=== PATIENT | male | born 1955 | race Caucasian/White ===

== ENCOUNTER 2017-12-13 18:20 | Inpatient (IN) | payer BC ==
[2017-12-13] MEDS ORDERED: SODIUM CHLORIDE 0.9% 1,000 ML IV STA (18:30)
[2017-12-13 18:47] LABS: Basophils % (A) 0 %; Eosinophils # (A) 0.3 k/uL (0-0.7); Eosinophils % (A) 4 %; HCT 41.5 % (39.0-53.0); HGB 13.6 gm/dL (13.0-17.5); Lymphocytes # (A) 2.1 k/uL (1.0-4.8); Lymphocytes % (A) 31 %; MCH 30.8 pg (25.0-35.0); MCHC 32.8 g/dL (31.0-37.0); MCV 93.9 fL (80.0-100.0); Mean Platelet Volume 6.9; Monocytes # (A) 0.5 k/uL (0-1.0); Monocytes % (A) 7 %; Neutrophils # (A) 3.7 k/uL (1.3-7.7); Neutrophils % (A) 54 %; Platelet Count 275 k/uL (150-450); RBC 4.42 m/uL (4.30-5.90); RDW 13.2 % (11.5-15.5); WBC 6.8 k/uL (3.8-10.6)
--- NOTE | 2017-12-13 18:48 | ED ---
Neuro HPI - General Chief Complaint: Neuro Symptoms/Deficit Stated Complaint: Left Side Numbness Time Seen by Provider: 12/13/17 18:30 Source: patient Mode of arrival: wheelchair Limitations: no limitations - History of Present Illness Is the patient presenting with stroke symptoms?: No Initial Comments: 62 years old gentleman from some tingling and has left arm and left leg started with an hour he just finished her supper he noticed some tingling now he denies any weakness of the left upper or lower extremity he didn't drop anything is on the left hand and he was able to ambulate without difficulty from his house to his car he denies any headache no blurred vision no slurred speech no chest pain no shortness of breath no abdominal pain no frequency urgency dysuria he has tingling of the left upper and lower extremity. I spoke with his she did noted she did not notice any facial droop she did not notice any slurred speech. - Related Data Home Medications: Home Medications Medication Instructions Recorded Confirmed Atorvastatin Calcium [Lipitor] 20 mg PO DAILY 03/04/14 03/04/14 Fluticasone/Salmeterol [Advair 1 inhalation PO BID 03/04/14 03/04/14 250-50 Diskus] Omeprazole [PriLOSEC] 20 mg PO AC-BRKFST 03/04/14 03/04/14 Previous Rx's Medication Instructions Recorded Hydrocodone/Acetaminophen [[place] 1 - 2 each PO Q6HR PRN #30 tab 03/04/14 5-325] Orphenadrine [Norflex] 100 mg PO Q12H #20 tablet.er 03/04/14 predniSONE 20 mg PO BID #10 tab 03/04/14 Allergies/Adverse Reactions: Allergies Allergy/AdvReac Type Severity Reaction Status Date / Time simvastatin [From Zocor] Allergy Itching Verified 12/13/17 18:23 Review of Systems ROS Statement: Those systems with pertinent positive or pertinent negative responses have been documented in the HPI. ROS Other: All systems not noted in ROS Statement are negative. General Exam - General Exam Comments Initial Comments: General: The patient is awake and alert, in no distress, and does not appear acutely ill. GCS is 15 Skin: Skin is warm and dry and no rashes or lesions are noted. Eye: Pupils are equal, round and reactive to light, extra-ocular movements are intact; there is normal conjunctiva bilaterally. Ears, nose, mouth and throat: There are moist mucous membranes and no oral lesions. Neck: The neck is supple, there is no tenderness, no sign of meningitis Cardiovascular: There is a regular rate and rhythm. No murmur, rub or gallop is appreciated. Respiratory: To auscultation bilateral, no wheezing no rhonchi no distress respiratory arzate noticed Gastrointestinal: Soft, non-distended, non-tender abdomen without masses or organomegaly noted. There is no rebound or guarding present. Bowel sounds are unremarkable. Back: There is no tenderness to palpation in the midline. There is no obvious deformity. Musculoskeletal: Normal ROM, no tenderness, There is no pedal edema. There is no calf tenderness or swelling. No cords were appreciated. Neurological: CN II-XII intact, Cranial nerves III through XII are intact. There are no obvious motor or sensory deficits. Coordination appears grossly intact. Speech is normal. No motor or sensory deficits were appreciated, he was able to appreciate the pinpricks on his left toes as well as left hand fingers as good as on the right side Psychiatric: Cooperative, appropriate mood & affect, normal judgment. Limitations: no limitations Stroke MDM - Lab Data Result diagrams: 12/13/17 18:37 12/13/17 18:37 Lab Results 12/13/17 12/13/17 12/13/17 Range/Units 18:37 18:37 18:37 WBC 6.8 (3.8-10.6) k/uL RBC 4.42 (4.30-5.90) m/uL Hgb 13.6 (13.0-17.5) gm/dL Hct 41.5 (39.0-53.0) % MCV 93.9 (80.0-100.0) fL MCH 30.8 (25.0-35.0) pg MCHC 32.8 (31.0-37.0) g/dL RDW 13.2 (11.5-15.5) % Plt Count 275 (150-450) k/uL Neutrophils % 54 % Lymphocytes % 31 % Monocytes % 7 % Eosinophils % 4 % Basophils % 0 % Neutrophils # 3.7 (1.3-7.7) k/uL Lymphocytes # 2.1 (1.0-4.8) k/uL Monocytes # 0.5 (0-1.0) k/uL Eosinophils # 0.3 (0-0.7) k/uL Basophils # 0.0 (0-0.2) k/uL PT (9.0-12.0) sec INR (<1.2) APTT (22.0-30.0) sec Sodium 141 (137-145) mmol/L Potassium 4.4 (3.5-5.1) mmol/L Chloride 108 H (98-107) mmol/L Carbon Dioxide 26 (22-30) mmol/L Anion Gap 7 mmol/L BUN 28 H (9-20) mg/dL Creatinine 1.10 (0.66-1.25) mg/dL Est GFR (CKD-EPI)AfAm 82 (>60 ml/min/1.73 sqM) Est GFR (CKD-EPI)NonAf 71 (>60 ml/min/1.73 sqM) Glucose 113 H (74-99) mg/dL Calcium 9.3 (8.4-10.2) mg/dL Total Bilirubin 0.5 (0.2-1.3) mg/dL AST 28 (17-59) U/L ALT 31 (21-72) U/L Alkaline Phosphatase 63 (38-126) U/L Total Creatine Kinase 116 (55-170) U/L CK-MB (CK-2) 1.1 (0.0-2.4) ng/mL CK-MB (CK-2) Rel Index 0.9 Troponin I <0.012 (0.000-0.034) ng/mL Total Protein 7.0 (6.3-8.2) g/dL Albumin 4.2 (3.5-5.0) g/dL 12/13/17 Range/Units 18:37 WBC (3.8-10.6) k/uL RBC (4.30-5.90) m/uL Hgb (13.0-17.5) gm/dL Hct (39.0-53.0) % MCV (80.0-100.0) fL MCH (25.0-35.0) pg MCHC (31.0-37.0) g/dL RDW (11.5-15.5) % Plt Count (150-450) k/uL Neutrophils % % Lymphocytes % % Monocytes % % Eosinophils % % Basophils % % Neutrophils # (1.3-7.7) k/uL Lymphocytes # (1.0-4.8) k/uL Monocytes # (0-1.0) k/uL Eosinophils # (0-0.7) k/uL Basophils # (0-0.2) k/uL PT 10.6 (9.0-12.0) sec INR 1.1 (<1.2) APTT 23.2 (22.0-30.0) sec Sodium (137-145) mmol/L Potassium (3.5-5.1) mmol/L Chloride (98-107) mmol/L Carbon Dioxide (22-30) mmol/L Anion Gap mmol/L BUN (9-20) mg/dL Creatinine (0.66-1.25) mg/dL Est GFR (CKD-EPI)AfAm (>60 ml/min/1.73 sqM) Est GFR (CKD-EPI)NonAf (>60 ml/min/1.73 sqM) Glucose (74-99) mg/dL Calcium (8.4-10.2) mg/dL Total Bilirubin (0.2-1.3) mg/dL AST (17-59) U/L ALT (21-72) U/L Alkaline Phosphatase (38-126) U/L Total Creatine Kinase (55-170) U/L CK-MB (CK-2) (0.0-2.4) ng/mL CK-MB (CK-2) Rel Index Troponin I (0.000-0.034) ng/mL Total Protein (6.3-8.2) g/dL Albumin (3.5-5.0) g/dL Past Medical History Past Medical History: Asthma, GERD/Reflux, Hyperlipidemia History of Any Multi-Drug Resistant Organisms: None Reported Past Surgical History: Appendectomy Past Psychological History: No Psychological Hx Reported Smoking Status: Former smoker Past Alcohol Use History: Occasional Past Drug Use History: None Reported Course Vital Signs 12/13/17 12/13/17 18:23 19:20 Temperature 98.2 F 98.2 F Pulse Rate 78 65 Respiratory 18 16 Rate Blood Pressure 146/77 137/82 O2 Sat by Pulse 98 98 Oximetry EKG is normal sinus ventricular rate is 64 NH interval is 156 QRS duration is 70 QT/QTc is 460/429 review of this EKG does not reveal any ST elevation or ST depression Patient is reassessed at term 8 PM, head CT is normal chest x-ray ruled out any pneumothorax or consolidation CBC INR compressive metabolic panel troponin are unremarkable EKG was normal as well. Patient is complaining about some numbness to the face on the left side now and he had admitted numbness, comes and goes and he still has considering the possibility of a brain stem infarct and will admit patient to hospitalist group and Dr. Pettit and will consult Dr. Champion, labs and imaging were discussed with the patient he agrees with the plan Disposition Clinical Impression: Tingling of left upper extremity, Numbness and tingling of left lower extremity , Left-sided face pain Disposition: ADMITTED IP TO THIS HOSP Condition: Good Referrals: Hammad Matos DO [Primary Care Provider] - 1-2 days
[2017-12-13 18:56] LABS: Albumin 4.2 g/dL (3.5-5.0); Calcium 9.3 mg/dL (8.4-10.2); Potassium 4.4 mmol/L (3.5-5.1); Total Bilirubin 0.5 mg/dL (0.2-1.3)
[2017-12-13 18:59] LABS: Creatine Kinase 116 U/L (55-170)
--- NOTE | 2017-12-13 19:08 | XR ---
EXAMINATION TYPE: XR chest 2V DATE OF EXAM: 12/13/2017 COMPARISON: November 2010 HISTORY: Altered mental status TECHNIQUE: Frontal and lateral views of the chest are obtained. FINDINGS: Slight diffuse interstitial prominence is chronic in comparison to exam of 2011 also sligh tly more pronounced in the represent underlying interstitial lung disease. There is no focal air spac e opacity, pleural effusion, or pneumothorax seen. The cardiac silhouette size is upper limits of no rmal. The osseous structures are intact. IMPRESSION: 1. No focal consolidation to suggest pneumonia. No pleural effusion or pneumothorax. 2. Slight interstitial prominence, minimally progressed from the exam of 2010 may represent underlyin g interstitial lung disease.
[2017-12-13 19:12] LABS: Creatine Kinase MB 1.1 ng/mL (0.0-2.4); Troponin I <0.012 ng/mL (0.000-0.034)
--- NOTE | 2017-12-13 19:13 | CT ---
EXAMINATION TYPE: CT brain wo con DATE OF EXAM: 12/13/2017 COMPARISON: None HISTORY: Left side numbness CT DLP: 1003.7 mGycm Automated exposure control for dose reduction was used. TECHNIQUE: CT scan of the head is performed without contrast. FINDINGS: There is no acute intracranial hemorrhage, mass effect, or midline shift identified. Punctate dystrop hic basal ganglia calcifications are noted. There is no suspicious extra-axial fluid collection ident ified. The ventricles and sulci are within normal limits in size. Extensive mucosal thickening with i nspissated secretions is seen within the right maxillary sinus and circumferential mild mucosal thick ening within the visualized portion of the left maxillary sinus. Mild mucosal thickening is also pres ent within the ethmoid sinuses. The frontal and sphenoid sinuses are well aerated although the left s phenoid sinus is hypoplastic. Mastoid air cells are also well aerated. Cerumen impaction is noted wit hin the internal auditory canals. IMPRESSION: 1. No acute intracranial process. 2. Acute on chronic sinusitis within the maxillary and ethmoid sinuses.
[2017-12-13 19:15] LABS: INR 1.1 (<1.2); Partial Thromboplastin Time 23.2 sec (22.0-30.0); Prothrombin Time 10.6 sec (9.0-12.0)
[2017-12-13] MEDS ORDERED: NALOXONE 0.4 MG/ML 1 ML VIAL IV PRN (20:03)
[2017-12-13] MEDS ORDERED: ASPIRIN 81 MG PO STA (20:03)
[2017-12-13] MEDS ORDERED: ONDANSETRON 4 MG/2 ML VIAL IVP PRN (20:11)
[2017-12-13] MEDS ORDERED: ACETAMINOPHEN TAB 325 MG TAB PO PRN (20:11)
[2017-12-13] MEDS ORDERED: HYDROcodone/APAP 5-325MG 1 EACH TAB PO PRN (20:17)
[2017-12-13] MEDS: SODIUM CHLORIDE 0.9% 1,000 ML IV SCH (20:29)
[2017-12-14] MEDS ORDERED: SYMBICORT 80-4.5 MCG INHALER INHALATION SCH
--- NOTE | 2017-12-14 00:08 | CT ---
EXAMINATION TYPE: CT angio head neck DATE OF EXAM: 12/13/2017 HISTORY: Prior brain wo done earlier today, pt presents to ER with left sided facial numbness and lef t sided facial droop COMPARISON: CT DLP: 433.30 mGycm. Automated Exposure Control for Dose Reduction was Utilized. TECHNIQUE: CTA scan of the neck is performed with IV Contrast, patient injected with 65 mL of Isovue 370, axial images are obtained, coronal and sagittal reformatted images are reviewed. Three-D recons tructed images are created on an independent workstation and reviewed. FINDINGS: There is normal branching pattern of the great vessels on the aortic arch. There is wide patency of t he great vessels. There is arterial flow in both vertebral arteries. Vertebral arteries are fairly symmetric. There is arterial flow in the common internal and external carotid arteries bilaterally. The carotid arteries are widely patent. There is no evidence of carotid or vertebral artery aneurysm or dissectio n. There is no evidence of stenosis. There is arterial flow in the anterior middle and posterior cerebral arteries. There is arterial flow in the vertebrobasilar artery system. Right vertebral artery is larger than the left. There is bilat eral patency of the posterior communicating arteries. There is normal contrast opacification of the v enous sinuses. There is no evidence of aneurysm or neovascularity. IMPRESSION: Negative CT angiogram of the neck. Negative CT angiogram of the brain.
[2017-12-14] MEDS: CYCLOBENZAPRINE 10 MG TAB PO SCH ×3 (01:48→23:12)
[2017-12-14] MEDS: predniSONE 20 MG TAB PO SCH ×3 (01:48→20:56)
[2017-12-14] MEDS: HEPARIN SODIUM,PORCINE 5,000 UNIT/ML 1 ML VIAL SQ SCH ×3 (01:49→20:56)
--- NOTE | 2017-12-14 03:23 | HP ---
HISTORY AND PHYSICAL CHIEF COMPLAINTS: Numbness of the left side of the body. HISTORY OF PRESENT ILLNESS: This 62-year-old gentleman with a past medical history of asthma, GERD, hyperlipidemia, being followed by Dr. Hammad Matos in the outpatient setting, was apparently having numbness today which is involving the left arm initially and subsequently spread to the left lower limb and face also and the patient came to [facility] and was admitted for further evaluation and treatment. Patient was able to ambulate and the patient had no blurring of vision. No other symptoms are noted and the initial CAT scan did not show acute abnormality. Patient admitted to the hospital for further evaluation and treatment. There is no history of fever, rigors. No history of headache, loss of consciousness or seizures. PAST MEDICAL HISTORY: Asthma, GERD, hyperlipidemia. MEDICATIONS: Prior to admission include: 1. Prednisone 20 mg b.i.d. 2. Norflex 100 mg b.i.d. 3. Prilosec 20 mg breakfast. 4. [place] 5 mg q.6h p.r.n. 5. Advair 250/50 1 puff b.i.d. 6. Lipitor 20 mg daily. ALLERGIES: noted FAMILY HISTORY: History of stroke in grandfather who had also hemiplegia. SOCIAL HISTORY: Previous history of smoking. No history of current smoking or alcohol intake. REVIEW OF SYSTEMS: ENT: No diminished vision. No diminished hearing. CARDIOVASCULAR: No angina or palpitations. RESPIRATORY: No cough. No hemoptysis. GI: No nausea or vomiting. no dysuria. ALLERGY/IMMUNOLOGY: As mentioned earlier. HEMATOLOGY/ONCOLOGY: No history of anemia. ENDOCRINE: As mentioned earlier. CONSTITUTIONAL: As mentioned earlier. RHEUMATOLOGY: Negative. DERMATOLOGY: Negative. PSYCHIATRIC: As mentioned earlier. NEUROLOGICAL: As mentioned earlier. PHYSICAL EXAM: GENERAL: Patient is alert and oriented x3. VITAL SIGNS: The pulse is 65. Blood pressure 137/82, respirations 16, temperature 98.2, pulse ox 98% on 2 L. HEENT: Conjunctivae normal. Oral mucosa moist. NECK: No jugular venous distention. No carotid bruit. No lymph node enlargement. CARDIOVASCULAR: S1, S2 muffled. No S3, no S4. RESPIRATORY: Breath sounds diminished in the bases. No rhonchi. No crackles. ABDOMEN: Soft, nontender. No mass palpable. LEGS: No edema and no swelling. NERVOUS SYSTEM: Higher functions as mentioned earlier. Cranial nerves 2 thru 12 grossly intact. Moves all 4 limbs. Power is normal. Minimal incoordination noted on the left compared to the right. Very minimal. Otherwise gait normal. No sensory abnormalities. Reflexes are normal. SKIN: No ulcer, rash or bleeding. LYMPHATICS: No lymph nodes palpable in the neck, axillae or groin. JOINTS: No active deforming arthropathy. LABS: CBC, PT, INR normal. BUN is 28, chloride is 108, glucose 113. Otherwise CMP is normal. ASSESSMENT: 1. Numbness of the left arm and leg, possibly acute transient ischemic attack involving the right hemisphere. 2. Asthma. 3. Gastroesophageal reflux disease. 4. Hyperlipidemia. 5. Appendectomy. 6. Remote history of nicotine dependence. RECOMMENDATIONS AND DISCUSSION: In this 62-year-old gentleman who presented with multiple complex medical issues , we will monitor the patient closely. Continue the current management and continue symptomatic treatment. We will initiate antiplatelet agents, Lipitor. DVT prophylaxis. Neuro checks. I would also recommend a neurology evaluation also and as well as a CTA of the neck and the brain as well. A 2D echo also will be ordered. The patient is currently stable but overall prognosis guarded. Discussed with the patient who understands and agrees. Further recommendations to follow. A copy of dictation being forwarded to Dr. Erika Matos who is the primary physician. CHELSY / ANTWON: [id number] / MTDD
[2017-12-14 05:03] VITALS: RESP 16
[2017-12-14 06:45] LABS: Basophils % (A) 0 %; Eosinophils # (A) 0.1 k/uL (0-0.7); Eosinophils % (A) 2 %; HCT 42.3 % (39.0-53.0); HGB 13.8 gm/dL (13.0-17.5); Lymphocytes # (A) 0.9 k/uL (1.0-4.8); Lymphocytes % (A) 14 %; MCH 30.8 pg (25.0-35.0); MCHC 32.7 g/dL (31.0-37.0); MCV 94.1 fL (80.0-100.0); Mean Platelet Volume 6.9; Monocytes # (A) 0.2 k/uL (0-1.0); Monocytes % (A) 3 %; Neutrophils # (A) 4.7 k/uL (1.3-7.7); Neutrophils % (A) 79 %; Platelet Count 259 k/uL (150-450); RBC 4.49 m/uL (4.30-5.90); RDW 13.1 % (11.5-15.5); WBC 5.9 k/uL (3.8-10.6)
[2017-12-14 06:57] LABS: Anion Gap 7 mmol/L; Blood Urea Nitrogen 25 mg/dL (9-20); Calcium 9.1 mg/dL (8.4-10.2); Carbon Dioxide 24 mmol/L (22-30); Chloride 108 mmol/L (98-107); Glucose 124 mg/dL (74-99); HDL Cholesterol 51 mg/dL (40-60); Potassium 5.1 mmol/L (3.5-5.1); Sodium 139 mmol/L (137-145); Triglycerides 105 mg/dL (<150)
[2017-12-14 06:58] LABS: Cholesterol 286 mg/dL (<200); LDL Cholesterol,Calculated 214 mg/dL (0-99)
[2017-12-14 07:06] LABS: Appearance,Urine Clear (Clear); Bilirubin,Urine Negative (Negative); Blood,Urine Negative (Negative); Color,Urine Yellow; Glucose,Urine (UA) Negative (Negative); Ketones,Urine Trace (Negative); Leukocyte Esterase,Urine Negative (Negative); Nitrite,Urine Negative (Negative); Protein,Urine Negative (Negative); Specific Gravity,Urine 1.039 (1.001-1.035); Urobilinogen,Urine <2.0 mg/dL (<2.0)
[2017-12-14] MEDS: SYMBICORT 80-4.5 MCG INHALER INHALATION SCH ×2 (07:44→19:49)
[2017-12-14] MEDS: ATORVASTATIN 20 MG TAB PO SCH (10:05)
[2017-12-14] MEDS: PANTOPRAZOLE 40 MG TABLET PO SCH (10:05)
--- NOTE | 2017-12-14 10:37 | ECHOF ---
Referral Reason:Stroke MEASUREMENTS -------- HEIGHT: 182.9 cm WEIGHT: 97.1 kg BP: 141/182 RVIDd: 2.4 cm (< 3.3) IVSd: 1.3 cm (0.6 - 1.1) LVIDd: 4.8 cm (3.9 - 5.3) LVPWd: 1.1 cm (0.6 - 1.1) IVSs: 1.6 cm LVIDs: 3.8 cm LVPWs: 1.5 cm LA Diam: 3.8 cm (2.7 - 3.8) Ao Diam: 2.7 cm (2.0 - 3.7) AV Cusp: 1.6 cm (1.5 - 2.6) LA Diam: 3.4 cm (2.7 - 3.8) MV EXCURSION: 26.725 mm (> 18.000) MV EF SLOPE: 133 mm/s (70 - 150) EPSS: 1.1 cm MV E Carlitos: 0.68 m/s MV DecT: 209 ms MV A Carlitos: 0.52 m/s MV E/A Ratio: 1.30 AV maxP.79 mmHg AV meanP.16 mmHg RAP: 5.00 mmHg RVSP: 19.52 mmHg FINDINGS -------- Sinus rhythm. This was a technically adequate study. The left ventricular size is normal. There is mild concentric left ventricular hypertrophy. Overa ll left ventricular systolic function is low-normal with, an EF between 50 - 55 %. The right ventricle is normal in size. The left atrial size is normal. The right atrial size is normal. The aortic valve was not well visualized. There is moderate aortic stenosis present. Peak/mean gr adient across the Aortic Valve is 39.79mmHg / 21.16mmHg. Can't exclude possible Bicuspid Aov. Mild mitral annular calcification present. Mild mitral regurgitation is present. Mild tricuspid regurgitation present. There is no evidence of pulmonary hypertension. The right v entricular systolic pressure, as measured by Doppler, is 19.52mmHg. The pulmonic valve was not well visualized. The aortic root size is normal. There is no pericardial effusion. CONCLUSIONS -------- 1. The left ventricular size is normal. 2. There is mild concentric left ventricular hypertrophy. 3. Overall left ventricular systolic function is low-normal with, an EF between 50 - 55 %. 4. The right ventricle is normal in size. 5. The aortic valve was not well visualized. 6. There is moderate aortic stenosis present. 7. Peak/mean gradient across the Aortic Valve is 39.79mmHg / 21.16mmHg. 8. Can't exclude possible Bicuspid Aov. 9. Mild mitral annular calcification present. 10. Mild mitral regurgitation is present. 11. Mild tricuspid regurgitation present. 12. There is no evidence of pulmonary hypertension. 13. The right ventricular systolic pressure, as measured by Doppler, is 19.52mmHg. 14. The pulmonic valve was not well visualized. 15. The aortic root size is normal. 16. There is no pericardial effusion. SOCIAL WORKER ASSISTANT: Marilee Polk RDCS
[2017-12-14] MEDS ORDERED: LORazepam 2 MG/ML INJ IV PRN (12:12)
[2017-12-14] MEDS: ASPIRIN 81 MG PO SCH (13:31)
--- NOTE | 2017-12-14 13:39 | PN ---
PROGRESS NOTE DATE OF SERVICE: 12/14/2017. HISTORY: This 62-year-old gentleman was admitted with numbness of the left side of the body, being evaluated for possible transient ischemic attack. Neurology evaluation is pending. CT angio did not show any acute abnormality. A 2D echo showed ejection fraction 50% to 55%. Cholesterol is elevated. No chest pain or palpitations. PHYSICAL EXAM: Alert and oriented x2. Pulse 77, blood pressure 141/82, respirations 16, temperature 97.4, pulse ox 97% room air. HEENT: Conjunctivae normal. Oral mucosa moist. NECK: Supple. No jugular venous distention. No lymph nodes. CARDIOVASCULAR: Breath sounds diminished at the bases. No rhonchi, no crackles. ABDOMEN: Soft, nontender. EXTREMITIES: Legs no edema. NERVOUS SYSTEM: No focal deficits. LABS: CBC within normal. Sodium 139, potassium 5.1 glucose 124. Cholesterol 286 and 214. ASSESSMENT: 1. Numbness of the left arm and leg, possible acute transient ischemic attack involving the right hemisphere. 2. Hyperlipidemia. 3. History of asthma. 4. History of gastroesophageal reflux disease. 5. Hyperlipidemia. 6. History of appendectomy. 7. Remote history of nicotine dependence. 8. Family history of stroke. DISCUSSION: This 62-year-old gentleman presented with multiple complex medical issues. We will monitor the patient closely. Continue the antiplatelet agents. Otherwise I would recommend to add Lipitor to the current regimen. Otherwise monitor closely with Neurology. Prognosis guarded because of multiple complex medical issues. Further recommendations to follow. MMODL / IJN: [id number] /
[2017-12-14] MEDS ORDERED: LORazepam 2 MG/ML INJ IV STA (17:35)
--- NOTE | 2017-12-14 18:45 | MR ---
EXAMINATION TYPE: MR brain wo/w con DATE OF EXAM: 12/14/2017 COMPARISON: None HISTORY: Left side weakness. Slurred speech TECHNIQUE: Multiplanar, multisequence images of the brain and brainstem is performed without and with IV contras t, utilizing 7.5 mL intravenous . Gadolinium FINDINGS: There is mild cerebral cortical atrophy. On the T2 and FLAIR images there are numerous foci of increa sed signal in the periventricular white matter. Total number is more than 25 and some of these measur e 1 cm. The brain stem appears normal. Sella turcica appears normal. Corpus callosum appears normal. Cerebellum appears normal. The contrast images show no pathologic enhancement. There is normal enhanc ement of the venous sinuses. IMPRESSION: Moderate periventricular white matter signal changes. This is suggestive of demyelinating disease. No cortical infarct seen. Chronic small vessel ischemia is in the differential diagnosis.
--- NOTE | 2017-12-14 19:33 | P.CNNES ---
History of Present Illness Consult date: 12/14/17 Reason for Consult: Patient admiited with left sided numbness and possible TIA. History of Present Illness: This patient is a 62-year-old right-handed white male who was brought into the emergency room yesterday at [facility] for evaluation of left- sided numbness. Patient states that initially he noted numbness involving the left arm and then later the left side of his face. A few hours later the left leg was also feeling numb and tingly. His was very concerned and decided to bring him to the emergency room at [facility] for further evaluation. The patient was seen in the emergency room by Dr. Pickett. He did not present with any acute findings for acute stroke requiring intervention with TPA. He was sent for a computed tomography scan of the brain which revealed no acute intracranial process. There was acute on chronic sinusitis with maxillary and ethmoid sinuses. No evidence of acute stroke. Patient was subtotally admitted to the hospital. He states his overall presentation of left -sided numbness lasted about 1-2 hours and gradually resolved yesterday in the ER. On several occasions he had recurrence of numbness come back that again only lasted 30-40 minutes and resolved. The patient was sent for a CTA angiogram of the head and neck. This study came back negative for any evidence of abnormalities. Patient was subtotally admitted to hospital for further evaluation. He underwent laboratory testing in the ER and his total cholesterol was noted to be very elevated at 286. His LDL was 214. He was started on Lipitor 20 mg daily. Apparently he has not seen his primary care physician Dr. Matos in several years. The patient definitely has high risk for recurrent TIA and stroke. We have recommended he should follow-up with a primary care physician at least 2-3 times a year. Patient was sent for MRI of the brain today. According to the who is at bedside the patient is not been a very good compliant patient in terms of his medical problems in the past. Clearly his hyperlipidemia is quite serious and he will need to follow- up with his primary care physician for close monitoring of his serum cholesterol. We also recommend the patient should be placed on aspirin daily for secondary stroke prevention. Patient was able to complete MRI of the brain today which reveals moderate periventricular white matter changes. There was no evidence of acute stroke on the MRI of the brain. Chronic small vessel ischemic changes were noted. We did review the results of the CTA angiogram with the patient in detail. There does not appear to be any vascular occlusion or aneurysm. We will continue close neurological follow-up for the patient. Currently his neurological examination is nonfocal and he denies any peers seizures or numbness. Neurology is now been consulted for further evaluation and recommendations. Review of Systems Constitutional: Denies chills, Denies fever Eyes: denies blurred vision, denies pain Ears, nose, mouth and throat: Denies headache, Denies sore throat Cardiovascular: Denies chest pain, Denies shortness of breath Respiratory: Denies cough Gastrointestinal: Denies abdominal pain, Denies diarrhea, Denies nausea, Denies vomiting Musculoskeletal: Denies myalgias Integumentary: Denies pruritus, Denies rash Neurological: Reports paresthesias, Reports tingling, Denies numbness, Denies weakness Psychiatric: Denies anxiety, Denies depression Endocrine: Denies fatigue, Denies weight change Past Medical History Past Medical History: Asthma, GERD/Reflux, Hyperlipidemia, Pneumonia Additional Past Medical History / Comment(s): FREQUENT PNEUMONIA, FATTY LIVER, HEART MURMUR, VALVE HAS 2 LEAFLETS INSTEAD OF 3, CHRONIC BACK PAIN/SPONDYLITIS. History of Any Multi-Drug Resistant Organisms: None Reported Past Surgical History: Appendectomy Additional Past Surgical History / Comment(s): COLONOSCOPY, L FOOT FRACTURE WITH PINNING THEN REMOVED. Smoking Status: Former smoker - Past Family History Father Family Medical History: Myocardial Infarction ([place]) Additional Family Medical History / Comment(s): FATHER IN HIS 50S FROM A [place] Mother Family Medical History: COPD Additional Family Medical History / Comment(s): MOTHER HAD HEART DISEASE AND POSSIBLY HAD A [place] Son(s) Family Medical History: Asthma Additional Family Medical History / Comment(s): PT HAS A SON THAT HAD ASTHMA AND FROM "THROAT SWELLING SHUT." Medications and Allergies Home Medications Medication Instructions Recorded Confirmed Type Omeprazole [PriLOSEC] 20 mg PO AC-BRKFST 03/04/14 12/14/17 History Allergies Allergy/AdvReac Type Severity Reaction Status Date / Time simvastatin [From Zocor] Allergy Itching Verified 12/14/17 07:46 Physical Examination - Vital Signs Vital Signs: Vital Signs Temp Pulse Pulse Resp BP BP Pulse Ox 12/14/17 16:00 66 12/14/17 15:54 97.2 F L 66 16 120/77 95 12/14/17 11:25 63 16 106/64 95 12/14/17 08:30 63 16 12/14/17 06:42 97.2 F L 77 16 141/82 97 12/14/17 06:32 75 16 12/14/17 05:01 77 16 12/13/17 21:41 65 18 135/85 98 12/13/17 19:20 98.2 F 65 16 137/82 98 12/13/17 18:23 98.2 F 78 18 146/77 98 Intake and Output 12/14/17 12/14/17 12/14/17 06:59 14:59 22:59 Other: # Voids 1 Weight 95.9 kg - Constitutional General appearance: average body habitus, cooperative - EENT EENT: PERRL, mucous membranes moist - Respiratory Respiratory: lungs clear, normal breath sounds - Cardiovascular Cardiovascular: regular rate, normal S1, normal S2 Extremities: no peripheral edema bilaterally - Gastrointestinal Gastrointestinal: normoactive bowel sounds - Integumentary Integumentary: normal - Neurologic Cranial nerve examination: PERRL, EOMI, VFF, V1/V2/V3 grossly intact, face symmetric, intact gag reflex, intact corneal reflex, normal palatal elevation Speech examination: intact Sensorimotor examination: intact Motor examination - right side: 4/5: biceps, triceps, wrist flexion, wrist extension, criminal records technician, hip flexors, knee extensors, dorsiflexion, toe extension (EHL) , plantarflexion Motor examination - left side: 4/5: biceps, triceps, wrist flexion, wrist extension, criminal records technician, hip flexors, knee extensors, dorsiflexion, toe extension (EHL) , plantarflexion Detailed sensory examination: intact Reflex and gait examination: intact Reflexes: 1+: ankle, bicep, knee, tricep - Musculoskeletal Musculoskeletal: no pain - Psychiatric Psychiatric: mood/affect appropriate, cooperative Results - Laboratory Findings CBC and BMP: 12/14/17 06:08 12/14/17 06:08 Abnormal Lab Findings: Abnormal Labs 12/13/17 12/14/17 12/14/17 18:37 06:08 06:08 Lymphocytes # 0.9 L Chloride 108 H 108 H BUN 28 H 25 H Glucose 113 H 124 H Cholesterol 286 H LDL Cholesterol, Calc 214 H Ur Specific [place] Urine Ketones 12/14/17 06:30 Lymphocytes # Chloride BUN Glucose Cholesterol LDL Cholesterol, Calc Ur Specific [place] 1.039 H Urine Ketones Trace H Assessment and Plan (1) TIA (transient ischemic attack) Current Visit: Yes Status: Acute Code(s): G45.9 - TRANSIENT CEREBRAL ISCHEMIC ATTACK, UNSPECIFIED SNOMED Code(s): 839970764 (2) Paresthesias Current Visit: Yes Status: Acute Code(s): R20.2 - PARESTHESIA OF SKIN SNOMED Code(s): 43819053 (3) Hyperlipidemia Current Visit: Yes Status: Acute Code(s): E78.5 - HYPERLIPIDEMIA, UNSPECIFIED SNOMED Code(s): 53900309 (4) Gastroesophageal reflux disease Current Visit: Yes Status: Acute Code(s): K21.9 - GASTRO-ESOPHAGEAL REFLUX DISEASE WITHOUT ESOPHAGITIS SNOMED Code(s): 789484005 Plan: This patient is a 62-year-old male who is being evaluated for recent episode of left-sided numbness and paresthesia. Symptoms came on suddenly and lasted several hours and quickly resolved. Patient was brought into the emergency room at [facility] for further evaluation yesterday. Patient was seen in the ER by Dr. Pickett. He was sent for a computed tomography scan of the brain and CTA angiogram of the head and neck. CT of the brain revealed no acute intracranial process. CTA angiogram of the head and neck was negative. Patient was admitted to hospital for further evaluation. Today he was sent for MRI of the brain results of which are noted above. We recommend patient to be maintained on 1 aspirin daily for secondary stroke prevention. Clinical history suggests possibility of right hemispheric TIA. He does have very elevated serum cholesterol of 286. We recommend aggressive therapy for this patient with a statin and repeat lipid panel in 3 months. His neurological examination at this time is nonfocal. We will continue close neurological follow-up with the patient during this admission. His overall prognosis at this time remains very guarded. Time with Patient: Greater than 30
[2017-12-14] MEDS: SODIUM CHLORIDE 0.9% 1,000 ML IV SCH (22:38)
[2017-12-15] MEDS: PANTOPRAZOLE 40 MG TABLET PO SCH ×2 (06:14→07:58)
[2017-12-15 06:18] LABS: Basophils % (A) 0 %; Eosinophils % (A) 0 %; HCT 41.3 % (39.0-53.0); HGB 13.5 gm/dL (13.0-17.5); Lymphocytes # (A) 0.8 k/uL (1.0-4.8); Lymphocytes % (A) 14 %; MCH 31.2 pg (25.0-35.0); MCHC 32.7 g/dL (31.0-37.0); MCV 95.6 fL (80.0-100.0); Mean Platelet Volume 6.9; Monocytes # (A) 0.2 k/uL (0-1.0); Monocytes % (A) 3 %; Neutrophils # (A) 4.9 k/uL (1.3-7.7); Neutrophils % (A) 81 %; Platelet Count 259 k/uL (150-450); RBC 4.32 m/uL (4.30-5.90)
[2017-12-15 06:30] LABS: Anion Gap 5 mmol/L; Blood Urea Nitrogen 22 mg/dL (9-20); Carbon Dioxide 25 mmol/L (22-30); Chloride 105 mmol/L (98-107); Glucose 142 mg/dL (74-99); Sodium 135 mmol/L (137-145)
[2017-12-15] MEDS: SYMBICORT 80-4.5 MCG INHALER INHALATION SCH (07:51)
[2017-12-15] MEDS: HEPARIN SODIUM,PORCINE 5,000 UNIT/ML 1 ML VIAL SQ SCH (07:58)
[2017-12-15] MEDS: ATORVASTATIN 20 MG TAB PO SCH (07:58)
[2017-12-15] MEDS: predniSONE 20 MG TAB PO SCH (07:58)
[2017-12-15] MEDS: ASPIRIN 81 MG PO SCH (07:58)
[2017-12-15 11:39] VITALS: BP 144/89; PULSE 68; TEMP 97.6
[2017-12-15] MEDS: CYCLOBENZAPRINE 10 MG TAB PO SCH (11:43)
--- NOTE | 2017-12-15 19:43 | EEG ---
ELECTROENCEPHALOGRAM REPORT DATE OF EE12/15/2017 ELECTROENCEPHALOGRAPHIC EXAMINATION REPORT: INDICATION FOR EXAMINATION: This patient is a 62-year-old male being evaluated for left-sided numbness and possible TIA. AGE: [age]. EEG FINDINGS: A routine 21-channel awake digital EEG recording was accomplished utilizing the 10-20 international system with bipolar and referential montages. The background activity in the most alert resting state consists of a low to medium amplitude, fairly well developed and well sustained 7-8 Hz activity over the posterior head regions. This posterior rhythm attenuates to eye opening. There is a small amount of low amplitude 18-20 Hz beta activity seen maximally over the anterior head regions. Muscle and movement artifact was observed on a few occasions during the tracing. Hyperventilation was not performed. Photic stimulation at flash frequencies of 2-30 Hz produced a good symmetrical occipital driving response. No epileptiform discharges were seen. IMPRESSION: This EEG is within normal limits for the patient's age. The EEG failed to reveal any focal, lateralized, or epileptiform abnormalities. Clinical correlation is recommended. MMLYNN / MICHIN: [id number] /
--- NOTE | 2017-12-15 22:49 | DS ---
DISCHARGE SUMMARY DATE OF SURGERY: 12/15/2017. FINAL DIAGNOSES: 1. Numbness of the left arm and leg, possible acute transient ischemic attack involving the right hemisphere. 2. Hyperlipidemia. 3. History of asthma. 4. History of gastroesophageal reflux disease. 5. History of appendectomy. 6. History of remote history of nicotine dependence. DISCHARGE DISPOSITION: The patient is being discharged in stable condition with guarded prognosis. HISTORY OF PRESENT ILLNESS: This 62-year-old gentleman with past medical history of multiple medical problems was admitted numbness of the left arm and leg suggestive of TIA. Complete neurovascular workup including MRI and CT echocardiogram were negative at this time. The patient being discharged in stable condition with guarded prognosis. Neurology saw the patient, recommended outpatient followup. On exam, vital signs are stable. Cardiovascular: S1, S2. Abdomen soft. Nervous system: No focal deficits. Labs are noted. DISCHARGE ADVICE AND MEDICATIONS: 1. Diet is cardiac low-fat, low-cholesterol. MEDICATIONS: 1. Prilosec 20 mg daily. 2. Aspirin 81 mg daily. 3. Lipitor 20 mg p.o. daily. 4. Follow up labs with Dr. Matos in 2-3 days. 5. Follow up with Dr. Matos and Dr. Vadim Champion as advised. Once again, the patient is being discharged in stable condition with guarded prognosis. MMODL / IJN: [id number] /
== END 2017-12-15 16:02 | disposition home or self-care (01) | DRG 69 ==
LOC: EC 18:20 → 6SEL 20:03
PROVIDERS: ADMIT Internal Medicine; ATTEND Internal Medicine
DX: G45.9 Transient cerebral ischemic attack, unspecified (principal); E78.5 Hyperlipidemia, unspecified; J45.909 Unspecified asthma, uncomplicated; K21.9 Gastro-esophageal reflux disease without esophagitis; K76.0 Fatty (change of) liver, not elsewhere classified; Z87.01 Personal history of pneumonia (recurrent); Z79.899 Other long term (current) drug therapy; Z82.3 Family history of stroke; Z82.49 Family history of ischemic heart disease and other diseases of the circulatory system; Z82.5 Family history of asthma and other chronic lower respiratory diseases; Z87.891 Personal history of nicotine dependence; M46.90 Unspecified inflammatory spondylopathy, site unspecified; G89.29 Other chronic pain; J01.20 Acute ethmoidal sinusitis, unspecified; J32.2 Chronic ethmoidal sinusitis; J01.00 Acute maxillary sinusitis, unspecified; J32.0 Chronic maxillary sinusitis; Z91.19 Patient's noncompliance with other medical treatment and regimen
CPT/HCPCS: 36415; 70450; 70496; 70498; 70553; 71046; 80048; 80053; 80061; 81003; 82550; 82553; 84484; 85025; 85610; 85730; 93005; 93306; 94640; 95819; 96360; 96372; 99285

== ENCOUNTER → 2017-12-25 | Outpatient (CLI) | payer BC ==
[2017-12-25 16:09] LABS: Hemoglobin A1C 6.1 % (4.0-6.0)
== END | disposition home or self-care (01) ==
LOC: LABWHC1 10:49
PROVIDERS: ATTEND Psychiatry & Neurology Neurology
DX: Z09 Encounter for follow-up examination after completed treatment for conditions other than malignant neoplasm (principal); Z86.73 Personal history of transient ischemic attack (TIA), and cerebral infarction without residual deficits
CPT/HCPCS: 36415; 82607; 83036

== ENCOUNTER 2018-01-19 07:48 | Day surgery (SDC) | payer BC ==
[2018-01-14 11:07] VITALS: BMI 32.3
[~2018-01-19 07:48] MED LIST: LACTATED RINGERS 1,000 ML IV SCH
[2018-01-19] MEDS ORDERED: LIDOCAINE 1% 20 ML VIAL (10MG/ML) FOR IV START INTRADERMA ONE (10:00)
[2018-01-19 10:19] LABS: Glucose,Whole Blood 92 mg/dL (75-99)
[2018-01-19] MEDS ORDERED: LACTATED RINGERS 1,000 ML IV ONE (11:01)
[2018-01-19 11:04] VITALS: RESP 18
--- NOTE | 2018-01-19 11:04 | P.PCN ---
Date of Procedure: 01/19/18 Procedure(s) Performed: Preoperative diagnosis: Demyelinating disease Post operative diagnoses: Demyelinating disease. Procedure= attempts diagnostic lumbar puncture under fluoroscopy guidance, I was not able to get any cerebrospinal fluid Anesthesia local infiltration with ropivacaine 0.5% Ropivacaine 8 mL. sedation with Versed 2 mg and fentanyl 100 g . Condition: stable Complication: none. Description of the procedure procedure risk and benefits discussed with the patient , consent signed. Patient in the procedure area, placed in sitting position back prepped with ,chlorhexidine 3, times , local infiltration of the skin, and subcutaneous tissue with ropivacaine 0.5 % , for skin and subQ infiltration, then multiple attempts done to get the cerebrospinal fluid at L3- 4 /L4 5/L5-S1 , I was not able to get any cerebrospinal fluid, then patient positioned in prone position, and fluoroscopy was used , again multiple atteemptes at L3 4, L4 5 and L5-S1 leveles , I was not able to get any cerebrospinal fluid, then procedure was aborted , total of total of 8 ml of ropivacaine 0.5 % used , 22-gauge Quincke-type needle spinal used for the procedure .
[2018-01-19 11:19] VITALS: BP 111/72; PULSE 61
--- NOTE | 2018-01-19 11:41 | FL ---
Fluoroscopy HISTORY: Lumbar puncture attempt 18 seconds fluoroscopy time supplied to the referring clinician. 1 intraoperative C-arm images docum ent the procedure. See dictated report from anesthesia.
[2018-01-19 14:20] LABS: T4, Free (Free Thyroxine) 1.05 ng/dL (0.78-2.19)
[2018-01-19 19:08] LABS: Rheumatoid Factor 6 IU/mL (0-15)
[2018-01-19 20:54] LABS: DNA Double-Stranded NEGATIVE (NEGATIVE); RNP <0.2 AI
[2018-01-20 14:02] LABS: APTT 37 Sec(s) (<43); Dilute Russell Viper Venom 38 Sec(s) (<44)
[2018-01-22 12:11] LABS: Lyme IgG/IgM 0.5 Index
== END 2018-01-19 11:44 | disposition home or self-care (01) ==
LOC: ORPAIN 07:48
PROVIDERS: ATTEND Specialist
DX: G37.9 Demyelinating disease of central nervous system, unspecified (principal); R20.2 Paresthesia of skin
CPT/HCPCS: 86235 ×3; 84439; 84443; 84450; 84460; 85730; 86431; 85613; 86618; 86780; 86038; 86225; 62270; J2250; J3010; 99152; 99153

== ENCOUNTER → 2018-09-24 | Outpatient (CLI) | payer MEDICARE ==
--- NOTE | 2018-09-24 11:07 | US ---
EXAMINATION TYPE: US duplex aorta DATE OF EXAM: 09/24/2018 COMPARISON: NONE CLINICAL HISTORY: Z13.6 Screening for AAA. EXAM MEASUREMENTS: Abdominal Aorta: Proximal: 1.9cm Mid: 1.7cm Distal: 1.8cm Bifurcation: Rt: 1.0 Lt: 1.0cm Patient of large body habitus of large body habitus. IMPRESSION: 1. No abdominal aortic aneurysm present.
== END | disposition home or self-care (01) ==
LOC: RADUSWWP 08:44
PROVIDERS: ATTEND Family Medicine
DX: Z13.6 Encounter for screening for cardiovascular disorders (principal)
CPT/HCPCS: 93979

== ENCOUNTER → 2018-12-13 | Outpatient (CLI) | payer MEDICARE ==
[2018-12-13 16:11] LABS: Chol/HDL Ratio 3.44; LDL Cholesterol,Calculated 117.4 mg/dL (0.0-131.0); VLDL Calculation 21.6 mg/dL (5.00-40.00)
== END | disposition home or self-care (01) ==
LOC: LABWHC1 08:10
PROVIDERS: ATTEND Psychiatry & Neurology Neurology
DX: E78.5 Hyperlipidemia, unspecified (principal); Z86.73 Personal history of transient ischemic attack (TIA), and cerebral infarction without residual deficits
CPT/HCPCS: 36415; 80061

== ENCOUNTER → 2019-07-06 | Outpatient (CLI) | payer MEDICARE ==
--- NOTE | 2019-07-06 14:54 | XR ---
EXAMINATION TYPE: XR shoulder complete LT DATE OF EXAM: 07/06/2019 CLINICAL HISTORY: Left shoulder pain with limited range of motion. No known injury. TECHNIQUE: Three views of the left shoulder are obtained. COMPARISON: None. FINDINGS: There is no acute fracture/dislocation evident in the left shoulder. The acromioclavicula r and glenohumeral joint spaces appear aligned. Mild acromio clavicular arthropathy with small margin al osteophytes. The visualized ribs are intact and unremarkable. IMPRESSION: There is no acute fracture or dislocation in the left shoulder. Mild acromioclavicular a rthropathy.
== END | disposition home or self-care (01) ==
LOC: RADXRMAIN 14:24
PROVIDERS: ATTEND Family Medicine
DX: M19.012 Primary osteoarthritis, left shoulder (principal)

== ENCOUNTER → 2021-02-11 | Outpatient (CLI) | payer MEDICARE ==
--- NOTE | 2021-02-11 15:25 | US ---
EXAMINATION TYPE: US kidneys/renal and bladder DATE OF EXAM: 02/11/2021 COMPARISON: CT 09/10/2011 CLINICAL HISTORY: N13.30 Unspecified hydronephrosis. EXAM MEASUREMENTS: Right Kidney: 9.8 x 4.6 x 5.0 cm Left Kidney: 11.3 x 4.7 x 4.9 cm Right Kidney: mild hydro Left Kidney: mild hydro Bladder: wnl No nephrolithiasis is seen. No masses are identified. Cortical medullary differentiation is maintain ed bilaterally. The urinary bladder is anechoic. Bilateral ureteral jets are seen. IMPRESSION: Mild bilateral hydronephrosis may be chronic
== END | disposition home or self-care (01) ==
LOC: RADUSWWP 13:30
PROVIDERS: ATTEND Family Medicine
DX: N13.30 Unspecified hydronephrosis (principal)
CPT/HCPCS: 76770

== ENCOUNTER 2021-11-18 13:41 | Observation (INO) | payer MEDICARE ==
[2021-11-18] MEDS ORDERED: SODIUM CHLORIDE 0.9% 1,000 ML IV STA (13:51)
[2021-11-18 13:53] LABS: Glucose,Whole Blood 107 mg/dL (70-110)
[2021-11-18 14:07] LABS: Basophils % (A) 0 %; Eosinophils # (A) 0.3 k/uL (0-0.7); Eosinophils % (A) 4 %; HCT 42.9 % (39.0-53.0); HGB 13.9 gm/dL (13.0-17.5); Lymphocytes # (A) 1.4 k/uL (1.0-4.8); Lymphocytes % (A) 22 %; MCH 32.5 pg (25.0-35.0); MCHC 32.4 g/dL (31.0-37.0); MCV 100.4 fL (80.0-100.0); Mean Platelet Volume 7.5; Monocytes # (A) 0.5 k/uL (0-1.0); Monocytes % (A) 8 %; Neutrophils % (A) 63 %; Platelet Count 247 k/uL (150-450); RBC 4.28 m/uL (4.30-5.90); RDW 12.8 % (11.5-15.5); WBC 6.4 k/uL (3.8-10.6)
--- NOTE | 2021-11-18 14:14 | CT ---
EXAMINATION TYPE: CT brain wo con for TPA DATE OF EXAM: 11/18/2021 COMPARISON: 12/13/2017 HISTORY: Left sided numbness. CT DLP: 1080.[address] of the brain was performed. The ventricles, basal cisterns and sulci overlying the cerebral convexities demonstrate mild enlargem ent. There is no evidence for intracranial hemorrhage or sulcal effacement. There is decreased attenuation about the periventricular white matter and deep white matter of both c erebral hemispheres, compatible with chronic small vessel ischemia. Differential diagnosis does inclu de demyelination. No mass effects are seen.No midline shift. Osseous calvarium is intact. If symptoms persist consider MRI. IMPRESSION: 1. Age related atrophic and chronic small vessel ischemic change without acute intracranial process s een at this time.
[2021-11-18 14:20] LABS: ALT 22 U/L (4-49); AST 29 U/L (17-59); African American GFR (CKD) >90 (>60 ml/min/1.73 sqM); Albumin 4.3 g/dL (3.5-5.0); Alkaline Phosphatase 81 U/L (38-126); Anion Gap 7 mmol/L; Blood Urea Nitrogen 25 mg/dL (9-20); Calcium 9.2 mg/dL (8.4-10.2); Carbon Dioxide 22 mmol/L (22-30); Chloride 109 mmol/L (98-107); Glucose 101 mg/dL (74-99); Non-African American GFR(CKD) 80 (>60 ml/min/1.73 sqM); Potassium 4.6 mmol/L (3.5-5.1); Sodium 138 mmol/L (137-145); Total Bilirubin 0.6 mg/dL (0.2-1.3); Total Protein 7.1 g/dL (6.3-8.2)
[2021-11-18 14:38] LABS: Partial Thromboplastin Time 23.5 sec (22.0-30.0); Prothrombin Time 11.2 sec (9.0-12.0)
--- NOTE | 2021-11-18 14:42 | ED ---
General Adult HPI - General Chief complaint: Neuro Symptoms/Deficit Stated complaint: numbness, chest pain Time Seen by Provider: 11/18/21 13:47 Source: patient, RN notes reviewed, old records reviewed Mode of arrival: ambulatory Limitations: no limitations - History of Present Illness Initial comments: 66-year-old male presenting with sudden onset left sided numbness. No associated weakness. Mild headache. Patient's symptoms began at 1300. He's h ad similar symptoms several years ago. He has history of hypertension. No associated chest pain. No fever. No focal weakness. No speech abnormalities. - Related Data Home Medications Medication Instructions Recorded Confirmed Omeprazole [PriLOSEC] 20 mg PO AC-BRKFST 03/04/14 01/19/18 Previous Rx's Medication Instructions Recorded Aspirin 81 mg PO DAILY #30 chew 12/15/17 Atorvastatin [Lipitor] 20 mg PO HS #30 tablet 12/15/17 Allergies Allergy/AdvReac Type Severity Reaction Status Date / Time simvastatin [From Zocor] Allergy Itching Verified 11/18/21 13:46 Review of Systems ROS Statement: Those systems with pertinent positive or pertinent negative responses have been documented in the HPI. ROS Other: All systems not noted in ROS Statement are negative. Past Medical History Past Medical History: Asthma, GERD/Reflux, Hyperlipidemia, Musculoskeletal Disorder Additional Past Medical History / Comment(s): FATTY LIVER, HEART MURMUR,CHRONIC BACK PAIN/SPONDYLITIS. Hx Pneumonia History of Any Multi-Drug Resistant Organisms: None Reported Past Surgical History: Appendectomy, Orthopedic Surgery Additional Past Surgical History / Comment(s): COLONOSCOPY, L FOOT FRACTURE WITH PINNING THEN REMOVED. Additional Past Anesthesia/Blood Transfusion Reaction / Comment(s): Clausterphobic Past Psychological History: No Psychological Hx Reported Smoking Status: Never smoker Past Alcohol Use History: Occasional Past Drug Use History: None Reported - Past Family History Father Family Medical History: Myocardial Infarction ([place]) Additional Family Medical History / Comment(s): FATHER IN HIS 50S FROM A [place] Mother Family Medical History: COPD Additional Family Medical History / Comment(s): MOTHER HAD HEART DISEASE AND POSSIBLY HAD A [place] Son(s) Family Medical History: Asthma Additional Family Medical History / Comment(s): PT HAS A SON THAT HAD ASTHMA AND FROM "THROAT SWELLING SHUT." General Exam Limitations: no limitations General appearance: alert, in no apparent distress Head exam: Present: atraumatic, normocephalic Eye exam: Present: normal appearance, PERRL ENT exam: Present: normal exam Neck exam: Present: normal inspection. Absent: tenderness, meningismus Respiratory exam: Present: normal lung sounds bilaterally. Absent: respiratory distress, wheezes GI/Abdominal exam: Present: soft. Absent: distended, tenderness Extremities exam: Present: normal inspection, normal capillary refill. Absent: calf tenderness Neurological exam: Present: alert, oriented X3, CN II-XII intact, motor sensory deficit (NIH of 2, facial numbness, left arm numbness, no weakness.) Psychiatric exam: Present: normal affect, normal mood Skin exam: Present: warm, dry, intact. Absent: cyanosis, diaphoretic Course Vital Signs 11/18/21 13:43 Temperature 97.8 F Pulse Rate 68 Respiratory 20 Rate Blood Pressure 140/76 O2 Sat by Pulse 99 Oximetry - Reevaluation(s) Reevaluation #1: 11/18/21 14:41 Symptoms improved, NIH of 1 EKG Findings - EKG Comments: EKG Findings:: EKG: Sinus bradycardia, rate 55, ID interval 162, QRS duration 73 QTC 384, no ST segment elevation. Medical Decision Making - Medical Decision Making 58-year-old male with sudden onset left-sided numbness face, arm, leg. Case discussed with the stroke neurologist at the onset Dr. Deras, patient not a TPA or thrombectomy candidate due to low NIH and patient's symptoms do improve all the emergency department. Head CT without contrast and CT angiography are negative. Laboratory testing unremarkable. Patient given aspirin and IV fluid. He will be admitted for further evaluation of stroke. Case discussed with Dr. Wolf. - Lab Data Result diagrams: 11/18/21 13:56 11/18/21 13:56 Lab Results 11/18/21 11/18/21 11/18/21 Range/Units 13:51 13:56 13:56 WBC 6.4 (3.8-10.6) k/uL RBC 4.28 L (4.30-5.90) m/uL Hgb 13.9 (13.0-17.5) gm/dL Hct 42.9 (39.0-53.0) % MCV 100.4 H (80.0-100.0) fL MCH 32.5 (25.0-35.0) pg MCHC 32.4 (31.0-37.0) g/dL RDW 12.8 (11.5-15.5) % Plt Count 247 (150-450) k/uL MPV 7.5 Neutrophils % 63 % Lymphocytes % 22 % Monocytes % 8 % Eosinophils % 4 % Basophils % 0 % Neutrophils # 4.0 (1.3-7.7) k/uL Lymphocytes # 1.4 (1.0-4.8) k/uL Monocytes # 0.5 (0-1.0) k/uL Eosinophils # 0.3 (0-0.7) k/uL Basophils # 0.0 (0-0.2) k/uL PT 11.2 (9.0-12.0) sec INR 1.0 (<1.2) APTT 23.5 (22.0-30.0) sec Sodium (137-145) mmol/L Potassium (3.5-5.1) mmol/L Chloride (98-107) mmol/L Carbon Dioxide (22-30) mmol/L Anion Gap mmol/L BUN (9-20) mg/dL Creatinine (0.66-1.25) mg/dL Est GFR (CKD-EPI)AfAm (>60 ml/min/1.73 sqM) Est GFR (CKD-EPI)NonAf (>60 ml/min/1.73 sqM) Glucose (74-99) mg/dL POC Glucose (mg/dL) 107 (70-110) mg/dL POC Glu Professional Skateboarder ID Marilyn, Felipe Calcium (8.4-10.2) mg/dL Total Bilirubin (0.2-1.3) mg/dL AST (17-59) U/L ALT (4-49) U/L Alkaline Phosphatase (38-126) U/L Troponin I (0.000-0.034) ng/mL Total Protein (6.3-8.2) g/dL Albumin (3.5-5.0) g/dL 11/18/21 11/18/21 Range/Units 13:56 13:56 WBC (3.8-10.6) k/uL RBC (4.30-5.90) m/uL Hgb (13.0-17.5) gm/dL Hct (39.0-53.0) % MCV (80.0-100.0) fL MCH (25.0-35.0) pg MCHC (31.0-37.0) g/dL RDW (11.5-15.5) % Plt Count (150-450) k/uL MPV Neutrophils % % Lymphocytes % % Monocytes % % Eosinophils % % Basophils % % Neutrophils # (1.3-7.7) k/uL Lymphocytes # (1.0-4.8) k/uL Monocytes # (0-1.0) k/uL Eosinophils # (0-0.7) k/uL Basophils # (0-0.2) k/uL PT (9.0-12.0) sec INR (<1.2) APTT (22.0-30.0) sec Sodium 138 (137-145) mmol/L Potassium 4.6 (3.5-5.1) mmol/L Chloride 109 H (98-107) mmol/L Carbon Dioxide 22 (22-30) mmol/L Anion Gap 7 mmol/L BUN 25 H (9-20) mg/dL Creatinine 0.98 (0.66-1.25) mg/dL Est GFR (CKD-EPI)AfAm >90 (>60 ml/min/1.73 sqM) Est GFR (CKD-EPI)NonAf 80 (>60 ml/min/1.73 sqM) Glucose 101 H (74-99) mg/dL POC Glucose (mg/dL) (70-110) mg/dL POC Glu Professional Skateboarder ID Calcium 9.2 (8.4-10.2) mg/dL Total Bilirubin 0.6 (0.2-1.3) mg/dL AST 29 (17-59) U/L ALT 22 (4-49) U/L Alkaline Phosphatase 81 (38-126) U/L Troponin I <0.012 (0.000-0.034) ng/mL Total Protein 7.1 (6.3-8.2) g/dL Albumin 4.3 (3.5-5.0) g/dL Critical Care Time Critical Care Time: Yes Total Critical Care Time: 35 Disposition Clinical Impression: Transient cerebral ischemia Disposition: ADMITTED IP TO THIS HOSP Condition: Stable Is patient prescribed a controlled substance at d/c from ED?: No Referrals: Hammad Matos DO [Primary Care Provider] - 1-2 days Time of Disposition: 15:17
--- NOTE | 2021-11-18 14:42 | CT ---
EXAMINATION TYPE: CT angio head neck CT DLP: 809.4 mGycm, Automated exposure control for dose reduction was used. DATE OF EXAM: 11/18/2021 2:31 PM COMPARISON: CT brain same day. MRI brain 12/14/2017. CLINICAL INDICATION:Male, 66 years old with history of Neuro deficit, acute, stroke suspected;, Left sided numbness. TECHNIQUE: Axially acquired helical CT angiogram of the head and neck was obtained with contrast. Axi al images are supplemented with 3D reconstructions which [facility] NASCET criteria used. Contrast used:65ml mL of Isovue 370 with IV Contrast, Oral contrast used: None. FINDINGS: CTA HEAD: No evidence of acute intracranial hemorrhage, mass effect, or midline shift. The ventricles, sulci, a nd cisterns are unremarkable. The visualized portions of the internal carotid arteries, middle cerebral arteries, anterior cerebral arteries, and posterior cerebral arteries are patent. The basilar and vertebral arteries are patent. CTA NECK: Right Carotid System: The common carotid artery and external carotid artery are patent. The carotid bifurcation demonstrate s no evidence of hemodynamically significant stenosis. The remaining portions of the internal carotid artery demonstrate normal size without significant narrowing. Left Carotid System: The common carotid artery and external carotid artery are patent. The carotid bifurcation demonstrate s no evidence of hemodynamically significant stenosis. The remaining portions of the internal carotid artery demonstrate normal size without significant narrowing. Vertebral arteries are patent without evidence hemodynamically significant stenosis. There is a three-vessel aortic arch. The origins of the great vessels are patent. No evidence of hemo dynamically significant stenosis. IMPRESSION: 1. No evidence of dissection of the cervical internal carotid arteries or vertebral arteries or any e vidence of significant stenosis at the carotid bifurcations. 2. No evidence of high-grade stenosis or intracranial aneurysm.
[2021-11-18] MEDS ORDERED: ASPIRIN 325 MG TAB PO STA (14:55)
--- NOTE | 2021-11-18 15:08 | XR ---
EXAMINATION TYPE: XR chest 2V DATE OF EXAM: 11/18/2021 COMPARISON: 12/13/2017 HISTORY: Shortness of breath TECHNIQUE: Frontal and lateral views of the chest are obtained. FINDINGS: Scattered senescent parenchymal changes noted. No evidence for infiltrate. No evidence for atelectasis. Heart size is stable. Mediastinal structures are stable and grossly unremarkable. No evidence for hilar prominence. Degenerative changes dorsal spine. IMPRESSION: 1. No evidence for acute pulmonary disease.
[2021-11-18] MEDS ORDERED: SODIUM CHLORIDE 0.9% 1,000 ML IV SCH (15:15)
[2021-11-18 18:40] LABS: Glucose,Whole Blood 89 mg/dL (70-110)
[2021-11-18] MEDS ORDERED: TICAGRELOR 90 MG TAB PO STA (18:48)
[2021-11-18] MEDS ORDERED: SODIUM CHLORIDE 0.9% 500 ML 500 ML IV ONE (18:49)
[2021-11-18] MEDS ORDERED: ATORVASTATIN 80 MG TAB PO STA (18:49)
--- NOTE | 2021-11-18 19:27 | P.HPIM ---
History of Present Illness H&P Date: 11/18/21 This is a pleasant 66 year old male with medical history of TIA, asthma, GERD, bicuspid aortic valve, aortic stenosis, remote former smoker, ankylosing spondylitis . Patient presents with one day history of numbness left side of body that started 1 pm this afternoon. He denies focal weakness. He also reports issues with gait, feeling off balance and dizziness lightheadedness when standing. He denies chest pain, shortness of breath, no fever, no recent illness. He denies dysphagia, no dysarthria. No headache, vision changes. Patient has been referred to neurology by his PCP, however is waiting for an appointment with Dr. aRvi due to office scheduling. Patient has history of similar symptoms in the past which he states was ruled a TIA. Patient Follows with Dr Erika Matos in the primary care setting and also sees Dr [facility]. Brain CT completed in the shows age related atrophic and chronic small vessel ischemic change without acute intracranial process. CTA angiography shows no dissection bilateral cervical ICA or stenosis at carotid bifurcations. There is also no evidence of high grade stenosis or intracranial aneurysm. Chest xray negative for acute findings. EKG on admission showing sinus bradycardia heart rate 57. He has been admitted to the hospital with concern for TIA vs. Acute stroke and consult has been placed to neurology. Patient will unde rgo MRI as symptoms of left sided facial numbness are returning and 2 D echocardiogram has been ordered. Additional diagnostics Troponin negative, TSH 1.480 RBC 4.28, hgb 13.9, MCV 100.4, chloride 109, BUN 25, creatinine 0.98, glucose 101. Patient is afebrile, heart rate 58, blood pressure 125/69, 96% room air REVIEW OF SYSTEMS: CONSTITUTIONAL: No fever, no malaise, no fatigue. HEENT: No recent visual problems or hearing problems. Denied any sore throat. CARDIOVASCULAR: No chest pain, orthopnea, PND, no palpitations. PULMONARY: No shortness of breath, no cough, no hemoptysis. GASTROINTESTINAL: No diarrhea, no nausea, no vomiting, no abdominal pain. Reports constipation NEUROLOGICAL: No headaches, no weakness, Reports left sided numbness. HEMATOLOGICAL: Denies any bleeding or petechiae. GENITOURINARY: Denies any burning micturition. Reports urinary frequency. MUSCULOSKELETAL/RHEUMATOLOGICAL: Denies any joint pain, swelling. Reports chronic back pain, bilateral hip pain. ENDOCRINE: Denies any polyuria or polydipsia. The rest of the 14-point review of systems is negative. PHYSICAL EXAMINATION: GENERAL: The patient is alert and oriented x3, not in any acute distress. Well developed, well nourished. HEENT: Pupils are round and equally reacting to light. EOMI. No scleral icterus. No conjunctival pallor. Normocephalic, atraumatic. No pharyngeal erythema. No thyromegaly. CARDIOVASCULAR: S1 and S2 present. Patient has murmur, bradycardic. PULMONARY: Chest is clear to auscultation, no wheezing or crackles. ABDOMEN: Soft, nontender, nondistended, normoactive bowel sounds. No palpable organomegaly. No Flank pain. MUSCULOSKELETAL: No joint swelling or deformity. EXTREMITIES: No cyanosis, clubbing, or pedal edema. NEUROLOGICAL: Gross neurological examination did not reveal any focal deficits. SKIN: No rashes. Assessment and Plan Assessment Left sided numbness, weakness Rule out transient ischemic episode vs. acute stroke, neurology has been consulted History hyperlipidemia Bicuspid aortic valve with history aortic stenosis Sinus bradycardia History of prediabetes with A1C 6.1 in 2018 Gastroesophageal reflux disease Chronic back pain History ankylosing spondylitis History of mild hydronephrosis Former smoker quit in 1986 GI Prophylaxis DVT Prophylaxis Plan This is a 66 year old male who presents with left sided numbness, weakness with concern for acute stroke. Neurology has been consulted. Patient will undergo MRI and 2D Echocardiogram has been ordered. Patient will be monitored on telemetry Continue neuro checks Resume appropriate home medications Patient is on high dose statin, plavix, aspirin Orthostatics Qshift Add bowel regimine for constipation The impression and plan of care has been dictated by Kia Perez Nurse Practitioner as directed. Dr. Maryann MD I have performed a history and physical examination and medical decision making of this patient, discussed the same with the dictator, and agree with the dictators assessment and plan as written, documented as a scribe. Based on total visit time, I have performed more than 50% of this visit. Past Medical History Past Medical History: Asthma, GERD/Reflux, Hyperlipidemia, Musculoskeletal Dis order Additional Past Medical History / Comment(s): FATTY LIVER, HEART MURMUR,CHRONIC BACK PAIN/SPONDYLITIS. Hx Pneumonia History of Any Multi-Drug Resistant Organisms: None Reported Past Surgical History: Appendectomy, Orthopedic Surgery Additional Past Surgical History / Comment(s): COLONOSCOPY, L FOOT FRACTURE WITH PINNING THEN REMOVED. Additional Past Anesthesia/Blood Transfusion Reaction / Comment(s): Clausterphobic Past Psychological History: No Psychological Hx Reported Smoking Status: Never smoker Past Alcohol Use History: Occasional Past Drug Use History: None Reported - Past Family History Father Family Medical History: Myocardial Infarction ([place]) Additional Family Medical History / Comment(s): FATHER IN HIS 50S FROM A [place] Mother Family Medical History: COPD Additional Family Medical History / Comment(s): MOTHER HAD HEART DISEASE AND POSSIBLY HAD A [place] Son(s) Family Medical History: Asthma Additional Family Medical History / Comment(s): PT HAS A SON THAT HAD ASTHMA AND FROM "THROAT SWELLING SHUT." Medications and Allergies Home Medications Medication Instructions Recorded Confirmed Type Omeprazole [PriLOSEC] 20 mg PO DAILY 03/04/14 11/18/21 History Aspirin 81 mg PO DAILY #30 chew 12/15/17 11/18/21 Rx Atorvastatin [Lipitor] 80 mg PO DAILY 11/18/21 11/18/21 History Cholecalciferol [Vitamin D3 (25 25 mcg PO DAILY 11/18/21 11/18/21 History Mcg = 1000 Iu)] Clopidogrel [Plavix] 75 mg PO HS 11/18/21 11/18/21 History Cyanocobalamin (Vitamin B-12) 1,000 mcg PO DAILY 11/18/21 11/18/21 History [Vitamin B-12] HYDROcodone/APAP 5-325MG [[place] 1 tab PO TID 11/18/21 11/18/21 History 5-325] Naproxen Sodium [Aleve] 440 mg PO Q6H 11/18/21 11/18/21 History Allergies Allergy/AdvReac Type Severity Reaction Status Date / Time simvastatin [From Zocor] Allergy Itching Verified 11/18/21 15:56 Physical Exam Vitals: Vital Signs Temp Pulse Resp BP BP Pulse Ox 11/18/21 18:19 150/89 11/18/21 16:15 98.0 F 58 L 18 125/69 98 11/18/21 13:43 97.8 F 68 20 140/76 99 Intake and Output 11/18/21 11/18/21 11/18/21 06:59 14:59 22:59 Intake Total 100 Output Total 200 Balance -100 Intake: Intake, IV Titration 100 Amount Sodium Chloride 0.9% 1, 100 000 ml @ 100 mls/hr IV . Q10H ELIOT Rx#:[id number] Output: Urine 200 Other: Weight 88.904 kg Results CBC & Chem 7: 11/18/21 13:56 11/18/21 13:56 Labs: Abnormal Lab Results - Last 24 Hours (Table) 11/18/21 11/18/21 Range/Units 13:56 13:56 RBC 4.28 L (4.30-5.90) m/uL MCV 100.4 H (80.0-100.0) fL Chloride 109 H (98-107) mmol/L BUN 25 H (9-20) mg/dL Glucose 101 H (74-99) mg/dL Assessment and Plan Time with Patient: Less than 30
[2021-11-18] MEDS ORDERED: CLOPIDOGREL 75 MG TAB PO SCH (21:00)
[2021-11-18] MEDS: HYDROcodone/APAP 5-325MG 1 EACH TAB PO SCH (21:39)
[2021-11-19] MEDS: HEPARIN SODIUM,PORCINE/PF 5,000 UNIT/0.5 ML SYRINGE SQ SCH ×2 (00:29→09:13)
[2021-11-19] MEDS ORDERED: PANTOPRAZOLE 40 MG TABLET PO SCH (07:30)
[2021-11-19 08:46] VITALS: TEMP 98.2
[2021-11-19] MEDS ORDERED: ATORVASTATIN 80 MG TAB PO SCH (09:00)
[2021-11-19] MEDS ORDERED: CHOLECALCIFEROL 25 MCG (1000 IU) TABLET PO SCH (09:00)
[2021-11-19] MEDS ORDERED: CYANOCOBALAMIN 500 MCG TAB PO SCH (09:00)
[2021-11-19] MEDS ORDERED: ASPIRIN 325 MG TAB PO SCH (09:00)
[2021-11-19] MEDS: HYDROcodone/APAP 5-325MG 1 EACH TAB PO SCH (09:12)
[2021-11-19] MEDS ORDERED: ALPRAZolam 0.5 MG TAB PO ONE (10:15)
--- NOTE | 2021-11-19 10:35 | P.CNNES ---
History of Present Illness Consult date: 11/19/21 Requesting physician: Tacos Jorge Reason for Consult: stroke/tia History of Present Illness: This is a 66 y/o gentleman with medical history of hypertension, hyperlipidemia, fatty liver, chronic low back pain who presented to the emergency department for sudden onset left-sided numbness. Patient onset of symptoms is at 1300 yesterday. He stated that he noticed that he had the left sided numbness then that progressed to the entire left arm and in the left leg and the face afterwards. He did feel like his speech was off. His symptoms lasted about 1 hour. He denied any focal weakness that is able to appreciate. Denies any visual disturbance. Denied any headache. He feels he is back to baseline. He had a similar episode in 2018 and he was evaluated by Dr. Champion in the past. He is on aspirin and Plavix 75 mg. He stated that he is on Lipitor but not sure of the dose. He has been trying to continue to follow up with Dr. Champion but since COVID has been having difficulty seeing Dr. Hodges. Patient does have chronic neck and lower back pain. Some other workup during this hospital visit consisted of of: CT of the head is reported as age-related atrophy and chronic small vessel ischemic change without acute intracranial process seen at this time. CT angiography of the head and neck was reported as no evidence of dissection of the cervical internal carotid arteries or the vertebral arteries or any evidence of significant stenosis at the carotid bifurcation. No evidence of high-grade s tenosis or intracranial aneurysm. Review of Systems Review of system: The 12 point system was reviewed and apparent positive and negative per HPI. Past Medical History Past Medical History: Asthma, GERD/Reflux, Hyperlipidemia, Musculoskeletal Disorder Additional Past Medical History / Comment(s): FATTY LIVER, HEART MURMUR,CHRONIC BACK PAIN/SPONDYLITIS. Hx Pneumonia History of Any Multi-Drug Resistant Organisms: None Reported Past Surgical History: Appendectomy, Orthopedic Surgery Additional Past Surgical History / Comment(s): COLONOSCOPY, L FOOT FRACTURE WITH PINNING THEN REMOVED. Additional Past Anesthesia/Blood Transfusion Reaction / Comment(s): Clausterphobic Past Psychological History: No Psychological Hx Reported Smoking Status: Never smoker Past Alcohol Use History: Occasional Past Drug Use History: None Reported - Past Family History Father Family Medical History: Myocardial Infarction ([place]) Additional Family Medical History / Comment(s): FATHER IN HIS 50S FROM A [place] Mother Family Medical History: COPD Additional Family Medical History / Comment(s): MOTHER HAD HEART DISEASE AND POSSIBLY HAD A [place] Son(s) Family Medical History: Asthma Additional Family Medical History / Comment(s): PT HAS A SON THAT HAD ASTHMA AND FROM "THROAT SWELLING SHUT." Medications and Allergies Home Medications Medication Instructions Recorded Confirmed Type Omeprazole [PriLOSEC] 20 mg PO DAILY 03/04/14 11/18/21 History Aspirin 81 mg PO DAILY #30 chew 12/15/17 11/18/21 Rx Atorvastatin [Lipitor] 80 mg PO DAILY 11/18/21 11/18/21 History Cholecalciferol [Vitamin D3 (25 25 mcg PO DAILY 11/18/21 11/18/21 History Mcg = 1000 Iu)] Clopidogrel [Plavix] 75 mg PO HS 11/18/21 11/18/21 History Cyanocobalamin (Vitamin B-12) 1,000 mcg PO DAILY 11/18/21 11/18/21 History [Vitamin B-12] HYDROcodone/APAP 5-325MG [[place] 1 tab PO TID 11/18/21 11/18/21 History 5-325] Naproxen Sodium [Aleve] 440 mg PO Q6H 11/18/21 11/18/21 History Allergies Allergy/AdvReac Type Severity Reaction Status Date / Time simvastatin [From Zocor] Allergy Itching Verified 11/18/21 15:56 Physical Examination - Vital Signs Vital Signs: Vital Signs Temp Pulse Resp BP Pulse Ox 11/18/21 13:43 97.8 F 68 20 140/76 99 Intake and Output 11/18/21 11/18/21 11/18/21 06:59 14:59 22:59 Other: Weight 88.904 kg GENERAL: The patient is lying in bed and is not in acute distress. CHEST: The heart rate is regular rate rhythm. No murmurs to auscultation. LUNG: Clear to auscultation bilaterally no wheezing noted throughout. Not labored breathing. ABDOMEN/GI: Bowel sounds present in all 4 quadrants. No tenderness to palpation throughout. NEUROLOGICAL: Higher mental function: The patient is awake, alert, oriented to self, place and time. Patient is following commands. No aphasia and no neglect. Cranial nerves: The pupils are round, equal and reactive to light and accommodation. Visual escalante are full to confrontation throughout. Extraocular movement is intact no nystagmus is noted. Facial sensation is normal to touch throughout. The facial strength is normal throughout. Hearing is normal bilaterally to hand rub. Tongue is midline and moved [id number] without any difficulty. No dysarthria is noted. Shoulder shrug is normal bilaterally. Motor: Gait is normal. The strength is 5 over 5 throughout. Normal tone and bulk. Cerebellum: Normal finger to nose heel to sanchez bilaterally. Sensation: Sensation is normal to touch throughout. Reflexes (right/left): 2+ throughout except ankles are 1+ bilaterally.. Plantars are mute bilaterally. Results - Laboratory Findings CBC and BMP: 11/18/21 13:56 11/18/21 13:56 Abnormal Lab Findings: Abnormal Labs 11/18/21 11/18/21 13:56 13:56 RBC 4.28 L MCV 100.4 H Chloride 109 H BUN 25 H Glucose 101 H Assessment and Plan Assessment: Transient ischemic attack: acute left sided numbness, including face and feel speech was off. Lasted 1 hour. Had similar presented in 2018. Hypertension Hyperlipidemia Chronic neck pain Fatty liver Chronic low back pain Plan: In the ED the patient was given aspirin 325mg once. Because of his symptoms notified yesterday by nurse of his complaint of numness, gave him Brilinta 180mg once yesterday, lipitor 80mg once and bolus of 500cc once. Currently he is on his home medication of aspirin 325 daily Plavix 75 mg daily. I stopped Plavix since failed and started on Brilinta 90mg 1 tab bid. He started on Lipitor 80 mg daily by the primary team. MRI Brain is ordered. Ordered 2-D echo, lipid panel. Hemoglobin A1c: 6.0, TSH: 1.480, Vitamin B12: 679, Folate >20 Continue neuro checks Placed on cardiac monitoring PT OT and MANAGER COPY are consulted Recommend MRI C-spine and Lumbar as outpatient since this is chronic issues. We'll defer the rest of the medical management to primary team For DVT prophylaxis I started the patient on subcu heparin 5000 units every 8 hours Notified the patient if he is unable to be seen by Dr. Hodges within 1 month then recommend he attempts to seek a different neurologist (since was not seen since COV). The plan is discussed with patient. Thank you for the consultation. Nestor Abraham M.D. Neuro-hospitalist Time with Patient: Greater than 30
[2021-11-19 10:48] LABS: Chol/HDL Ratio 3.47 Ratio; LDL Cholesterol,Calculated 85.5 mg/dL (0.0-131.0)
--- NOTE | 2021-11-19 11:02 | MR ---
MR brain without contrast HISTORY: Cerebrovascular accident Multiplanar multisequence imaging obtained through the brain. Correlation CT brain 11/18/2021 There is no restricted diffusion to suggest subacute ischemia. Cortical atrophy is again noted. There is no hemorrhage or hydrocephalus. Scattered and confluent hyperintensities present in the periventr icular, pericallosal, subcortical white matter on inversion recovery T2-weighted sequences. Greater t harman 50 lesions present. The corpus callosum, pituitary, cervical medullary junction, cerebellopontine angles are within normal limits. There are expected vascular flow voids. Orbits show symmetric appea prema. Mucosal disease present within the maxillary sinuses, ethmoid air cells, sphenoid. Mastoid air cells are well aerated. Foci of encephalomalacia present in the pericallosal white matter bilaterall y measure only 2 to 3 mm in size. IMPRESSION: Age-related changes of atrophy and chronic small vessel ischemia. Sinus disease.
--- NOTE | 2021-11-19 13:34 | CA ---
Transthoracic Echo Report Name: Joe Justin Age: 66 Gender: M : 1955 Exam Date: 11/19/2021 08:13 Exam Location: [facility] Ht (in): 68 Wt (lb): 196 Ordering Physician: Nestor Abraham MD Attending/Referring Phys: Clinical Specialist Medical Device Eulalia Malone RDCS Procedure CPT: Indications: stroke Cardiac Hx: Hx of murmur Technical Quality: Good Contrast 1: Total Dose (mL): Contrast 2: Total Dose (mL): MEASUREMENTS (Male / Female) Normal Values 2D ECHO LV Diastolic Diameter PLAX 4.9 cm 4.2 - 5.9 / 3.9 - 5.3 cm LV Systolic Diameter PLAX 2.9 cm IVS Diastolic Thickness 1.2 cm 0.6 - 1.0 / 0.6 - 0.9 cm LVPW Diastolic Thickness 1.3 cm 0.6 - 1.0 / 0.6 - 0.9 cm LV Relative Wall Thickness 0.5 RV Internal Dim ED PLAX 2.9 cm LVOT Diameter 1.5 cm LA Volume 44.5 cm??? 18 - 58 / 22 - 52 cm??? M-MODE Aortic Root Diameter MM 3.4 cm LA Systolic Diameter MM 2.9 cm LA Ao Ratio MM 0.9 MV E Point Septal Separation 1.0 cm AV Cusp Separation MM 1.2 cm DOPPLER AV Peak Velocity 407.2 cm/s AV Peak Gradient 66.3 mmHg AV Mean Velocity 314.2 cm/s AV Mean Gradient 44.2 mmHg AV Velocity Time Integral 99.4 cm LVOT Peak Velocity 65.1 cm/s LVOT Peak Gradient 1.7 mmHg AV Area Cont Eq pk 0.3 cm??? MV Area PHT 3.6 cm??? MR Peak Velocity 141.6 cm/s MR Peak Gradient 8.0 mmHg Mitral E Point Velocity 74.5 cm/s Mitral A Point Velocity 80.8 cm/s Mitral E to A Ratio 0.9 MV Deceleration Time 212.0 ms MV E' Velocity 7.8 cm/s Mitral E to MV E' Ratio 9.6 TR Peak Velocity 213.2 cm/s TR Peak Gradient 18.2 mmHg Right Ventricular Systolic Press 21.5 mmHg FINDINGS Left Ventricle Mildly increased septal wall thickness. Left ventricular ejection fraction is estimated at 55-60 %. Left ventricular cavity size normal. Right Ventricle Normal right ventricular size and function. Right Atrium Normal right atrial size. Left Atrium Normal left atrial size. Mitral Valve Structurally normal mitral valve. Mild mitral regurgitation. Aortic Valve Severe aortic stenosis with a peak velocity of 66 mmHg, mean gradient 44 mmHg, and estimated aortic valve area of 0.3 cm???. Possible bicuspid aortic valve Tricuspid Valve Structurally normal tricuspid valve. Mild tricuspid regurgitation. Normal right sided pressures. Pulmonic Valve Structurally normal pulmonic valve without significant stenosis. There is no pulmonic regurgitation. Pericardium Normal pericardium without effusion. Aorta Normal aortic root dimension. CONCLUSIONS Normal left ventricular ejection fraction 55-60% Mild increased left ventricular wall thickness Mild mitral regurgitation Severe aortic stenosis with mean gradient 44 mmHg, Vmax 4.1 m/s. Mild tricuspid regurgitation Previewed by: Dr. Bharat Mcfadden DO (Electronically Signed) Final Date: 19 November 2021 13:33
[2021-11-19 13:46] VITALS: BP 125/72; PULSE 83; RESP 16
[2021-11-19] MEDS ORDERED: TICAGRELOR 90 MG TAB PO SCH (21:00)
--- NOTE | 2021-11-19 23:02 | P.DS ---
Providers Date of admission: 11/18/21 15:14 Attending physician: Kiesha Wolf Consults: 11/18/21 15:15 Consult Physician Routine Consulting Provider: Nestor Abraham Consult Reason/Comments: TIa Do you want consulting provider notified?: Yes Primary care physician: Hammad Matos [facility] Course: Diagnosis Left sided numbness, weakness Rule out TIA Lumbar radiculopathy History hyperlipidemia Bicuspid aortic valve with history aortic stenosis Sinus bradycardia History of prediabetes with A1C 6.1 in 2018 Gastroesophageal reflux disease Chronic back pain History ankylosing spondylitis History of mild hydronephrosis follow up with urology outpatient Discharge disposition Patient is stable for discharge. He has been cleared by neurology and recommend to follow up with neurology outpatient. Patient is also referred to orthopedics for further work up regarding lower extremity numbness, intermittent - He has an appointment with Dr Vargas next week. Recommend to see primary care in 2 to 3 day s as well. Patient will also need to follow up with cardiology. Recommend dual antiplatelet therapy for 21 days with Brilenta and Aspirin, after 21 days neurology is recommending single antiplatelet therapy with either aspirin or Brilenta which this can be modified outpatient for recommendations. Hospital course This is a pleasant 66 year old male with medical history of TIA, asthma, GERD, bicuspid aortic valve, aortic stenosis, remote former smoker, ankylosing spondylitis . Patient presents with one day history of numbness left side of body that started 1 pm this afternoon. He denies focal weakness. He also reports issues with gait, feeling off balance and dizziness lightheadedness when standing. He denies chest pain, shortness of breath, no fever, no recent illness. He denies dysphagia, no dysarthria. No headache, vision changes. Patient has been referred to neurology by his PCP, however is waiting for an appointment with Dr. Ravi due to office scheduling. Patient has history of similar symptoms in the past which he states was ruled a TIA. Patient Follows with Dr Erika Matos in the primary care setting and also sees Dr [facility]. He has been admitted to the hospital with concern for TIA vs. Acute stroke and consult has been placed to neurology, patient will undergo full stroke work up. Brain CT completed in the shows age related atrophic and chronic small vessel ischemic change without acute intracranial process. CTA angiography shows no dissection bilateral cervical ICA or stenosis at carotid bifurcations. There is also no evidence of high grade stenosis or intracranial aneurysm. Chest xray negative for acute findings. EKG on admission showing sinus bradycardia heart rate 57. Left sided numbness resolved, then came back. Patient also experience right lower extremity numbness as well. He does have history of multilevel disc degenerative changes noted in previous lumbar CT in 2013. Patient is recommended to see Dr Vargas outpatient for further work up. He is given script for outpatient lumbar MRI with contrast. As symptoms came back patient had brain MRI which shows age related changes of atrophy and chronic small vessel ischemia. Echocardiogram was also completed showing an EF of 55 to 60% with mild mitral regurgitation, mild tricuspid regurgitation, severe aortic stenosis. Recommended to see cardiology outpatient for follow up. Currently no chest pain, no shortness of breath. Cholesterol panel completed showing triglyceride level of 142.00, cholesterol 160.0, LDL 85.5, HDL 46.10 Vitamin B12 679, folate >20, TSH 1.480. Troponin negative A1C 6.0, hgb 13.9, no white count. 11/19/2021 Patient evaluated today sitting up in bed with at the bedside. Discussed abdominal ultrasound from 2019 showing mild hydronephrosis and bladder scan shows 100 to 150 mLs left in urinary bladder. He will see urology outpatient. He will be referred to orthopedics. He was able to get an appointment with Dr Ravi on December 20. As above he will continue dual antiplatelet therapy for 21 days than either discontinue aspirin or brilenta, he will continue on lipitor as well. Patient educated on lifestyle modifications. All questions were answered. Patient is agreeable to plan of care and understanding of all discharge recommendations. Return to ER if symptoms worsen. Patient was also evaluted by PT and are recommending discharge home. Review of Systems Constitutional: Denied any fatigue denied any fever. Cardio vascular: denied any chest pain, palpitations Gastrointestinal: denied any nausea, vomiting, diarrhea Pulmonary: Denied any shortness of breath cough Neurologic: Intermittent right and left lower extremity numbness All inpatient medications were reviewed and appropriate changes in these medi cations as dictated in the interval history and assessment and plan. PHYSICAL EXAMINATION: GENERAL: The patient is alert and oriented x3, not in any acute distress. Well developed, well nourished. HEENT: Pupils are round and equally reacting to light. EOMI. No scleral icterus. No conjunctival pallor. Normocephalic, atraumatic. No pharyngeal erythema. No thyromegaly. CARDIOVASCULAR: S1 and S2 present. No murmurs, rubs, or gallops. PULMONARY: Chest is clear to auscultation, no wheezing or crackles. ABDOMEN: Soft, nontender, nondistended, normoactive bowel sounds. No palpable organomegaly. MUSCULOSKELETAL: No joint swelling or deformity. EXTREMITIES: No cyanosis, clubbing, or pedal edema. NEUROLOGICAL: Gross neurological examination did not reveal any focal deficits. Equal strength bilateral 5/5, no pronator drift, no ataxia. Pupils equal reactive. Alert oriented. No dysarthria, no dysphagia. SKIN: No rashes. Please see medication reconciliation for list of current medications. Thank you for allowing us participate in the care of this patient. Total time taken in discharge planning greater than 35 minutes The impression and plan of care has been dictated by Kia Perez Nurse Practitioner as directed. Dr. Maryann MD I have performed a history and physical examination and medical decision making of this patient, discussed the same with the dictator, and agree with the dictators assessment and plan as written, documented as a scribe. Based on total visit time, I have performed more than 50% of this visit. Patient Condition at Discharge: Stable Plan - Discharge Summary Discharge Rx Participant: Yes New Discharge Prescriptions: New Ticagrelor [Brilinta] 90 mg PO BID #60 tab predniSONE 0 mg PO DIRECTED 8 Days #18 tab Continue Omeprazole [PriLOSEC] 20 mg PO DAILY Aspirin 81 mg PO DAILY #30 chew Atorvastatin [Lipitor] 80 mg PO DAILY HYDROcodone/APAP 5-325MG [[place] 5-325] 1 tab PO TID Cyanocobalamin (Vitamin B-12) [Vitamin B-12] 1,000 mcg PO DAILY Cholecalciferol [Vitamin D3 (25 Mcg = 1000 Iu)] 25 mcg PO DAILY Discontinued Naproxen Sodium [Aleve] 440 mg PO Q6H Clopidogrel [Plavix] 75 mg PO HS Discharge Medication List Omeprazole [PriLOSEC] 20 mg PO DAILY 03/04/14 [History] Aspirin 81 mg PO DAILY #30 chew 12/15/17 [Rx] Atorvastatin [Lipitor] 80 mg PO DAILY 11/18/21 [History] Cholecalciferol [Vitamin D3 (25 Mcg = 1000 Iu)] 25 mcg PO DAILY 11/18/21 [History] Cyanocobalamin (Vitamin B-12) [Vitamin B-12] 1,000 mcg PO DAILY 11/18/21 [History] HYDROcodone/APAP 5-325MG [[place] 5-325] 1 tab PO TID 11/18/21 [History] Ticagrelor [Brilinta] 90 mg PO BID #60 tab 11/19/21 [Rx] predniSONE 0 mg PO DIRECTED 8 Days #18 tab 11/19/21 [Rx] Follow up Appointment(s)/Referral(s): Mavis Champion MD [REFERRING] - 12/20/21 1:00 pm Cullen Vargas DO [Doctor of Osteopathic Medicine] - 11/26/21 11:00 am (Follow up for chronic lower back pain ) Deion Vieira MD [STAFF PHYSICIAN] - 1 Week (for hydronephrosis outpatient work up Office will call with an appt,. ) Hammad Matos DO [Primary Care Provider] - 1-2 days Patient Instructions/Handouts: Transient Ischemic Attack (DC) Activity/Diet/Wound Care/Special Instructions: Recommend to see neurology outpatient. Recommend dual antiplatelet therapy for 21 days with Brilenta and Aspirin, after 21 days neurology is recommending single antiplatelet therapy with either aspirin or Brilenta which this can be modified outpatient for recommendations. If insurance does not cover Brilenta patient can continue plavix with aspirin for 21 days and will either continue aspirin 81 mg po daily or plavix 75 mg po daily after 21 days, not both. Recommend follow up with PCP in 2 to 3 days. Follow up with orthopedics regarding chronic back pain for further imaging and work up. Patient has been referred to Dr Vargas. Script is given for MRI with contrast lumbar spine outpatient. Number provided for outpatient scheduling. Complete oral steroid taper for lower back pain. Follow up with urology as previously recommended by primary care regarding hydronephrosis found on abdominal ultrasound in Jan. Bladder scan completed this hospital stay has revealed volume of between 100 to 150 mLs in urinary bladder. Discharge Disposition: HOME SELF-CARE
[2021-11-20] MEDS ORDERED: ASPIRIN 81 MG PO SCH (09:00)
[2021-11-20] MEDS ORDERED: DOCUSATE 100 MG CAP PO SCH (09:00)
== END 2021-11-19 16:09 | disposition home or self-care (01) ==
LOC: EC 13:41 → INTOOBSV 15:14 → 3SCARD 15:14 → UNDODISIN 11-19 16:09
PROVIDERS: ADMIT Internal Medicine; ATTEND Internal Medicine
DX: R20.0 Anesthesia of skin (principal); R53.1 Weakness; M54.16 Radiculopathy, lumbar region; E78.5 Hyperlipidemia, unspecified; Q23.1 Congenital insufficiency of aortic valve; R00.1 Bradycardia, unspecified; R73.03 Prediabetes; K21.9 Gastro-esophageal reflux disease without esophagitis; M45.9 Ankylosing spondylitis of unspecified sites in spine; N13.30 Unspecified hydronephrosis; J45.909 Unspecified asthma, uncomplicated; I10 Essential (primary) hypertension; K76.0 Fatty (change of) liver, not elsewhere classified; G89.29 Other chronic pain; Z86.73 Personal history of transient ischemic attack (TIA), and cerebral infarction without residual deficits; Z87.891 Personal history of nicotine dependence; Z79.82 Long term (current) use of aspirin; Z79.02 Long term (current) use of antithrombotics/antiplatelets; Z79.899 Other long term (current) drug therapy
CPT/HCPCS: 96361 ×2; 96366; 96372; 96360; 99285; 36415; 93005; 93306; 97162; 97165; 92610; 80061; 80053; 84443; 82607; 82746; 84484; 85025; 85610; 85730; 83036; 71046; 70496; 70450; 70498; 70551; G0378 ×2; Q9967; J1644; 99291

== ENCOUNTER 2021-12-03 06:12 | Day surgery (SDC) | payer MEDICARE ==
[2021-12-03] MEDS ORDERED: SODIUM CHLORIDE 0.9% 500 ML 500 ML IV ONE (06:41)
[2021-12-03 06:46] VITALS: RESP 16; TEMP 97
[2021-12-03] MEDS ORDERED: fentaNYL (PF) 50 MCG/ML 2 ML AMP ONE ×2 (07:11→07:12)
[2021-12-03] MEDS: BENZOCAINE SPRAY 1 CAN MUCOUS MEM ONE ×2 (07:25→07:30)
[2021-12-03] MEDS ORDERED: MIDAZOLAM 2 MG/2 ML VIAL IV ONE (07:31)
[2021-12-03] MEDS ORDERED: fentaNYL (PF) 50 MCG/ML 2 ML AMP IV ONE (07:31)
[2021-12-03 08:55] VITALS: BP 112/66; PULSE 66
--- NOTE | 2021-12-04 02:43 | ECHOT ---
TRANSESOPHAGEAL ECHOCARDIOGRAM INDICATION: TIA. PROCEDURE NOTE: After obtaining informed consent, transesophageal echocardiogram was performed in left lateral position using an Omniplane probe. Local and IV sedation were obtained with 2 mg of Versed and 25 mcg of fentanyl. The patient tolerated the procedure well without any obvious immediate complications. Total sedation time was 10 minutes. 2D, color Doppler, and spectral analysis has been performed. FINDINGS: 1. There is no intracardiac thrombus within the left atrial appendage, left atrium, right atrium, right ventricle, or left ventricle. 2. There is no evidence of [id number] shunt by color-flow Doppler or [id number] shunt by agitated saline contrast study. 3. Mitral valve is anatomically normal. There is mild central mitral regurgitation noted. 4. Tricuspid valve appears normal. 5. Left ventricle has normal size and systolic function. 6. Ascending aorta measures within normal limits. 7. Aortic valve is heavily calcified with severe restriction in leaflet mobility. It seems to be a quadricuspid valve. Planimetry was not very optimal and we measured it at 0.7 cm2 consistent with severe aortic stenosis. CONCLUSION: 1. No cardiac evidence of thromboembolic CVA. 2. Severe aortic stenosis involving a possible quadricuspid aortic valve. MMODL / IJN: [id number] /
== END 2021-12-03 09:09 | disposition home or self-care (01) ==
LOC: CATHCVL 06:12
PROVIDERS: ATTEND Internal Medicine Cardiovascular Disease
DX: I35.0 Nonrheumatic aortic (valve) stenosis (principal); I10 Essential (primary) hypertension; Z86.73 Personal history of transient ischemic attack (TIA), and cerebral infarction without residual deficits; E78.2 Mixed hyperlipidemia; F32.A Depression, unspecified; Z79.82 Long term (current) use of aspirin; Z79.01 Long term (current) use of anticoagulants; Z79.899 Other long term (current) drug therapy; Z88.8 Allergy status to other drugs, medicaments and biological substances; Z90.49 Acquired absence of other specified parts of digestive tract; Z87.891 Personal history of nicotine dependence; Z82.49 Family history of ischemic heart disease and other diseases of the circulatory system; Z83.6 Family history of other diseases of the respiratory system; Z82.5 Family history of asthma and other chronic lower respiratory diseases
CPT/HCPCS: 93312; 93320; 93325; J2250; J3010

== ENCOUNTER → 2021-12-04 | Outpatient (CLI) | payer MEDICARE ==
--- NOTE | 2021-12-04 18:43 | US ---
EXAMINATION TYPE: US kidneys/renal and bladder DATE OF EXAM: 12/04/2021 COMPARISON: 02/11/2021 CLINICAL HISTORY: 66-year-old male N13.30 Hydronephrosis. TECHNIQUE: Multiple sonographic images of the kidneys and bladder are obtained. FINDINGS: EXAM MEASUREMENTS: Right Kidney: 9.7 x 5.4 x 4.5 cm Left Kidney: 11.1 x 4.4 x 5.9 cm Right Kidney: No hydronephrosis or masses seen Left Kidney: Mild pelvicaliectasis, unchanged from prior exam Bladder: wnl Bilateral Jets seen: yes IMPRESSION: Mild left-sided pelvicaliectasis is unchanged from prior exam. Consider further contrast-enhanced CT evaluation to exclude parapelvic cysts versus mild hydronephrosis.
== END | disposition home or self-care (01) ==
LOC: RADUSWWP 12:05
PROVIDERS: ATTEND Family Medicine
DX: N13.30 Unspecified hydronephrosis (principal)
CPT/HCPCS: 76770

== ENCOUNTER → 2022-03-12 | Outpatient (CLI) | payer MEDICARE ==
[2022-03-12 14:34] LABS: African American GFR (CKD) >90 (>60 ml/min/1.73 sqM); Blood Urea Nitrogen 21 mg/dL (9-20); Non-African American GFR(CKD) 85 (>60 ml/min/1.73 sqM)
--- NOTE | 2022-03-14 08:59 | CT ---
EXAMINATION TYPE: CT urogram wo/w con DATE OF EXAM: 03/12/2022 COMPARISON: Ultrasound dated 322 HISTORY: Kidney swelling CT DLP: 2352 mGycm CONTRAST: Performed and with IV Contrast, patient injected with 100 mL of Isovue 300. CT Urography was performed with unenhanced followed by enhanced images of the kidneys, ureters and ur inary bladder. Delayed images were obtained. 3d reconstruction was performed at a separate work sta tion. FINDINGS: KIDNEYS/BLADDER: No hydronephrosis. No nephrolithiasis. At the lower pole of the left kidney there is a 1.3 x 1.1 cm enhancing lesion. Small solid neoplasm is not excluded. Further evaluation with MRI is advised. No additional renal masses are seen. Parapelvic cyst left kidney measures approximately 1.8 x 2.5 cm. Urinary bladder grossly unremarkable. LUNG BASES-: No visible nodule. No infiltrate. LIVER/GB: No calcified gallstones. Mild hepatic steatosis noted. No space occupying hepatic lesion. Biliary tree is of normal caliber. PANCREAS: No inflammation. No distinct mass. SPLEEN: No splenic enlargement. No lesion seen. ADRENALS: No nodule. No thickening. BOWEL: Normal appendix. Normal bowel caliber. No inflammation. GENITAL ORGANS: No gross abnormality. LYMPH NODES: No greater than 1cm abdominal or pelvic lymph nodes are appreciated. AORTA: No significant abnormality. OSSEOUS STRUCTURES: No significant abnormality is seen. OTHER: No significant additional abnormality is seen. IMPRESSION: 1. At the lower pole of the left kidney there is a 1.3 x 1.1 cm enhancing lesion. Small solid neoplas m is not excluded. Further evaluation with MRI is advised.
== END | disposition home or self-care (01) ==
LOC: RADCTMAIN 13:36
PROVIDERS: ATTEND Urology
DX: N13.30 Unspecified hydronephrosis (principal); N28.9 Disorder of kidney and ureter, unspecified
CPT/HCPCS: 82565; 84520; 74178; 36415; 74400; Q9967

== ENCOUNTER → 2022-04-18 | Outpatient (CLI) | payer MEDICARE ==
--- NOTE | 2022-04-18 14:00 | MR ---
EXAMINATION: MRI KIDNEYS WITH AND WITHOUT CONTRAST. DATE OF EXAMINATION: 04/18/2022. COMPARISON: CT urogram on 03/12/2022. INDICATION: Evaluate for renal mass on the left side. PROCEDURE: The planar, multisequence images of the abdomen and kidneys were obtained without and with contrast. 9 mL of Gadavist was given intravenously. FINDINGS: LOWER CHEST : The visualized lung bases are clear. There are no pleural or pericardial effusions. ABDOMEN: Liver and Biliary system: Loss of signal attenuation on the T1 out of phase images when compared to the in phase imaging is compatible with hepatic steatosis.. Adrenal glands: Normal. Kidneys and ureters: A clear enhancing renal mass is not identified on this examination.. Spleen: Normal. Pancreas: Normal. Gallbladder: Normal. Lymph nodes, Peritoneum and mesentery: There is no mesenteric or retroperitoneal lymphadenopathy. Gastrointestinal tract: No gross bowel abnormalities are seen. Aorta/IVC: Aorta normal. No aortic aneurysm or dissection. IVC normal. Abdominal wall: Normal. BONES: Scattered degenerative disc changes are seen throughout the spine with no aggressive osseous lesions. ADDITIONAL SIGNIFICANT FINDINGS: None. IMPRESSION: 1. A definitive enhancing renal mass is not clearly identified based on the scope of this examination . 2. No additional acute findings identified. 3. Diffuse hepatic steatosis.
== END | disposition home or self-care (01) ==
LOC: RADMRIMAIN 07:36
PROVIDERS: ATTEND Urology
DX: D41.02 Neoplasm of uncertain behavior of left kidney (principal); N28.89 Other specified disorders of kidney and ureter; K76.0 Fatty (change of) liver, not elsewhere classified
CPT/HCPCS: 74183; A9585

== ENCOUNTER 2022-08-03 04:13 | Emergency (ER) | payer MEDICARE ==
[2022-08-03 04:20] VITALS: RESP 18
[2022-08-03] MEDS ORDERED: MORPHINE SULFATE 4 MG/ML SYRINGE IVP STA (05:22)
[2022-08-03 06:03] LABS: Basophils % (A) 0 %; Eosinophils # (A) 0.2 k/uL (0-0.7); Eosinophils % (A) 3 %; HCT 37.5 % (39.0-53.0); HGB 12.8 gm/dL (13.0-17.5); Lymphocytes # (A) 1.1 k/uL (1.0-4.8); Lymphocytes % (A) 14 %; MCH 32.4 pg (25.0-35.0); MCHC 34.2 g/dL (31.0-37.0); MCV 94.8 fL (80.0-100.0); Mean Platelet Volume 7.5; Monocytes # (A) 0.5 k/uL (0-1.0); Monocytes % (A) 6 %; Neutrophils % (A) 76 %; Platelet Count 272 k/uL (150-450); RBC 3.96 m/uL (4.30-5.90); RDW 12.6 % (11.5-15.5)
[2022-08-03 06:13] LABS: ALT 22 U/L (4-49); AST 26 U/L (17-59); African American GFR (CKD) >90 (>60 ml/min/1.73 sqM); Albumin 3.5 g/dL (3.5-5.0); Alkaline Phosphatase 82 U/L (38-126); Anion Gap 9 mmol/L; Blood Urea Nitrogen 21 mg/dL (9-20); Calcium 8.6 mg/dL (8.4-10.2); Carbon Dioxide 25 mmol/L (22-30); Chloride 103 mmol/L (98-107); Creatine Kinase 59 U/L (55-170); Glucose 125 mg/dL (74-99); Magnesium 1.7 mg/dL (1.6-2.3); Non-African American GFR(CKD) >90 (>60 ml/min/1.73 sqM); Potassium 4.7 mmol/L (3.5-5.1); Sodium 137 mmol/L (137-145); Total Bilirubin 0.6 mg/dL (0.2-1.3); Total Protein 6.3 g/dL (6.3-8.2); Uric Acid 4.4 mg/dL (3.5-8.5)
--- NOTE | 2022-08-03 06:24 | XR ---
EXAMINATION TYPE: XR knee complete LT DATE OF EXAM: 08/03/2022 CLINICAL HISTORY: Pain TECHNIQUE: Three views of the left knee are obtained. COMPARISON: None. FINDINGS: Meniscal calcification is seen There is no acute fracture/dislocation evident in left knee. Mild tricompartment joint space loss. No significant spurring. The overlying soft tissue appears unr emarkable. IMPRESSION: As above.
[2022-08-03] MEDS ORDERED: HYDROmorphone 1 MG/ML 1 ML SYRINGE IVP STA (07:45)
[2022-08-03 07:47] LABS: C Reactive Protein 7.4 mg/dL (<1.0)
--- NOTE | 2022-08-03 07:47 | ED ---
General Adult HPI - General Chief complaint: Recheck/Abnormal Lab/Rx Stated complaint: stroke symp Time Seen by Provider: 08/03/22 04:35 Source: patient Mode of arrival: ambulatory - History of Present Illness Initial comments: 67 year old male who presents to ED with left knee pain and bilateral hand tingling. States bilateral hand tingling has been going on for the past few m onth but became worse today. Involves hands only. 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 Also admits to left knee pain. He has seen his PCP in regards to both of these. He has already had an MRI of his neck. His PCP has yet to work up the knee pain. He has been taking Aleve without improvement. The pain was so bad tonight that the patient couldnt sleep. He denies inability to ambulate. No fevers. No redness or warmth. No history of gout or CVA. Denies headaches or visual changes. No speech deficit. - Related Data Home Medications Medication Instructions Recorded Confirmed Omeprazole [PriLOSEC] 20 mg PO DAILY 03/04/14 06/30/22 Atorvastatin [Lipitor] 80 mg PO HS 11/18/21 06/30/22 Multivit-Min/FA/Lycopen/Lutein 1 tab PO DAILY 12/02/21 06/30/22 [Centrum Silver Men Tablet] Previous Rx's Medication Instructions Recorded Aspirin 81 mg PO DAILY #30 chew 12/15/17 Ticagrelor [Brilinta] 90 mg PO BID #60 tab 11/19/21 HYDROcodone/APAP 7.5-325MG [[place] 1 tab PO Q6HR PRN 3 Days #12 tab 08/03/22 7.5-325] Allergies Allergy/AdvReac Type Severity Reaction Status Date / Time simvastatin [From Zocor] Allergy Itching Verified 08/03/22 04:20 Review of Systems ROS Statement: Those systems with pertinent positive or pertinent negative responses have been documented in the HPI. ROS Other: All systems not noted in ROS Statement are negative. Past Medical History Past Medical History: Asthma, CVA/TIA, GERD/Reflux, Hyperlipidemia, Musculoskeletal Disorder Additional Past Medical History / Comment(s): FATTY LIVER, HEART MURMUR,CHRONIC BACK PAIN/SPONDYLITIS. Hx Pneumonia, recent adm. for TIA-no residual effects, possible valve problem per pt. History of Any Multi-Drug Resistant Organisms: None Reported Past Surgical History: Appendectomy, Orthopedic Surgery Additional Past Surgical History / Comment(s): COLONOSCOPY, L FOOT FRACTURE WITH PINNING THEN REMOVED. Past Anesthesia/Blood Transfusion Reactions: No Reported Reaction Additional Past Anesthesia/Blood Transfusion Reaction / Comment(s): Claustrophobic Past Psychological History: No Psychological Hx Reported Smoking Status: Former smoker Past Alcohol Use History: Occasional Past Drug Use History: None Reported - Past Family History Father Family Medical History: Myocardial Infarction (ID) Additional Family Medical History / Comment(s): FATHER IN HIS 50S FROM A ID Mother Family Medical History: COPD Additional Family Medical History / Comment(s): MOTHER HAD HEART DISEASE AND POSSIBLY HAD A ID Son(s) Family Medical History: Asthma Additional Family Medical History / Comment(s): PT HAS A SON THAT HAD ASTHMA AND FROM "THROAT SWELLING SHUT." General Exam General appearance: alert, in no apparent distress Head exam: Present: atraumatic, normocephalic, normal inspection Eye exam: Present: normal appearance, PERRL, EOMI. Absent: scleral icterus, conjunctival injection, periorbital swelling ENT exam: Present: normal exam, mucous membranes moist Neck exam: Present: normal inspection. Absent: tenderness, meningismus, lym phadenopathy Respiratory exam: Present: normal lung sounds bilaterally. Absent: respiratory distress, wheezes, rales, rhonchi, stridor Cardiovascular Exam: Present: regular rate, normal rhythm, normal heart sounds. Absent: systolic murmur, diastolic murmur, rubs, gallop, clicks GI/Abdominal exam: Present: soft, normal bowel sounds. Absent: distended, tenderness, guarding, rebound, rigid Extremities exam: Present: normal inspection, full ROM, tenderness (to palpation of the left knee. No swelling. No effusion. No redness), normal capillary refill. Absent: pedal edema, joint swelling, calf tenderness Back exam: Present: normal inspection Neurological exam: Present: alert, oriented X3, CN II-XII intact Psychiatric exam: Present: normal affect, normal mood Skin exam: Present: warm, dry, intact, normal color. Absent: rash Course Vital Signs 08/03/22 08/03/22 08/03/22 04:14 07:25 08:21 Temperature 98.4 F 98.9 F 98.2 F Pulse Rate 77 77 73 Respiratory 18 Rate Blood Pressure 126/78 116/74 126/77 O2 Sat by Pulse 96 100 96 Oximetry Medical Decision Making - Medical Decision Making Was pt. sent in by a medical professional or institution ([facility], PET GROOMER, urgent care, hospital, or shelter...) When possible be specific @ -No Did you speak to anyone other than the patient for history (EMS, parent, family, police, friend...)? What history was obtained from this source @ - Did you review nursing and triage notes (agree or disagree)? Why? @ -I reviewed and agree with nursing and triage notes Were old charts reviewed (outside hosp., previous admission, EMS record, old EKG, old radiological studies, urgent care reports/EKG's, shelter records)? Report findings @ -No old charts were reviewed Differential Diagnosis (chest pain, altered mental status, abdominal pain women, abdominal pain men, vaginal bleeding, weakness, fever, dyspnea, syncope, headache, dizziness, GI bleed, back pain, seizure, CVA, palpatations, mental health, musculoskeletal)? @ -arthritis, gout, cervical radiculopathy, cva EKG interpreted by me (3pts min.). @ -yes X-rays interpreted by me (1pt min.). @ -yes CT interpreted by me (1pt min.). @ -no U/S interpreted by me (1pt. min.). @ -None done What testing was considered but not performed or refused? (CT, X-rays, U/S, labs)? Why? @ -None What meds were considered but not given or refused? Why? @ -None Did you discuss the management of the patient with other professionals (professionals i.e. , AL, PET GROOMER, lab, RT, psych nurse, psychosocial rehabilitation counselor, linux network administrator, teacher, public health service officer, telephonic case manager)? Give summary @ -dr judd Was smoking cessation discussed for >3mins.? @ -No Was critical care preformed (if so, how long)? @ -No Were there social determinants of health that impacted care today? How? (Homelessness, low income, unemployed, alcoholism, drug addiction, transportation, low edu. Level, literacy, decrease access to med. care, [facility], rehab)? @ -No Was there de-escalation of care discussed even if they declined (Discuss DNR or withdrawal of care, Hospice)? DNR status @ -No What co-morbidities impacted this encounter? (DM, HTN, Smoking, COPD, CAD, Cancer, CVA, ARF, Chemo, Hep., AIDS, mental health diagnosis, sleep apnea, morbid obesity)? @ -None Was patient admitted / discharged? Hospital course, mention meds given and route, prescriptions, significant lab abnormalities, going to OR and other pertinent info. @ -Discharged - spoke with Dr. Judd who is already aware of the patients issues and has seen the patient in office for the complaints. Patient has already had an MRI performed for the hand numbness Undiagnosed new problem with uncertain prognosis? @ -yes Drug Therapy requiring intensive monitoring for toxicity (Heparin, Nitro, Insulin, Cardizem)? @ -No Were any procedures done? @ -no Diagnosis/symptom? @ -bilateral hand paresthesias, left knee pain Acute, or Chronic, or Acute on Chronic? @ -acute Uncomplicated (without systemic symptoms) or Complicated (systemic symptoms)? @ -complicated Side effects of treatment? @ -No Exacerbation, Progression, or Severe Exacerbation? @ -No Poses a threat to life or bodily function? How? (Chest pain, USA, ID, pneumonia, PE, COPD, DKA, ARF, appy, cholecystitis, CVA, Diverticulitis, Homicidal, Suicidal, threat to staff... and all critical care pts) @ -no - Lab Data Result diagrams: 08/03/22 05:51 08/03/22 05:51 Lab Results 08/03/22 08/03/22 08/03/22 Range/Units 05:51 05:51 05:51 WBC 8.0 (3.8-10.6) k/uL RBC 3.96 L (4.30-5.90) m/uL Hgb 12.8 L (13.0-17.5) gm/dL Hct 37.5 L (39.0-53.0) % MCV 94.8 (80.0-100.0) fL MCH 32.4 (25.0-35.0) pg MCHC 34.2 (31.0-37.0) g/dL RDW 12.6 (11.5-15.5) % Plt Count 272 (150-450) k/uL MPV 7.5 Neutrophils % 76 % Lymphocytes % 14 % Monocytes % 6 % Eosinophils % 3 % Basophils % 0 % Neutrophils # 6.0 (1.3-7.7) k/uL Lymphocytes # 1.1 (1.0-4.8) k/uL Monocytes # 0.5 (0-1.0) k/uL Eosinophils # 0.2 (0-0.7) k/uL Basophils # 0.0 (0-0.2) k/uL Sodium 137 (137-145) mmol/L Potassium 4.7 (3.5-5.1) mmol/L Chloride 103 (98-107) mmol/L Carbon Dioxide 25 (22-30) mmol/L Anion Gap 9 mmol/L BUN 21 H (9-20) mg/dL Creatinine 0.79 (0.66-1.25) mg/dL Est GFR (CKD-EPI)AfAm >90 (>60 ml/min/1.73 sqM) Est GFR (CKD-EPI)NonAf >90 (>60 ml/min/1.73 sqM) Glucose 125 H (74-99) mg/dL Plasma Lactic Acid Wally 0.8 (0.7-2.0) mmol/L Uric Acid 4.4 (3.5-8.5) mg/dL Calcium 8.6 (8.4-10.2) mg/dL Magnesium 1.7 (1.6-2.3) mg/dL Total Bilirubin 0.6 (0.2-1.3) mg/dL AST 26 (17-59) U/L ALT 22 (4-49) U/L Alkaline Phosphatase 82 (38-126) U/L Creatine Kinase 59 (55-170) U/L C-Reactive Protein 7.4 H (<1.0) mg/dL Total Protein 6.3 (6.3-8.2) g/dL Albumin 3.5 (3.5-5.0) g/dL Disposition Clinical Impression: Paresthesia and pain of both upper extremities, Left knee pain Disposition: HOME SELF-CARE Condition: Stable Instructions (If sedation given, give patient instructions): Knee Pain (ED) Additional Instructions: Please follow up with Dr. Judd next week for further management of your symptoms. Return for any new or worsening symptoms. Prescriptions: HYDROcodone/APAP 7.5-325MG [[place] 7.5-325] 1 tab PO Q6HR PRN 3 Days #12 tab PRN Reason: Pain Is patient prescribed a controlled substance at d/c from ED?: Yes When asked, does pt state using other controlled substances?: No If prescribed controlled substance>3 days was MAPS reviewed?: Prescribed <3 Days Referrals: Kristen Judd MD [Primary Care Provider] - 1-2 days Time of Disposition: 08:00
[2022-08-03 08:23] VITALS: BP 126/77; PULSE 73; TEMP 98.2
== END 2022-08-03 08:24 | disposition home or self-care (01) ==
LOC: EC 04:13
DX: M25.562 Pain in left knee (principal); R20.2 Paresthesia of skin; J45.909 Unspecified asthma, uncomplicated; E78.5 Hyperlipidemia, unspecified; K21.9 Gastro-esophageal reflux disease without esophagitis; Z87.891 Personal history of nicotine dependence; Z79.899 Other long term (current) drug therapy; Z88.8 Allergy status to other drugs, medicaments and biological substances; Z90.49 Acquired absence of other specified parts of digestive tract
CPT/HCPCS: 36415; 80053; 82550; 83605; 83735; 84550; 85025; 86140; 73562; 99284; 96374; 96375; J2270; J1170

== ENCOUNTER → 2023-03-13 | Outpatient (CLI) | payer MEDICARE ==
--- NOTE | 2023-03-14 11:33 | MR ---
EXAMINATION TYPE: MR kidney wo/w con DATE OF EXAM: 03/13/2023 6:01 PM CLINICAL INDICATION:Male, 68 years old with history of D41.02 NEOPLASM OF UNCERTAIN BEHAVIOR OF LEFT KIDNEY, Recheck of left kidney COMPARISON: 04/28/2022 MRI, 03/12/2022 CT. TECHNIQUE: Multiplanar multi-sequence imaging was performed without contrast. Post contrast imaging was performed. Post IV contrast subtraction images were also submitted for review. IV Contrast: 8.5 cc Gadavist FINDINGS: LOWER CHEST: No gross irregularity. ABDOMEN Liver: No evidence for hepatic steatosis or cirrhosis. There is signal dropout on chemical shift in p hase imaging. Gallbladder and Bile ducts: No evidence for ductal dilation, or biliary stricture or evidence of chol edocholithiasis. The gallbladder is within normal limits. Pancreas: No ductal dilation. No evidence for solid mass. Spleen: There is signal dropout on chemical shift in phase imaging. Adrenal glands: Unremarkable. Kidneys: Right: No evidence for obstructive uropathy or renal renal mass. No abnormal postcontrast enhancement . Left: Parapelvic renal cysts. No hydronephrosis no definitive calculus on MRI visualized. There is a heterogenous enhancing left lower pole medial kidney lesion measuring 15 x 13 mm. This is mildly incr eased from 03/12/2022 where measured 14 x [address] Stomach and Bowel: No evidence for bowel wall thickening or evidence for obstruction.. Peritoneum: No evidence of pneumoperitoneum or free fluid. Vasculature: No aortic aneurysm. Musculoskeletal: The osseous structures appear intact. Multilevel degeneration changes throughout the spine with scoliosis changes apex L2 on the left. Lymph Nodes: No gross evidence for lymphadenopathy. Abdominal wall: Unremarkable. IMPRESSION: 1. Fractionally increase size of the left lower pole 15 x 13 mm renal neoplasm suspicious for renal cell carcinoma. 2. Iron deposition within the liver and spleen suggested.
== END | disposition home or self-care (01) ==
LOC: RADMRIMAIN 16:55
PROVIDERS: ATTEND Urology
DX: D41.02 Neoplasm of uncertain behavior of left kidney (principal)
CPT/HCPCS: 74183; A9585

== ENCOUNTER → 2023-06-04 | Outpatient (CLI) | payer MEDICARE ==
--- NOTE | 2023-06-04 10:05 | MR ---
EXAMINATION TYPE: MR sacroiliac joints wo con DATE OF EXAM: 06/04/2023 COMPARISON: None HISTORY: Bilateral hip pain x 2 mos, sacroiliitis. CONTRAST: Performed utilizing 0 mL intravenous Gadavist gadolinium contrast. TECHNIQUE: Multiplanar, multiecho imaging on a 3.0 Radhika magnet is performed through the the sacrum a nd sacroiliac joints. FINDINGS: L5-S1: Degenerative disc changes are present L5-S1. Modic type I degenerative changes are at the endp lates. Some disc bulging is present greater to the left paracentral region. Severe right and left fo raminal stenosis present. Exiting nerve root contact may be present. Correlate with S1 radicular symp toms. There appears to be a grade 1 retrolisthesis of L5 posterior on S1. L4-5: Broad-based disc bulge is present. Facet hypertrophy and ligamentum flavum laxity is posterior lateral thecal sac compression. In conjunction with the bulging disc this is creating severe spinal c anal stenosis. Sacroiliac joints are patent. Signal within the sacrum appears normal. Iliac wings within the field-o f-view abnormal signal. IMPRESSION: 1. Normal sacroiliac joints without significant degenerative changes. 2. Severe spinal canal stenosis at L4-5 secondary to facet hypertrophy with ligamentum flavum laxity and disc bulging. 3. Left paracentral disc bulge at L5-S1 has contact and displacement of the left S1 nerve root. Bilat eral foraminal stenosis is present. Correlate with S1 radicular symptoms.
== END | disposition home or self-care (01) ==
LOC: RADMRIMAIN 04-25 12:04
PROVIDERS: ATTEND Internal Medicine Rheumatology
DX: Z53.9 Procedure and treatment not carried out, unspecified reason (principal); M46.1 Sacroiliitis, not elsewhere classified; M47.819 Spondylosis without myelopathy or radiculopathy, site unspecified; M48.061 Spinal stenosis, lumbar region without neurogenic claudication; M51.36 Other intervertebral disc degeneration, lumbar region; M51.37 Other intervertebral disc degeneration, lumbosacral region
CPT/HCPCS: 72195

== ENCOUNTER 2023-06-29 12:35 | Emergency (ER) | payer MEDICARE ==
[2023-06-29 12:39] VITALS: RESP 18
--- NOTE | 2023-06-29 13:02 | ED ---
General Adult HPI - General Chief complaint: Neuro Symptoms/Deficit Stated complaint: Face/arm numbness Time Seen by Provider: 06/29/23 12:46 Source: patient, family, RN notes reviewed Mode of arrival: ambulatory Limitations: no limitations - History of Present Illness Initial comments: Patient is a pleasant 68-year-old male present to the emergency department with concerns for numbness. Onset of symptoms was around half hour ago. Numbness started left arm. Patient states numbness then went to his back and right arm as well as his face. Patient states numbness now is only in his face and improved. Patient denies any confusion or speech problems. No visual changes. No weakness. No loss of sensation. Patient does have surgery coming up later in the week for his kidney that he is worried about. - Related Data Home Medications Medication Instructions Recorded Confirmed Atorvastatin [Lipitor] 80 mg PO HS 11/18/21 06/29/23 Mv-Min/Folic/K1/Lycopen/Lutein 1 tab PO DAILY 12/02/21 06/29/23 [Centrum Silver Men Tablet] Cholecalciferol (Vitamin D3) 50 mcg PO DAILY 06/29/23 06/29/23 [Vitamin D3 (50 Mcg = 2000 Iu)] Cyanocobalamin (Vitamin B-12) 1,000 mcg PO DAILY 06/29/23 06/29/23 [Vitamin B-12] Ezetimibe [Zetia] 10 mg PO DAILY 06/29/23 06/29/23 Previous Rx's Medication Instructions Recorded Aspirin 81 mg PO DAILY #30 chew 12/15/17 Ticagrelor [Brilinta] 90 mg PO BID #60 tab 11/19/21 Allergies Allergy/AdvReac Type Severity Reaction Status Date / Time simvastatin [From Zocor] Allergy Itching Verified 06/29/23 13:40 Review of Systems ROS Statement: Those systems with pertinent positive or pertinent negative responses have been documented in the HPI. ROS Other: All systems not noted in ROS Statement are negative. Constitutional: Denies: fever Eyes: Denies: eye pain ENT: Denies: ear pain Respiratory: Denies: cough Cardiovascular: Denies: chest pain Gastrointestinal: Denies: abdominal pain Genitourinary: Denies: dysuria Neurological: Reports: as per HPI, paresthesias. Denies: headache, weakness, confusion Past Medical History Past Medical History: Asthma, CVA/TIA, GERD/Reflux, Hyperlipidemia, Musculoskeletal Disorder Additional Past Medical History / Comment(s): FATTY LIVER, HEART MURMUR,CHRONIC BACK PAIN/SPONDYLITIS. Hx Pneumonia, recent adm. for TIA-no residual effects, possible valve problem per pt. History of Any Multi-Drug Resistant Organisms: None Reported Past Surgical History: Appendectomy, Orthopedic Surgery Additional Past Surgical History / Comment(s): COLONOSCOPY, L FOOT FRACTURE WITH PINNING THEN REMOVED. Past Anesthesia/Blood Transfusion Reactions: No Reported Reaction Additional Past Anesthesia/Blood Transfusion Reaction / Comment(s): Claustrophobic Past Psychological History: No Psychological Hx Reported Smoking Status: Former smoker Past Alcohol Use History: Occasional Past Drug Use History: None Reported - Past Family History Father Family Medical History: Myocardial Infarction (CO) Additional Family Medical History / Comment(s): FATHER IN HIS 50S FROM A CO Mother Family Medical History: COPD Additional Family Medical History / Comment(s): MOTHER HAD HEART DISEASE AND POSSIBLY HAD A CO Son(s) Family Medical History: Asthma Additional Family Medical History / Comment(s): PT HAS A SON THAT HAD ASTHMA AND FROM "THROAT SWELLING SHUT." General Exam Limitations: no limitations General appearance: alert, in no apparent distress Head exam: Present: normocephalic Eye exam: Present: normal appearance, PERRL, EOMI ENT exam: Present: normal oropharynx Neck exam: Present: normal inspection Respiratory exam: Present: normal lung sounds bilaterally Cardiovascular Exam: Present: regular rate, normal rhythm GI/Abdominal exam: Present: soft. Absent: tenderness Extremities exam: Present: normal inspection, full ROM. Absent: tenderness Neurological exam: Present: alert, oriented X3, CN II-XII intact. Absent: motor sensory deficit Expanded Neurological exam: Present: protecting the airway Speech: Present: fluid speech Cranial nerves: EOM's Intact: Normal, Facial Sensation: Normal Sensory exam: Upper Extremity Light Touch: Normal, Lower Extremity Light Touch: Normal Motor strength exam: RUE: 5, LUE: 5, RLE: 5, LLE: 5 Eye Response: (4) open spontaneously Motor Response: (6) obeys commands Verbal Response: (5) oriented Psychiatric exam: Present: normal affect, normal mood Skin exam: Present: normal color Course Vital Signs 06/29/23 06/29/23 06/29/23 12:36 12:52 12:58 Temperature 97.8 F 98.4 F Pulse Rate 75 64 65 Respiratory 18 18 18 Rate Blood Pressure 139/82 144/83 138/87 O2 Sat by Pulse 99 99 96 Oximetry 06/29/23 06/29/23 06/29/23 13:43 13:58 14:00 Temperature Pulse Rate 63 67 65 Respiratory 16 16 16 Rate Blood Pressure 125/81 138/88 144/91 O2 Sat by Pulse 98 98 95 Oximetry 06/29/23 14:13 Temperature Pulse Rate 63 Respiratory 16 Rate Blood Pressure 134/86 O2 Sat by Pulse 97 Oximetry EKG Findings - EKG Results: EKG: interpreted by ERMD, sinus rhythm, normal axis, normal QRS, normal ST/T Medical Decision Making - Medical Decision Making Was pt. sent in by a medical professional or institution (, PA, FUNERAL HOME ASSISTANT, urgent care, hospital, or halfway...) When possible be specific @ -No Did you speak to anyone other than the patient for history (EMS, parent, family, police, friend...)? What history was obtained from this source @ - is present and helps provide history including onset and symptoms as well as recent planned procedure Did you review nursing and triage notes (agree or disagree)? Why? @ -I reviewed and agree with nursing and triage notes Were old charts reviewed (outside hosp., previous admission, EMS record, old EKG, old radiological studies, urgent care reports/EKG's, halfway records)? Report findings @ -No old charts were reviewed Differential Diagnosis (chest pain, altered mental status, abdominal pain women, abdominal pain men, vaginal bleeding, weakness, fever, dyspnea, syncope, headache, dizziness, GI bleed, back pain, seizure, CVA, palpatations, mental health, musculoskeletal)? @ -Differential Weakness: Hypoglycemia, shock, sepsis, hyponatremia, anemia, infection, CO, ETOH, adverse medicine reaction, overdose, stroke, this is not meant to be an all-inclusive list. EKG interpreted by me (3pts min.). @ -As above X-rays interpreted by me (1pt min.). @ -Chest x-ray shows no acute process CT interpreted by me (1pt min.). @ -Brain CT does not reveal acute process U/S interpreted by me (1pt. min.). @ -None done What testing was considered but not performed or refused? (CT, X-rays, U/S, labs)? Why? @ -None What meds were considered but not given or refused? Why? @ -None Did you discuss the management of the patient with other professionals (professionals i.e. , PA, FUNERAL HOME ASSISTANT, lab, RT, psych nurse, social science professor, county assessor, teacher, biosecurity officer, caseworker intake)? Give summary @ -No Was smoking cessation discussed for >3mins.? @ -No Was critical care preformed (if so, how long)? @ -No Were there social determinants of health that impacted care today? How? (Homelessness, low income, unemployed, alcoholism, drug addiction, transpo rtation, low edu. Level, literacy, decrease access to med. care, care home, rehab)? @ -No Was there de-escalation of care discussed even if they declined (Discuss DNR or withdrawal of care, Hospice)? DNR status @ -No What co-morbidities impacted this encounter? (DM, HTN, Smoking, COPD, CAD, Cancer, CVA, ARF, Chemo, Hep., AIDS, mental health diagnosis, sleep apnea, morbid obesity)? @ -None Was patient admitted / discharged? Hospital course, mention meds given and route, prescriptions, significant lab abnormalities, going to OR and other pertinent info. @ -Patient reevaluated and symptom-free. Patient and family are updated on results and plan. Patient will be discharged to follow-up with his primary care physician Undiagnosed new problem with uncertain prognosis? @ -No Drug Therapy requiring intensive monitoring for toxicity (Heparin, Nitro, Insulin, Cardizem)? @ -No Were any procedures done? @ -No Diagnosis/symptom? @ -Paresthesia Acute, or Chronic, or Acute on Chronic? @ -Acute Uncomplicated (without systemic symptoms) or Complicated (systemic symptoms)? @ -Default Side effects of treatment? @ -No Exacerbation, Progression, or Severe Exacerbation? @ -No Poses a threat to life or bodily function? How? (Chest pain, USA, CO, pneumonia, PE, COPD, DKA, ARF, appy, cholecystitis, CVA, Diverticulitis, Homicidal, Suicidal, threat to staff... and all critical care pts) @ -No - Lab Data Result diagrams: 06/29/23 13:01 06/29/23 13:01 Lab Results 06/29/23 06/29/23 06/29/23 Range/Units 13:01 13:01 13:01 WBC 7.9 (3.8-10.6) k/uL RBC 4.32 (4.30-5.90) m/uL Hgb 14.1 (13.0-17.5) gm/dL Hct 42.1 (39.0-53.0) % MCV 97.5 (80.0-100.0) fL MCH 32.6 (25.0-35.0) pg MCHC 33.5 (31.0-37.0) g/dL RDW 13.0 (11.5-15.5) % Plt Count 245 (150-450) k/uL MPV 7.7 Neutrophils % 65 % Lymphocytes % 21 % Monocytes % 7 % Eosinophils % 4 % Basophils % 0 % Neutrophils # 5.1 (1.3-7.7) k/uL Lymphocytes # 1.7 (1.0-4.8) k/uL Monocytes # 0.6 (0-1.0) k/uL Eosinophils # 0.3 (0-0.7) k/uL Basophils # 0.0 (0-0.2) k/uL PT 11.1 (10.0-12.5) sec INR 1.0 (<1.2) APTT 23.1 (22.0-30.0) sec Sodium 139 (137-145) mmol/L Potassium 4.4 (3.5-5.1) mmol/L Chloride 109 H (98-107) mmol/L Carbon Dioxide 22 (22-30) mmol/L Anion Gap 8 mmol/L BUN 22 H (9-20) mg/dL Creatinine 0.84 (0.66-1.25) mg/dL Est GFR (CKD-EPI)AfAm >90 (>60 ml/min/1.73 sqM) Est GFR (CKD-EPI)NonAf 89 (>60 ml/min/1.73 sqM) Glucose 103 H (74-99) mg/dL Calcium 9.5 (8.4-10.2) mg/dL Total Bilirubin 1.1 (0.2-1.3) mg/dL AST 27 (17-59) U/L ALT 23 (4-49) U/L Alkaline Phosphatase 89 (38-126) U/L Creatine Kinase 90 (55-170) U/L Total Protein 6.8 (6.3-8.2) g/dL Albumin 4.3 (3.5-5.0) g/dL Disposition Clinical Impression: Paresthesia Disposition: HOME SELF-CARE Condition: Stable Instructions (If sedation given, give patient instructions): Paresthesia (ED) Additional Instructions: Please do follow-up with your primary care physician in the next 1 or 2 days for recheck. Return for weakness, confusion, visual problems, speech problems, loss of sensation, worsening or changing symptoms or any other concerns. Is patient prescribed a controlled substance at d/c from ED?: No Referrals: Kristen Judd MD [Primary Care Provider] - 1-2 days Time of Disposition: 14:30
[2023-06-29 13:09] VITALS: TEMP 98.4
[2023-06-29 13:14] LABS: Basophils % (A) 0 %; Eosinophils # (A) 0.3 k/uL (0-0.7); Eosinophils % (A) 4 %; HCT 42.1 % (39.0-53.0); HGB 14.1 gm/dL (13.0-17.5); Lymphocytes # (A) 1.7 k/uL (1.0-4.8); Lymphocytes % (A) 21 %; MCH 32.6 pg (25.0-35.0); MCHC 33.5 g/dL (31.0-37.0); MCV 97.5 fL (80.0-100.0); Mean Platelet Volume 7.7; Monocytes # (A) 0.6 k/uL (0-1.0); Monocytes % (A) 7 %; Neutrophils # (A) 5.1 k/uL (1.3-7.7); Neutrophils % (A) 65 %; Platelet Count 245 k/uL (150-450); RBC 4.32 m/uL (4.30-5.90); WBC 7.9 k/uL (3.8-10.6)
[2023-06-29] MEDS: LORazepam 2 MG/ML INJ IV STA (13:16)
[2023-06-29 13:27] LABS: ALT 23 U/L (4-49); AST 27 U/L (17-59); African American GFR (CKD) >90 (>60 ml/min/1.73 sqM); Albumin 4.3 g/dL (3.5-5.0); Alkaline Phosphatase 89 U/L (38-126); Anion Gap 8 mmol/L; Blood Urea Nitrogen 22 mg/dL (9-20); Calcium 9.5 mg/dL (8.4-10.2); Carbon Dioxide 22 mmol/L (22-30); Chloride 109 mmol/L (98-107); Creatine Kinase 90 U/L (55-170); Glucose 103 mg/dL (74-99); Non-African American GFR(CKD) 89 (>60 ml/min/1.73 sqM); Potassium 4.4 mmol/L (3.5-5.1); Sodium 139 mmol/L (137-145); Total Bilirubin 1.1 mg/dL (0.2-1.3); Total Protein 6.8 g/dL (6.3-8.2)
[2023-06-29 13:30] LABS: Partial Thromboplastin Time 23.1 sec (22.0-30.0); Prothrombin Time 11.1 sec (10.0-12.5)
--- NOTE | 2023-06-29 14:08 | XR ---
EXAMINATION TYPE: XR chest 2V DATE OF EXAM: 06/29/2023 COMPARISON: 06/30/2022 INDICATION: Face and arm numbness TECHNIQUE: Frontal and lateral views of the chest are obtained. FINDINGS: The heart size is normal. The pulmonary vasculature is normal. The lungs are clear. Gliosis to the thoracic spine. Some spondylosis in the upper thoracic spine. IMPRESSION: 1. No acute pulmonary process.
--- NOTE | 2023-06-29 14:13 | CT ---
EXAMINATION TYPE: CT brain wo con DATE OF EXAM: 06/29/2023 COMPARISON: 11/18/2021 HISTORY: 68-year-old male left side face and arm numbness TECHNIQUE: Examination was done in axial plane without intravenous contrast. Coronal and sagittal r econstructions performed. CT DLP: 1105.4 mGycm Automated exposure control for dose reduction was used. FINDINGS: There is no evidence of acute intracranial hemorrhage, acute ischemic changes, mass, mass-effect, or extra-axial fluid collection. There is no effacement of cerebral sulci or basal subarachnoid cister ns. There is no hydrocephalus. There is no midline shift. Hilton-white matter distinction is preserv ed. Benign bilateral basal ganglionic calcifications. Moderate patchy white matter hypodensities in both cerebral hemispheres, unchanged. Scattered mild mucosal thickening ethmoid air cells. Some frothy partial opacification dependently in the left maxillary sinus partially visualized. Cerumen left greater than right external auditory can als. Mastoid air cells well pneumatized. Orbits and globes are intact. IMPRESSION: 1. Moderate patchy burden of chronic small vessel ischemic disease. No acute intracranial abnormalit y seen. 2. Possible acute on chronic left maxillary sinusitis. Correlate with symptoms.
[2023-06-29 14:39] VITALS: BP 133/89; PULSE 66
== END 2023-06-29 14:45 | disposition home or self-care (01) ==
LOC: EC 12:35
DX: R20.2 Paresthesia of skin (principal); J45.909 Unspecified asthma, uncomplicated; E78.5 Hyperlipidemia, unspecified; Z79.899 Other long term (current) drug therapy; Z87.891 Personal history of nicotine dependence; Z88.8 Allergy status to other drugs, medicaments and biological substances; Z86.73 Personal history of transient ischemic attack (TIA), and cerebral infarction without residual deficits
CPT/HCPCS: 36415; 93005; 80053; 82550; 85025; 85610; 85730; 71046; 70450; 99284; 96374; J2060

== ENCOUNTER → 2023-08-06 | Outpatient (CLI) | payer MEDICARE ==
--- NOTE | 2023-08-06 07:59 | US ---
EXAMINATION TYPE: US carotid duplex BILAT DATE OF EXAM: 08/06/2023 COMPARISON: NONE CLINICAL INDICATION: Male, 68 years old with history of I65.23 OCCLUSION AND STENOSIS OF BILATERAL CA ROTID; h/o TIA, assess any stenosis TECHNIQUE: Carotid duplex ultrasound examination. Indirect Doppler criteria was utilized. 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 Criteria for Assigning % of Stenosis / Diameter reduction (Estimation based on the indirect measurements of the internal carotid artery velocities (ICA PSV). 1. Normal (no stenosis)=ICA PSV < 125 cm/s: ratio < 2.0: ICA EDV<40 cm/s. 2. Less than 50% stenosis=ICA PSV < 125 cm/s: ratio < 2.0: ICA EDV<40 cm/s. 3. 50 to 69% stenosis=ICA PSV of 125 to 230 cm/s: ration 2.0 ? 4.0: ICA EDV 40-100 cm/s. 4. Greater than 70% stenosis to near occlusion= ICA PSV > 230 cm/s: ratio > 4.0: ICA EDV > 100 cm/s. 5. Near occlusion= ICA PSV velocities may be low or undetectable: variable ratio and ICA EDV. 6. Total occlusion=unable to detect flow.
== END | disposition home or self-care (01) ==
LOC: RADUSWWP 07:20
PROVIDERS: ATTEND Internal Medicine
DX: I65.23 Occlusion and stenosis of bilateral carotid arteries (principal)
CPT/HCPCS: 93880

== ENCOUNTER → 2023-08-07 | Outpatient (CLI) | payer MEDICARE ==
--- NOTE | 2023-08-07 14:11 | MR ---
EXAMINATION TYPE: MR MRA/MRV head wo con DATE OF EXAM: 08/07/2023 COMPARISON: None HISTORY: Numbness in face and hands, evaluate for TIA. CONTRAST: None TECHNIQUE: Multiplanar multiecho imaging on a 3.0 Radhika magnet is performed through the [place] of [place]. 3-D [id number] imaging is performed. Source images are reviewed on the computer in the axi al plane. Reconstructed images rotating on the computer are reviewed. FINDINGS: The internal carotid arteries bifurcate normally into A1 and M1 segments. The A2 segments are normal. Middle cerebral artery branches are normal. Anterior communicating artery is patent. Posterior communicating arteries appear to deviate to feed the A2 segments. A1 segments are also pat ent. MRV: Multiplanar imaging through the venous structures is performed. Sagittal sinus is patent. Straig ht sinus is evident. Sigmoid sinuses are unremarkable. IMPRESSION: 1. NORMAL MRA and MRV of the brain
== END | disposition home or self-care (01) ==
LOC: RADMRIMAIN 06:38
PROVIDERS: ATTEND Internal Medicine
DX: G45.9 Transient cerebral ischemic attack, unspecified (principal); I65.23 Occlusion and stenosis of bilateral carotid arteries
CPT/HCPCS: 70544

== ENCOUNTER → 2023-08-21 | Outpatient (CLI) | payer MEDICARE ==
[2023-08-21 16:23] LABS: Appearance,Urine Cloudy (Clear); Bilirubin,Urine Negative (Negative); Blood,Urine Negative (Negative); Color,Urine Yellow (Yellow); Ketones,Urine 15 (Negative); Nitrite,Urine Negative (Negative); PH, Urine 5.5; Specific Gravity,Urine 1.022 (1.001-1.030); Urobilinogen,Urine 0.2 E.U./DL
[2023-08-21 16:25] LABS: Basophils # (A) 0.03 X 10*3/uL (0.00-0.10); Basophils % (A) 0.6 %; Eosinophils # (A) 0.22 X 10*3/uL (0.04-0.35); Eosinophils % (A) 4.2 %; HCT 40.2 % (39.6-50.0); HGB 13.2 g/dL (13.0-17.0); Lymphocytes # (A) 1.29 X 10*3/uL (0.90-5.00); Lymphocytes % (A) 24.8 %; MCH 31.4 pg (27.0-32.0); MCHC 32.8 g/dL (32.0-37.0); MCV 95.7 FL (80.0-97.0); Mean Platelet Volume 10.4 FL (9.5-12.2); Monocytes # (A) 0.63 X 10*3/uL (0.20-1.00); Monocytes % (A) 12.1 %; NRBC Per 100 WBC 0 X 10*3/uL (0.00-0.01); Neutrophils # (A) 3.02 X 10*3/uL (1.80-7.70); Neutrophils % (A) 58.1 %; Platelet Count 243 X 10*3/uL (140-440); RDW 13.4 % (11.5-14.5)
[2023-08-21 16:28] LABS: Bacteria,Urine None Seen (None Seen)
[2023-08-21 16:38] LABS: BUN/Creat Ratio 18.64 Ratio (12.00-20.00); Blood Urea Nitrogen 20.5 mg/dL (9.0-27.0); Calcium 9.6 mg/dL (8.7-10.3); Carbon Dioxide 26.6 mmol/L (21.6-31.8); Chloride 105 mmol/L (96-109); Glucose 104 mg/dL (70-110); Sodium 142 mmol/L (135-145)
== END | disposition home or self-care (01) ==
LOC: LABWHC1 08:18
PROVIDERS: ATTEND Internal Medicine
DX: Z01.812 Encounter for preprocedural laboratory examination (principal); D41.02 Neoplasm of uncertain behavior of left kidney
CPT/HCPCS: 36415; 80048; 81001; 85025; 86850; 86900; 86901; 87086

== ENCOUNTER 2023-08-28 05:50 | Day surgery (SDC) | payer MEDICARE ==
[2023-08-26 11:44] VITALS: BMI 29.7
--- NOTE | 2023-08-27 20:25 | P.HPIHPCON ---
History of Present Illness H&P Date: 08/27/23 Chief Complaint: Left renal mass This is a 68-year-old male with history of a 1.5 cm left-sided lower pole mass that was found incidentally. Initially patient was made attained on active surveillance, but indicated he would like to proceed with definitive therapy. Option of a robotic partial nephrectomy versus cryoablation was discussed with him in detail. Risk and benefit of each approach were discussed. He agreed to proceed with a robotic left-sided partial nephrectomy, aware the risk which includes but not limited to bleeding, infection, injury to nearby organs which includes but not limited to bowel, spleen, pancreas. Discussed also potential of converting into a radical nephrectomy and if a radical nephrectomy is performed he is at a higher risk of needing hemodialysis in the short and long- term. Discussed potential this could be a benign lesion and potential if this is cancerous there is risk of recurrence. He understood all the risk and agreed to proceed Consent for Procedure: I have explained the operation/procedure to the patient, including the risks, benefits, side effects, alternative therapies (including not receiving the proposed treatment or service), the likelihood of the patient achieving his/her goals, and potential recuperation problems for the procedure/sedation/analgesia, as well as any blood products, if indicated. I also explained to the patient the risks, benefits and side effects of the alternatives, as well as the risks related to not receiving the proposed procedure, care, treatment, or services. Past Medical History Past Medical History: Asthma, CVA/TIA, GERD/Reflux, Hyperlipidemia, Musculoskeletal Disorder Additional Past Medical History / Comment(s): FATTY LIVER, HEART MURMUR,CHRONIC BACK PAIN/SPONDYLITIS, QUESTIONABLE TIA-POSSIBLE VALVE ISSUE? History of Any Multi-Drug Resistant Organisms: None Reported Past Surgical History: Appendectomy, Orthopedic Surgery Additional Past Surgical History / Comment(s): COLONOSCOPY, L FOOT FRACTURE WITH PINNING THEN REMOVED. Past Anesthesia/Blood Transfusion Reactions: No Reported Reaction Additional Past Anesthesia/Blood Transfusion Reaction / Comment(s): Claustrophobic Past Psychological History: No Psychological Hx Reported Additional Psychological History / Comment(s): CLAUSTROPHOBIC-NEEDS VALIUM FOR MRI'S Smoking Status: Former smoker Past Alcohol Use History: Occasional Additional Past Alcohol Use History / Comment(s): PT STARTED SMOKING IN 1971 AND QUIT IN 1986 Past Drug Use History: None Reported - Past Family History Father Family Medical History: Myocardial Infarction (NV) Additional Family Medical History / Comment(s): FATHER IN HIS 50S FROM A NV Mother Family Medical History: COPD Additional Family Medical History / Comment(s): MOTHER HAD HEART DISEASE AND POSSIBLY HAD A NV Son(s) Family Medical History: Asthma Additional Family Medical History / Comment(s): PT HAS A SON THAT HAD ASTHMA AND FROM "THROAT SWELLING SHUT." Medications and Allergies Home Medications Medication Instructions Recorded Confirmed Type Aspirin 81 mg PO DAILY #30 chew 12/15/17 08/26/23 Rx Ticagrelor [Brilinta] 90 mg PO BID #60 tab 11/19/21 08/26/23 Rx Mv-Min/Folic/K1/Lycopen/Lutein 1 tab PO DAILY 12/02/21 08/26/23 History [Centrum Silver Men Tablet] Cyanocobalamin (Vitamin B-12) 2,500 mcg PO DAILY 06/29/23 08/26/23 History [Vitamin B-12] Ezetimibe [Zetia] 10 mg PO DAILY 06/29/23 08/26/23 History Acetaminophen/Diphenhydramine 1 tab PO HS 08/26/23 08/26/23 History [Tylenol PM 500-25mg] Atorvastatin [Lipitor] 80 mg PO HS 08/26/23 08/26/23 History Cholecalciferol [Vitamin D3 (25 25 mcg PO DAILY 08/26/23 08/26/23 History Mcg = 1000 Iu)] Omeprazole 20 mg PO DAILY 08/26/23 08/26/23 History Allergies Allergy/AdvReac Type Severity Reaction Status Date / Time simvastatin [From Zocor] Allergy Itching Verified 08/26/23 11:18 Surgical - Exam - General no distress, no pain - ENT normal nares, normal mucosa - Respiratory normal expansion, normal respiratory effort - Abdomen Abdomen: soft, non tender - Psychiatric oriented to time, oriented to person, oriented to place Assessment and Plan Assessment: OR for Left Robotic partial nephrectomy
[2023-08-28] MEDS ORDERED: LIDOCAINE 1% (10MG/ML) FOR IV START INTRADERMA PRN (06:13)
[2023-08-28] MEDS ORDERED: MIDAZOLAM 2 MG/2 ML VIAL IV PRN (07:00)
[2023-08-28] MEDS ORDERED: HYDROmorphone 0.5 MG/0.5 ML SYRINGE IVP PRN (07:00)
[2023-08-28 07:10] LABS: Glucose,Whole Blood 107 mg/dL (70-110)
[2023-08-28] MEDS: DEXAMETHASONE SOD PHOSPHATE 4 MG/ML 1 ML VIAL IV ONE (07:15)
[2023-08-28] MEDS: ONDANSETRON 4 MG/2 ML VIAL IVP ONE (07:15)
[2023-08-28] MEDS: MIDAZOLAM 2 MG/2 ML VIAL IVP ONE (07:18)
[2023-08-28] MEDS ORDERED: ONDANSETRON 4 MG/2 ML VIAL IVP PRN (07:58)
[2023-08-28] MEDS ORDERED: NEOSTIGMINE 1 MG/ML 10 ML VIAL ONE (08:04)
[2023-08-28] MEDS ORDERED: GLYCOPYRROLATE 0.2 MG/ML 2 ML VIAL ONE (08:04)
[2023-08-28] MEDS ORDERED: LIDOCAINE 1% INJ 10MG/ML (20 ML MDV) ONE (08:04)
[2023-08-28] MEDS ORDERED: ROCURONIUM 10 MG/ML (5 ML VIAL) IV ONE (08:04)
[2023-08-28] MEDS ORDERED: fentaNYL (PF) 50 MCG/ML 2 ML AMP ONE (08:04)
[2023-08-28] MEDS ORDERED: HYDROmorphone (PF) 1 MG/ML ONE (08:04)
[2023-08-28] MEDS ORDERED: DEXAMETHASONE SOD PHOSPHATE 4 MG/ML 1 ML VIAL ONE (08:04)
[2023-08-28] MEDS ORDERED: PROPOFOL 10 MG/ML 20 ML VIAL IV ONE (08:04)
[2023-08-28] MEDS ORDERED: MANNITOL 25% 12.5 GM/50 ML VIAL ONE (08:04)
[2023-08-28] MEDS ORDERED: diphenhydrAMINE 50 MG/ML 1 ML VIAL ONE (08:04)
[2023-08-28] MEDS ORDERED: PHENYLEPHRINE 10 MG/ML VIAL ONE (08:04)
[2023-08-28] MEDS ORDERED: MIDAZOLAM 2 MG/2 ML VIAL ONE (08:04)
[2023-08-28] MEDS ORDERED: ROPIVACAINE 5 MG/ML 30 ML VIAL ONE (08:04)
[2023-08-28] MEDS ORDERED: SODIUM CHLORIDE 0.9% (PF) 10 ML VIAL ONE (08:04)
[2023-08-28] MEDS ORDERED: SUCCINYLCHOLINE CHLORIDE 200 MG/10 ML VIAL IV ONE (08:04)
[2023-08-28] MEDS: BUPIVACAINE (PF) 0.25% 30 ML VIAL SQ ONE (08:09)
[2023-08-28] MEDS: LACTATED RINGERS 1,000 ML IV SCH (08:13)
[2023-08-28] MEDS ORDERED: CHOLECALCIFEROL 25 MCG (1000 IU) TABLET PO SCH (09:00)
--- NOTE | 2023-08-28 09:26 | P.ANPRN ---
Procedure Note - Anesthesia - Invasive Line Right Arterial Line Time Out Performed: Yes Date of Procedure: 08/28/23 Time of Procedure: 07:17 Location of Patient: PreOp Preparation: Sterile Prep Arterial Line Location: Radial Ultrasound Used: Yes Purpose - Visualization and Identification of Vasculature: Yes Needle Guage: 20 Image Stored and Saved: Yes Narrative: Invasive line placement per sterile protocol utilized.
--- NOTE | 2023-08-28 09:28 | P.ANPRN ---
Procedure Note - Anesthesia - Nerve Block Performed Bilateral Erector Spinae Single Time Out Performed: Yes Date of Procedure: 08/28/23 Procedure Start Time: 07:46 Procedure Stop Time: 07:56 Location of Patient: PreOp Indication: Acute Post-Operative Pain, Requested by Surgeon Sedation Type: Sedate with meaningful contact maintained Preparation: Sterile Prep Position: Sitting Catheter: None Needle Types: Facet Needle Gauge: 20 Ultrasound used to visualize needle placement: Yes Ultrasound used to observe medication spread: Yes Injectate: Other (see comment) (Ropivacaine 0.25% + decadron 2 mg 30 ml per side) Blood Aspirated: No Pain Paresthesia on Injection Noted: No Resistance on Injection: Normal Image Stored and Saved: Yes Events: Uneventful and Well Tolerated
[2023-08-28] MEDS: LACTATED RINGERS 1,000 ML IV ONE (09:39)
[2023-08-28] MEDS: haloperidoL 5 MG TAB PO STA (12:10)
--- NOTE | 2023-08-28 12:17 | P.OP ---
Date of Procedure: 08/28/23 Preoperative Diagnosis: left renal mass Postoperative Diagnosis: same Procedure(s) Performed: Left robotic partial nephrectomy, and intraoperative ultrasound Implants: none Anesthesia: MARCIOA Surgeon: Loy Ingram Estimated Blood Loss (ml): 75 Pathology: other (left renal mass) Condition: stable Disposition: PACU Indications for Procedure: This is a 68-year-old male with history of a 1.5 cm left-sided lower pole mass that was found incidentally. Initially patient was made attained on active surveillance, but indicated he would like to proceed with definitive therapy. Option of a robotic partial nephrectomy versus cryoablation was discussed with him in detail. Risk and benefit of each approach were discussed. He agreed to proceed with a robotic left-sided partial nephrectomy, aware the risk which includes but not limited to bleeding, infection, injury to nearby organs which includes but not limited to bowel, spleen, pancreas. Discussed also potential of converting into a radical nephrectomy and if a radical nephrectomy is performed he is at a higher risk of needing hemodialysis in the short and long- term. Discussed potential this could be a benign lesion and potential if this is cancerous there is risk of recurrence. He understood all the risk and agreed to proceed Operative Findings: Left lower pole endophytic mass Description of Procedure: he patient was taken to the operating room . General anesthesia was induced. He was prepped and draped in sterile fashion, she was placed in modified flank position . All pressure points were padded. The abdominal insufflation was achieved with the Veress needle. A 8 mm camera port was placed. Robotic trocars and assistant media buyer ports were placed under direct vision. The robot was docked into place. The colon was mobilized medially by incising along the white line of Toldt. Next the spleen and the pancreas were mobilized. Once the bowel, spleen and pancreas were mobilized. At this time the gonadal vessel was visualized. Once the gonadal vessel and ureter was visualized , next after the psoas plane was developed the ureter and gonadal vessel was retracted anteriorly off the psoas muscle. Dissection proceeded cranially towards the renal hilum. The upper pole attachments were dissected. Care was taken to safely mobilize the kidney free of all visceral structures.The renal vessels were dissected. The renal artery and the vein was dissected in preparation for clamping. Next attention was carried to the tumor, the area around the tumor was defatted, insuring adequate defatting to identify a normal parenchyma. The tumor was completely endophytic, using the robotic ultrasound I identified the tumor and this was marked in order to adequately obtain adequate margins. Manitol was administered. The renal artery was clamped using 2 bulldogs. After clamping the renal artery the tumor was excised sharply with adequate margin, and cautery was used in areas of bleeding. Next the defect was closed in 2 layers using 30V lock for the inner layer, 20V lock in interrupted fashion for the outer layer. Sliding clip technique was used. Next the clamps were removed, total clamp time was 23 minutes. There was no evidence of bleeding from the defect. Hemostatic agents were applied The kidney tumor was placed in an Endo Catch bag. General fat was closed over the defect A CHUCKY drain was placed through the lower robotic trocor incision. The robot was then de-docked and the specimen was then removed through the assistant media buyer port.. Fascia was closed with one layer using 2-0 vicryl. Skin was closed with subcuticular sutures and dermabond. The patient was awoken from general anesthesia in stable condition. all counts were correct Please refer to the final pathology report for final diagnosis, all sponge and needle count were correct x 2
[2023-08-28] MEDS: EZETIMIBE 10 MG TAB PO SCH (15:17)
[2023-08-28] MEDS: HYDROmorphone 1 MG/ML 1 ML SYRINGE IVP PRN (17:04)
[2023-08-28] MEDS: KETOROLAC 15 MG/ML 1 ML VIAL IVP SCH (19:01)
[2023-08-28] MEDS: PANTOPRAZOLE 40 MG TABLET PO SCH (19:01)
[2023-08-28] MEDS: D5-0.45% NACL WITH KCL 20MEQ/L 1,000 ML IV SCH (19:02)
[2023-08-28] MEDS: ATORVASTATIN 80 MG TAB PO SCH (21:17)
[2023-08-28] MEDS: ACETAMINOPHEN TAB 500 MG TAB PO SCH (21:17)
[2023-08-29 09:21] LABS: Basophils # (A) 0.02 X 10*3/uL (0.00-0.10); Basophils % (A) 0.2 %; Eosinophils # (A) 0.02 X 10*3/uL (0.04-0.35); Eosinophils % (A) 0.2 %; HCT 36.5 % (39.6-50.0); HGB 12.2 g/dL (13.0-17.0); Lymphocytes # (A) 1.33 X 10*3/uL (0.90-5.00); Lymphocytes % (A) 11.2 %; MCH 32.2 pg (27.0-32.0); MCHC 33.4 g/dL (32.0-37.0); MCV 96.3 FL (80.0-97.0); Mean Platelet Volume 10.3 FL (9.5-12.2); Monocytes # (A) 1.28 X 10*3/uL (0.20-1.00); Monocytes % (A) 10.8 %; NRBC Per 100 WBC 0 X 10*3/uL (0.00-0.01); Neutrophils # (A) 9.13 X 10*3/uL (1.80-7.70); Neutrophils % (A) 76.8 %; Platelet Count 239 X 10*3/uL (140-440); RBC 3.79 X 10*6/uL (4.40-5.60); RDW 13.6 % (11.5-14.5); WBC 11.88 X 10*3/uL (4.50-10.00)
[2023-08-29] MEDS: CHOLECALCIFEROL 25 MCG (1000 IU) TABLET PO SCH (10:11)
--- NOTE | 2023-08-29 10:50 | P.PN ---
Subjective Progress Note Date: 08/29/23 The patient underwent a partial nephrectomy robotically assisted by yesterday. He is doing well. He has minimal pain. Objective - Vital Signs Vital signs: Vital Signs Temp 98.3 F 08/29/23 07:01 Pulse 65 08/29/23 09:31 Resp 16 08/29/23 09:31 BP 126/74 08/29/23 07:01 Pulse Ox 96 08/29/23 07:01 FiO2 Intake & Output 08/28/23 08/29/23 08/29/23 18:59 06:59 18:59 Intake Total 2450 Output Total 675 540 Balance 1775 -540 Weight 86 kg Intake: IV 2450 Output: Drainage 40 Left Lower Abdomen 40 Urine 600 500 Estimated Blood Loss 75 Other: Voiding Method Indwelling Catheter Indwelling Catheter Indwelling Catheter # Voids 0 - Labs CBC & Chem 7: 08/29/23 04:30 Labs: Abnormal Lab Results - Last 24 Hours (Table) 08/29/23 Range/Units 04:30 WBC 11.88 H (4.50-10.00) X 10*3/uL RBC 3.79 L (4.40-5.60) X 10*6/uL Hgb 12.2 L (13.0-17.0) g/dL Hct 36.5 L (39.6-50.0) % MCH 32.2 H (27.0-32.0) pg Immature Gran # 0.10 H (0.00-0.04) X 10*3/uL Neutrophils # 9.13 H (1.80-7.70) X 10*3/uL Monocytes # 1.28 H (0.20-1.00) X 10*3/uL Eosinophils # 0.02 L (0.04-0.35) X 10*3/uL Assessment and Plan Assessment: Impression: Impression: Status post left partial nephrectomy, stable Recommendations: The patient is status post left partial nephrectomy. His vital signs are stable. The drainage is acceptable. His abdomen is soft. He will be discharged home tomorrow if the drainage and vital signs remained stable.
[2023-08-29 15:14] LABS: BUN/Creat Ratio 17.58 Ratio (12.00-20.00); Blood Urea Nitrogen 21.1 mg/dL (9.0-27.0); Calcium 9.3 mg/dL (8.7-10.3); Chloride 102 mmol/L (96-109); Glucose 108 mg/dL (70-110); Potassium 4.5 mmol/L (3.5-5.5); Sodium 140 mmol/L (135-145)
[2023-08-29] MEDS: ZOLPIDEM 5 MG TAB PO PRN (23:50)
[2023-08-30 05:35] VITALS: TEMP 98.4
[2023-08-30 08:34] VITALS: BP 157/70; PULSE 73; RESP 17
--- NOTE | 2023-08-30 09:42 | P.DS ---
Providers Attending physician: Loy Ingram MD [facility] Course: The patient underwent a robotic assisted left partialnephrectomy by Dr Ingram 08/27. He has had an uneventful post operative course. He is tolerating a regular diet... His urine is clear His pain is controlled. he will be discharged home. He will be given an rx of norco Vj Ingram in 1 week. His drain will be removed prior to d/c Patient Condition at Discharge: Good Plan - Discharge Summary Discharge Rx Participant: No New Discharge Prescriptions: New HYDROcodone/APAP 5-325MG [[place] 5-325] 1 tab PO Q4HR PRN #14 tab PRN Reason: Pain No Action Aspirin 81 mg PO DAILY #30 chew Ticagrelor [Brilinta] 90 mg PO BID #60 tab Mv-Min/Folic/K1/Lycopen/Lutein [Centrum Silver Men Tablet] 1 tab PO DAILY Ezetimibe [Zetia] 10 mg PO DAILY Cyanocobalamin (Vitamin B-12) [Vitamin B-12] 2,500 mcg PO DAILY Cholecalciferol [Vitamin D3 (25 Mcg = 1000 Iu)] 25 mcg PO DAILY Acetaminophen/Diphenhydramine [Tylenol PM 500-25mg] 1 tab PO HS Omeprazole 20 mg PO DAILY Atorvastatin [Lipitor] 80 mg PO HS Discharge Medication List Aspirin 81 mg PO DAILY #30 chew 12/15/17 [Rx] Ticagrelor [Brilinta] 90 mg PO BID #60 tab 11/19/21 [Rx] Mv-Min/Folic/K1/Lycopen/Lutein [Centrum Silver Men Tablet] 1 tab PO DAILY 12/02/21 [History] Cyanocobalamin (Vitamin B-12) [Vitamin B-12] 2,500 mcg PO DAILY 06/29/23 [History] Ezetimibe [Zetia] 10 mg PO DAILY 06/29/23 [History] Acetaminophen/Diphenhydramine [Tylenol PM 500-25mg] 1 tab PO HS 08/26/23 [History] Atorvastatin [Lipitor] 80 mg PO HS 08/26/23 [History] Cholecalciferol [Vitamin D3 (25 Mcg = 1000 Iu)] 25 mcg PO DAILY 08/26/23 [History] Omeprazole 20 mg PO DAILY 08/26/23 [History] HYDROcodone/APAP 5-325MG [[place] 5-325] 1 tab PO Q4HR PRN #14 tab 08/30/23 [Rx] Follow up Appointment(s)/Referral(s): Loy Ingram MD [STAFF PHYSICIAN] - 09/04/23 Discharge Disposition: HOME SELF-CARE
== END 2023-08-30 10:24 | disposition home or self-care (01) ==
LOC: OR 05:50 → 4SSUR 12:34 → OR 08-30 10:24
PROVIDERS: ATTEND Urology
DX: C64.2 Malignant neoplasm of left kidney, except renal pelvis (principal); G89.18 Other acute postprocedural pain; J45.909 Unspecified asthma, uncomplicated; K21.9 Gastro-esophageal reflux disease without esophagitis; E78.5 Hyperlipidemia, unspecified; F10.90 Alcohol use, unspecified, uncomplicated; Z90.49 Acquired absence of other specified parts of digestive tract; Z86.73 Personal history of transient ischemic attack (TIA), and cerebral infarction without residual deficits; Z87.891 Personal history of nicotine dependence
CPT/HCPCS: 50543; S2900; 64999; 80048; 85025; 88307

== ENCOUNTER → 2024-01-07 | Outpatient (CLI) | payer MEDICARE ==
--- NOTE | 2024-01-07 08:25 | CT ---
EXAMINATION TYPE: CT lumbar spine wo con DATE OF EXAM: 01/07/2024 8:18 AM COMPARISON: None HISTORY: Low back pain, denies injury CT DLP: 663 mGycm Automated exposure control for dose reduction was used. Unenhanced CT of the lumbar spine was performed. Bone and soft tissue window settings are submitted as well as coronal and sagittal reconstructions. There is a levoscoliosis of the spine with severe degenerative disc disease at all levels. Multilevel vacuum disc. At T11-T12 there is posterior disc osteophyte complex, facet arthropathy with bilateral foraminal enc roachment and moderate canal stenosis. At T12-L1 there is posterior disc osteophyte complex, facet arthropathy with bilateral foraminal encr oachment and mild central stenosis. L1-L2: Facet arthropathy. Hypertrophic spurring posterior disc osteophyte complex. Mild canal stenosi s and bilateral foraminal encroachment. L2-L3: Posterior disc osteophyte complex with facet arthropathy. Moderate canal stenosis and bilatera l foraminal encroachment. L3-L4: Posterior disc osteophyte complex with facet arthropathy. Severe canal stenosis and bilateral foraminal encroachment. L4-L5: Normal anterolisthesis with advanced facet arthropathy, ligamentum flavum hypertrophy and post erior disc osteophyte complex. Severe canal stenosis and bilateral foraminal encroachment greater on the left with prominent spur. L5-S1: Advanced facet arthropathy with posterior spondylosis. Moderate bilateral foraminal encroachme nt and borderline to mild central stenosis. Hypertrophic SI joint arthropathy. Aorta of normal caliber. Parapelvic left renal cysts. Thickening o f the left adrenal gland too small to characterize likely benign adenoma or hyperplasia. IMPRESSION: 1. Severe degenerative disc disease at all levels with multilevel significant canal stenosis and fora reymundo encroachment as discussed above. Findings most marked at L4-L5. Recommend follow-up MRI.
== END | disposition home or self-care (01) ==
LOC: RADCTMAIN 07:39
PROVIDERS: ATTEND Internal Medicine
DX: M54.50 Low back pain, unspecified
CPT/HCPCS: 72131

== ENCOUNTER → 2024-02-12 | Outpatient (CLI) | payer MEDICARE ==
[2024-02-12 12:58] LABS: African American GFR (CKD) >90 (>60 ml/min/1.73 sqM); Blood Urea Nitrogen 29 mg/dL (9-20); Non-African American GFR(CKD) 82 (>60 ml/min/1.73 sqM)
--- NOTE | 2024-02-12 13:34 | CT ---
EXAMINATION TYPE: CT abdomen wo/w con CT DLP: 1037.8 mGycm, Automated exposure control for dose reduction was used. DATE OF EXAM: 02/12/2024 1:23 PM COMPARISON: MR kidney 03/13/2023, 04/18/2022, CT urogram 03/12/2022 CLINICAL INDICATION:Male, 68 years old with history of C64.2 RENAL CANCER; renal cancer TECHNIQUE: Standard CT of the abdomen before and after the uneventful menstruation of 100 cc of Iso duong-370 intravenously. Oral contrast was administered. Coronal and sagittal reformats were performed. FINDINGS: LOWER CHEST: Cardiomegaly and aortic valvular calcifications. Bibasilar subsegmental linear atelectas is versus scarring. Few punctate calcified granulomas. ABDOMEN LIVER: Unremarkable GALLBLADDER AND BILE DUCTS: Unremarkable. PANCREAS: Unremarkable. SPLEEN: Unremarkable. ADRENAL GLANDS: Unremarkable. KIDNEYS AND URETERS: No evidence of hydronephrosis or renal calculus. Postsurgical changes involving the inferior pole of the left kidney with suture material and residual stranding. No suspicious enhan cing soft tissue identified. No new suspicious renal lesion identified. Left renal sinus cysts redemo nstrated. Retroaortic left renal vein. Contrast is demonstrated within both collecting systems on the delayed phase. STOMACH AND BOWEL: Stomach and duodenum are unremarkable. Moderate amount of stool is present within the visualized colon. Enteric contrast is reaches the mid small bowel. No focal wall thickening or uriarte rrounding inflammatory changes. No evidence of bowel obstruction. PERITONEUM: No evidence of pneumoperitoneum or free fluid. VASCULATURE: No evidence of aortic aneurysm. MUSCULOSKELETAL: No acute osseous abnormalities. No aggressive osseous lesion. Degenerative changes o f both SI joints with anterior bridging. Mild levocurvature of the visualized spine. Moderate multile kristen degenerative disc disease. LYMPH NODES: No evidence for lymphadenopathy. SOFT TISSUE/ABDOMINAL WALL: Unremarkable IMPRESSION: Postsurgical changes from partial left nephrectomy without definitive suspicious enhancement in the s urgical bed to suggest local recurrence. No evidence for metastatic disease within the abdomen. [facility], , 02/12/2024 1:32 PM
--- NOTE | 2024-02-12 13:59 | XR ---
EXAMINATION TYPE: XR chest 2V DATE OF EXAM: 02/12/2024 COMPARISON: 06/29/2023 HISTORY: Chest pain TECHNIQUE: Frontal and lateral views of the chest are obtained. FINDINGS: There is no focal air space opacity. No evidence for pneumothorax. No pleural effusion. The cardiac silhouette size is within normal limits. The osseous structures are grossly intact. IMPRESSION: 1. No acute cardiopulmonary process. [facility], , 02/12/2024 1:57 PM
== END | disposition home or self-care (01) ==
LOC: RADCTMAIN 11:49
PROVIDERS: ATTEND Urology
DX: C64.2 Malignant neoplasm of left kidney, except renal pelvis
CPT/HCPCS: 36415; 71046; 74170; 82565; 84520

== ENCOUNTER → 2024-03-22 | Outpatient (CLI) | payer MEDICARE ==
[2024-03-22 15:15] LABS: Homocysteine 7.95 UMOL/L (4.00-14.00)
[2024-03-22 15:34] LABS: ALT 18 U/L (10-49); AST 19 U/L (14-35); Albumin 4.2 g/dL (3.8-4.9); Albumin/Globulin Ratio 1.83 Ratio (1.60-3.17); Alkaline Phosphatase 82 U/L (41-126); Blood Urea Nitrogen 24.5 mg/dL (9.0-27.0); Calcium 9.4 mg/dL (8.7-10.3); Carbon Dioxide 25.6 mmol/L (21.6-31.8); Chloride 105 mmol/L (96-109); Globulin 2.3 g/dL (1.6-3.3); Glucose 95 mg/dL (70-110); Potassium 4.3 mmol/L (3.5-5.5); Sodium 141 mmol/L (135-145); Total Bilirubin 0.7 mg/dL (0.3-1.2); Total Protein 6.5 g/dL (6.2-8.2)
[2024-03-22 19:36] LABS: Cardiolipin Ab IgG Interp Negative (Negative); Cardiolipin Ab IgM Interp Negative (Negative); Cardiolipin IgA Antibody <2.0 U/mL; Cardiolipin IgM Antibody <1.5 U/mL
[2024-03-23 10:34] LABS: APTT 39 Sec(s) (<43); Dilute Russell Viper Venom 34 Sec(s) (<44)
[2024-03-23 14:39] LABS: Prothrombin 20210A Mutation Negative
== END | disposition home or self-care (01) ==
LOC: LABWHC1 12:04
PROVIDERS: ATTEND Internal Medicine
DX: G45.9 Transient cerebral ischemic attack, unspecified (principal); R20.8 Other disturbances of skin sensation; R41.3 Other amnesia; R25.1 Tremor, unspecified
CPT/HCPCS: 36415; 80053; 81240; 81241; 82306; 82607; 83090; 84207; 85302; 85303; 85306; 85613; 85652; 85730; 86038; 86141; 86147

== ENCOUNTER → 2024-05-20 | Outpatient (CLI) | payer MEDICARE | END | disposition home or self-care (01) | LOC: RADNMMAIN 10:02 | PROVIDERS: ATTEND Psychiatry & Neurology Neurology | DX: Z53.9 Procedure and treatment not carried out, unspecified reason (principal) ==

== ENCOUNTER → 2024-08-03 | Outpatient (CLI) | payer MEDICARE ==
[2024-08-03 10:41] LABS: HCT 42.4 % (39.6-50.0); HGB 13.9 g/dL (13.0-17.0); MCHC 32.8 g/dL (32.0-37.0); MCV 97.7 FL (80.0-97.0); Mean Platelet Volume 10.1 FL (9.5-12.2); NRBC Per 100 WBC 0 X 10*3/uL (0.00-0.01); Platelet Count 259 X 10*3/uL (140-440); RBC 4.34 X 10*6/uL (4.40-5.60); RDW 13.8 % (11.5-14.5); WBC 5.24 X 10*3/uL (4.50-10.00)
[2024-08-03 10:56] LABS: Blood Urea Nitrogen 23.6 mg/dL (9.0-27.0); Carbon Dioxide 26.7 mmol/L (21.6-31.8); Chloride 107 mmol/L (96-109); Potassium 4.8 mmol/L (3.5-5.5); Sodium 144 mmol/L (135-145)
== END | disposition home or self-care (01) ==
LOC: LABPAT 07:34
PROVIDERS: ATTEND Internal Medicine Cardiovascular Disease
DX: Z01.812 Encounter for preprocedural laboratory examination (principal); I35.0 Nonrheumatic aortic (valve) stenosis
CPT/HCPCS: 80051; 82565; 84520; 85027

== ENCOUNTER 2024-08-05 07:02 | Day surgery (SDC) | payer MEDICARE ==
[2024-08-02 15:44] VITALS: BMI 29.7
[~2024-08-05 07:02] MED LIST changes: +ALPRAZolam 0.25 MG TAB PO PRN; +ALPRAZolam 0.5 MG TAB PO PRN; +ASPIRIN 325 MG TAB PO STA; +ATORVASTATIN 80 MG TAB PO STA; -LACTATED RINGERS 1,000 ML IV SCH; +MIDAZOLAM 2 MG/2 ML VIAL IV PRN; +NITROGLYCERIN SL TABS 0.4 MG TAB SUBLINGUAL PRN; +fentaNYL (PF) 50 MCG/ML 5 ML AMP IVP PRN
[2024-08-05 07:54] VITALS: RESP 16; TEMP 98.1
[2024-08-05] MEDS: IV FLUID CONTINUATION 1,000 ML IV ONE ×2 (07:55→08:36)
[2024-08-05] MEDS: EMPTY BAG 1 BAG with SODIUM CHLORIDE 0.9% 1,000 ML IV ONE (07:56)
[2024-08-05] MEDS: BENZOCAINE SPRAY 1 EACH MM ONE ×2 (08:57)
[2024-08-05] MEDS ORDERED: BENZOCAINE SPRAY 1 EACH MM SCH (09:00)
[2024-08-05] MEDS: MIDAZOLAM 2 MG/2 ML VIAL IVP ONE (09:03)
[2024-08-05] MEDS: fentaNYL (PF) 50 MCG/ML 2 ML AMP IVP ONE (09:03)
[2024-08-05] MEDS: LIDOCAINE 1% INJ 10MG/ML (20 ML MDV) SQ ONE (09:19)
[2024-08-05] MEDS: VERAPAMIL SYRINGE (5 MG/10 ML) INTRAARTER ONE (09:22)
[2024-08-05] MEDS: HEPARIN SODIUM 1,000 UN/ML (10ML VL) IV ONE (09:23)
[2024-08-05] MEDS: HEPARIN SODIUM,PORCINE 10,000 UNIT in SODIUM CHLORIDE 0.9% 1,000 ML IRRIGATION PRN (09:25)
[2024-08-05] MEDS: HEPARIN SODIUM,PORCINE (1 ML) 2,500 UNIT in SODIUM CHLORIDE 0.9% 250 ML IRRIGATION PRN (09:25)
[2024-08-05] MEDS: IOPAMIDOL-370 100ML BTL INJ ONE (09:33)
[2024-08-05] MEDS: SODIUM CHLORIDE 0.9% 1,000 ML IV SCH (09:45)
[2024-08-05] MEDS ORDERED: RX INFO: IV CONTRAST WAS GIVEN 1 EACH MISC MISCELLANE PRN (10:06)
--- NOTE | 2024-08-05 10:13 | CC ---
CARDIAC CATHETERIZATION REPORT INDICATIONS: Aortic stenosis. PROCEDURE NOTE: After obtaining informed consent, left heart catheterization and coronary angiogram were performed via the right radial artery using standard Danilo catheters. The patient tolerated the procedure well without any obvious immediate complications. Right radial artery access was obtained using Seldinger technique. A 6-Malay sheath was placed. Catheters and wires were floated into the ascending aorta under fluoroscopic guidance. Size 4 Danilo catheters were used. We could not cross the valve. The patient received verapamil and heparin per protocol. FINDINGS: 1. Hemodynamics: a. Central aortic pressure is 110/70 mm. b.Left ventriculogram: Left ventriculogram was not performed. 2. Angiographic data: a.Right coronary artery: Right coronary artery is a large dominant vessel and is free of stenosis. b.Left main coronary artery appears calcified, but it is free of disease. It divides into left anterior descending coronary artery and circumflex coronary artery. LAD and its branches and circumflex coronary artery and its branches are free of significant stenosis. CONCLUSIONS: 1. Normal coronary arteries. 2. Severe aortic stenosis based on noninvasive studies. PLAN: The patient will be referred to surgery for aortic valve replacement. MMODL / IJN: [id number] /
[2024-08-05 14:45] VITALS: BP 120/70; PULSE 64
--- NOTE | 2024-08-06 16:07 | ECHOT ---
TRANSESOPHAGEAL ECHOCARDIOGRAM INDICATION: Severe aortic stenosis. PROCEDURE NOTE: After obtaining informed consent, transesophageal echocardiogram has been performed in the left lateral position using an Omniplane probe. Local and IV sedation were obtained using 2 mg of Versed, and 50 mcg of fentanyl. The patient tolerated the procedure well without any obvious immediate complications. FINDINGS: 1. Aortic valve: Aortic valve appears to be a quadricuspid valve that is heavily calcified with severe restriction in leaflet mobility with a calculated valve area around 0.5 sq cm consistent with severe aortic stenosis. Mitral valve is anatomically normal. There is mild mitral regurgitation noted. There is mild tricuspid regurgitation noted. There is mild biatrial enlargement. 2. Left ventricle has normal size and systolic function. 3. Interatrial septum, there is no evidence of [id number] shunt by color-flow Doppler or [id number] shunt by agitated saline contrast study. Ascending aorta appears mildly dilated. CONCLUSIONS: Severe aortic stenosis involving a quadricuspid aortic valve with a valve area of 0.5 sq cm. PLAN: The patient will undergo cardiac catheterization and will be referred to CT Surgery for valve replacement. MMODL / IJN: [id number] /
== END 2024-08-05 13:54 | disposition home or self-care (01) ==
LOC: CATHCVL 07:02
PROVIDERS: ATTEND Internal Medicine Cardiovascular Disease
DX: I35.0 Nonrheumatic aortic (valve) stenosis (principal); G45.9 Transient cerebral ischemic attack, unspecified; E78.2 Mixed hyperlipidemia; Z95.2 Presence of prosthetic heart valve; Z88.8 Allergy status to other drugs, medicaments and biological substances; Z79.02 Long term (current) use of antithrombotics/antiplatelets; Z79.82 Long term (current) use of aspirin; Z79.899 Other long term (current) drug therapy
CPT/HCPCS: 93312; 93320; 93325; 93454; C1894; J2250; J1644 ×3; J2003; J3010; Q9967

== ENCOUNTER 2024-09-16 08:00 | Inpatient (IN) | payer MEDICARE ==
[2024-09-23] MEDS: IV FLUID CONTINUATION 1,000 ML IV ONE (06:10)
[2024-09-23] MEDS: LIDOCAINE 1% (10MG/ML) FOR IV START INTRADERMA STA (06:10)
[2024-09-23] MEDS: LACTATED RINGERS 1,000 ML IV ONE (06:10)
[2024-09-23] MEDS: METOPROLOL TARTRATE 12.5 MG TAB PO ONE (06:26)
[2024-09-23] MEDS: ATORVASTATIN 10 MG TAB PO ONE (06:26)
[2024-09-23 06:29] LABS: Glucose,Whole Blood 95 mg/dL (70-110)
--- NOTE | 2024-09-23 06:49 | P.PN ---
Progress Note - Text Progress Note Date: 09/23/24 A 5 m walk test was completed with the patient, he tolerated well without complaint. Time 1: 2.78 seconds, time 2: 3.03 seconds, time 3: 3.05 seconds. The STS risk score was calculated and discussed with the patient.
[2024-09-23] MEDS ORDERED: ROCURONIUM 10 MG/ML (5 ML VIAL) IV ONE (07:30)
[2024-09-23] MEDS ORDERED: INSULIN REGULAR 100 UNIT/ML VIAL (IV) ONE (07:30)
[2024-09-23] MEDS ORDERED: ePHEDrine 50 MG/ML 1 ML VIAL ONE (07:30)
[2024-09-23] MEDS ORDERED: VECURONIUM 10 MG VIAL IV ONE (07:30)
[2024-09-23] MEDS ORDERED: LIDOCAINE 2% SYG (PF) 100 MG/5 ML ONE (07:30)
[2024-09-23] MEDS ORDERED: fentaNYL (PF) 50 MCG/ML 50 ML VIAL ONE (07:30)
[2024-09-23] MEDS ORDERED: CALCIUM CHLORIDE 100 MG/ML 10 ML SYRINGE ONE (07:30)
[2024-09-23] MEDS ORDERED: PHENYLEPHRINE 10 MG/ML VIAL ONE (07:30)
[2024-09-23] MEDS ORDERED: PROTAMINE SULFATE 10 MG/ML 25 ML VIAL IV ONE (07:30)
[2024-09-23] MEDS ORDERED: PROPOFOL 10 MG/ML 20 ML VIAL IV ONE (07:30)
[2024-09-23] MEDS ORDERED: MIDAZOLAM HCL 10 MG/10 ML VIAL ONE (07:30)
[2024-09-23] MEDS ORDERED: TRANEXAMIC 1,000 MG/100ML-NACL PREMIX BAG ONE (07:30)
[2024-09-23] MEDS: SODIUM CHLORIDE 0.9% 100 ML with ceFAZolin 2,000 MG IV ONE (08:11)
[2024-09-23 08:38] LABS: ABG Base Excess 0.6 mmol/L; ABG Glucose Whole Blood 113 mg/dL (75-99); ABG HCO3 25 mmol/L (21-25); ABG Hematocrit 33 % (34.0-46.0); ABG Ionized Calcium 4.7 mg/dL (4.5-5.3); ABG Lactic Acid Whole Blood 0.7 mmol/L (0.5-1.6); ABG Oxygen Saturation >99.4 % (94-97); ABG PCO2 40 mmHg (35-45); ABG PH 7.41 (7.35-7.45); ABG PO2 315 mmHg (83-108); ABG Potassium Whole Blood 4.2 mmol/L (3.4-4.5); ABG Sodium Whole Blood 140 mmol/L (135-146); Allen Test Performed? Yes
[2024-09-23] MEDS: ceFAZolin 1,000 MG in SODIUM CHLORIDE 0.9% 1,000 ML IRRIGATION ONE (08:54)
[2024-09-23] MEDS: SODIUM CHLORIDE 0.9% 500 ML 500 ML with HEPARIN SODIUM,PORCINE (1 ML) 5,000 UNIT IV ONE (08:54)
[2024-09-23 09:13] LABS: ABG Base Excess 1.2 mmol/L; ABG Glucose Whole Blood 111 mg/dL (75-99); ABG HCO3 26 mmol/L (21-25); ABG Hematocrit 33 % (34.0-46.0); ABG Ionized Calcium 4.7 mg/dL (4.5-5.3); ABG Lactic Acid Whole Blood 0.8 mmol/L (0.5-1.6); ABG Oxygen Saturation >99.4 % (94-97); ABG PCO2 39 mmHg (35-45); ABG PH 7.42 (7.35-7.45); ABG PO2 283 mmHg (83-108); ABG Potassium Whole Blood 4.2 mmol/L (3.4-4.5); ABG Sodium Whole Blood 140 mmol/L (135-146); Allen Test Performed? Yes
[2024-09-23 09:44] LABS: ABG Glucose Whole Blood 108 mg/dL (75-99); ABG HCO3 25 mmol/L (21-25); ABG Hematocrit 27 % (34.0-46.0); ABG Ionized Calcium 4.1 mg/dL (4.5-5.3); ABG Lactic Acid Whole Blood 0.6 mmol/L (0.5-1.6); ABG Oxygen Saturation >99.4 % (94-97); ABG PCO2 40 mmHg (35-45); ABG PO2 407 mmHg (83-108); ABG Potassium Whole Blood 4.8 mmol/L (3.4-4.5); ABG Sodium Whole Blood 137 mmol/L (135-146); Allen Test Performed? Yes
[2024-09-23 10:16] LABS: ABG Base Excess 0.5 mmol/L; ABG Glucose Whole Blood 127 mg/dL (75-99); ABG HCO3 26 mmol/L (21-25); ABG Hematocrit 27 % (34.0-46.0); ABG Ionized Calcium 4.3 mg/dL (4.5-5.3); ABG Lactic Acid Whole Blood 0.6 mmol/L (0.5-1.6); ABG Oxygen Saturation >99.4 % (94-97); ABG PCO2 43 mmHg (35-45); ABG PH 7.38 (7.35-7.45); ABG PO2 344 mmHg (83-108); ABG Potassium Whole Blood 4.8 mmol/L (3.4-4.5); ABG Sodium Whole Blood 138 mmol/L (135-146); Allen Test Performed? Yes
[2024-09-23 10:44] LABS: ABG Base Excess -0.5 mmol/L; ABG Glucose Whole Blood 141 mg/dL (75-99); ABG HCO3 26 mmol/L (21-25); ABG Hematocrit 28 % (34.0-46.0); ABG Ionized Calcium 4.3 mg/dL (4.5-5.3); ABG Lactic Acid Whole Blood 0.7 mmol/L (0.5-1.6); ABG Oxygen Saturation 99.3 % (94-97); ABG PCO2 50 mmHg (35-45); ABG PH 7.32 (7.35-7.45); ABG PO2 332 mmHg (83-108); ABG Potassium Whole Blood 4.9 mmol/L (3.4-4.5); ABG Sodium Whole Blood 138 mmol/L (135-146); ABG TCO2 25 mmol/L (19-24); Allen Test Performed? Yes
[2024-09-23 11:54] LABS: ABG Base Excess -0.3 mmol/L; ABG Glucose Whole Blood 120 mg/dL (75-99); ABG HCO3 24 mmol/L (21-25); ABG Hematocrit 30 % (34.0-46.0); ABG Ionized Calcium 4.7 mg/dL (4.5-5.3); ABG Lactic Acid Whole Blood 1.2 mmol/L (0.5-1.6); ABG Oxygen Saturation 99.3 % (94-97); ABG PCO2 39 mmHg (35-45); ABG PO2 260 mmHg (83-108); ABG Potassium Whole Blood 4.3 mmol/L (3.4-4.5); ABG Sodium Whole Blood 140 mmol/L (135-146); ABG TCO2 23 mmol/L (19-24); Allen Test Performed? Yes
[2024-09-23] MEDS ORDERED: BENZOCAINE/MENTHOL LOZENG 1 EACH LOZENGE MUCOUS MEM PRN (12:02)
[2024-09-23] MEDS ORDERED: IPRATROPIUM-ALBUTEROL 3 ML NEB INHALATION PRN (12:02)
[2024-09-23] MEDS ORDERED: DEXTROSE 5% IN WATER 100 ML with AMIODARONE 150 MG IV PRN (12:02)
[2024-09-23] MEDS ORDERED: ONDANSETRON 4 MG/2 ML VIAL IVP PRN (12:02)
[2024-09-23] MEDS ORDERED: Magnesium Replacement Protocol 1 EACH MISC MISCELLANE PRN (12:02)
[2024-09-23] MEDS ORDERED: CALCIUM GLUCONATE IN NACL 2 GM in SALINE 1 100ML.BAG IVPB PRN (12:02)
[2024-09-23] MEDS ORDERED: Potassium Replacement Protocol 1 EACH MISC MISCELLANE PRN (12:02)
[2024-09-23] MEDS ORDERED: hydrALAZINE HCL 20 MG/ML 1 ML VIAL IVP PRN (12:02)
[2024-09-23] MEDS ORDERED: DEXTROSE 50% SYRINGE 50 ML IVP PRN ×2 (12:02)
[2024-09-23] MEDS ORDERED: Phosphorus Replacement Protoco 1 EACH MISC MISCELLANE PRN (12:02)
[2024-09-23 12:41] LABS: Basophils # (A) 0.02 10*3/uL (0.00-0.10); Basophils % (A) 0.2 %; HCT 32.2 % (39.6-50.0); HGB 10.8 g/dL (13.0-17.0); Lymphocytes # (A) 1.11 10*3/uL (0.90-5.00); MCH 32.7 pg (27.0-32.0); MCHC 33.5 g/dL (32.0-37.0); MCV 97.6 fL (80.0-97.0); Mean Platelet Volume 10.3 fL (9.5-12.2); Monocytes # (A) 0.56 10*3/uL (0.20-1.00); Monocytes % (A) 5.5 %; Neutrophils # (A) 8.29 10*3/uL (1.80-7.70); Neutrophils % (A) 81.9 %; Platelet Count 132 10*3/uL (140-440); WBC 10.12 10*3/uL (4.50-10.00)
[2024-09-23] MEDS: IPRATROPIUM-ALBUTEROL 3 ML NEB INHALATION SCH ×2 (12:42→20:13)
[2024-09-23 12:47] LABS: Ionized Calcium 4.8 mg/dL (4.5-5.3)
[2024-09-23] MEDS: SODIUM CHLORIDE 0.9% 1,000 ML IV SCH (12:51)
[2024-09-23] MEDS: AMIODARONE 360 MG in DEXTROSE 5% IN WATER 200 ML IV ONE (12:53)
[2024-09-23] MEDS: CLEVIDIPINE BUTYRATE 25 MG in EMPTY BAG 1 BAG IV SCH (12:53)
[2024-09-23] MEDS: NITROGLYCERIN-D5W PMX 50 MG in DEXTROSE/WATER 1 250ML.BAG IV SCH (12:54)
[2024-09-23] MEDS: INSULIN REGULAR 100 UNIT in SODIUM CHLORIDE 0.9% 100 ML IV SCH (12:54)
[2024-09-23] MEDS: ACETAMINOPHEN IV (For NPO) 1,000 MG in EMPTY BAG 1 BAG IVPB SCH (12:58)
[2024-09-23 13:00] LABS: INR 1.1 (<1.2); Partial Thromboplastin Time 25.5 sec (22.0-30.0); Prothrombin Time 12.4 sec (10.0-12.5)
[2024-09-23 13:06] LABS: ALT 14 U/L (4-49); AST 32 U/L (17-59); African American GFR (CKD) >90 (>60 ml/min/1.73 sqM); Albumin 2.6 g/dL (3.5-5.0); Alkaline Phosphatase 59 U/L (38-126); Anion Gap 7 mmol/L; Blood Urea Nitrogen 20 mg/dL (9-20); Calcium 8.8 mg/dL (8.4-10.2); Carbon Dioxide 25 mmol/L (22-30); Chloride 105 mmol/L (98-107); Glucose 129 mg/dL (74-99); Magnesium 2.5 mg/dL (1.6-2.3); Non-African American GFR(CKD) 89 (>60 ml/min/1.73 sqM); Potassium 4.2 mmol/L (3.5-5.1); Sodium 137 mmol/L (137-145); Total Bilirubin 0.8 mg/dL (0.2-1.3); Total Protein 4.6 g/dL (6.3-8.2)
--- NOTE | 2024-09-23 13:16 | XR ---
EXAMINATION TYPE: XR chest 1V portable DATE OF EXAM: 09/23/2024 CLINICAL INDICATION: Male, 69 years old with history of Post Operative Cardiac Surgery, progress stud y. TECHNIQUE: Single AP portable supine view of the chest is obtained. COMPARISON: Chest CT from September 08, 2024 FINDINGS: There is new endotracheal tube terminating at superior aortic knob level approximately 4 t o 5 cm above the richard. There is new orogastric tube coiled in the gastric fundus. There is new righ t internal jugular Rosebud-Hailey catheter terminating at level of pulmonary outflow tract. There is new m ediastinal drainage catheter and left-sided chest tube. There is new overlying sternal wires along wi th metallic aortic valve and left atrial appendage clip. No pneumothorax is evident. There is mild central vascular congestion and small left pleural effusion . There is cardiomegaly. Osseous structures are intact. IMPRESSION: 1. The tubes and lines are satisfactory in position. 2. Mild central vascular congestion and small left pleural effusion noted. No pneumothorax identified . [facility], , 09/23/2024 1:14 PM
[2024-09-23 13:25] LABS: Glucose,Whole Blood 136 mg/dL (70-110)
[2024-09-23 13:36] LABS: ABG Base Excess 0.5 mmol/L; ABG HCO3 26 mmol/L (21-25); ABG Oxygen Saturation 96.4 % (94-97); ABG PCO2 46 mmHg (35-45); ABG PH 7.37 (7.35-7.45); ABG PO2 84 mmHg (83-108); ABG TCO2 28 mmol/L (19-24); Allen Test Performed? Yes
[2024-09-23 14:04] LABS: Glucose,Whole Blood 128 mg/dL (70-110)
--- NOTE | 2024-09-23 14:30 | P.ANPRN ---
Procedure Note - Anesthesia - Invasive Line Right Arterial Line Time Out Performed: Yes Date of Procedure: 09/23/24 Time of Procedure: 07:15 Location of Patient: PreOp Preparation: Sterile Prep, Sterile Dressing Arterial Line Location: Radial Needle Guage: 20 Image Stored and Saved: No Narrative: Invasive line placement per sterile protocol utilized. Placed by LETTERER Right Central Line Time Out Performed: Yes Date of Procedure: 09/23/24 Time of Procedure: 07:20 Location of Patient: PreOp Preparation: Sterile Prep, Sterile Dressing Central Line Location: Internal Jugular Ultrasound Used: Yes Purpose - Visualization and Identification of Vasculature: Yes Needle Guage: 18 Image Stored and Saved: Yes Narrative: Invasive line placement per sterile protocol utilized. Right [place] Hailey Time Out Performed: Yes Date of Procedure: 09/23/24 Time of Procedure: 07:30 Location of Patient: PreOp Preparation: Sterile Prep, Sterile Dressing [place] Hailey Line Location: Internal Jugular Ultrasound Used: No Image Stored and Saved: No Narrative: Ports flushed and balloon tested. Catheter advanced until RV and then PA waveforms obtained. Balloon deflated and line secured at 46 cm. Position in distal main PA confirmed on BRITTNEY in the OR.
--- NOTE | 2024-09-23 14:33 | P.ANPRN ---
Procedure Note - Anesthesia - BRITTNEY Intraop Pre Bypass BRITTNEY Intraop - Anesthesia Indication: Aortic stenosis Date of Procedure: 09/23/24 Pre-operative Diagnosis: Post-operative Diagnosis: Same Surgeon: Nestor Presley Left Ventricle: EF 50% Ejection Fraction: Normal Regional Wall Motion Abnormalities: None Left Ventricle Hypertrophy: No R. Ventricle Function: Normal Aortic Valve: Severe w/ Mean 53 mmHg Anatomy: Other (Bicuspid) Aortic Stenosis: Severe Aortic Regurgitation: None Mitral Stenosis: None Mitral Regurgitation: None Tricuspid Stenosis: None Tricuspid Regurgitation: None Pulmonic Stenosis: None Pulmonic Regurgitation: None R. Atrial Dilation: No R. Atrial PFO: No L. Atrial Dilation: No Aortic Dissection: No Aortic Calcification: Mild Plural Effusion: None - BRITTNEY Intraop Post Bypass BRITTNEY Intraop Post Bypass Procedure Performed: AVR w/ 23 mm bioprosthetic Ejection Fraction: Normal Regional Wall Motion Abnormalities: None R. Ventricle Function: Normal Aortic Valve: Peak 15 mmHg, Mean 7 mmHg. No perivalvular leak Mitral Valve: Unchanged Tricuspid: Unchanged Pulmonic: Unchanged Aortic Dissection: No
[2024-09-23] MEDS: HEPARIN SODIUM,PORCINE 5,000 UNIT/ML 1 ML VIAL SQ SCH (14:55)
[2024-09-23] MEDS: ceFAZolin 2 GM in DEXTROSE 5% IN WATER 50 ML IVPB SCH (14:56)
[2024-09-23 15:07] LABS: Glucose,Whole Blood 140 mg/dL (70-110)
[2024-09-23 15:12] LABS: Basophils # (A) 0.02 10*3/uL (0.00-0.10); Basophils % (A) 0.2 %; Eosinophils # (A) 0.05 10*3/uL (0.04-0.35); Eosinophils % (A) 0.4 %; HCT 36.7 % (39.6-50.0); HGB 12.2 g/dL (13.0-17.0); Lymphocytes # (A) 0.93 10*3/uL (0.90-5.00); Lymphocytes % (A) 7.7 %; MCH 32.4 pg (27.0-32.0); MCHC 33.2 g/dL (32.0-37.0); MCV 97.3 fL (80.0-97.0); Monocytes # (A) 0.92 10*3/uL (0.20-1.00); Monocytes % (A) 7.6 %; Neutrophils # (A) 10.14 10*3/uL (1.80-7.70); Neutrophils % (A) 83.9 %; Platelet Count 163 10*3/uL (140-440); RBC 3.77 10*6/uL (4.40-5.60); WBC 12.09 10*3/uL (4.50-10.00)
[2024-09-23 15:13] LABS: Glucose,Whole Blood 119 mg/dL (70-110)
--- NOTE | 2024-09-23 15:15 | P.CONS ---
History of Present Illness - Reason for Consult Consult date: 09/23/24 Medical management Requesting physician: Nestor Presley - Chief Complaint Status post aortic valve replacement - History of Present Illness HISTORY OF PRESENT ILLNESS: This is a 69-year-old male with a previous medical history significant for hyperlipidemia, GERD with esophagitis, vitamin D deficiency, recurrent TIA on dual antiplatelet therapy, who recently underwent left heart catheterization that showed normal coronary arteries with severe aortic valve stenosis followed by transesophageal echocardiogram which confirmed severe aortic valve stenosis with a valve surface area of 0.5, patient underwent aortic valve replacement that was done by Dr. Presley and we were asked to see the patient for postoperative medical management. On the ventilator, currently in degree Van drip at 30 micg, he has been on albumin as well as IV fluid resuscitation, he has very good urine output at least 100 cc an hour, we will is currently on the ventilator with a tidal volume of 450 respiratory rate of 18 FiO2 50%, his oxygenation is 98%, they will continue with the weaning parameter, chest x-ray appears to be good, blood gases appears to be good, we will try to wean the patient off the ventilator later on this afternoon. REVIEW OF SYSTEMS: Patient is sedated on the ventilator PAST MEDICAL HISTORY: Hypertension and hypertensive cardiovascular disease Mixed hyperlipidemia TIAs GERD. Vitamin D deficiency. Severe aortic valve stenosis. PAST SURGICAL HISTORY: Appendectomy 1958 Right second toe in 1974 Colonoscopy 2018 Left heart catheterization September 2024 with normal coronary arteries but severe aortic valve stenosis Transesophageal echocardiogram that showed severe aortic valve stenosis. SOCIAL HISTORY: Patient used to smoke about pack every day since 1974 and he quit in 1985, he drinks occasionally, he denies any drug use or abuse. FAMILY HISTORY: Father at age of 39 from lesion near disease mother at age of 82 from CAD patient has 2 brothers alive and okay patient patient had one sister who at age of 49 from COPD and also she was heavy smoker, patient had 2 sons one at the age of 41 from asthma and the other one is okay patient has one daughter no major medical problems. PHYSICAL EXAMINATION: General: 69-year-old male laying down in bed currently on the ventilator. HEENT: Head is atraumatic, normocephalic, pupils were equal round, there is an orogastric tube in place as well as ET tube in place. Neck: Supple, no JVP, normal carotid upstroke bilaterally, no lymphadenopathy there is right IJ catheter in place Chest: Decreased breath sounds at the bases, few rhonchi, no expiratory wheezes, there is to chest tube, there is also pacemaker in place. Heart: First heart sound is normal, second heart sounds normal there is no murmur positive for S3. Abdomen: Soft, nontender, nondistended, depressed bowel sounds Extremities: There is no edema no calf tenderness DP +2 bilaterally, bilateral knee-high CHARI hose. Transfer SCDs. Neurologic examination: Patient is sedated on the ventilator. ASSESSMENT AND PLAN: 1. Acute vent dependent respiratory failure status post aortic valve replacement. Continue current management as outlined by cardiothoracic surgery as well as by char house supervisor, continue with aggressive pulmonary toileting, continue with weaning trial, follow-up with the patient very closely in the ICU, we will continue with nebulized treatment every 6 hours, continue patient on antiplatelet therapy in the form of Plavix 75 mg once every day, aspirin 325 mg once every day, follow-up with the patient very closely, monitor the patient CBC and CMP over the next 24 hours. Continue metoprolol 25 mg per orogastric tube twice every day. 2. Hypertension and hypertensive cardiovascular disease. Continue patient on Cleviprex, continue metoprolol 25 mg for orogastric tube twice every day. 3. Mixed hyperlipidemia. Continue patient on atorvastatin 80 mg o per orogastric tube nce every day, continue Zetia 10 mg once every day monitor lipid panel, keep LDL 55-70. 4. GERD with esophagitis. Continue pantoprazole 40 mg IV push every 24 hours. 5. Vitamin D deficiency continue vitamin D3 1000 units once every day. 6. Spondylosis of the cervical spine. Continue current pain management. 7. History of recurrent TIAs in the past, continue aspirin 325 mg once every day, Plavix 75 mg once every day, continue atorvastatin 80 mg once every day along with Zetia 10 mg once every day. 8. Acute blood loss anemia monitor the patient CBC very closely keep hemoglobin greater than 8 at all of the time. 9. DVT prophylaxis. Continue patient on bilateral knee-high CHARI hose as well as bilateral SCDs. 10. GI prophylaxis. Continue Protonix 40 mg IV push over 24 hours. 11. Thank you for the consult we will follow the patient with you. Past Medical History Past Medical History: Asthma, CVA/TIA, GERD/Reflux, Hyperlipidemia, Musculo skeletal Disorder Additional Past Medical History / Comment(s): FATTY LIVER, HEART MURMUR,CHRONIC BACK PAIN/SPONDYLITIS. Hx Pneumonia, recent adm. for TIA-no residual effects, possible valve problem per pt. History of Any Multi-Drug Resistant Organisms: None Reported Past Surgical History: Appendectomy, Orthopedic Surgery Additional Past Surgical History / Comment(s): COLONOSCOPY, L FOOT FRACTURE WITH PINNING THEN REMOVED. Past Anesthesia/Blood Transfusion Reactions: No Reported Reaction Additional Past Anesthesia/Blood Transfusion Reaction / Comm: Claustrophobic Additional Psychological History / Comment(s): PT RESIDES WITH HIS SPOUSE. HE IS INDEPENDENT. HE IS RETIRED FROM [employer]. PT HAS CLAUSTROPHOBIA AND NEEDS SEDATION/XANAX WITH MRI Additional Past Alcohol Use History / Comment(s): PT STARTED SMOKING IN 1971 AND QUIT IN 1986 - Past Family History Father Family Medical History: Myocardial Infarction (CA) Additional Family Medical History / Comment(s): IN HIS 50'S FROM AN CA. Mother Family Medical History: COPD Additional Family Medical History / Comment(s): HEART DISEASE AND POSSIBLY HAD AN CA. Son(s) Family Medical History: Asthma Additional Family Medical History / Comment(s): FROM "THROAT SWELLING SHUT." Medications and Allergies Home Medications Medication Instructions Recorded Confirmed Type Aspirin 81 mg PO DAILY #30 chew 12/15/17 09/08/24 Rx Ticagrelor [Brilinta] 90 mg PO BID #60 tab 11/19/21 09/08/24 Rx Mv-Min/Folic/K1/Lycopen/Lutein 1 tab PO DAILY 12/02/21 09/08/24 History [Centrum Silver Men Tablet] Cyanocobalamin (Vitamin B-12) 2,500 mcg PO DAILY 06/29/23 09/08/24 History [Vitamin B-12] Ezetimibe [Zetia] 10 mg PO DAILY 06/29/23 09/08/24 History Acetaminophen/Diphenhydramine 1 tab PO HS 08/26/23 09/08/24 History [Tylenol PM 500-25mg] Atorvastatin [Lipitor] 80 mg PO HS 08/26/23 09/08/24 History Cholecalciferol [Vitamin D3 (25 25 mcg PO DAILY 08/26/23 09/08/24 History Mcg = 1000 Iu)] Omeprazole 20 mg PO DAILY 08/26/23 09/08/24 History Montelukast [Singulair] 10 mg PO DAILY 09/23/24 09/23/24 History Allergies Allergy/AdvReac Type Severity Reaction Status Date / Time simvastatin [From Zocor] Allergy Itching Verified 09/23/24 05:55 Physical Exam Vitals: Vital Signs Temp Pulse Pulse Resp BP BP Pulse Ox 09/23/24 12:43 71 09/23/24 12:28 09/23/24 12:07 09/23/24 06:00 98.1 F 63 16 132/76 119/77 97 FiO2 09/23/24 12:43 09/23/24 12:28 60 09/23/24 12:07 100 09/23/24 06:00 Intake and Output 09/22/24 09/23/24 09/23/24 22:59 06:59 14:59 Intake Total 100 102 Output Total 1350 Balance 100 -1248 Intake: IV 100 102 Output: Urine 450 Estimated Blood Loss 900 Other: Weight 85.2 kg Results CBC & Chem 7: 09/23/24 15:05 09/23/24 12:35 Labs: Abnormal Lab Results - Last 24 Hours (Table) 09/21/24 09/23/24 09/23/24 Range/Units 09:01 08:35 09:30 WBC (4.50-10.00) 10*3/uL RBC (4.40-5.60) 10*6/uL Hgb (13.0-17.0) g/dL Hct (39.6-50.0) % MCV (80.0-97.0) fL MCH (27.0-32.0) pg Plt Count (140-440) 10*3/uL Neutrophils # (1.80-7.70) 10*3/uL ABG pH (7.35-7.45) ABG pCO2 (35-45) mmHg ABG pO2 315 H 283 H (83-108) mmHg ABG HCO3 26 H (21-25) mmol/L ABG Total CO2 (19-24) mmol/L ABG O2 Saturation >99.4 H >99.4 H (94-97) % ABG Hematocrit 33 L 33 L (34.0-46.0) % ABG Potassium (3.4-4.5) mmol/L ABG Ionized Calcium (4.5-5.3) mg/dL ABG Glucose 113 H 111 H (75-99) mg/dL Hemoglobin 10.7 L 10.6 L (13.0-17.5) gm/dL Glucose (74-99) mg/dL POC Glucose (mg/dL) (70-110) mg/dL Magnesium (1.6-2.3) mg/dL Total Protein (6.3-8.2) g/dL Albumin (3.5-5.0) g/dL Arterial Blood Potassium (3.4-4.5) mmol/L Arterial Blood Glucose 113 H 111 H (75-99) mg/dL Crossmatch See Detail 09/23/24 09/23/24 09/23/24 Range/Units 09:57 10:25 10:45 WBC (4.50-10.00) 10*3/uL RBC (4.40-5.60) 10*6/uL Hgb (13.0-17.0) g/dL Hct (39.6-50.0) % MCV (80.0-97.0) fL MCH (27.0-32.0) pg Plt Count (140-440) 10*3/uL Neutrophils # (1.80-7.70) 10*3/uL ABG pH 7.32 L (7.35-7.45) ABG pCO2 50 H (35-45) mmHg ABG pO2 407 H 344 H 332 H (83-108) mmHg ABG HCO3 26 H 26 H (21-25) mmol/L ABG Total CO2 25 H (19-24) mmol/L ABG O2 Saturation >99.4 H >99.4 H 99.3 H (94-97) % ABG Hematocrit 27 L 27 L 28 L (34.0-46.0) % ABG Potassium 4.8 H 4.8 H 4.9 H (3.4-4.5) mmol/L ABG Ionized Calcium 4.1 L 4.3 L 4.3 L (4.5-5.3) mg/dL ABG Glucose 108 H 127 H 141 H (75-99) mg/dL Hemoglobin 8.9 L 8.9 L 9.0 L (13.0-17.5) gm/dL Glucose (74-99) mg/dL POC Glucose (mg/dL) (70-110) mg/dL Magnesium (1.6-2.3) mg/dL Total Protein (6.3-8.2) g/dL Albumin (3.5-5.0) g/dL Arterial Blood Potassium 4.8 H 4.8 H 4.9 H (3.4-4.5) mmol/L Arterial Blood Glucose 108 H 127 H 141 H (75-99) mg/dL Crossmatch 09/23/24 09/23/24 09/23/24 Range/Units 11:55 12:35 12:35 WBC 10.12 H (4.50-10.00) 10*3/uL RBC 3.30 L (4.40-5.60) 10*6/uL Hgb 10.8 L (13.0-17.0) g/dL Hct 32.2 L (39.6-50.0) % MCV 97.6 H (80.0-97.0) fL MCH 32.7 H (27.0-32.0) pg Plt Count 132 L (140-440) 10*3/uL Neutrophils # 8.29 H (1.80-7.70) 10*3/uL ABG pH (7.35-7.45) ABG pCO2 (35-45) mmHg ABG pO2 260 H (83-108) mmHg ABG HCO3 (21-25) mmol/L ABG Total CO2 (19-24) mmol/L ABG O2 Saturation 99.3 H (94-97) % ABG Hematocrit 30 L (34.0-46.0) % ABG Potassium (3.4-4.5) mmol/L ABG Ionized Calcium (4.5-5.3) mg/dL ABG Glucose 120 H (75-99) mg/dL Hemoglobin 9.7 L (13.0-17.5) gm/dL Glucose 129 H (74-99) mg/dL POC Glucose (mg/dL) (70-110) mg/dL Magnesium 2.5 H (1.6-2.3) mg/dL Total Protein 4.6 L (6.3-8.2) g/dL Albumin 2.6 L (3.5-5.0) g/dL Arterial Blood Potassium (3.4-4.5) mmol/L Arterial Blood Glucose 120 H (75-99) mg/dL Crossmatch 09/23/24 Range/Units 13:24 WBC (4.50-10.00) 10*3/uL RBC (4.40-5.60) 10*6/uL Hgb (13.0-17.0) g/dL Hct (39.6-50.0) % MCV (80.0-97.0) fL MCH (27.0-32.0) pg Plt Count (140-440) 10*3/uL Neutrophils # (1.80-7.70) 10*3/uL ABG pH (7.35-7.45) ABG pCO2 (35-45) mmHg ABG pO2 (83-108) mmHg ABG HCO3 (21-25) mmol/L ABG Total CO2 (19-24) mmol/L ABG O2 Saturation (94-97) % ABG Hematocrit (34.0-46.0) % ABG Potassium (3.4-4.5) mmol/L ABG Ionized Calcium (4.5-5.3) mg/dL ABG Glucose (75-99) mg/dL Hemoglobin (13.0-17.5) gm/dL Glucose (74-99) mg/dL POC Glucose (mg/dL) 136 H (70-110) mg/dL Magnesium (1.6-2.3) mg/dL Total Protein (6.3-8.2) g/dL Albumin (3.5-5.0) g/dL Arterial Blood Potassium (3.4-4.5) mmol/L Arterial Blood Glucose (75-99) mg/dL Crossmatch
--- NOTE | 2024-09-23 15:21 | P.CNPUL ---
History of Present Illness Consult date: 09/23/24 Requesting physician: Nestor Presley Reason for consult: other (Status post aortic valve replacement) Chief complaint: Severe aortic stenosis History of present illness: This is a 69-year-old white male with history of severe aortic stenosis with bicuspid aortic valve, has been following up with Dr. Cristina for quite some time. Patient had recent echocardiogram that showed worsening severe aortic valve stenosis. Patient had no shortness of breath, no chest pain, no lightheadedness or dizziness, no syncopal episodes. Recent transesophageal echo was done and confirmed severe aortic stenosis hence the patient underwent aortic valve replacement today. Postoperatively patient was in the ICU on mechanical ventilation, he is on assist-control rate of 14 tidal volume 450 FiO2 60% and I cut down to 50% and his PEEP was 5. Chest x-ray showed mostly postoperative changes, no acute process was noted. Cardiac output was 4.0, cardiac index 2.0. Patient is hemodynamically stable, not requiring any pressors and not requiring any inotropes. Plan to proceed with weaning in the next 2 hours. Review of Systems ROS unobtainable: due to endotracheal tube Past Medical History Past Medical History: Asthma, CVA/TIA, GERD/Reflux, Hyperlipidemia, Musculoskeletal Disorder Additional Past Medical History / Comment(s): FATTY LIVER, HEART MURMUR,CHRONIC BACK PAIN/SPONDYLITIS. Hx Pneumonia, recent adm. for TIA-no residual effects, possible valve problem per pt. History of Any Multi-Drug Resistant Organisms: None Reported Past Surgical History: Appendectomy, Orthopedic Surgery Additional Past Surgical History / Comment(s): COLONOSCOPY, L FOOT FRACTURE WITH PINNING THEN REMOVED. Past Anesthesia/Blood Transfusion Reactions: No Reported Reaction Additional Past Anesthesia/Blood Transfusion Reaction / Comment(s): Claustrophobic Additional Psychological History / Comment(s): PT RESIDES WITH HIS SPOUSE. HE IS INDEPENDENT. HE IS RETIRED FROM [employer]. PT HAS CLAUSTROPHOBIA AND NEEDS SEDATION/XANAX WITH MRI Additional Past Alcohol Use History / Comment(s): PT STARTED SMOKING IN 1971 AND QUIT IN 1986 - Past Family History Father Family Medical History: Myocardial Infarction ([place]) Additional Family Medical History / Comment(s): IN HIS 50'S FROM AN [place]. Mother Family Medical History: COPD Additional Family Medical History / Comment(s): HEART DISEASE AND POSSIBLY HAD AN [place]. Son(s) Family Medical History: Asthma Additional Family Medical History / Comment(s): FROM "THROAT SWELLING SHUT." Medications and Allergies Home Medications Medication Instructions Recorded Confirmed Type Aspirin 81 mg PO DAILY #30 chew 12/15/17 09/08/24 Rx Ticagrelor [Brilinta] 90 mg PO BID #60 tab 11/19/21 09/08/24 Rx Mv-Min/Folic/K1/Lycopen/Lutein 1 tab PO DAILY 12/02/21 09/08/24 History [Centrum Silver Men Tablet] Cyanocobalamin (Vitamin B-12) 2,500 mcg PO DAILY 06/29/23 09/08/24 History [Vitamin B-12] Ezetimibe [Zetia] 10 mg PO DAILY 06/29/23 09/08/24 History Acetaminophen/Diphenhydramine 1 tab PO HS 08/26/23 09/08/24 History [Tylenol PM 500-25mg] Atorvastatin [Lipitor] 80 mg PO HS 08/26/23 09/08/24 History Cholecalciferol [Vitamin D3 (25 25 mcg PO DAILY 08/26/23 09/08/24 History Mcg = 1000 Iu)] Omeprazole 20 mg PO DAILY 08/26/23 09/08/24 History Montelukast [Singulair] 10 mg PO DAILY 09/23/24 09/23/24 History Allergies Allergy/AdvReac Type Severity Reaction Status Date / Time simvastatin [From Zocor] Allergy Itching Verified 09/23/24 05:55 Physical Exam Vitals: Vital Signs Temp Pulse Pulse Resp BP BP BP 09/23/24 14:15 70 14 09/23/24 14:00 70 14 102/67 09/23/24 13:45 96.8 F L 70 14 09/23/24 13:30 70 15 103/64 09/23/24 13:15 96.6 F L 70 14 09/23/24 13:00 70 14 130/83 09/23/24 12:45 14 09/23/24 12:43 71 09/23/24 12:30 97.0 F L 87 14 09/23/24 12:28 09/23/24 12:07 09/23/24 06:00 98.1 F 63 16 132/76 119/77 Pulse Ox FiO2 09/23/24 14:15 98 05/23/25 14:00 100 09/23/24 13:45 100 09/23/24 13:30 100 09/23/24 13:15 100 09/23/24 13:00 99 09/23/24 12:45 98 09/23/24 12:43 09/23/24 12:30 97 60 09/23/24 12:28 60 09/23/24 12:07 100 09/23/24 06:00 97 Intake and Output 09/23/24 09/23/24 09/23/24 06:59 14:59 22:59 Intake Total 100 432.802 3.067 Output Total 2115 Balance 100 -1682.198 3.067 Intake: IV 100 400 ACETAMINOPHEN IV (For NPO 100 ) 1,000 mg In Empty Bag 1 bag @ 400 mls/hr IVPB Q6HR [facility] Rx#:[id number] CO/CI 80 Pressure Bags 18 Sodium Chloride 0.9% 1, 100 000 ml @ 50 mls/hr IV . Q20H [facility]IOT Rx#:[id number] Intake, IV Titration 32.802 3.067 Amount propofoL 1,000 mg In 32.802 3.067 Empty Bag 1 bag @ Titrate IV .Q0M [facility]IOT Rx#: [id number] Output: Chest Tube Drainage 235 Left Pleural 104 Mediastinal 131 Urine 980 Estimated Blood Loss 900 Other: Weight 85.2 kg ABP, PAP, CO, CI - Last 8 Hours Arterial Blood Pressure 128/66 Arterial Blood Pressure 115/57 Arterial Blood Pressure 120/59 Arterial Blood Pressure 118/59 Arterial Blood Pressure 122/59 Arterial Blood Pressure 147/81 Arterial Blood Pressure 131/75 Arterial Blood Pressure 123/61 Arterial Blood Pressure 128/28 Pulmonary Artery Pressure 36/21 Pulmonary Artery Pressure 35/18 Pulmonary Artery Pressure 35/19 Pulmonary Artery Pressure 36/20 Pulmonary Artery Pressure 37/21 Pulmonary Artery Pressure 35/20 Pulmonary Artery Pressure 36/6 Pulmonary Artery Pressure 37/11 Cardiac Output 4.4 Cardiac Output 4.7 Cardiac Output 4.3 Cardiac Output 4.6 Cardiac Index 2.2 Cardiac Index 2.4 Cardiac Index 2.2 Cardiac Index 2.3 General: Revealed a 69-year-old white male in no distress Head: Atraumatic, normocephalic HEENT: PERRLA EOMI, nonicteric no neck masses no JVD endotracheal tube and orogastric tube are intact Pulmonary: Good breath sound bilaterally left-sided pleural chest tube noted, mediastinal chest tube noted connected to Pleur-evac. No airleak. Cardiac: Distant S1-S2, no S3 gallop, 2/6 systolic murmur throughout the precor dium, positive pericardial rub Abdomen obese soft nontender no MAG no rebound no guarding Extremities: Trace of edema no clubbing no cyanosis. Neurologic: Could not be assessed., Patient is sedated. Psychiatric: Could not be assessed. Patient is on propofol, sedated. Results - Laboratory Findings CBC and BMP: 09/23/24 15:05 09/23/24 12:35 ABG ABG pH 7.37 (7.35-7.45) 09/23/24 13:30 ABG pCO2 46 mmHg (35-45) H 09/23/24 13:30 ABG pO2 84 mmHg (83-108) 09/23/24 13:30 ABG O2 Saturation 96.4 % (94-97) 09/23/24 13:30 PT/INR, D-dimer PT 12.4 sec (10.0-12.5) 09/23/24 12:35 INR 1.1 (<1.2) 09/23/24 12:35 Abnormal lab findings: Abnormal Labs 09/21/24 09/23/24 09/23/24 09:01 08:35 09:30 WBC RBC Hgb Hct MCV MCH Plt Count Neutrophils # ABG pH ABG pCO2 ABG pO2 315 H 283 H ABG HCO3 26 H ABG Total CO2 ABG O2 Saturation >99.4 H >99.4 H ABG Hematocrit 33 L 33 L ABG Potassium ABG Ionized Calcium ABG Glucose 113 H 111 H Hemoglobin 10.7 L 10.6 L Glucose POC Glucose (mg/dL) Magnesium Total Protein Albumin Arterial Blood Potassium Arterial Blood Glucose 113 H 111 H Crossmatch See Detail 09/23/24 09/23/24 09/23/24 09:57 10:25 10:45 WBC RBC Hgb Hct MCV MCH Plt Count Neutrophils # ABG pH 7.32 L ABG pCO2 50 H ABG pO2 407 H 344 H 332 H ABG HCO3 26 H 26 H ABG Total CO2 25 H ABG O2 Saturation >99.4 H >99.4 H 99.3 H ABG Hematocrit 27 L 27 L 28 L ABG Potassium 4.8 H 4.8 H 4.9 H ABG Ionized Calcium 4.1 L 4.3 L 4.3 L ABG Glucose 108 H 127 H 141 H Hemoglobin 8.9 L 8.9 L 9.0 L Glucose POC Glucose (mg/dL) Magnesium Total Protein Albumin Arterial Blood Potassium 4.8 H 4.8 H 4.9 H Arterial Blood Glucose 108 H 127 H 141 H Crossmatch 09/23/24 09/23/24 09/23/24 11:55 12:35 12:35 WBC 10.12 H RBC 3.30 L Hgb 10.8 L Hct 32.2 L MCV 97.6 H MCH 32.7 H Plt Count 132 L Neutrophils # 8.29 H ABG pH ABG pCO2 ABG pO2 260 H ABG HCO3 ABG Total CO2 ABG O2 Saturation 99.3 H ABG Hematocrit 30 L ABG Potassium ABG Ionized Calcium ABG Glucose 120 H Hemoglobin 9.7 L Glucose 129 H POC Glucose (mg/dL) Magnesium 2.5 H Total Protein 4.6 L Albumin 2.6 L Arterial Blood Potassium Arterial Blood Glucose 120 H Crossmatch 09/23/24 09/23/24 09/23/24 13:24 13:30 14:03 WBC RBC Hgb Hct MCV MCH Plt Count Neutrophils # ABG pH ABG pCO2 46 H ABG pO2 ABG HCO3 26 H ABG Total CO2 28 H ABG O2 Saturation ABG Hematocrit ABG Potassium ABG Ionized Calcium ABG Glucose Hemoglobin 12.5 L Glucose POC Glucose (mg/dL) 136 H 128 H Magnesium Total Protein Albumin Arterial Blood Potassium Arterial Blood Glucose Crossmatch 09/23/24 09/23/24 09/23/24 15:05 15:05 15:12 WBC 12.09 H RBC 3.77 L Hgb 12.2 L Hct 36.7 L MCV 97.3 H MCH 32.4 H Plt Count Neutrophils # 10.14 H ABG pH ABG pCO2 ABG pO2 ABG HCO3 ABG Total CO2 ABG O2 Saturation ABG Hematocrit ABG Potassium ABG Ionized Calcium ABG Glucose Hemoglobin Glucose POC Glucose (mg/dL) 140 H 119 H Magnesium Total Protein Albumin Arterial Blood Potassium Arterial Blood Glucose Crossmatch - Diagnostic Findings Chest x-ray: image reviewed (As noted in HPI) Assessment and Plan Assessment: Impression: Status post AVR for bicuspid aortic valve and severe aortic stenosis Benign essential hypertension Dyslipidemia History of renal cell tumor Ex-smoker quit in 1984 Recommendation: Continue ventilatory support Continue treatment as per protocol post AVR Ventilator settings were addressed and adjusted accordingly Will address weaning and possibly extubation in the next few hours. Chest x-ray was reviewed, ABG reviewed hemodynamic status reviewed medications and infusions were all reviewed Will continue to follow Time with Patient: Greater than 30
[2024-09-23] MEDS: DEXMEDETOMIDINE/0.9% NACL(PMX) 400 MCG in EMPTY BAG 1 BAG IV SCH (15:51)
[2024-09-23 16:01] LABS: Glucose,Whole Blood 159 mg/dL (70-110)
[2024-09-23] MEDS: ALBUMIN HUMAN 25% 50 ML IV ONE (16:28)
[2024-09-23] MEDS: AMIODARONE 450 MG in DEXTROSE 5% IN WATER 250 ML IV SCH (16:30)
[2024-09-23 17:09] LABS: Glucose,Whole Blood 161 mg/dL (70-110)
[2024-09-23 17:39] LABS: ABG Base Excess -0.5 mmol/L; ABG HCO3 24 mmol/L (21-25); ABG Oxygen Saturation 99.6 % (94-97); ABG PCO2 38 mmHg (35-45); ABG PH 7.41 (7.35-7.45); ABG PO2 151 mmHg (83-108); ABG TCO2 25 mmol/L (19-24); Allen Test Performed? Yes
[2024-09-23 17:51] LABS: Basophils # (A) 0.03 10*3/uL (0.00-0.10); Basophils % (A) 0.2 %; Eosinophils # (A) 0.01 10*3/uL (0.04-0.35); Eosinophils % (A) 0.1 %; HGB 11.2 g/dL (13.0-17.0); Lymphocytes # (A) 0.58 10*3/uL (0.90-5.00); Lymphocytes % (A) 4.7 %; MCH 32.9 pg (27.0-32.0); MCHC 33.9 g/dL (32.0-37.0); MCV 97.1 fL (80.0-97.0); Monocytes # (A) 0.78 10*3/uL (0.20-1.00); Monocytes % (A) 6.3 %; Neutrophils # (A) 10.91 10*3/uL (1.80-7.70); Neutrophils % (A) 88.3 %; Platelet Count 157 10*3/uL (140-440); RDW 13.1 % (11.5-14.5); WBC 12.36 10*3/uL (4.50-10.00)
[2024-09-23 18:12] LABS: Glucose,Whole Blood 147 mg/dL (70-110)
[2024-09-23 19:10] LABS: Glucose,Whole Blood 135 mg/dL (70-110)
[2024-09-23 20:16] LABS: Glucose,Whole Blood 130 mg/dL (70-110)
--- NOTE | 2024-09-23 20:48 | OP ---
OPERATIVE REPORT DATE OF SERVICE : 09/23/2024 PREOPERATIVE DIAGNOSIS: Critical aortic stenosis. POSTOPERATIVE DIAGNOSIS: Critical aortic stenosis. PROCEDURES: 1. Aortic valve replacement using 23 mm Rosa Inspiris bioprosthetic valve. 2. Ligation of left atrial appendage using 35 mm AtriaClip. 3. Epiaortic ultrasound. 4. Transesophageal echocardiogram. ASSISTANTS: 1. Darian Dunham PA-C. 2. Jadiel Hunter NP. ANESTHESIA: General (Dr. Chris Toth) SPECIMEN: Aortic valve leaflets. COMPLICATIONS: None. INDICATION: The patient is a 69-year-old male with a past medical history significant for multiple TIAs, hypertension, hypercholesterolemia, renal cell tumor and a known history of bicuspid aortic valve, who was found to have critical aortic valve stenosis on a recent transesophageal echocardiogram. Aortic valve replacement was recommended. The risks, benefits, and alternatives of the procedure discussed with the patient. All of his questions were answered. Consent was obtained. FINDINGS: The aortic valve was bicuspid in nature and heavily calcified. PROCEDURE IN DETAIL: The patient was taken to the operating room and placed supine on the operating table. After the induction of general anesthesia, he was prepped and draped in the usual sterile fashion. Preoperative transesophageal echocardiogram revealed a bicuspid aortic valve with a mean gradient of 54 mmHg, confirming severe . The ejection fraction was preserved. The RV appeared to be normal. There was no additional valvular pathology. There was no clot noted within the left atrial appendage. A median sternotomy was performed. Intravenous heparin was administered. A pericardial cradle was created. The ascending aorta was palpated. There was no significant calcific plaque noted. Epiaortic ultrasound was then performed on the ascending aorta. Again, no calcific plaque or atheromatous disease was identified. An arterial cannula was placed in the distal ascending aorta. A venous cannula was placed through the right atrial appendage and directed into the IVC. Both antegrade and retrograde catheters were placed as well. The patient was then placed on cardiopulmonary bypass with good decompression of the heart. The aortic cross- clamp was applied. Cold blood potassium cardioplegia was delivered in both antegrade and retrograde fashion to achieve arrest of the heart. Of note, cardioplegia was delivered every 15 to 20 minutes with the patient remained under cross-clamp. In addition, an LV vent was placed via the right superior pulmonary vein. CO2 was administered across the operative field. The left atrial appendage was identified. A 35 mm AtriaClip was placed across its base to ensure ligation. Next, a standard hockey-stick incision was created over the proximal ascending aorta. Upon initial inspection, the aortic valve was bicuspid in nature and heavily calcified. Calcium was noted on the valve leaflets as well as along the anulus. Both coronary ostia were identified and appeared to be well away from the anulus. Using scissors, the valve leaflets were excised and sent to pathology. Residual calcium was removed using rongeurs. The aortic root was then copiously irrigated with cold saline solution. Using a sizing device, a 23 mm Rosa Inspiris bioprosthetic valve was chosen. Pledgeted interrupted sutures were placed circumferentially around the anulus. The sutures were passed through the sewing ring of the bioprosthetic valve and the valve was lowered into position. The sutures were tied using Cor knots. The valve appeared to seat nicely. Care was taken to ensure that both coronary ostia were unobstructed. The aortotomy was then closed in 2 layers using running a 4-0 Prolene suture. This closure was reinforced using felt strips. Standard de-airing maneuvers were performed. The aortic cross-clamp was removed. Temporary atrial and ventricular pacing wires were placed and brought through the skin. The patient was then weaned off cardiopulmonary bypass. He without difficulty. Followup transesophageal echocardiogram confirmed a well- seated bioprosthetic aortic valve. There was no evidence of perivalvular leak. The leaflets opened and closed without difficulty. Protamine was administered. There were no adverse reactions. The remaining cannulas were then removed. The mediastinum was copiously irrigated with warm saline solution. Again, all surgical sites were inspected and appeared to be hemostatic. Soft tissue was reapproximated over the ascending aorta as well as over the majority of the heart. Chest tubes were placed in both the left pleural space and the mediastinum. These were both secured to the skin using sutures. The sternum was then reapproximated using the [place] cables. The cables were placed in a [id number] fashion. At the completion of the closure, the sternum was well aligned. The remainder of the wound was closed in layers. A sterile dressing was applied. The patient appeared to tolerate the procedure well. There were no immediate complications. He returned to the ICU in critical, but stable condition. He did not receive any blood products. MMODL / IJN: [id number] / DEBBIE
[2024-09-23 21:17] LABS: Glucose,Whole Blood 129 mg/dL (70-110)
[2024-09-23 22:05] LABS: Glucose,Whole Blood 129 mg/dL (70-110)
[2024-09-23 23:05] LABS: Glucose,Whole Blood 125 mg/dL (70-110)
[2024-09-23] MEDS: KETOROLAC 15 MG/ML 1 ML VIAL IVP SCH (23:12)
[2024-09-24 00:10] LABS: Glucose,Whole Blood 133 mg/dL (70-110)
[2024-09-24] MEDS: ALBUMIN HUMAN 5% 250 ML in EMPTY BAG 1 BAG IVPB PRN (01:01)
[2024-09-24 01:07] LABS: Glucose,Whole Blood 127 mg/dL (70-110)
[2024-09-24 02:17] LABS: Glucose,Whole Blood 121 mg/dL (70-110)
[2024-09-24 02:58] LABS: Glucose,Whole Blood 121 mg/dL (70-110)
[2024-09-24 03:39] LABS: Basophils # (A) 0.01 10*3/uL (0.00-0.10); Basophils % (A) 0.1 %; HCT 31.4 % (39.6-50.0); HGB 10.3 g/dL (13.0-17.0); Lymphocytes # (A) 0.77 10*3/uL (0.90-5.00); Lymphocytes % (A) 7.1 %; MCH 31.7 pg (27.0-32.0); MCHC 32.8 g/dL (32.0-37.0); MCV 96.6 fL (80.0-97.0); Mean Platelet Volume 10.9 fL (9.5-12.2); Monocytes # (A) 1.08 10*3/uL (0.20-1.00); Monocytes % (A) 9.9 %; Neutrophils # (A) 9.01 10*3/uL (1.80-7.70); Neutrophils % (A) 82.6 %; Platelet Count 165 10*3/uL (140-440); RBC 3.25 10*6/uL (4.40-5.60); RDW 13.1 % (11.5-14.5)
[2024-09-24 03:41] LABS: Ionized Calcium 4.7 mg/dL (4.5-5.3)
[2024-09-24 03:52] LABS: ALT 14 U/L (4-49); AST 45 U/L (17-59); African American GFR (CKD) >90 (>60 ml/min/1.73 sqM); Albumin 3.1 g/dL (3.5-5.0); Alkaline Phosphatase 49 U/L (38-126); Anion Gap 3 mmol/L; Blood Urea Nitrogen 21 mg/dL (9-20); Calcium 8.5 mg/dL (8.4-10.2); Carbon Dioxide 27 mmol/L (22-30); Chloride 103 mmol/L (98-107); Glucose 112 mg/dL (74-99); Non-African American GFR(CKD) >90 (>60 ml/min/1.73 sqM); Potassium 4.5 mmol/L (3.5-5.1); Sodium 133 mmol/L (137-145); Total Bilirubin 0.7 mg/dL (0.2-1.3); Total Protein 5.1 g/dL (6.3-8.2)
[2024-09-24 04:14] LABS: Glucose,Whole Blood 115 mg/dL (70-110)
[2024-09-24 05:05] LABS: Glucose,Whole Blood 114 mg/dL (70-110)
[2024-09-24 06:09] LABS: Glucose,Whole Blood 122 mg/dL (70-110)
--- NOTE | 2024-09-24 06:29 | XR ---
EXAMINATION TYPE: XR chest 1V portable DATE OF EXAM: 09/24/2024 CLINICAL INDICATION: Male, 69 years old with history of Post Operative Cardiac Surgery, progress stud y. TECHNIQUE: Single AP portable upright view of the chest is obtained. COMPARISON: Chest x-ray from one day earlier FINDINGS: Interval extubation with removal of endotracheal and orogastric tubes. Stable right international logistics coordinator al jugular [place]-Hailey catheter. Stable mediastinal drainage catheter and left-sided chest tube. Persis tent overlying sternal wires along with metallic aortic valve and left atrial appendage clip. No pneumothorax is evident. There is mild central vascular congestion and small bilateral pleural eff usions. There is cardiomegaly. Osseous structures are intact. IMPRESSION: Interval extubation. Mild central vascular congestion and small bilateral pleural effusions noted. No pneumothorax identified. [facility], , 09/24/2024 6:27 AM
[2024-09-24 07:07] LABS: Glucose,Whole Blood 122 mg/dL (70-110)
--- NOTE | 2024-09-24 07:34 | P.PN ---
Subjective Progress Note Date: 09/24/24 Principal diagnosis: Critical aortic stenosis. Medical history significant for hypertension, hyperlipidemia, renal cell tumor, asthma, CVA/TIA, chronic back pain/spondylitis and remote history of nicotine dependence quit smoking in 1986. POD #1 aortic valve replacement using a 23 mm Rosa Inspiris bioprosthetic valve, ligation of left atrial appendage using a 35mm Atriclip, epiaortic ultrasound, intraoperative transesophageal echocardiogram. Postoperative acute blood loss anemia, expected given hemodilution and cardiopulmonary bypass. The patient was seen and examined in follow-up today September 24, 2024 at his bedside in the intensive care unit. He was successfully extubated at 5:38 PM last evening, is currently sitting up to the bedside chair, is awake, alert, oriented x 3 and is in no acute apparent distress. Denies any complaints of shortness of breath at this time, although is complaining of some surgical type pain to his chest tube insertion sites, currently rating his pain 7 out of 10 on the pain scale. Oxygen saturations are 97% on 3 L nasal cannula, he is achieving 1250 mL on his incentive spirometry with encouragement. Bedside telemetry is showing DDD paced rhythm heart rate 70 bpm, underlying rhythm is complete heart block heart rate in the 50s. Right IJ cordis and Caspar-Hailey catheter remain in place with current hemodynamic showing a cardiac output of 4.9, cardiac index 2.5, SVR 1141, PA pressures 30/11 and CVP 7 mmHg. He is on no inotropic or pressor support at this time. Mediastinal and left pleural chest tubes remain in place to low continuous wall suction -20 cm H2O. No airleak is present. Draining thin serosanguineous drainage. Mediastinal chest tube drained 70 mL output in the last 8 hours and 450 mL output since surgery. Left pleural chest tube drained 120 mL output in the last 8 hours and 210 mL output since surgery. Laboratory and chest x-ray results were reviewed. Objective - Vital Signs Vital signs: Vital Signs Temp 100.4 F H 09/24/24 06:00 Pulse 70 09/24/24 06:00 Resp 0 L 09/24/24 06:00 BP 114/66 09/24/24 06:00 Pulse Ox 97 09/24/24 06:00 FiO2 50 09/23/24 16:50 Intake & Output 09/23/24 09/23/2409/24/25 06:59 18:59 06:59 Intake Total 100 9843.331 8717.622 Output Total 3076 693 Balance 100 -1987.868 426.622 Weight 85.2 kg 87.7 kg Intake: IV 350 443 7486 ACETAMINOPHEN IV (For NPO 200 ) 1,000 mg In Empty Bag 1 bag @ 400 mls/hr IVPB Q6HR [facility] Rx#:[id number] Albumin Human 5% 250 ml 250 In Empty Bag 1 bag @ 250 mls/hr IVPB Q1HR PRN Rx#: [id number] CO/CI 240 90 Pressure Bags 54 108 Sodium Chloride 0.9% 1, 300 600 000 ml @ 50 mls/hr IV . Q20H [facility] Rx#:[id number] ceFAZolin 2 gm In 100 50 Dextrose 5% in Water 50 ml @ 100 mls/hr IVPB Q8HR [facility] Rx#:[id number] Intake, IV Titration 92.132 21.622 Amount Clevidipine Butyrate 25 20.200 mg In Empty Bag 1 bag @ 1 MG/HR 2 mls/hr IV .Q24H [facility] Rx#:[id number] Dexmedetomidine/0.9% NaCl 10.864 (Pmx) 400 mcg In Empty Bag 1 bag @ Titrate IV . Q0M [facility] Rx#:[id number] Insulin Regular 100 unit 9.182 21.622 In Sodium Chloride 0.9% 100 ml @ Per Protocol IV .Q0M [facility] Rx#:[id number] propofoL 1,000 mg In 51.886 Empty Bag 1 bag @ Titrate IV .Q0M [facility] Rx#: [id number] Output: Chest Tube Drainage 471 278 Left Pleural 132 148 Mediastinal 339 130 Urine 1705 415 Estimated Blood Loss 900 Other: Voiding Method Indwelling Catheter Indwelling Catheter ABP, PAP, CO, CI - Last Documented Arterial Blood Pressure 113/53 Pulmonary Artery Pressure 23/6 Cardiac Output 4.9 Cardiac Index 2.5 - Exam CONSTITUTIONAL: Sitting up to the bedside chair in the intensive care unit, appears comfortable, cooperative, no apparent acute distress. HEENT: Neck is supple, no JVD, no lymphadenopathy. Right IJ Cordis and Caspar- Hailey catheter in place and functioning. RESPIRATORY: Lungs sounds essentially clear throughout, diminished to his bilateral bases. Respirations are symmetrical and nonlabored. Currently on 3 L nasal cannula with oxygen saturations 97%. Able to achieve 1250 mL on his incentive spirometry. Strong cough. CARDIOVASCULAR: Regular rhythm and rate. S1 and S2 present, negative for S3, ga llop or murmur. Sternum is stable. Palpable peripheral pulses bilaterally. No calf pain or tenderness noted. Heart hugger in place with patient demonstrating appropriate use. Knee-high CHARI hose and sequential compression devices in place to his bilateral lower extremities. GASTROINTESTINAL: Abdomen soft, nontender, nondistended. Hypoactive bowel sounds present 4 quadrants. Tolerating diet. Denies passing flatus. No guarding or rigidity. GENITOURINARY: Pickard present draining clear, yellow urine. Urine output 255 mL in the last 8 hours. INTEGUMENTARY: Skin is warm and dry with no evidence of clubbing or cyanosis. Midline sternal incision clean dry and well approximated, covered with dry intact dressing. NEUROLOGIC: Cranial nerves II through XII intact. No focal deficits. MUSKULOSKELETAL: Able to move all extremities, strength equal bilaterally, generalized weakness. PSYCHIATRIC: Alert and oriented to person place and time, appropriate affect, intact judgment and insight. INVASIVE LINES AND TUBES: Mediastinal and left pleural chest tubes remain in place to low continuous wall suction -20 cm H2O. No airleak is present. Draining thin serosanguineous drainage. Mediastinal chest tube drained 70 mL output in the last 8 hours and 450 mL output since surgery. Left pleural chest tube drained 120 mL output in the last 8 hours and 210 mL output since surgery. Atrial and ventricular epicardial pacemaker wires present, connected to generator, DDD mode heart rate 70 bpm. Right internal jugular Caspar/Cordis, right radial arterial line present. Last CO 4.9, CI 2.5, SVR 1141, PA 30/11 and CVP 7 mmHg. - Allied health notes Allied health notes reviewed: nursing - Labs CBC & Chem 7: 09/24/24 03:00 09/24/24 03:00 Labs: Abnormal Lab Results - Last 24 Hours (Table) 09/21/24 09/23/24 09/23/24 Range/Units 09:01 08:35 09:30 WBC (4.50-10.00) 10*3/uL RBC (4.40-5.60) 10*6/uL Hgb (13.0-17.0) g/dL Hct (39.6-50.0) % MCV (80.0-97.0) fL MCH (27.0-32.0) pg Plt Count (140-440) 10*3/uL Immature Gran # (0.00-0.04) 10*3/uL Neutrophils # (1.80-7.70) 10*3/uL Lymphocytes # (0.90-5.00) 10*3/uL Monocytes # (0.20-1.00) 10*3/uL Eosinophils # (0.04-0.35) 10*3/uL ABG pH (7.35-7.45) ABG pCO2 (35-45) mmHg ABG pO2 315 H 283 H (83-108) mmHg ABG HCO3 26 H (21-25) mmol/L ABG Total CO2 (19-24) mmol/L ABG O2 Saturation >99.4 H >99.4 H (94-97) % ABG Hematocrit 33 L 33 L (34.0-46.0) % ABG Potassium (3.4-4.5) mmol/L ABG Ionized Calcium (4.5-5.3) mg/dL ABG Glucose 113 H 111 H (75-99) mg/dL Hemoglobin 10.7 L 10.6 L (13.0-17.5) gm/dL Sodium (137-145) mmol/L BUN (9-20) mg/dL Glucose (74-99) mg/dL POC Glucose (mg/dL) (70-110) mg/dL Magnesium (1.6-2.3) mg/dL Total Protein (6.3-8.2) g/dL Albumin (3.5-5.0) g/dL Arterial Blood Potassium (3.4-4.5) mmol/L Arterial Blood Glucose 113 H 111 H (75-99) mg/dL Crossmatch See Detail 09/23/24 09/23/24 09/23/24 Range/Units 09:57 10:25 10:45 WBC (4.50-10.00) 10*3/uL RBC (4.40-5.60) 10*6/uL Hgb (13.0-17.0) g/dL Hct (39.6-50.0) % MCV (80.0-97.0) fL MCH (27.0-32.0) pg Plt Count (140-440) 10*3/uL Immature Gran # (0.00-0.04) 10*3/uL Neutrophils # (1.80-7.70) 10*3/uL Lymphocytes # (0.90-5.00) 10*3/uL Monocytes # (0.20-1.00) 10*3/uL Eosinophils # (0.04-0.35) 10*3/uL ABG pH 7.32 L (7.35-7.45) ABG pCO2 50 H (35-45) mmHg ABG pO2 407 H 344 H 332 H (83-108) mmHg ABG HCO3 26 H 26 H (21-25) mmol/L ABG Total CO2 25 H (19-24) mmol/L ABG O2 Saturation >99.4 H >99.4 H 99.3 H (94-97) % ABG Hematocrit 27 L 27 L 28 L (34.0-46.0) % ABG Potassium 4.8 H 4.8 H 4.9 H (3.4-4.5) mmol/L ABG Ionized Calcium 4.1 L 4.3 L 4.3 L (4.5-5.3) mg/dL ABG Glucose 108 H 127 H 141 H (75-99) mg/dL Hemoglobin 8.9 L 8.9 L 9.0 L (13.0-17.5) gm/dL Sodium (137-145) mmol/L BUN (9-20) mg/dL Glucose (74-99) mg/dL POC Glucose (mg/dL) (70-110) mg/dL Magnesium (1.6-2.3) mg/dL Total Protein (6.3-8.2) g/dL Albumin (3.5-5.0) g/dL Arterial Blood Potassium 4.8 H 4.8 H 4.9 H (3.4-4.5) mmol/L Arterial Blood Glucose 108 H 127 H 141 H (75-99) mg/dL Crossmatch 09/23/24 09/23/24 09/23/24 Range/Units 11:55 12:35 12:35 WBC 10.12 H (4.50-10.00) 10*3/uL RBC 3.30 L (4.40-5.60) 10*6/uL Hgb 10.8 L (13.0-17.0) g/dL Hct 32.2 L (39.6-50.0) % MCV 97.6 H (80.0-97.0) fL MCH 32.7 H (27.0-32.0) pg Plt Count 132 L (140-440) 10*3/uL Immature Gran # (0.00-0.04) 10*3/uL Neutrophils # 8.29 H (1.80-7.70) 10*3/uL Lymphocytes # (0.90-5.00) 10*3/uL Monocytes # (0.20-1.00) 10*3/uL Eosinophils # (0.04-0.35) 10*3/uL ABG pH (7.35-7.45) ABG pCO2 (35-45) mmHg ABG pO2 260 H (83-108) mmHg ABG HCO3 (21-25) mmol/L ABG Total CO2 (19-24) mmol/L ABG O2 Saturation 99.3 H (94-97) % ABG Hematocrit 30 L (34.0-46.0) % ABG Potassium (3.4-4.5) mmol/L ABG Ionized Calcium (4.5-5.3) mg/dL ABG Glucose 120 H (75-99) mg/dL Hemoglobin 9.7 L (13.0-17.5) gm/dL Sodium (137-145) mmol/L BUN (9-20) mg/dL Glucose 129 H (74-99) mg/dL POC Glucose (mg/dL) (70-110) mg/dL Magnesium 2.5 H (1.6-2.3) mg/dL Total Protein 4.6 L (6.3-8.2) g/dL Albumin 2.6 L (3.5-5.0) g/dL Arterial Blood Potassium (3.4-4.5) mmol/L Arterial Blood Glucose 120 H (75-99) mg/dL Crossmatch 09/23/24 09/23/24 09/23/24 Range/Units 13:24 13:30 14:03 WBC (4.50-10.00) 10*3/uL RBC (4.40-5.60) 10*6/uL Hgb (13.0-17.0) g/dL Hct (39.6-50.0) % MCV (80.0-97.0) fL MCH (27.0-32.0) pg Plt Count (140-440) 10*3/uL Immature Gran # (0.00-0.04) 10*3/uL Neutrophils # (1.80-7.70) 10*3/uL Lymphocytes # (0.90-5.00) 10*3/uL Monocytes # (0.20-1.00) 10*3/uL Eosinophils # (0.04-0.35) 10*3/uL ABG pH (7.35-7.45) ABG pCO2 46 H (35-45) mmHg ABG pO2 (83-108) mmHg ABG HCO3 26 H (21-25) mmol/L ABG Total CO2 28 H (19-24) mmol/L ABG O2 Saturation (94-97) % ABG Hematocrit (34.0-46.0) % ABG Potassium (3.4-4.5) mmol/L ABG Ionized Calcium (4.5-5.3) mg/dL ABG Glucose (75-99) mg/dL Hemoglobin 12.5 L (13.0-17.5) gm/dL Sodium (137-145) mmol/L BUN (9-20) mg/dL Glucose (74-99) mg/dL POC Glucose (mg/dL) 136 H 128 H (70-110) mg/dL Magnesium (1.6-2.3) mg/dL Total Protein (6.3-8.2) g/dL Albumin (3.5-5.0) g/dL Arterial Blood Potassium (3.4-4.5) mmol/L Arterial Blood Glucose (75-99) mg/dL Crossmatch 09/23/24 09/23/24 09/23/24 Range/Units 15:05 15:05 15:12 WBC 12.09 H (4.50-10.00) 10*3/uL RBC 3.77 L (4.40-5.60) 10*6/uL Hgb 12.2 L (13.0-17.0) g/dL Hct 36.7 L (39.6-50.0) % MCV 97.3 H (80.0-97.0) fL MCH 32.4 H (27.0-32.0) pg Plt Count (140-440) 10*3/uL Immature Gran # (0.00-0.04) 10*3/uL Neutrophils # 10.14 H (1.80-7.70) 10*3/uL Lymphocytes # (0.90-5.00) 10*3/uL Monocytes # (0.20-1.00) 10*3/uL Eosinophils # (0.04-0.35) 10*3/uL ABG pH (7.35-7.45) ABG pCO2 (35-45) mmHg ABG pO2 (83-108) mmHg ABG HCO3 (21-25) mmol/L ABG Total CO2 (19-24) mmol/L ABG O2 Saturation (94-97) % ABG Hematocrit (34.0-46.0) % ABG Potassium (3.4-4.5) mmol/L ABG Ionized Calcium (4.5-5.3) mg/dL ABG Glucose (75-99) mg/dL Hemoglobin (13.0-17.5) gm/dL Sodium (137-145) mmol/L BUN (9-20) mg/dL Glucose (74-99) mg/dL POC Glucose (mg/dL) 140 H 119 H (70-110) mg/dL Magnesium (1.6-2.3) mg/dL Total Protein (6.3-8.2) g/dL Albumin (3.5-5.0) g/dL Arterial Blood Potassium (3.4-4.5) mmol/L Arterial Blood Glucose (75-99) mg/dL Crossmatch 09/23/24 09/23/24 09/23/24 Range/Units 15:59 17:08 17:34 WBC (4.50-10.00) 10*3/uL RBC (4.40-5.60) 10*6/uL Hgb (13.0-17.0) g/dL Hct (39.6-50.0) % MCV (80.0-97.0) fL MCH (27.0-32.0) pg Plt Count (140-440) 10*3/uL Immature Gran # (0.00-0.04) 10*3/uL Neutrophils # (1.80-7.70) 10*3/uL Lymphocytes # (0.90-5.00) 10*3/uL Monocytes # (0.20-1.00) 10*3/uL Eosinophils # (0.04-0.35) 10*3/uL ABG pH (7.35-7.45) ABG pCO2 (35-45) mmHg ABG pO2 151 H (83-108) mmHg ABG HCO3 (21-25) mmol/L ABG Total CO2 25 H (19-24) mmol/L ABG O2 Saturation 99.6 H (94-97) % ABG Hematocrit (34.0-46.0) % ABG Potassium (3.4-4.5) mmol/L ABG Ionized Calcium (4.5-5.3) mg/dL ABG Glucose (75-99) mg/dL Hemoglobin 11.7 L (13.0-17.5) gm/dL Sodium (137-145) mmol/L BUN (9-20) mg/dL Glucose (74-99) mg/dL POC Glucose (mg/dL) 159 H 161 H (70-110) mg/dL Magnesium (1.6-2.3) mg/dL Total Protein (6.3-8.2) g/dL Albumin (3.5-5.0) g/dL Arterial Blood Potassium (3.4-4.5) mmol/L Arterial Blood Glucose (75-99) mg/dL Crossmatch 09/23/24 09/23/24 09/23/24 Range/Units 17:40 18:10 19:09 WBC 12.36 H (4.50-10.00) 10*3/uL RBC 3.40 L (4.40-5.60) 10*6/uL Hgb 11.2 L (13.0-17.0) g/dL Hct 33.0 L (39.6-50.0) % MCV 97.1 H (80.0-97.0) fL MCH 32.9 H (27.0-32.0) pg Plt Count (140-440) 10*3/uL Immature Gran # 0.05 H (0.00-0.04) 10*3/uL Neutrophils # 10.91 H (1.80-7.70) 10*3/uL Lymphocytes # 0.58 L (0.90-5.00) 10*3/uL Monocytes # (0.20-1.00) 10*3/uL Eosinophils # 0.01 L (0.04-0.35) 10*3/uL ABG pH (7.35-7.45) ABG pCO2 (35-45) mmHg ABG pO2 (83-108) mmHg ABG HCO3 (21-25) mmol/L ABG Total CO2 (19-24) mmol/L ABG O2 Saturation (94-97) % ABG Hematocrit (34.0-46.0) % ABG Potassium (3.4-4.5) mmol/L ABG Ionized Calcium (4.5-5.3) mg/dL ABG Glucose (75-99) mg/dL Hemoglobin (13.0-17.5) gm/dL Sodium (137-145) mmol/L BUN (9-20) mg/dL Glucose (74-99) mg/dL POC Glucose (mg/dL) 147 H 135 H (70-110) mg/dL Magnesium (1.6-2.3) mg/dL Total Protein (6.3-8.2) g/dL Albumin (3.5-5.0) g/dL Arterial Blood Potassium (3.4-4.5) mmol/L Arterial Blood Glucose (75-99) mg/dL Crossmatch 09/23/24 09/23/24 09/23/24 Range/Units 20:15 21:16 22:04 WBC (4.50-10.00) 10*3/uL RBC (4.40-5.60) 10*6/uL Hgb (13.0-17.0) g/dL Hct (39.6-50.0) % MCV (80.0-97.0) fL MCH (27.0-32.0) pg Plt Count (140-440) 10*3/uL Immature Gran # (0.00-0.04) 10*3/uL Neutrophils # (1.80-7.70) 10*3/uL Lymphocytes # (0.90-5.00) 10*3/uL Monocytes # (0.20-1.00) 10*3/uL Eosinophils # (0.04-0.35) 10*3/uL ABG pH (7.35-7.45) ABG pCO2 (35-45) mmHg ABG pO2 (83-108) mmHg ABG HCO3 (21-25) mmol/L ABG Total CO2 (19-24) mmol/L ABG O2 Saturation (94-97) % ABG Hematocrit (34.0-46.0) % ABG Potassium (3.4-4.5) mmol/L ABG Ionized Calcium (4.5-5.3) mg/dL ABG Glucose (75-99) mg/dL Hemoglobin (13.0-17.5) gm/dL Sodium (137-145) mmol/L BUN (9-20) mg/dL Glucose (74-99) mg/dL POC Glucose (mg/dL) 130 H 129 H 129 H (70-110) mg/dL Magnesium (1.6-2.3) mg/dL Total Protein (6.3-8.2) g/dL Albumin (3.5-5.0) g/dL Arterial Blood Potassium (3.4-4.5) mmol/L Arterial Blood Glucose (75-99) mg/dL Crossmatch 09/23/24 09/24/24 09/24/24 Range/Units 23:03 00:09 01:06 WBC (4.50-10.00) 10*3/uL RBC (4.40-5.60) 10*6/uL Hgb (13.0-17.0) g/dL Hct (39.6-50.0) % MCV (80.0-97.0) fL MCH (27.0-32.0) pg Plt Count (140-440) 10*3/uL Immature Gran # (0.00-0.04) 10*3/uL Neutrophils # (1.80-7.70) 10*3/uL Lymphocytes # (0.90-5.00) 10*3/uL Monocytes # (0.20-1.00) 10*3/uL Eosinophils # (0.04-0.35) 10*3/uL ABG pH (7.35-7.45) ABG pCO2 (35-45) mmHg ABG pO2 (83-108) mmHg ABG HCO3 (21-25) mmol/L ABG Total CO2 (19-24) mmol/L ABG O2 Saturation (94-97) % ABG Hematocrit (34.0-46.0) % ABG Potassium (3.4-4.5) mmol/L ABG Ionized Calcium (4.5-5.3) mg/dL ABG Glucose (75-99) mg/dL Hemoglobin (13.0-17.5) gm/dL Sodium (137-145) mmol/L BUN (9-20) mg/dL Glucose (74-99) mg/dL POC Glucose (mg/dL) 125 H 133 H 127 H (70-110) mg/dL Magnesium (1.6-2.3) mg/dL Total Protein (6.3-8.2) g/dL Albumin (3.5-5.0) g/dL Arterial Blood Potassium (3.4-4.5) mmol/L Arterial Blood Glucose (75-99) mg/dL Crossmatch 09/24/24 09/24/24 09/24/24 Range/Units 02:16 02:56 03:00 WBC 10.90 H (4.50-10.00) 10*3/uL RBC 3.25 L (4.40-5.60) 10*6/uL Hgb 10.3 L (13.0-17.0) g/dL Hct 31.4 L (39.6-50.0) % MCV (80.0-97.0) fL MCH (27.0-32.0) pg Plt Count (140-440) 10*3/uL Immature Gran # (0.00-0.04) 10*3/uL Neutrophils # 9.01 H (1.80-7.70) 10*3/uL Lymphocytes # 0.77 L (0.90-5.00) 10*3/uL Monocytes # 1.08 H (0.20-1.00) 10*3/uL Eosinophils # 0.00 L (0.04-0.35) 10*3/uL ABG pH (7.35-7.45) ABG pCO2 (35-45) mmHg ABG pO2 (83-108) mmHg ABG HCO3 (21-25) mmol/L ABG Total CO2 (19-24) mmol/L ABG O2 Saturation (94-97) % ABG Hematocrit (34.0-46.0) % ABG Potassium (3.4-4.5) mmol/L ABG Ionized Calcium (4.5-5.3) mg/dL ABG Glucose (75-99) mg/dL Hemoglobin (13.0-17.5) gm/dL Sodium (137-145) mmol/L BUN (9-20) mg/dL Glucose (74-99) mg/dL POC Glucose (mg/dL) 121 H 121 H (70-110) mg/dL Magnesium (1.6-2.3) mg/dL Total Protein (6.3-8.2) g/dL Albumin (3.5-5.0) g/dL Arterial Blood Potassium (3.4-4.5) mmol/L Arterial Blood Glucose (75-99) mg/dL Crossmatch 09/24/24 09/24/24 09/24/24 Range/Units 03:00 04:12 05:03 WBC (4.50-10.00) 10*3/uL RBC (4.40-5.60) 10*6/uL Hgb (13.0-17.0) g/dL Hct (39.6-50.0) % MCV (80.0-97.0) fL MCH (27.0-32.0) pg Plt Count (140-440) 10*3/uL Immature Gran # (0.00-0.04) 10*3/uL Neutrophils # (1.80-7.70) 10*3/uL Lymphocytes # (0.90-5.00) 10*3/uL Monocytes # (0.20-1.00) 10*3/uL Eosinophils # (0.04-0.35) 10*3/uL ABG pH (7.35-7.45) ABG pCO2 (35-45) mmHg ABG pO2 (83-108) mmHg ABG HCO3 (21-25) mmol/L ABG Total CO2 (19-24) mmol/L ABG O2 Saturation (94-97) % ABG Hematocrit (34.0-46.0) % ABG Potassium (3.4-4.5) mmol/L ABG Ionized Calcium (4.5-5.3) mg/dL ABG Glucose (75-99) mg/dL Hemoglobin (13.0-17.5) gm/dL Sodium 133 L (137-145) mmol/L BUN 21 H (9-20) mg/dL Glucose 112 H (74-99) mg/dL POC Glucose (mg/dL) 115 H 114 H (70-110) mg/dL Magnesium (1.6-2.3) mg/dL Total Protein 5.1 L (6.3-8.2) g/dL Albumin 3.1 L (3.5-5.0) g/dL Arterial Blood Potassium (3.4-4.5) mmol/L Arterial Blood Glucose (75-99) mg/dL Crossmatch 09/24/24 Range/Units 06:08 WBC (4.50-10.00) 10*3/uL RBC (4.40-5.60) 10*6/uL Hgb (13.0-17.0) g/dL Hct (39.6-50.0) % MCV (80.0-97.0) fL MCH (27.0-32.0) pg Plt Count (140-440) 10*3/uL Immature Gran # (0.00-0.04) 10*3/uL Neutrophils # (1.80-7.70) 10*3/uL Lymphocytes # (0.90-5.00) 10*3/uL Monocytes # (0.20-1.00) 10*3/uL Eosinophils # (0.04-0.35) 10*3/uL ABG pH (7.35-7.45) ABG pCO2 (35-45) mmHg ABG pO2 (83-108) mmHg ABG HCO3 (21-25) mmol/L ABG Total CO2 (19-24) mmol/L ABG O2 Saturation (94-97) % ABG Hematocrit (34.0-46.0) % ABG Potassium (3.4-4.5) mmol/L ABG Ionized Calcium (4.5-5.3) mg/dL ABG Glucose (75-99) mg/dL Hemoglobin (13.0-17.5) gm/dL Sodium (137-145) mmol/L BUN (9-20) mg/dL Glucose (74-99) mg/dL POC Glucose (mg/dL) 122 H (70-110) mg/dL Magnesium (1.6-2.3) mg/dL Total Protein (6.3-8.2) g/dL Albumin (3.5-5.0) g/dL Arterial Blood Potassium (3.4-4.5) mmol/L Arterial Blood Glucose (75-99) mg/dL Crossmatch - Imaging and Cardiology Chest x-ray: report reviewed, image reviewed Assessment and Plan Assessment: Critical aortic stenosis, status post aortic valve replacement with a 23 mm Inspiris bioprosthetic valve Hypertension Hyperlipidemia, treated Asthma History of TIA with no residual deficits, on Brilinta as an outpatient GERD History of renal cell tumor Chronic back pain/spondylitis Remote history of nicotine dependence quit smoking in 1986 Plan: Continue to maximize medical therapy with aspirin, statin, and Plavix. Will hold his beta-sabas and amiodarone at this time, as he is pacer dependent with an underlying rhythm of complete heart block heart rate in the 50s. Wean oxygen as tolerated. Encourage use of incentive spirometry 10 times every hour while awake. Home dose of Singulair has been restarted. Bronchodilator management per pulmonary/critical care medicine. Once extubated increase activity as tolerated, PT/OT/cardiac rehab consulted. Will monitor daily labs and chest x-rays. Electrolyte replacement per protocol. GI/DVT prophylaxis Insulin management per internal medicine, patient should remain on continuous IV insulin for 48 hours, then may transition to subcutaneous per protocol. Preoperative hemoglobin A1c 6.0%. Pain control per current medication regimen. Toradol has been added for additional pain control. Discontinue Caspar, keep right IJ Cordis for now with continuous CVP monitoring. Continue chest tubes for another 24 hours, monitor and record output. Continue Pickard catheter for another 24 hours, continue to monitor record strict accurate intake and output. More recommendations to follow as patient progresse Time with Patient: Greater than 30
[2024-09-24 08:30] LABS: Glucose,Whole Blood 174 mg/dL (70-110)
[2024-09-24] MEDS: MONTELUKAST 10 MG TAB PO SCH (08:39)
[2024-09-24] MEDS: EZETIMIBE 10 MG TAB PO SCH (08:39)
[2024-09-24] MEDS: PANTOPRAZOLE 40 MG/10 ML VIAL IVP SCH (08:39)
[2024-09-24] MEDS: CHOLECALCIFEROL 25 MCG (1000 IU) TABLET PO SCH (08:40)
[2024-09-24] MEDS: CLOPIDOGREL 75 MG TAB PO SCH (08:40)
[2024-09-24] MEDS: ASPIRIN 325 MG TAB PO SCH (08:40)
[2024-09-24] MEDS ORDERED: METOPROLOL TARTRATE 12.5 MG TAB PO SCH (09:00)
[2024-09-24] MEDS ORDERED: MAGNESIUM HYDROXIDE 2,400 MG/30 ML CUP PO PRN (09:00)
[2024-09-24] MEDS ORDERED: bisacodyL 10 MG SUPP RECTAL PRN (09:00)
--- NOTE | 2024-09-24 09:43 | P.PN ---
Subjective Progress Note Date: 09/24/24 HISTORY OF PRESENT ILLNESS: This is a 69-year-old male with a previous medical history significant for hyperlipidemia, GERD with esophagitis, vitamin D deficiency, recurrent TIA on dual antiplatelet therapy, who recently underwent left heart catheterization that showed normal coronary arteries with severe aortic valve stenosis followed by transesophageal echocardiogram which confirmed severe aortic valve stenosis with a valve surface area of 0.5, patient underwent aortic valve replacement t hat was done by Dr. Presley and we were asked to see the patient for postoperative medical management. On the ventilator, currently in degree Van drip at 30 micg, he has been on albumin as well as IV fluid resuscitation, he has very good urine output at least 100 cc an hour, we will is currently on the ventilator with a tidal volume of 450 respiratory rate of 18 FiO2 50%, his oxygenation is 98%, they will continue with the weaning parameter, chest x-ray appears to be good, blood gases appears to be good, we will try to wean the patient off the ventilator later on this afternoon. 09/24: Patient sitting up in the chair, he was extubated successfully yesterday, he denies any significant pain, he does complain of some soreness in the chest where the incision is, he continues to have a chest tube in place, he continues to have a Cordis catheter in the right internal jugular vein, this was probably coming out today, continue this at his primary, continue current pain management, continue to follow-up with the patient very closely, REVIEW OF SYSTEMS: Constitutional: No documented fever, no chills, no night sweats. No weight change. No weakness, fatigue or lethargy. No daytime sleepiness. HEENT: No headache. No blurred vision or double vision, no loss of vision. No loss of Hearing, no ringing in the ears, no dizziness. No nasal drainage or congestion. No epistaxis. No sore throat. Lungs: No shortness of breath, no cough, no sputum production. No wheezing. Reports dry nose not able to breathe through the nose Cardiovascular: Positive for chest pain, minimal lower extremity edema. No palpitations. No paroxysmal nocturnal dyspnea. No orthopnea. No lightheadedness or dizziness. No syncopal episodes. Abdominal: Reports no abdominal pain. No nausea, vomiting. No diarrhea. No constipation. No bloody or tarry stools reports loss of appetite. Genitourinary: No dysuria, increased frequency, urgency, Pickard catheter is in place Musculoskeletal: No myalgias. No muscle weakness, no gait dysfunction, no frequent falls. No back pain. positive for neck pain, Integumentary: No wounds, no lesions. No rash or pruritus. No unusual bruising. No change in hair or nails. Neurologic: No aphasia. No facial droop. No change in mentation. No head injury. No headache. No paralysis. No paresthesia. Psychiatric: No depression. No anxiety. No mood swings. Endocrine: No abnormal blood sugars. No weight change. PHYSICAL EXAMINATION: General: 69-year-old male sitting up in a chair in no apparent distress HEENT: Head is atraumatic, normocephalic, pupils were equal round, there is an orogastric tube in place as well as ET tube in place. Neck: Supple, no JVP, normal carotid upstroke bilaterally, no lymphadenopathy there is right IJ cordis catheter in place Chest: Decreased breath sounds at the bases, few rhonchi, no expiratory wheezes, there is to chest tube, there is also pacemaker in place. Heart: First heart sound is normal, second heart sounds normal there is no murmur positive for S3. Abdomen: Soft, nontender, nondistended, depressed bowel sounds Extremities: There is no edema no calf tenderness DP +2 bilaterally, bilateral knee-high CHARI hose/SCDs Neurologic examination: Patient is awake alert and oriented x 3, cranial nerves III to XII appear gross intact, muscle power 4 out of 5 in upper lower extremities bilaterally ASSESSMENT AND PLAN: 1. Acute vent dependent respiratory failure status post aortic valve replacement status post extubation continue aggressive pulmonary toileting, continue DuoNeb 3 manipulation 4 times every day, continue oxygen support, he is currently on 2 L nasal cannula, continue current pain management, incentive spirometer to be utilized, increase activity, start the patient on clear liquid diet, follow-up with the patient very closely, continue metoprolol 25 mg orally twice every day, continue aspirin 81 mg once every day, Plavix 75 mg once every day, monitor the patient blood pressure very closely 2. Hypertension and hypertensive cardiovascular disease. Continue patient on metoprolol 25 mg orally twice every day monitor the patient blood pressure very closely 3. Mixed hyperlipidemia. Continue patient on atorvastatin 80 mg orally once every day, continue Zetia 10 mg once every day monitor lipid panel, keep LDL 55- 70. 4. GERD with esophagitis. Continue pantoprazole 40 mg IV push every 24 hours. 5. Vitamin D deficiency continue vitamin D3 1000 units once every day. 6. Spondylosis of the cervical spine. Continue current pain management. 7. History of recurrent TIAs in the past, continue aspirin 325 mg once every day, Plavix 75 mg once every day, continue atorvastatin 80 mg once every day along with Zetia 10 mg once every day. 8. Acute blood loss anemia monitor the patient CBC very closely keep hemoglobin greater than 8 at all of the time. 9. DVT prophylaxis. Continue patient on bilateral knee-high CHARI hose as well as bilateral SCDs. Continue heparin 5000 units subcutaneously every 8 hours 10. GI prophylaxis. Continue Protonix 40 mg IV push over 24 hours. 11. Allergic rhinitis. Start the patient on montelukast 10 mg at bedtime, continue with humidified oxygen, follow-up with the patient very closely Objective - Vital Signs Vital signs: Vital Signs Temp 100.4 F H 09/24/24 06:00 Pulse 73 09/24/24 08:21 Resp 10 L 09/24/24 07:00 BP 124/66 09/24/24 07:00 Pulse Ox 95 09/24/24 07:00 FiO2 50 09/23/24 16:50 Intake & Output 09/23/24 09/24/24 09/24/24 18:59 06:59 18:59 Intake Total 4523.364 2743.622 60.195 Output Total 3076 693 60 Balance -1987.868 426.622 0.195 Weight 87.7 kg Intake: IV 996 1098 59 ACETAMINOPHEN IV (For NPO 200 ) 1,000 mg In Empty Bag 1 bag @ 400 mls/hr IVPB Q6HR [facility] Rx#:[id number] Albumin Human 5% 250 ml 250 In Empty Bag 1 bag @ 250 mls/hr IVPB Q1HR PRN Rx#: [id number] CO/CI 240 90 Pressure Bags 54 108 9 Sodium Chloride 0.9% 1, 300 600 50 000 ml @ 50 mls/hr IV . Q20H [facility] Rx#:[id number] ceFAZolin 2 gm In 100 50 Dextrose 5% in Water 50 ml @ 100 mls/hr IVPB Q8HR [facility] Rx#:[id number] Intake, IV Titration 92.132 21.622 1.195 Amount Clevidipine Butyrate 25 20.200 mg In Empty Bag 1 bag @ 1 MG/HR 2 mls/hr IV .Q24H [facility] Rx#:[id number] Dexmedetomidine/0.9% NaCl 10.864 (Pmx) 400 mcg In Empty Bag 1 bag @ Titrate IV . Q0M [facility] Rx#:[id number] Insulin Regular 100 unit 9.182 21.622 1.195 In Sodium Chloride 0.9% 100 ml @ Per Protocol IV .Q0M [facility] Rx#:[id number] propofoL 1,000 mg In 51.886 Empty Bag 1 bag @ Titrate IV .Q0M [facility] Rx#: [id number] Output: Chest Tube Drainage 471 278 20 Left Pleural 132 148 10 Mediastinal 339 130 10 Urine 1705 415 40 Estimated Blood Loss 900 Other: Voiding Method Indwelling Catheter Indwelling Catheter ABP, PAP, CO, CI - Last Documented Arterial Blood Pressure 123/55 Pulmonary Artery Pressure 25/9 Cardiac Output 4.9 Cardiac Index 2.5 - Labs CBC & Chem 7: 09/24/24 03:00 09/24/24 03:00 Labs: Abnormal Lab Results - Last 24 Hours (Table) 09/21/24 09/23/24 09/23/24 Range/Units 09:01 08:35 09:30 WBC (4.50-10.00) 10*3/uL RBC (4.40-5.60) 10*6/uL Hgb (13.0-17.0) g/dL Hct (39.6-50.0) % MCV (80.0-97.0) fL MCH (27.0-32.0) pg Plt Count (140-440) 10*3/uL Immature Gran # (0.00-0.04) 10*3/uL Neutrophils # (1.80-7.70) 10*3/uL Lymphocytes # (0.90-5.00) 10*3/uL Monocytes # (0.20-1.00) 10*3/uL Eosinophils # (0.04-0.35) 10*3/uL ABG pH (7.35-7.45) ABG pCO2 (35-45) mmHg ABG pO2 315 H 283 H (83-108) mmHg ABG HCO3 26 H (21-25) mmol/L ABG Total CO2 (19-24) mmol/L ABG O2 Saturation >99.4 H >99.4 H (94-97) % ABG Hematocrit 33 L 33 L (34.0-46.0) % ABG Potassium (3.4-4.5) mmol/L ABG Ionized Calcium (4.5-5.3) mg/dL ABG Glucose 113 H 111 H (75-99) mg/dL Hemoglobin 10.7 L 10.6 L (13.0-17.5) gm/dL Sodium (137-145) mmol/L BUN (9-20) mg/dL Glucose (74-99) mg/dL POC Glucose (mg/dL) (70-110) mg/dL Magnesium (1.6-2.3) mg/dL Total Protein (6.3-8.2) g/dL Albumin (3.5-5.0) g/dL Arterial Blood Potassium (3.4-4.5) mmol/L Arterial Blood Glucose 113 H 111 H (75-99) mg/dL Crossmatch See Detail 09/23/24 09/23/24 09/23/24 Range/Units 09:57 10:25 10:45 WBC (4.50-10.00) 10*3/uL RBC (4.40-5.60) 10*6/uL Hgb (13.0-17.0) g/dL Hct (39.6-50.0) % MCV (80.0-97.0) fL MCH (27.0-32.0) pg Plt Count (140-440) 10*3/uL Immature Gran # (0.00-0.04) 10*3/uL Neutrophils # (1.80-7.70) 10*3/uL Lymphocytes # (0.90-5.00) 10*3/uL Monocytes # (0.20-1.00) 10*3/uL Eosinophils # (0.04-0.35) 10*3/uL ABG pH 7.32 L (7.35-7.45) ABG pCO2 50 H (35-45) mmHg ABG pO2 407 H 344 H 332 H (83-108) mmHg ABG HCO3 26 H 26 H (21-25) mmol/L ABG Total CO2 25 H (19-24) mmol/L ABG O2 Saturation >99.4 H >99.4 H 99.3 H (94-97) % ABG Hematocrit 27 L 27 L 28 L (34.0-46.0) % ABG Potassium 4.8 H 4.8 H 4.9 H (3.4-4.5) mmol/L ABG Ionized Calcium 4.1 L 4.3 L 4.3 L (4.5-5.3) mg/dL ABG Glucose 108 H 127 H 141 H (75-99) mg/dL Hemoglobin 8.9 L 8.9 L 9.0 L (13.0-17.5) gm/dL Sodium (137-145) mmol/L BUN (9-20) mg/dL Glucose (74-99) mg/dL POC Glucose (mg/dL) (70-110) mg/dL Magnesium (1.6-2.3) mg/dL Total Protein (6.3-8.2) g/dL Albumin (3.5-5.0) g/dL Arterial Blood Potassium 4.8 H 4.8 H 4.9 H (3.4-4.5) mmol/L Arterial Blood Glucose 108 H 127 H 141 H (75-99) mg/dL Crossmatch 09/23/24 09/23/24 09/23/24 Range/Units 11:55 12:35 12:35 WBC 10.12 H (4.50-10.00) 10*3/uL RBC 3.30 L (4.40-5.60) 10*6/uL Hgb 10.8 L (13.0-17.0) g/dL Hct 32.2 L (39.6-50.0) % MCV 97.6 H (80.0-97.0) fL MCH 32.7 H (27.0-32.0) pg Plt Count 132 L (140-440) 10*3/uL Immature Gran # (0.00-0.04) 10*3/uL Neutrophils # 8.29 H (1.80-7.70) 10*3/uL Lymphocytes # (0.90-5.00) 10*3/uL Monocytes # (0.20-1.00) 10*3/uL Eosinophils # (0.04-0.35) 10*3/uL ABG pH (7.35-7.45) ABG pCO2 (35-45) mmHg ABG pO2 260 H (83-108) mmHg ABG HCO3 (21-25) mmol/L ABG Total CO2 (19-24) mmol/L ABG O2 Saturation 99.3 H (94-97) % ABG Hematocrit 30 L (34.0-46.0) % ABG Potassium (3.4-4.5) mmol/L ABG Ionized Calcium (4.5-5.3) mg/dL ABG Glucose 120 H (75-99) mg/dL Hemoglobin 9.7 L (13.0-17.5) gm/dL Sodium (137-145) mmol/L BUN (9-20) mg/dL Glucose 129 H (74-99) mg/dL POC Glucose (mg/dL) (70-110) mg/dL Magnesium 2.5 H (1.6-2.3) mg/dL Total Protein 4.6 L (6.3-8.2) g/dL Albumin 2.6 L (3.5-5.0) g/dL Arterial Blood Potassium (3.4-4.5) mmol/L Arterial Blood Glucose 120 H (75-99) mg/dL Crossmatch 09/23/24 09/23/24 09/23/24 Range/Units 13:24 13:30 14:03 WBC (4.50-10.00) 10*3/uL RBC (4.40-5.60) 10*6/uL Hgb (13.0-17.0) g/dL Hct (39.6-50.0) % MCV (80.0-97.0) fL MCH (27.0-32.0) pg Plt Count (140-440) 10*3/uL Immature Gran # (0.00-0.04) 10*3/uL Neutrophils # (1.80-7.70) 10*3/uL Lymphocytes # (0.90-5.00) 10*3/uL Monocytes # (0.20-1.00) 10*3/uL Eosinophils # (0.04-0.35) 10*3/uL ABG pH (7.35-7.45) ABG pCO2 46 H (35-45) mmHg ABG pO2 (83-108) mmHg ABG HCO3 26 H (21-25) mmol/L ABG Total CO2 28 H (19-24) mmol/L ABG O2 Saturation (94-97) % ABG Hematocrit (34.0-46.0) % ABG Potassium (3.4-4.5) mmol/L ABG Ionized Calcium (4.5-5.3) mg/dL ABG Glucose (75-99) mg/dL Hemoglobin 12.5 L (13.0-17.5) gm/dL Sodium (137-145) mmol/L BUN (9-20) mg/dL Glucose (74-99) mg/dL POC Glucose (mg/dL) 136 H 128 H (70-110) mg/dL Magnesium (1.6-2.3) mg/dL Total Protein (6.3-8.2) g/dL Albumin (3.5-5.0) g/dL Arterial Blood Potassium (3.4-4.5) mmol/L Arterial Blood Glucose (75-99) mg/dL Crossmatch 09/23/24 09/23/24 09/23/24 Range/Units 15:05 15:05 15:12 WBC 12.09 H (4.50-10.00) 10*3/uL RBC 3.77 L (4.40-5.60) 10*6/uL Hgb 12.2 L (13.0-17.0) g/dL Hct 36.7 L (39.6-50.0) % MCV 97.3 H (80.0-97.0) fL MCH 32.4 H (27.0-32.0) pg Plt Count (140-440) 10*3/uL Immature Gran # (0.00-0.04) 10*3/uL Neutrophils # 10.14 H (1.80-7.70) 10*3/uL Lymphocytes # (0.90-5.00) 10*3/uL Monocytes # (0.20-1.00) 10*3/uL Eosinophils # (0.04-0.35) 10*3/uL ABG pH (7.35-7.45) ABG pCO2 (35-45) mmHg ABG pO2 (83-108) mmHg ABG HCO3 (21-25) mmol/L ABG Total CO2 (19-24) mmol/L ABG O2 Saturation (94-97) % ABG Hematocrit (34.0-46.0) % ABG Potassium (3.4-4.5) mmol/L ABG Ionized Calcium (4.5-5.3) mg/dL ABG Glucose (75-99) mg/dL Hemoglobin (13.0-17.5) gm/dL Sodium (137-145) mmol/L BUN (9-20) mg/dL Glucose (74-99) mg/dL POC Glucose (mg/dL) 140 H 119 H (70-110) mg/dL Magnesium (1.6-2.3) mg/dL Total Protein (6.3-8.2) g/dL Albumin (3.5-5.0) g/dL Arterial Blood Potassium (3.4-4.5) mmol/L Arterial Blood Glucose (75-99) mg/dL Crossmatch 09/23/24 09/23/24 09/23/24 Range/Units 15:59 17:08 17:34 WBC (4.50-10.00) 10*3/uL RBC (4.40-5.60) 10*6/uL Hgb (13.0-17.0) g/dL Hct (39.6-50.0) % MCV (80.0-97.0) fL MCH (27.0-32.0) pg Plt Count (140-440) 10*3/uL Immature Gran # (0.00-0.04) 10*3/uL Neutrophils # (1.80-7.70) 10*3/uL Lymphocytes # (0.90-5.00) 10*3/uL Monocytes # (0.20-1.00) 10*3/uL Eosinophils # (0.04-0.35) 10*3/uL ABG pH (7.35-7.45) ABG pCO2 (35-45) mmHg ABG pO2 151 H (83-108) mmHg ABG HCO3 (21-25) mmol/L ABG Total CO2 25 H (19-24) mmol/L ABG O2 Saturation 99.6 H (94-97) % ABG Hematocrit (34.0-46.0) % ABG Potassium (3.4-4.5) mmol/L ABG Ionized Calcium (4.5-5.3) mg/dL ABG Glucose (75-99) mg/dL Hemoglobin 11.7 L (13.0-17.5) gm/dL Sodium (137-145) mmol/L BUN (9-20) mg/dL Glucose (74-99) mg/dL POC Glucose (mg/dL) 159 H 161 H (70-110) mg/dL Magnesium (1.6-2.3) mg/dL Total Protein (6.3-8.2) g/dL Albumin (3.5-5.0) g/dL Arterial Blood Potassium (3.4-4.5) mmol/L Arterial Blood Glucose (75-99) mg/dL Crossmatch 09/23/24 09/23/24 09/23/24 Range/Units 17:40 18:10 19:09 WBC 12.36 H (4.50-10.00) 10*3/uL RBC 3.40 L (4.40-5.60) 10*6/uL Hgb 11.2 L (13.0-17.0) g/dL Hct 33.0 L (39.6-50.0) % MCV 97.1 H (80.0-97.0) fL MCH 32.9 H (27.0-32.0) pg Plt Count (140-440) 10*3/uL Immature Gran # 0.05 H (0.00-0.04) 10*3/uL Neutrophils # 10.91 H (1.80-7.70) 10*3/uL Lymphocytes # 0.58 L (0.90-5.00) 10*3/uL Monocytes # (0.20-1.00) 10*3/uL Eosinophils # 0.01 L (0.04-0.35) 10*3/uL ABG pH (7.35-7.45) ABG pCO2 (35-45) mmHg ABG pO2 (83-108) mmHg ABG HCO3 (21-25) mmol/L ABG Total CO2 (19-24) mmol/L ABG O2 Saturation (94-97) % ABG Hematocrit (34.0-46.0) % ABG Potassium (3.4-4.5) mmol/L ABG Ionized Calcium (4.5-5.3) mg/dL ABG Glucose (75-99) mg/dL Hemoglobin (13.0-17.5) gm/dL Sodium (137-145) mmol/L BUN (9-20) mg/dL Glucose (74-99) mg/dL POC Glucose (mg/dL) 147 H 135 H (70-110) mg/dL Magnesium (1.6-2.3) mg/dL Total Protein (6.3-8.2) g/dL Albumin (3.5-5.0) g/dL Arterial Blood Potassium (3.4-4.5) mmol/L Arterial Blood Glucose (75-99) mg/dL Crossmatch 09/23/24 09/23/24 09/23/24 Range/Units 20:15 21:16 22:04 WBC (4.50-10.00) 10*3/uL RBC (4.40-5.60) 10*6/uL Hgb (13.0-17.0) g/dL Hct (39.6-50.0) % MCV (80.0-97.0) fL MCH (27.0-32.0) pg Plt Count (140-440) 10*3/uL Immature Gran # (0.00-0.04) 10*3/uL Neutrophils # (1.80-7.70) 10*3/uL Lymphocytes # (0.90-5.00) 10*3/uL Monocytes # (0.20-1.00) 10*3/uL Eosinophils # (0.04-0.35) 10*3/uL ABG pH (7.35-7.45) ABG pCO2 (35-45) mmHg ABG pO2 (83-108) mmHg ABG HCO3 (21-25) mmol/L ABG Total CO2 (19-24) mmol/L ABG O2 Saturation (94-97) % ABG Hematocrit (34.0-46.0) % ABG Potassium (3.4-4.5) mmol/L ABG Ionized Calcium (4.5-5.3) mg/dL ABG Glucose (75-99) mg/dL Hemoglobin (13.0-17.5) gm/dL Sodium (137-145) mmol/L BUN (9-20) mg/dL Glucose (74-99) mg/dL POC Glucose (mg/dL) 130 H 129 H 129 H (70-110) mg/dL Magnesium (1.6-2.3) mg/dL Total Protein (6.3-8.2) g/dL Albumin (3.5-5.0) g/dL Arterial Blood Potassium (3.4-4.5) mmol/L Arterial Blood Glucose (75-99) mg/dL Crossmatch 09/23/24 09/24/24 09/24/24 Range/Units 23:03 00:09 01:06 WBC (4.50-10.00) 10*3/uL RBC (4.40-5.60) 10*6/uL Hgb (13.0-17.0) g/dL Hct (39.6-50.0) % MCV (80.0-97.0) fL MCH (27.0-32.0) pg Plt Count (140-440) 10*3/uL Immature Gran # (0.00-0.04) 10*3/uL Neutrophils # (1.80-7.70) 10*3/uL Lymphocytes # (0.90-5.00) 10*3/uL Monocytes # (0.20-1.00) 10*3/uL Eosinophils # (0.04-0.35) 10*3/uL ABG pH (7.35-7.45) ABG pCO2 (35-45) mmHg ABG pO2 (83-108) mmHg ABG HCO3 (21-25) mmol/L ABG Total CO2 (19-24) mmol/L ABG O2 Saturation (94-97) % ABG Hematocrit (34.0-46.0) % ABG Potassium (3.4-4.5) mmol/L ABG Ionized Calcium (4.5-5.3) mg/dL ABG Glucose (75-99) mg/dL Hemoglobin (13.0-17.5) gm/dL Sodium (137-145) mmol/L BUN (9-20) mg/dL Glucose (74-99) mg/dL POC Glucose (mg/dL) 125 H 133 H 127 H (70-110) mg/dL Magnesium (1.6-2.3) mg/dL Total Protein (6.3-8.2) g/dL Albumin (3.5-5.0) g/dL Arterial Blood Potassium (3.4-4.5) mmol/L Arterial Blood Glucose (75-99) mg/dL Crossmatch 09/24/24 09/24/24 09/24/24 Range/Units 02:16 02:56 03:00 WBC 10.90 H (4.50-10.00) 10*3/uL RBC 3.25 L (4.40-5.60) 10*6/uL Hgb 10.3 L (13.0-17.0) g/dL Hct 31.4 L (39.6-50.0) % MCV (80.0-97.0) fL MCH (27.0-32.0) pg Plt Count (140-440) 10*3/uL Immature Gran # (0.00-0.04) 10*3/uL Neutrophils # 9.01 H (1.80-7.70) 10*3/uL Lymphocytes # 0.77 L (0.90-5.00) 10*3/uL Monocytes # 1.08 H (0.20-1.00) 10*3/uL Eosinophils # 0.00 L (0.04-0.35) 10*3/uL ABG pH (7.35-7.45) ABG pCO2 (35-45) mmHg ABG pO2 (83-108) mmHg ABG HCO3 (21-25) mmol/L ABG Total CO2 (19-24) mmol/L ABG O2 Saturation (94-97) % ABG Hematocrit (34.0-46.0) % ABG Potassium (3.4-4.5) mmol/L ABG Ionized Calcium (4.5-5.3) mg/dL ABG Glucose (75-99) mg/dL Hemoglobin (13.0-17.5) gm/dL Sodium (137-145) mmol/L BUN (9-20) mg/dL Glucose (74-99) mg/dL POC Glucose (mg/dL) 121 H 121 H (70-110) mg/dL Magnesium (1.6-2.3) mg/dL Total Protein (6.3-8.2) g/dL Albumin (3.5-5.0) g/dL Arterial Blood Potassium (3.4-4.5) mmol/L Arterial Blood Glucose (75-99) mg/dL Crossmatch 09/24/24 09/24/24 09/24/24 Range/Units 03:00 04:12 05:03 WBC (4.50-10.00) 10*3/uL RBC (4.40-5.60) 10*6/uL Hgb (13.0-17.0) g/dL Hct (39.6-50.0) % MCV (80.0-97.0) fL MCH (27.0-32.0) pg Plt Count (140-440) 10*3/uL Immature Gran # (0.00-0.04) 10*3/uL Neutrophils # (1.80-7.70) 10*3/uL Lymphocytes # (0.90-5.00) 10*3/uL Monocytes # (0.20-1.00) 10*3/uL Eosinophils # (0.04-0.35) 10*3/uL ABG pH (7.35-7.45) ABG pCO2 (35-45) mmHg ABG pO2 (83-108) mmHg ABG HCO3 (21-25) mmol/L ABG Total CO2 (19-24) mmol/L ABG O2 Saturation (94-97) % ABG Hematocrit (34.0-46.0) % ABG Potassium (3.4-4.5) mmol/L ABG Ionized Calcium (4.5-5.3) mg/dL ABG Glucose (75-99) mg/dL Hemoglobin (13.0-17.5) gm/dL Sodium 133 L (137-145) mmol/L BUN 21 H (9-20) mg/dL Glucose 112 H (74-99) mg/dL POC Glucose (mg/dL) 115 H 114 H (70-110) mg/dL Magnesium (1.6-2.3) mg/dL Total Protein 5.1 L (6.3-8.2) g/dL Albumin 3.1 L (3.5-5.0) g/dL Arterial Blood Potassium (3.4-4.5) mmol/L Arterial Blood Glucose (75-99) mg/dL Crossmatch 09/24/24 09/24/24 09/24/24 Range/Units 06:08 07:05 08:29 WBC (4.50-10.00) 10*3/uL RBC (4.40-5.60) 10*6/uL Hgb (13.0-17.0) g/dL Hct (39.6-50.0) % MCV (80.0-97.0) fL MCH (27.0-32.0) pg Plt Count (140-440) 10*3/uL Immature Gran # (0.00-0.04) 10*3/uL Neutrophils # (1.80-7.70) 10*3/uL Lymphocytes # (0.90-5.00) 10*3/uL Monocytes # (0.20-1.00) 10*3/uL Eosinophils # (0.04-0.35) 10*3/uL ABG pH (7.35-7.45) ABG pCO2 (35-45) mmHg ABG pO2 (83-108) mmHg ABG HCO3 (21-25) mmol/L ABG Total CO2 (19-24) mmol/L ABG O2 Saturation (94-97) % ABG Hematocrit (34.0-46.0) % ABG Potassium (3.4-4.5) mmol/L ABG Ionized Calcium (4.5-5.3) mg/dL ABG Glucose (75-99) mg/dL Hemoglobin (13.0-17.5) gm/dL Sodium (137-145) mmol/L BUN (9-20) mg/dL Glucose (74-99) mg/dL POC Glucose (mg/dL) 122 H 122 H 174 H (70-110) mg/dL Magnesium (1.6-2.3) mg/dL Total Protein (6.3-8.2) g/dL Albumin (3.5-5.0) g/dL Arterial Blood Potassium (3.4-4.5) mmol/L Arterial Blood Glucose (75-99) mg/dL Crossmatch
[2024-09-24 10:04] LABS: Glucose,Whole Blood 157 mg/dL (70-110)
--- NOTE | 2024-09-24 10:51 | P.CRDCN ---
History of Present Illness History of present illness: HISTORY OF PRESENT ILLNESS: This is a 69-year-old male with a past medical history significant for hypertension, hyperlipidemia, TIA, renal cell tumor, and GERD. Patient follows in the office with Dr. Allen. We have been asked to see the patient in consultation for postcardiac surgery. Patient examined at the bedside in the intensive care unit. Patient is status post bioprosthetic aortic valve replacement. Postop day #1. Patient is sitting up in the chair. Patient currently denies chest pain or pressure. He denies shortness of breath. Patient remains on IV fluids and insulin drip. Patient is currently pacemaker dependent. REVIEW OF SYSTEMS: At the time of my exam: CONSTITUTIONAL: Denies fever or chills. HEENT: Denies blurred vision, vision changes, or eye pain. Denies hemoptysis CARDIOVASCULAR: Denies chest pain. Denies orthopnea. Denies PND. Denies palpitations RESPIRATORY: Denies shortness of breath. GASTROINTESTINAL: Denies abdominal pain. Denies nausea or vomiting. HEMATOLOGIC: Denies bleeding disorders. GENITOURINARY: Denies any blood in urine. SKIN: Denies pruitis. Denies rash. PHYSICAL EXAM: VITAL SIGNS: Reviewed. GENERAL: Well-developed in no acute distress. HEENT: Head is normocephalic. Pupils are equal, round. Sclerae anicteric. Mucous membranes of the mouth are moist. Neck supple. No JVD or thyromegaly LUNGS: Respirations even and unlabored. Lungs essentially clear to auscultation bilaterally. HEART: Regular rate and rhythm. S1 and S2 heard. Chest tubes noted. Patient with epicardial pacemaker wires connected to pacer. ABDOMEN: Soft. Nondistended. Nontender. EXTREMITIES: Normal range of motion. No clubbing or cyanosis. Peripheral pulses intact. No lower extremity edema NEUROLOGIC: Awake and alert. Oriented x 3. ASSESSMENT: Quadricuspid severe aortic stenosis, status post bioprosthetic aortic valve replacement Normal coronary arteries, per cardiac catheterization 08/05/2024 History of hypertension History of hyperlipidemia History of TIA, Brilinta outpatient History of renal cell tumor History of GERD PLAN: Continue postoperative management per CT surgery Continue to hold beta-sabas and amiodarone at this time as patient is pacer dependent Continue to monitor telemetry Encourage use of incentive spirometer Further recommendations pending patient course Nurse practitioner note has been reviewed by physician. Signing provider agrees with the documented findings, assessment, and plan of care documented by SENIOR FRONT END ENGINEER as a scribe. Past Medical History Past Medical History: Asthma, CVA/TIA, GERD/Reflux, Hyperlipidemia, Musculoskeletal Disorder Additional Past Medical History / Comment(s): FATTY LIVER, HEART MURMUR,CHRONIC BACK PAIN/SPONDYLITIS. Hx Pneumonia, recent adm. for TIA-no residual effects, possible valve problem per pt. History of Any Multi-Drug Resistant Organisms: None Reported Past Surgical History: Appendectomy, Orthopedic Surgery Additional Past Surgical History / Comment(s): COLONOSCOPY, L FOOT FRACTURE WITH PINNING THEN REMOVED. Past Anesthesia/Blood Transfusion Reactions: No Reported Reaction Additional Past Anesthesia/Blood Transfusion Reaction / Comment(s): Claustrophobic Additional Psychological History / Comment(s): PT RESIDES WITH HIS SPOUSE. HE IS INDEPENDENT. HE IS RETIRED FROM [employer]. PT HAS CLAUSTROPHOBIA AND NEEDS SEDATION/XANAX WITH MRI Additional Past Alcohol Use History / Comment(s): PT STARTED SMOKING IN 1971 AND QUIT IN 1986 - Past Family History Father Family Medical History: Myocardial Infarction (IL) Additional Family Medical History / Comment(s): IN HIS 50'S FROM AN IL. Mother Family Medical History: COPD Additional Family Medical History / Comment(s): HEART DISEASE AND POSSIBLY HAD AN IL. Son(s) Family Medical History: Asthma Additional Family Medical History / Comment(s): FROM "THROAT SWELLING SHUT." Medications and Allergies Home Medications Medication Instructions Recorded Confirmed Type Aspirin 81 mg PO DAILY #30 chew 12/15/17 09/08/24 Rx Ticagrelor [Brilinta] 90 mg PO BID #60 tab 11/19/21 09/08/24 Rx Mv-Min/Folic/K1/Lycopen/Lutein 1 tab PO DAILY 12/02/21 09/08/24 History [Centrum Silver Men Tablet] Cyanocobalamin (Vitamin B-12) 2,500 mcg PO DAILY 06/29/23 09/08/24 History [Vitamin B-12] Ezetimibe [Zetia] 10 mg PO DAILY 06/29/23 09/08/24 History Acetaminophen/Diphenhydramine 1 tab PO HS 08/26/23 09/08/24 History [Tylenol PM 500-25mg] Atorvastatin [Lipitor] 80 mg PO HS 08/26/23 09/08/24 History Cholecalciferol [Vitamin D3 (25 25 mcg PO DAILY 08/26/23 09/08/24 History Mcg = 1000 Iu)] Omeprazole 20 mg PO DAILY 08/26/23 09/08/24 History Montelukast [Singulair] 10 mg PO DAILY 09/23/24 09/23/24 History Allergies Allergy/AdvReac Type Severity Reaction Status Date / Time simvastatin [From Zocor] Allergy Itching Verified 09/23/24 05:55 Physical Exam Vitals: Vital Signs Temp Pulse Resp BP Pulse Ox FiO2 09/24/24 08:21 73 09/24/24 08:10 72 09/24/24 07:00 79 10 L 124/66 95 09/24/24 06:30 70 10 L 124/66 98 09/24/24 06:00 100.4 F H 70 0 L 114/66 97 09/24/24 05:30 70 8 L 114/66 97 09/24/24 05:00 70 15 111/63 97 09/24/24 04:30 70 13 112/68 96 09/24/24 04:00 99.5 F 70 17 112/64 97 09/24/24 03:30 70 7 L 111/65 97 09/24/24 03:00 70 18 101/64 97 09/24/24 02:30 70 18 114/66 97 09/24/24 02:00 98.6 F 70 18 122/69 97 09/24/24 01:30 70 18 118/65 97 09/24/24 01:00 70 18 109/68 97 09/24/24 00:30 70 26 H 117/72 97 09/24/24 00:13 70 16 117/72 96 09/24/24 00:00 98.6 F 70 19 111/72 97 09/23/24 23:30 70 22 113/67 97 09/23/24 23:00 70 19 113/79 97 09/23/24 22:30 70 16 114/74 96 09/23/24 22:00 98.2 F 70 18 117/69 97 09/23/24 21:30 70 14 116/69 97 09/23/24 21:00 98.2 F 70 17 117/71 97 09/23/24 20:30 70 16 114/67 97 25 20:25 70 05 20:15 70 05 20:00 98.2 F 70 17 104/74 97 09/23/24 19:45 70 16 104/74 97 09/23/24 19:30 70 16 111/70 97 09/23/24 19:15 70 16 111/70 97 09/23/24 19:00 70 12 102/67 97 09/23/24 18:45 70 14 102/67 98 09/23/24 18:30 70 17 107/66 98 09/23/24 18:15 70 15 107/66 98 09/23/24 18:00 98.1 F 70 13 98/63 98 09/23/24 17:45 70 13 98/63 99 09/23/24 17:30 70 15 92/61 99 09/23/24 17:15 70 12 92/61 98 09/23/24 17:00 98.1 F 70 14 99/68 98 09/23/24 16:50 50 09/23/24 16:45 70 11 L 98 09/23/24 16:30 98.1 F 70 14 102/68 99 09/23/24 16:22 70 09/23/24 16:15 70 12 100 09/23/24 16:00 97.9 F 70 14 101/64 99 50 09/23/24 15:50 50 09/23/24 15:45 70 25 H 101/64 92 L 09/23/24 15:30 70 14 107/68 99 09/23/24 15:15 97.3 F L 70 14 107/68 97 09/23/24 15:00 70 14 107/67 98 09/23/24 14:45 97.2 F L 70 14 107/67 99 09/23/24 14:30 70 14 106/67 99 09/23/24 14:15 70 14 98 09/23/24 14:00 70 14 102/67 100 09/23/24 13:45 96.8 F L 70 14 100 09/23/24 13:30 70 15 103/64 100 09/23/24 13:15 96.6 F L 70 14 100 09/23/24 13:00 70 14 130/83 99 09/23/24 12:53 70 09/23/24 12:45 14 98 09/23/24 12:43 71 09/23/24 12:30 97.0 F L 87 14 97 60 09/23/24 12:28 60 09/23/24 12:07 100 Intake and Output 09/23/24 09/24/24 09/24/24 22:59 06:59 14:59 Intake Total 929.059 831.560 64.445 Output Total 1209 445 60 Balance -279.941 386.560 4.445 Intake: IV 882 812 59 ACETAMINOPHEN IV (For NPO 100 ) 1,000 mg In Empty Bag 1 bag @ 400 mls/hr IVPB Q6HR [facility] Rx#:[id number] Albumin Human 5% 250 ml 250 In Empty Bag 1 bag @ 250 mls/hr IVPB Q1HR PRN Rx#: [id number] CO/CI 210 40 Pressure Bags 72 72 9 Sodium Chloride 0.9% 1, 400 400 50 000 ml @ 50 mls/hr IV . Q20H [facility] Rx#:[id number] ceFAZolin 2 gm In 100 50 Dextrose 5% in Water 50 ml @ 100 mls/hr IVPB Q8HR [facility] Rx#:[id number] Intake, IV Titration 47.059 19.560 5.445 Amount Clevidipine Butyrate 25 5.867 mg In Empty Bag 1 bag @ 1 MG/HR 2 mls/hr IV .Q24H [facility] Rx#:[id number] Dexmedetomidine/0.9% NaCl 10.864 (Pmx) 400 mcg In Empty Bag 1 bag @ Titrate IV . Q0M [facility] Rx#:[id number] Insulin Regular 100 unit 11.244 19.560 5.445 In Sodium Chloride 0.9% 100 ml @ Per Protocol IV .Q0M [facility] Rx#:[id number] propofoL 1,000 mg In 19.084 Empty Bag 1 bag @ Titrate IV .Q0M [facility] Rx#: [id number] Output: Chest Tube Drainage 324 190 20 Left Pleural 56 120 10 Mediastinal 268 70 10 Urine 885 255 40 Other: Voiding Method Indwelling Catheter Indwelling Catheter Weight 87.7 kg ABP, PAP, CO, CI - Last 8 Hours Arterial Blood Pressure 123/55 Arterial Blood Pressure 131/66 Arterial Blood Pressure 113/53 Arterial Blood Pressure 150/86 Arterial Blood Pressure 127/69 Arterial Blood Pressure 116/66 Arterial Blood Pressure 125/67 Arterial Blood Pressure 128/70 Arterial Blood Pressure 129/70 Pulmonary Artery Pressure 25/9 Pulmonary Artery Pressure 25/9 Pulmonary Artery Pressure 23/6 Pulmonary Artery Pressure 49/30 Pulmonary Artery Pressure 36/19 Pulmonary Artery Pressure 35/18 Pulmonary Artery Pressure 36/18 Pulmonary Artery Pressure 35/17 Pulmonary Artery Pressure 36/18 Cardiac Output 4.9 Cardiac Output 4.9 Cardiac Output 4.9 Cardiac Index 2.5 Cardiac Index 2.5 Cardiac Index 2.5 Results 09/24/24 03:00 09/24/24 03:00 Cardiac Enzymes 09/23/24 09/24/24 Range/Units 12:35 03:00 AST 32 45 (17-59) U/L Coagulation 09/23/24 Range/Units 12:35 PT 12.4 (10.0-12.5) sec APTT 25.5 (22.0-30.0) sec CBC 09/23/24 09/23/24 09/23/24 Range/Units 12:35 15:05 17:40 WBC 10.12 H 12.09 H 12.36 H (4.50-10.00) 10*3/uL RBC 3.30 L 3.77 L 3.40 L (4.40-5.60) 10*6/uL Hgb 10.8 L 12.2 L 11.2 L (13.0-17.0) g/dL Hct 32.2 L 36.7 L 33.0 L (39.6-50.0) % Plt Count 132 L 163 157 (140-440) 10*3/uL 09/24/24 Range/Units 03:00 WBC 10.90 H (4.50-10.00) 10*3/uL RBC 3.25 L (4.40-5.60) 10*6/uL Hgb 10.3 L (13.0-17.0) g/dL Hct 31.4 L (39.6-50.0) % Plt Count 165 (140-440) 10*3/uL Comprehensive Metabolic Panel 09/23/24 09/24/24 Range/Units 12:35 03:00 Sodium 137 133 L (137-145) mmol/L Potassium 4.2 4.5 (3.5-5.1) mmol/L Chloride 105 103 (98-107) mmol/L Carbon Dioxide 25 27 (22-30) mmol/L BUN 20 21 H (9-20) mg/dL Creatinine 0.83 0.80 (0.66-1.25) mg/dL Glucose 129 H 112 H (74-99) mg/dL Calcium 8.8 8.5 (8.4-10.2) mg/dL AST 32 45 (17-59) U/L ALT 14 14 (4-49) U/L Alkaline Phosphatase 59 49 (38-126) U/L Total Protein 4.6 L 5.1 L (6.3-8.2) g/dL Albumin 2.6 L 3.1 L (3.5-5.0) g/dL Current Medications Generic Name Dose Route Start Last Admin Trade Name Freq PRN Reason Stop Dose Admin Acetaminophen 650 mg 09/23/24 23:09 Acetaminophen Tab 325 Mg Tab PO Q4HR PRN Fever And/ Or Mild Pain (1-3) Albuterol/Ipratropium 3 ml 09/23/24 12:02 Ipratropium-Albuterol 3 Ml Neb INHALATION RT-Q2H PRN Shortness Of Breath Or Wheezing Albuterol/Ipratropium 3 ml 09/23/24 20:00 09/24/24 08:08 Ipratropium-Albuterol 3 Ml Neb INHALATION 3 ml RT-QID [facility] Administration Aspirin 325 mg 09/24/24 09:00 09/24/24 08:40 Aspirin 325 Mg Tab PO 325 mg DAILY [facility] Administration Atorvastatin Calcium 80 mg 09/24/24 21:00 Atorvastatin 80 Mg Tab PO HS [facility] Benzocaine/Menthol 1 each 09/23/24 12:02 Benzocaine/Menthol Lozeng 1 Each Lozenge MUCOUS MEM Q2H PRN Sore Throat Bisacodyl 10 mg 09/24/24 09:00 Bisacodyl 10 Mg Supp RECTAL DAILY PRN Constipation Cholecalciferol 25 mcg 09/24/24 09:00 09/24/24 08:40 Cholecalciferol 25 Mcg (1000 Iu) Tablet PO 25 mcg DAILY [facility] Administration Clopidogrel Bisulfate 75 mg 09/24/24 09:00 09/24/24 08:40 Clopidogrel 75 Mg Tab PO 75 mg DAILY [facility] Administration Dextrose/Water 25 ml 09/23/24 12:02 Dextrose 50% Syringe 50 Ml IVP PER PROTOCOL PRN Hypoglycemia Protocol Dextrose/Water 50 ml 09/23/24 12:02 Dextrose 50% Syringe 50 Ml IVP PER PROTOCOL PRN Hypoglycemia Protocol Ezetimibe 10 mg 09/24/24 09:00 09/24/24 08:39 Ezetimibe 10 Mg Tab PO 10 mg DAILY [facility] Administration Heparin Sodium (Porcine) 5,000 unit 09/23/24 16:00 09/24/24 08:39 Heparin Sodium,Porcine 5,000 Unit/Ml 1 Ml Vial SQ 5,000 unit Q8HR [facility] Administration Hydralazine HCl 10 mg 09/23/24 12:02 Hydralazine Hcl 20 Mg/Ml 1 Ml Vial IVP Q1H PRN Blood Pressure - High Albumin Human 250 ml/ IV 250 mls @ 250 mls/hr 09/23/24 12:02 09/24/24 06:20 Solution IVPB 09/25/24 12:01 250 mls/hr Q1HR PRN Administration For Volume Protocol Calcium Gluconate/Sodium 100 mls @ 100 mls/hr 09/23/24 12:02 Chloride 2 gm/ IV Solution IVPB 09/26/24 23:00 ONCE PRN Ionized Calcium less than 4.4 Insulin Human Regular 100 unit 101 mls @ 0 mls/hr 09/23/24 12:02 09/24/24 10:11 / Sodium Chloride IV 1.5 units/hr .Q0M [facility] 1.515 mls/hr Titration Protocol Per Protocol Sodium Chloride 1,000 mls @ 20 mls/hr 09/23/24 12:02 09/23/24 12:51 Saline 0.9% IV 50 mls/hr .Q24H [facility] Administration Ketorolac Tromethamine 15 mg 09/24/24 00:00 09/24/24 05:57 Ketorolac 15 Mg/Ml 1 Ml Vial IVP 09/28/24 21:12 15 mg Q6HR [facility] Administration Magnesium Hydroxide 2,400 mg 09/24/24 09:00 Magnesium Hydroxide 2,400 Mg/30 Ml Cup PO BID PRN Constipation Metoclopramide HCl 10 mg 09/23/24 12:02 Metoclopramide 5 Mg/Ml 2 Ml Vial IVP Q4H PRN Nausea And Vomiting Miscellaneous Information 1 each 09/23/24 12:02 Potassium Replacement Protocol 1 Each Misc MISCELLANE DAILY PRN Per Protocol Protocol Miscellaneous Information 1 each 09/23/24 12:02 Magnesium Replacement Protocol 1 Each Mis MISCELLANE DAILY PRN Per Protocol Protocol Miscellaneous Information 1 each 09/23/24 12:02 Phosphorus Replacement Protoco 1 Each Mis MISCELLANE DAILY PRN Per Protocol Protocol Montelukast Sodium 10 mg 09/24/24 09:00 09/24/24 08:39 Montelukast 10 Mg Tab PO 10 mg DAILY [facility] Administration Ondansetron HCl 4 mg 09/23/24 12:02 Ondansetron 4 Mg/2 Ml Vial IVP Q6HR PRN Nausea And Vomiting Oxycodone HCl 5 mg 09/23/24 23:09 Oxycodone Hcl 5 Mg Tab PO Q6HR PRN Moderate Pain (Scale 4 to 6) Oxycodone HCl 10 mg 09/23/24 12:02 09/24/24 02:33 Oxycodone Hcl 5 Mg Tab PO 10 mg Q4HR PRN Administration Severe Pain (Scale 7 to 10) Pantoprazole Sodium 40 mg 09/25/24 07:30 Pantoprazole 40 Mg Tablet PO [id number] [facility] Senna/Docusate Sodium 2 each 09/24/24 21:00 Sennosides-Docusate Sodium 1 Each Tab PO HS [facility] Sodium Chloride 10 ml 09/23/24 21:00 09/24/24 08:40 Sodium Chloride 0.9% Flush 10 Ml Syringe IV 10 ml BID [facility] Administration Intake and Output 09/23/24 09/24/24 09/24/24 22:59 06:59 14:59 Intake Total 929.059 831.560 64.445 Output Total 1209 445 60 Balance -279.941 386.560 4.445 Intake: IV 882 812 59 ACETAMINOPHEN IV (For NPO 100 ) 1,000 mg In Empty Bag 1 bag @ 400 mls/hr IVPB Q6HR [facility] Rx#:[id number] Albumin Human 5% 250 ml 250 In Empty Bag 1 bag @ 250 mls/hr IVPB Q1HR PRN Rx#: [id number] CO/CI 210 40 Pressure Bags 72 72 9 Sodium Chloride 0.9% 1, 400 400 50 000 ml @ 50 mls/hr IV . Q20H [facility] Rx#:[id number] ceFAZolin 2 gm In 100 50 Dextrose 5% in Water 50 ml @ 100 mls/hr IVPB Q8HR [facility] Rx#:[id number] Intake, IV Titration 47.059 19.560 5.445 Amount Clevidipine Butyrate 25 5.867 mg In Empty Bag 1 bag @ 1 MG/HR 2 mls/hr IV .Q24H [facility] Rx#:[id number] Dexmedetomidine/0.9% NaCl 10.864 (Pmx) 400 mcg In Empty Bag 1 bag @ Titrate IV . Q0M [facility] Rx#:[id number] Insulin Regular 100 unit 11.244 19.560 5.445 In Sodium Chloride 0.9% 100 ml @ Per Protocol IV .Q0M [facility] Rx#:[id number] propofoL 1,000 mg In 19.084 Empty Bag 1 bag @ Titrate IV .Q0M [facility] Rx#: [id number] Output: Chest Tube Drainage 324 190 20 Left Pleural 56 120 10 Mediastinal 268 70 10 Urine 885 255 40 Other: Voiding Method Indwelling Catheter Indwelling Catheter Weight 87.7 kg 09/24/24 03:00 09/24/24 03:00
[2024-09-24 11:19] LABS: Glucose,Whole Blood 160 mg/dL (70-110)
[2024-09-24 12:22] LABS: Glucose,Whole Blood 168 mg/dL (70-110)
[2024-09-24 13:32] LABS: Glucose,Whole Blood 168 mg/dL (70-110)
--- NOTE | 2024-09-24 13:45 | P.PN ---
Subjective Progress Note Date: 09/24/24 Principal diagnosis: (Status post aortic valve replacement) This is a 69-year-old white male with history of severe aortic stenosis with bicuspid aortic valve, has been following up with Dr. Cristina for quite some time. Patient had recent echocardiogram that showed worsening severe aortic valve stenosis. Patient had no shortness of breath, no chest pain, no lightheadedness or dizziness, no syncopal episodes. Recent transesophageal echo was done and confirmed severe aortic stenosis hence the patient underwent aortic valve replacement today. Postoperatively patient was in the ICU on mechanical ventilation, he is on assist-control rate of 14 tidal volume 450 FiO2 60% and I cut down to 50% and his PEEP was 5. Chest x-ray showed mostly postoperative changes, no acute process was noted. Cardiac output was 4.0, cardiac index 2.0. Patient is hemodynamically stable, not requiring any pressors and not requiring any inotropes. Plan to proceed with weaning in the next 2 hours. Patient was seen today on 09/24/2024,POD #1 aortic valve replacement using a 23 mm Rosa Inspiris bioprosthetic valve, ligation of left atrial appendage using a 35mm Atriclip, epiaortic ultrasound, intraoperative transesophageal echocardiogram. Patient was successfully extubated last night shortly after he arrived to the ICU, today the patient is doing well, achieving 1250 mL on his intensive spirometry. He was extubated at 5:38 PM yesterday. Today he is sitting at the bedside chair, not in distress, cardiac output is 4.9 cardiac index 2.5, PA pressure 30/11, CVP is 7 patient is not requiring any pressors or any inotropes. Chest x-ray showed that he continues to have left chest sided tubes and mediastinal tube, both on suction, no airleak, chest x-ray showed minimal atelectasis and postoperative changes, no acute processes noted. WBC count is 10.9 hemoglobin 10.3, basic metabolic profile is normal renal profile is normal Objective - Vital Signs Vital signs: Vital Signs Temp 99.7 F H 09/24/24 08:00 Pulse 72 09/24/24 11:46 Resp 21 09/24/24 11:00 BP 111/77 09/24/24 11:00 Pulse Ox 97 09/24/24 11:00 FiO2 50 09/23/24 16:50 Intake & Output 09/23/24 09/24/24 09/24/24 18:59 06:59 18:59 Intake Total 3100.873 8593.622 626.064 Output Total 3076 693 205 Balance -1987868 426.622 421.064 Weight 87.7 kg Intake: IV 996 1098 372 ACETAMINOPHEN IV (For NPO 200 ) 1,000 mg In Empty Bag 1 bag @ 400 mls/hr IVPB Q6HR [facility] Rx#:[id number] Albumin Human 5% 250 ml 250 In Empty Bag 1 bag @ 250 mls/hr IVPB Q1HR PRN Rx#: [id number] CO/CI 240 90 20 Pressure Bags 54 108 42 Sodium Chloride 0.9% 1, 300 600 210 000 ml @ 20 mls/hr IV . Q24H [facility] Rx#:[id number] ceFAZolin 2 gm In 100 50 100 Dextrose 5% in Water 50 ml @ 100 mls/hr IVPB Q8HR [facility] Rx#:[id number] Intake, IV Titration 92.132 21.622 14.064 Amount Clevidipine Butyrate 25 20.200 mg In Empty Bag 1 bag @ 1 MG/HR 2 mls/hr IV .Q24H [facility] Rx#:[id number] Dexmedetomidine/0.9% NaCl 10.864 (Pmx) 400 mcg In Empty Bag 1 bag @ Titrate IV . Q0M [facility] Rx#:[id number] Insulin Regular 100 unit 9.182 21.622 14.064 In Sodium Chloride 0.9% 100 ml @ Per Protocol IV .Q0M [facility] Rx#:[id number] propofoL 1,000 mg In 51.886 Empty Bag 1 bag @ Titrate IV .Q0M [facility] Rx#: [id number] Oral 240 Output: Chest Tube Drainage 471 278 50 Left Pleural 132 148 20 Mediastinal 339 130 30 Urine 1705 415 155 Estimated Blood Loss 900 Other: Voiding Method Indwelling Catheter Indwelling Catheter ABP, PAP, CO, CI - Last Documented Arterial Blood Pressure 120/61 Pulmonary Artery Pressure 27/12 Cardiac Output 6.3 Cardiac Index 3.2 - Exam General: Revealed a 69-year-old white male in no distress sitting at the bedside chair, on 2 L nasal cannula not in any distress Head: Atraumatic, normocephalic HEENT: PERRLA EOMI, nonicteric no neck masses no JVD Pulmonary: Good breath sound bilaterally left-sided pleural chest tube noted, mediastinal chest tube noted connected to Pleur-evac. No airleak. Cardiac: Distant S1-S2, no S3 gallop, 2/6 systolic murmur throughout the precordium, positive pericardial rub Abdomen obese soft nontender no MAG no rebound no guarding Extremities: Trace of edema no clubbing no cyanosis. Neurologic: Alert and oriented x 3 no gross focal neurologic deficits Psychiatric: Normal mood, affect and no mental status examination Skin: No rashes - Labs CBC & Chem 7: 09/24/24 03:00 09/24/24 03:00 Labs: Abnormal Lab Results - Last 24 Hours (Table) 09/21/24 09/23/24 09/23/24 Range/Units 09:01 13:30 14:03 WBC (4.50-10.00) 10*3/uL RBC (4.40-5.60) 10*6/uL Hgb (13.0-17.0) g/dL Hct (39.6-50.0) % MCV (80.0-97.0) fL MCH (27.0-32.0) pg Immature Gran # (0.00-0.04) 10*3/uL Neutrophils # (1.80-7.70) 10*3/uL Lymphocytes # (0.90-5.00) 10*3/uL Monocytes # (0.20-1.00) 10*3/uL Eosinophils # (0.04-0.35) 10*3/uL ABG pCO2 46 H (35-45) mmHg ABG pO2 (83-108) mmHg ABG HCO3 26 H (21-25) mmol/L ABG Total CO2 28 H (19-24) mmol/L ABG O2 Saturation (94-97) % Hemoglobin 12.5 L (13.0-17.5) gm/dL Sodium (137-145) mmol/L BUN (9-20) mg/dL Glucose (74-99) mg/dL POC Glucose (mg/dL) 128 H (70-110) mg/dL Total Protein (6.3-8.2) g/dL Albumin (3.5-5.0) g/dL Crossmatch See Detail 05/09/23/24 09/23/24 Range/Units 15:05 15:05 15:12 WBC 12.09 H (4.50-10.00) 10*3/uL RBC 3.77 L (4.40-5.60) 10*6/uL Hgb 12.2 L (13.0-17.0) g/dL Hct 36.7 L (39.6-50.0) % MCV 97.3 H (80.0-97.0) fL MCH 32.4 H (27.0-32.0) pg Immature Gran # (0.00-0.04) 10*3/uL Neutrophils # 10.14 H (1.80-7.70) 10*3/uL Lymphocytes # (0.90-5.00) 10*3/uL Monocytes # (0.20-1.00) 10*3/uL Eosinophils # (0.04-0.35) 10*3/uL ABG pCO2 (35-45) mmHg ABG pO2 (83-108) mmHg ABG HCO3 (21-25) mmol/L ABG Total CO2 (19-24) mmol/L ABG O2 Saturation (94-97) % Hemoglobin (13.0-17.5) gm/dL Sodium (137-145) mmol/L BUN (9-20) mg/dL Glucose (74-99) mg/dL POC Glucose (mg/dL) 140 H 119 H (70-110) mg/dL Total Protein (6.3-8.2) g/dL Albumin (3.5-5.0) g/dL Crossmatch 09/23/24 09/23/24 09/23/24 Range/Units 15:59 17:08 17:34 WBC (4.50-10.00) 10*3/uL RBC (4.40-5.60) 10*6/uL Hgb (13.0-17.0) g/dL Hct (39.6-50.0) % MCV (80.0-97.0) fL MCH (27.0-32.0) pg Immature Gran # (0.00-0.04) 10*3/uL Neutrophils # (1.80-7.70) 10*3/uL Lymphocytes # (0.90-5.00) 10*3/uL Monocytes # (0.20-1.00) 10*3/uL Eosinophils # (0.04-0.35) 10*3/uL ABG pCO2 (35-45) mmHg ABG pO2 151 H (83-108) mmHg ABG HCO3 (21-25) mmol/L ABG Total CO2 25 H (19-24) mmol/L ABG O2 Saturation 99.6 H (94-97) % Hemoglobin 11.7 L (13.0-17.5) gm/dL Sodium (137-145) mmol/L BUN (9-20) mg/dL Glucose (74-99) mg/dL POC Glucose (mg/dL) 159 H 161 H (70-110) mg/dL Total Protein (6.3-8.2) g/dL Albumin (3.5-5.0) g/dL Crossmatch 09/23/24 09/23/24 09/23/24 Range/Units 17:40 18:10 19:09 WBC 12.36 H (4.50-10.00) 10*3/uL RBC 3.40 L (4.40-5.60) 10*6/uL Hgb 11.2 L (13.0-17.0) g/dL Hct 33.0 L (39.6-50.0) % MCV 97.1 H (80.0-97.0) fL MCH 32.9 H (27.0-32.0) pg Immature Gran # 0.05 H (0.00-0.04) 10*3/uL Neutrophils # 10.91 H (1.80-7.70) 10*3/uL Lymphocytes # 0.58 L (0.90-5.00) 10*3/uL Monocytes # (0.20-1.00) 10*3/uL Eosinophils # 0.01 L (0.04-0.35) 10*3/uL ABG pCO2 (35-45) mmHg ABG pO2 (83-108) mmHg ABG HCO3 (21-25) mmol/L ABG Total CO2 (19-24) mmol/L ABG O2 Saturation (94-97) % Hemoglobin (13.0-17.5) gm/dL Sodium (137-145) mmol/L BUN (9-20) mg/dL Glucose (74-99) mg/dL POC Glucose (mg/dL) 147 H 135 H (70-110) mg/dL Total Protein (6.3-8.2) g/dL Albumin (3.5-5.0) g/dL Crossmatch 09/23/24 09/23/24 09/23/24 Range/Units 20:15 21:16 22:04 WBC (4.50-10.00) 10*3/uL RBC (4.40-5.60) 10*6/uL Hgb (13.0-17.0) g/dL Hct (39.6-50.0) % MCV (80.0-97.0) fL MCH (27.0-32.0) pg Immature Gran # (0.00-0.04) 10*3/uL Neutrophils # (1.80-7.70) 10*3/uL Lymphocytes # (0.90-5.00) 10*3/uL Monocytes # (0.20-1.00) 10*3/uL Eosinophils # (0.04-0.35) 10*3/uL ABG pCO2 (35-45) mmHg ABG pO2 (83-108) mmHg ABG HCO3 (21-25) mmol/L ABG Total CO2 (19-24) mmol/L ABG O2 Saturation (94-97) % Hemoglobin (13.0-17.5) gm/dL Sodium (137-145) mmol/L BUN (9-20) mg/dL Glucose (74-99) mg/dL POC Glucose (mg/dL) 130 H 129 H 129 H (70-110) mg/dL Total Protein (6.3-8.2) g/dL Albumin (3.5-5.0) g/dL Crossmatch 09/23/24 09/24/24 09/24/24 Range/Units 23:03 00:09 01:06 WBC (4.50-10.00) 10*3/uL RBC (4.40-5.60) 10*6/uL Hgb (13.0-17.0) g/dL Hct (39.6-50.0) % MCV (80.0-97.0) fL MCH (27.0-32.0) pg Immature Gran # (0.00-0.04) 10*3/uL Neutrophils # (1.80-7.70) 10*3/uL Lymphocytes # (0.90-5.00) 10*3/uL Monocytes # (0.20-1.00) 10*3/uL Eosinophils # (0.04-0.35) 10*3/uL ABG pCO2 (35-45) mmHg ABG pO2 (83-108) mmHg ABG HCO3 (21-25) mmol/L ABG Total CO2 (19-24) mmol/L ABG O2 Saturation (94-97) % Hemoglobin (13.0-17.5) gm/dL Sodium (137-145) mmol/L BUN (9-20) mg/dL Glucose (74-99) mg/dL POC Glucose (mg/dL) 125 H 133 H 127 H (70-110) mg/dL Total Protein (6.3-8.2) g/dL Albumin (3.5-5.0) g/dL Crossmatch 09/24/24 09/24/24 09/24/24 Range/Units 02:16 02:56 03:00 WBC 10.90 H (4.50-10.00) 10*3/uL RBC 3.25 L (4.40-5.60) 10*6/uL Hgb 10.3 L (13.0-17.0) g/dL Hct 31.4 L (39.6-50.0) % MCV (80.0-97.0) fL MCH (27.0-32.0) pg Immature Gran # (0.00-0.04) 10*3/uL Neutrophils # 9.01 H (1.80-7.70) 10*3/uL Lymphocytes # 0.77 L (0.90-5.00) 10*3/uL Monocytes # 1.08 H (0.20-1.00) 10*3/uL Eosinophils # 0.00 L (0.04-0.35) 10*3/uL ABG pCO2 (35-45) mmHg ABG pO2 (83-108) mmHg ABG HCO3 (21-25) mmol/L ABG Total CO2 (19-24) mmol/L ABG O2 Saturation (94-97) % Hemoglobin (13.0-17.5) gm/dL Sodium (137-145) mmol/L BUN (9-20) mg/dL Glucose (74-99) mg/dL POC Glucose (mg/dL) 121 H 121 H (70-110) mg/dL Total Protein (6.3-8.2) g/dL Albumin (3.5-5.0) g/dL Crossmatch 09/24/24 09/24/24 09/24/24 Range/Units 03:00 04:12 05:03 WBC (4.50-10.00) 10*3/uL RBC (4.40-5.60) 10*6/uL Hgb (13.0-17.0) g/dL Hct (39.6-50.0) % MCV (80.0-97.0) fL MCH (27.0-32.0) pg Immature Gran # (0.00-0.04) 10*3/uL Neutrophils # (1.80-7.70) 10*3/uL Lymphocytes # (0.90-5.00) 10*3/uL Monocytes # (0.20-1.00) 10*3/uL Eosinophils # (0.04-0.35) 10*3/uL ABG pCO2 (35-45) mmHg ABG pO2 (83-108) mmHg ABG HCO3 (21-25) mmol/L ABG Total CO2 (19-24) mmol/L ABG O2 Saturation (94-97) % Hemoglobin (13.0-17.5) gm/dL Sodium 133 L (137-145) mmol/L BUN 21 H (9-20) mg/dL Glucose 112 H (74-99) mg/dL POC Glucose (mg/dL) 115 H 114 H (70-110) mg/dL Total Protein 5.1 L (6.3-8.2) g/dL Albumin 3.1 L (3.5-5.0) g/dL Crossmatch 09/24/24 09/24/24 09/24/24 Range/Units 06:08 07:05 08:29 WBC (4.50-10.00) 10*3/uL RBC (4.40-5.60) 10*6/uL Hgb (13.0-17.0) g/dL Hct (39.6-50.0) % MCV (80.0-97.0) fL MCH (27.0-32.0) pg Immature Gran # (0.00-0.04) 10*3/uL Neutrophils # (1.80-7.70) 10*3/uL Lymphocytes # (0.90-5.00) 10*3/uL Monocytes # (0.20-1.00) 10*3/uL Eosinophils # (0.04-0.35) 10*3/uL ABG pCO2 (35-45) mmHg ABG pO2 (83-108) mmHg ABG HCO3 (21-25) mmol/L ABG Total CO2 (19-24) mmol/L ABG O2 Saturation (94-97) % Hemoglobin (13.0-17.5) gm/dL Sodium (137-145) mmol/L BUN (9-20) mg/dL Glucose (74-99) mg/dL POC Glucose (mg/dL) 122 H 122 H 174 H (70-110) mg/dL Total Protein (6.3-8.2) g/dL Albumin (3.5-5.0) g/dL Crossmatch 09/24/24 09/24/24 09/24/24 Range/Units 10:02 11:18 12:21 WBC (4.50-10.00) 10*3/uL RBC (4.40-5.60) 10*6/uL Hgb (13.0-17.0) g/dL Hct (39.6-50.0) % MCV (80.0-97.0) fL MCH (27.0-32.0) pg Immature Gran # (0.00-0.04) 10*3/uL Neutrophils # (1.80-7.70) 10*3/uL Lymphocytes # (0.90-5.00) 10*3/uL Monocytes # (0.20-1.00) 10*3/uL Eosinophils # (0.04-0.35) 10*3/uL ABG pCO2 (35-45) mmHg ABG pO2 (83-108) mmHg ABG HCO3 (21-25) mmol/L ABG Total CO2 (19-24) mmol/L ABG O2 Saturation (94-97) % Hemoglobin (13.0-17.5) gm/dL Sodium (137-145) mmol/L BUN (9-20) mg/dL Glucose (74-99) mg/dL POC Glucose (mg/dL) 157 H 160 H 168 H (70-110) mg/dL Total Protein (6.3-8.2) g/dL Albumin (3.5-5.0) g/dL Crossmatch 09/24/24 Range/Units 13:31 WBC (4.50-10.00) 10*3/uL RBC (4.40-5.60) 10*6/uL Hgb (13.0-17.0) g/dL Hct (39.6-50.0) % MCV (80.0-97.0) fL MCH (27.0-32.0) pg Immature Gran # (0.00-0.04) 10*3/uL Neutrophils # (1.80-7.70) 10*3/uL Lymphocytes # (0.90-5.00) 10*3/uL Monocytes # (0.20-1.00) 10*3/uL Eosinophils # (0.04-0.35) 10*3/uL ABG pCO2 (35-45) mmHg ABG pO2 (83-108) mmHg ABG HCO3 (21-25) mmol/L ABG Total CO2 (19-24) mmol/L ABG O2 Saturation (94-97) % Hemoglobin (13.0-17.5) gm/dL Sodium (137-145) mmol/L BUN (9-20) mg/dL Glucose (74-99) mg/dL POC Glucose (mg/dL) 168 H (70-110) mg/dL Total Protein (6.3-8.2) g/dL Albumin (3.5-5.0) g/dL Crossmatch Assessment and Plan Assessment: Impression:POD #1 aortic valve replacement using a 23 mm Rosa Inspiris bioprosthetic valve, ligation of left atrial appendage using a 35mm Atriclip, epiaortic ultrasound, intraoperative transesophageal echocardiogram. Bicuspid aortic valve/severe aortic stenosis Benign essential hypertension Dyslipidemia History of renal cell tumor Ex-smoker quit in 1984 Recommendation: Continue present supportive care measures Continue maximal medical therapy continue aspirin and statin as well as Plavix Continue incentive spirometry Ambulate as tolerated. Discontinue unnecessary lines and catheters Continue bronchodilators Chest x-ray was reviewed Hemodynamics were reviewed again, as noted earlier Will continue to follow Time with Patient: Less than 30
[2024-09-24 15:19] LABS: Glucose,Whole Blood 104 mg/dL (70-110)
[2024-09-24] MEDS: ACETAMINOPHEN TAB 325 MG TAB PO PRN (16:36)
[2024-09-24 16:45] LABS: Glucose,Whole Blood 134 mg/dL (70-110)
[2024-09-24 17:35] LABS: ALT 14 U/L (4-49); AST 46 U/L (17-59); African American GFR (CKD) 88 (>60 ml/min/1.73 sqM); Albumin 3.3 g/dL (3.5-5.0); Alkaline Phosphatase 53 U/L (38-126); Anion Gap 9 mmol/L; Blood Urea Nitrogen 25 mg/dL (9-20); Calcium 8.8 mg/dL (8.4-10.2); Carbon Dioxide 22 mmol/L (22-30); Chloride 100 mmol/L (98-107); Glucose 161 mg/dL (74-99); Non-African American GFR(CKD) 76 (>60 ml/min/1.73 sqM); Potassium 4.1 mmol/L (3.5-5.1); Sodium 131 mmol/L (137-145); Total Protein 5.4 g/dL (6.3-8.2)
[2024-09-24 18:29] LABS: Glucose,Whole Blood 191 mg/dL (70-110)
[2024-09-24] MEDS: ATORVASTATIN 80 MG TAB PO SCH (19:46)
[2024-09-24] MEDS: SENNOSIDES-DOCUSATE SODIUM 1 EACH TAB PO SCH (19:46)
[2024-09-24 19:55] LABS: Glucose,Whole Blood 135 mg/dL (70-110)
[2024-09-24 21:13] LABS: Glucose,Whole Blood 114 mg/dL (70-110)
[2024-09-24 22:06] LABS: Glucose,Whole Blood 118 mg/dL (70-110)
[2024-09-24 23:01] LABS: Glucose,Whole Blood 126 mg/dL (70-110)
[2024-09-24 23:58] LABS: Glucose,Whole Blood 134 mg/dL (70-110)
[2024-09-25] MEDS: ALBUMIN HUMAN 5% 500 ML IVPB ONE (01:00)
[2024-09-25] MEDS: ceFAZolin 2 GM in DEXTROSE 5% IN WATER 50 ML IVPB ONE ×2 (01:00→01:01)
[2024-09-25] MEDS: ASPIRIN 325 MG TAB PO ONE (01:00)
[2024-09-25] MEDS: ceFAZolin 1,000 MG in SODIUM CHLORIDE 0.9% IRRIGATIO 1,000 ML IRRIGATION ONE (01:00)
[2024-09-25] MEDS: CALCIUM CHLORIDE 100 MG/ML 10 ML SYRINGE IV ONE (01:00)
[2024-09-25] MEDS: ELECTROLYTE-A SOLUTION 1,000 ML with POTASSIUM CHLORIDE 40 MEQ, MAGNESIUM SULFATE 16 ME... IV ONE (01:01)
[2024-09-25] MEDS: CHLORHEXIDINE GLUCONATE 15 ML CUP MUCOUS MEM ONE (01:01)
[2024-09-25] MEDS: CLEVIDIPINE BUTYRATE 25 MG in EMPTY BAG 1 BAG IV ONE (01:01)
[2024-09-25] MEDS: ELECTROLYTE-A SOLUTION 1,000 ML with POTASSIUM CHLORIDE 100 MEQ, MAGNESIUM SULFATE 16 M... IV ONE (01:01)
[2024-09-25] MEDS: HEPARIN SODIUM 1,000 UN/ML (10ML VL) IV ONE (01:01)
[2024-09-25] MEDS: HEPARIN SODIUM,PORCINE (1 ML) 5,000 UNIT in SODIUM CHLORIDE 0.9% 500 ML 500 ML IV ONE (01:01)
[2024-09-25] MEDS: NITROGLYCERIN-D5W PMX 25 MG/250 ML BTL IV ONE (01:02)
[2024-09-25] MEDS: INSULIN REGULAR 100 UNIT in SODIUM CHLORIDE 0.9% 100 ML IV ONE (01:02)
[2024-09-25] MEDS: MAGNESIUM SULFATE 16.24 MEQ in EMPTY SYRINGE 1 SYR IV ONE (01:02)
[2024-09-25] MEDS: MANNITOL 25% 12.5 GM/50 ML VIAL IV ONE (01:02)
[2024-09-25] MEDS: NITROGLYCERIN SL TABS 0.4 MG TAB SUBLINGUAL ONE (01:02)
[2024-09-25] MEDS: PAPAVERINE 360 MG in SODIUM CHLORIDE 0.9% 90 ML IV ONE (01:03)
[2024-09-25] MEDS: NITROGLYCERIN-D5W PMX 50 MG in DEXTROSE/WATER 1 250ML.BAG IV ONE (01:03)
[2024-09-25] MEDS: NOREPINEPHRINE 4 MG in SODIUM CHLORIDE 0.9% 250 ML IV ONE (01:03)
[2024-09-25] MEDS: PHENYLEPHRINE 10 MG/ML VIAL IV ONE (01:03)
[2024-09-25] MEDS: PHENYLEPHRINE 40 MG in SODIUM CHLORIDE 0.9% 250 ML IV ONE (01:03)
[2024-09-25] MEDS: propofoL 1,000 MG/100 ML VIAL IV ONE (01:03)
[2024-09-25] MEDS: PROTAMINE SULFATE 10 MG/ML 25 ML VIAL IV ONE (01:04)
[2024-09-25] MEDS: SODIUM CHLORIDE 0.9% 1,000 ML IV ONE (01:04)
[2024-09-25] MEDS: PROTAMINE SULFATE 250 MG in EMPTY BAG 1 BAG IV ONE (01:04)
[2024-09-25] MEDS: SODIUM BICARB 8.4% 50 ML SYR (1 MEQ/ML) IV ONE (01:04)
[2024-09-25] MEDS: MUPIROCIN 2% OINT 22 GM TUBE NASAL ONE (01:04)
[2024-09-25] MEDS: TRANEXAMIC ACID 2,000 MG in SODIUM CHLORIDE 0.9% 80 ML IV ONE (01:04)
[2024-09-25 01:07] LABS: Glucose,Whole Blood 129 mg/dL (70-110)
[2024-09-25 01:59] LABS: Glucose,Whole Blood 122 mg/dL (70-110)
[2024-09-25 03:02] LABS: Glucose,Whole Blood 119 mg/dL (70-110)
[2024-09-25 03:42] LABS: Basophils # (A) 0.02 10*3/uL (0.00-0.10); Basophils % (A) 0.2 %; Eosinophils # (A) 0.02 10*3/uL (0.04-0.35); Eosinophils % (A) 0.2 %; HCT 26.6 % (39.6-50.0); HGB 8.9 g/dL (13.0-17.0); Lymphocytes # (A) 1.11 10*3/uL (0.90-5.00); Lymphocytes % (A) 9.8 %; MCH 32.4 pg (27.0-32.0); MCHC 33.5 g/dL (32.0-37.0); MCV 96.7 fL (80.0-97.0); Mean Platelet Volume 10.7 fL (9.5-12.2); Monocytes # (A) 1.49 10*3/uL (0.20-1.00); Monocytes % (A) 13.2 %; Neutrophils # (A) 8.59 10*3/uL (1.80-7.70); Neutrophils % (A) 76.2 %; Platelet Count 141 10*3/uL (140-440); RBC 2.75 10*6/uL (4.40-5.60); RDW 13.4 % (11.5-14.5); WBC 11.27 10*3/uL (4.50-10.00)
[2024-09-25 03:49] LABS: Ionized Calcium 4.8 mg/dL (4.5-5.3)
[2024-09-25 03:57] LABS: ALT 13 U/L (4-49); AST 44 U/L (17-59); African American GFR (CKD) 88 (>60 ml/min/1.73 sqM); Albumin 3.2 g/dL (3.5-5.0); Alkaline Phosphatase 50 U/L (38-126); Anion Gap 5 mmol/L; Blood Urea Nitrogen 27 mg/dL (9-20); Calcium 8.7 mg/dL (8.4-10.2); Carbon Dioxide 25 mmol/L (22-30); Chloride 101 mmol/L (98-107); Glucose 109 mg/dL (74-99); Non-African American GFR(CKD) 76 (>60 ml/min/1.73 sqM); Potassium 4.3 mmol/L (3.5-5.1); Sodium 131 mmol/L (137-145); Total Bilirubin 1.2 mg/dL (0.2-1.3); Total Protein 5.2 g/dL (6.3-8.2)
[2024-09-25 04:26] LABS: Glucose,Whole Blood 132 mg/dL (70-110)
[2024-09-25 05:29] LABS: Glucose,Whole Blood 133 mg/dL (70-110)
[2024-09-25] MEDS: METOCLOPRAMIDE 5 MG/ML 2 ML VIAL IVP PRN (05:37)
[2024-09-25] MEDS: PANTOPRAZOLE 40 MG TABLET PO SCH (05:37)
[2024-09-25 06:16] LABS: Glucose,Whole Blood 128 mg/dL (70-110)
[2024-09-25 07:02] LABS: Glucose,Whole Blood 144 mg/dL (70-110)
[2024-09-25 08:04] LABS: Glucose,Whole Blood 176 mg/dL (70-110)
--- NOTE | 2024-09-25 08:50 | XR ---
EXAMINATION TYPE: XR chest 1V portable DATE OF EXAM: 09/25/2024 6:06 AM COMPARISON: 09/24/2024 CLINICAL INDICATION: Male, 69 years old with history of Post Operative Cardiac Surgery, TECHNIQUE: XR chest 1V portable view(s) obtained. FINDINGS: The heart size is normal. Sternotomy wires are present. Cardiac valve surgery appears to be present. The pulmonary vasculature is normal. The lungs are clear. Left-sided chest tube is present. No pneumothorax is evident. Sheath is present on the right. [place] nz catheter is been removed. Mediastinal tube is present. IMPRESSION: 1. Post cardiac surgery. 2. Multiple lines and catheters discussed above [facility], , 09/25/2024 8:47 AM
--- NOTE | 2024-09-25 09:17 | P.PN ---
Subjective Progress Note Date: 09/25/24 Principal diagnosis: Critical aortic stenosis. Medical history significant for hypertension, hyperlipidemia, renal cell tumor, asthma, CVA/TIA, chronic back pain/spondylitis and remote history of nicotine dependence quit smoking in 1986. POD #2 aortic valve replacement using a 23 mm Rosa Inspiris bioprosthetic valve, ligation of left atrial appendage using a 35mm Atriclip, epiaortic ultrasound, intraoperative transesophageal echocardiogram. Postoperative acute blood loss anemia, expected given hemodilution and cardiopulmonary bypass. Underlying complete heart block, unexpected but potential complication of any valve surgery. The patient was seen and examined in follow-up today September 25, 2024 at his bedside in the intensive care unit. He is currently sitting up to the bedside chair, is awake, alert, oriented x 3 and is in no acute apparent distress. Denies any complaints of shortness of breath at this time, and is complaining of some surgical type pain to his chest tube insertion sites, currently rating his pain 5 out of 10 on the pain scale. He reports the current pain medication regimen is keeping his pain under control. Bedside telemetry is showing a paced rhythm, with a heart rate of 88 bpm. Underlying paced rhythm is third-degree heart block heart rate [address] Cho from cardiology evaluated the patient yesterday and is planning for permanent pacemaker placement tomorrow September 26, 2024. Oxygen saturations are 93% on room air and he is achieving 1250 mL on his incentive spirometry with encouragement. Right IJ cordis remains in place with continuous CVP monitoring, current CVP pressure 11 mmHg. Mediastinal and left pleural chest tubes remain in place to low continuous wall suction -20 cm H2O. No airleak is present. Draining thin serosanguineous drainage. Left pleural chest tube drain 100 mL output in the last 8 hours and 270 mL output in 24 hours. Mediastinal chest tube drained 25 mL output in the last 8 hours and 125 mL output in the last 24 hours. Chest x-ray and laboratory results were reviewed. Objective - Vital Signs Vital signs: Vital Signs Temp 98.2 F 09/25/24 04:00 Pulse 83 09/25/24 07:00 Resp 16 09/25/24 07:00 BP 114/59 09/25/24 07:00 Pulse Ox 93 L 09/25/24 07:00 FiO2 50 05/23/25 16:50 Intake & Output 09/24/24 09/25/24 09/25/24 18:59 06:59 18:59 Intake Total 1738.403 703.395 42.093 Output Total 465 530 20 Balance 1273.403 173.395 22.093 Weight 89 kg Intake: IV 624 682 36 Albumin Human 5% 250 ml 250 In Empty Bag 1 bag @ 250 mls/hr IVPB Q1HR PRN Rx#: [id number] CO/CI 20 Pressure Bags 84 72 6 Sodium Chloride 0.9% 1, 420 360 30 000 ml @ 20 mls/hr IV . Q24H ELIOT Rx#:[id number] ceFAZolin 2 gm In 100 Dextrose 5% in Water 50 ml @ 100 mls/hr IVPB Q8HR ELIOT Rx#:[id number] Intake, IV Titration 26.403 21.395 6.093 Amount Insulin Regular 100 unit 26.403 21.395 6.093 In Sodium Chloride 0.9% 100 ml @ Per Protocol IV .Q0M ELIOT Rx#:[id number] Oral 1088 Output: Chest Tube Drainage 150 165 0 Left Pleural 70 120 0 Mediastinal 80 45 0 Urine 315 365 20 Other: Voiding Method Indwelling Catheter Indwelling Catheter ABP, PAP, CO, CI - Last Documented Arterial Blood Pressure 92/37 Pulmonary Artery Pressure 27/12 Cardiac Output 6.3 Cardiac Index 3.2 - Exam CONSTITUTIONAL: Sitting up to the bedside chair in the intensive care unit, appears comfortable, cooperative, no apparent acute distress. HEENT: Neck is supple, no JVD, no lymphadenopathy. Right IJ Cordis in place and functioning. RESPIRATORY: Lungs sounds essentially clear throughout, diminished to his bilateral bases. Respirations are symmetrical and nonlabored. Currently on room air with oxygen saturations 93%. Able to achieve 1250 mL on his incentive spirometry. Strong cough. CARDIOVASCULAR: Regular rhythm and rate. S1 and S2 present, negative for S3, gallop or murmur. Bedside telemetry is showing paced rhythm heart rate 88 bpm, underlying rhythm is showing third-degree heart block heart rate 66 bpm. Sternum is stable. Palpable peripheral pulses bilaterally. No calf pain or tenderness noted. Heart hugger in place with patient demonstrating appropriate use. Knee-high CHARI hose and sequential compression devices in place to his bilateral lower extremities. GASTROINTESTINAL: Abdomen soft, nontender, nondistended. Active bowel sounds present 4 quadrants. Tolerating diet. Passing flatus. No guarding or rigidity. GENITOURINARY: Pickard present draining clear, yellow urine. Urine output 295 mL in the last 8 hours. INTEGUMENTARY: Skin is warm and dry with no evidence of clubbing or cyanosis. Midline sternal incision clean dry and well approximated, covered with dry intact dressing. NEUROLOGIC: Cranial nerves II through XII intact. No focal deficits. MUSKULOSKELETAL: Able to move all extremities, strength equal bilaterally, generalized weakness. PSYCHIATRIC: Alert and oriented to person place and time, appropriate affect, intact judgment and insight. INVASIVE LINES AND TUBES: Mediastinal and left pleural chest tubes remain in place to low continuous wall suction -20 cm H2O. No airleak is present. Draining thin serosanguineous drainage. Mediastinal chest tube drained 25 mL output in the last 8 hours and 125 mL output in the last 24 hours. Left pleural chest tube drained 100 mL output in the last 8 hours and 270 mL output in the last 24 hours. Atrial and ventricular epicardial pacemaker wires present, connected to generator, DDD mode heart rate 70 bpm. Right internal jugular Cordis, right radial arterial line present. Current CVP 11 mmHg. - Allied health notes Allied health notes reviewed: nursing - Labs CBC & Chem 7: 09/25/24 03:26 09/25/24 03:26 Labs: Abnormal Lab Results - Last 24 Hours (Table) 09/24/24 09/24/24 09/24/24 Range/Units 10:02 11:18 12:21 WBC (4.50-10.00) 10*3/uL RBC (4.40-5.60) 10*6/uL Hgb (13.0-17.0) g/dL Hct (39.6-50.0) % MCH (27.0-32.0) pg Neutrophils # (1.80-7.70) 10*3/uL Monocytes # (0.20-1.00) 10*3/uL Eosinophils # (0.04-0.35) 10*3/uL Sodium (137-145) mmol/L BUN (9-20) mg/dL Glucose (74-99) mg/dL POC Glucose (mg/dL) 157 H 160 H 168 H (70-110) mg/dL Total Protein (6.3-8.2) g/dL Albumin (3.5-5.0) g/dL 09/24/24 09/24/24 09/24/24 Range/Units 13:31 16:43 17:05 WBC (4.50-10.00) 10*3/uL RBC (4.40-5.60) 10*6/uL Hgb (13.0-17.0) g/dL Hct (39.6-50.0) % MCH (27.0-32.0) pg Neutrophils # (1.80-7.70) 10*3/uL Monocytes # (0.20-1.00) 10*3/uL Eosinophils # (0.04-0.35) 10*3/uL Sodium 131 L (137-145) mmol/L BUN 25 H (9-20) mg/dL Glucose 161 H (74-99) mg/dL POC Glucose (mg/dL) 168 H 134 H (70-110) mg/dL Total Protein 5.4 L (6.3-8.2) g/dL Albumin 3.3 L (3.5-5.0) g/dL 09/24/24 09/24/24 09/24/24 Range/Units 18:28 19:54 21:12 WBC (4.50-10.00) 10*3/uL RBC (4.40-5.60) 10*6/uL Hgb (13.0-17.0) g/dL Hct (39.6-50.0) % MCH (27.0-32.0) pg Neutrophils # (1.80-7.70) 10*3/uL Monocytes # (0.20-1.00) 10*3/uL Eosinophils # (0.04-0.35) 10*3/uL Sodium (137-145) mmol/L BUN (9-20) mg/dL Glucose (74-99) mg/dL POC Glucose (mg/dL) 191 H 135 H 114 H (70-110) mg/dL Total Protein (6.3-8.2) g/dL Albumin (3.5-5.0) g/dL 09/24/24 09/24/24 09/24/24 Range/Units 22:04 23:00 23:57 WBC (4.50-10.00) 10*3/uL RBC (4.40-5.60) 10*6/uL Hgb (13.0-17.0) g/dL Hct (39.6-50.0) % MCH (27.0-32.0) pg Neutrophils # (1.80-7.70) 10*3/uL Monocytes # (0.20-1.00) 10*3/uL Eosinophils # (0.04-0.35) 10*3/uL Sodium (137-145) mmol/L BUN (9-20) mg/dL Glucose (74-99) mg/dL POC Glucose (mg/dL) 118 H 126 H 134 H (70-110) mg/dL Total Protein (6.3-8.2) g/dL Albumin (3.5-5.0) g/dL 09/25/24 09/25/24 09/25/24 Range/Units 01:06 01:56 03:01 WBC (4.50-10.00) 10*3/uL RBC (4.40-5.60) 10*6/uL Hgb (13.0-17.0) g/dL Hct (39.6-50.0) % MCH (27.0-32.0) pg Neutrophils # (1.80-7.70) 10*3/uL Monocytes # (0.20-1.00) 10*3/uL Eosinophils # (0.04-0.35) 10*3/uL Sodium (137-145) mmol/L BUN (9-20) mg/dL Glucose (74-99) mg/dL POC Glucose (mg/dL) 129 H 122 H 119 H (70-110) mg/dL Total Protein (6.3-8.2) g/dL Albumin (3.5-5.0) g/dL 09/25/24 09/25/24 09/25/24 Range/Units 03:26 03:26 04:25 WBC 11.27 H (4.50-10.00) 10*3/uL RBC 2.75 L (4.40-5.60) 10*6/uL Hgb 8.9 L (13.0-17.0) g/dL Hct 26.6 L (39.6-50.0) % MCH 32.4 H (27.0-32.0) pg Neutrophils # 8.59 H (1.80-7.70) 10*3/uL Monocytes # 1.49 H (0.20-1.00) 10*3/uL Eosinophils # 0.02 L (0.04-0.35) 10*3/uL Sodium 131 L (137-145) mmol/L BUN 27 H (9-20) mg/dL Glucose 109 H (74-99) mg/dL POC Glucose (mg/dL) 132 H (70-110) mg/dL Total Protein 5.2 L (6.3-8.2) g/dL Albumin 3.2 L (3.5-5.0) g/dL 09/25/24 09/25/24 09/25/24 Range/Units 05:28 06:14 07:00 WBC (4.50-10.00) 10*3/uL RBC (4.40-5.60) 10*6/uL Hgb (13.0-17.0) g/dL Hct (39.6-50.0) % MCH (27.0-32.0) pg Neutrophils # (1.80-7.70) 10*3/uL Monocytes # (0.20-1.00) 10*3/uL Eosinophils # (0.04-0.35) 10*3/uL Sodium (137-145) mmol/L BUN (9-20) mg/dL Glucose (74-99) mg/dL POC Glucose (mg/dL) 133 H 128 H 144 H (70-110) mg/dL Total Protein (6.3-8.2) g/dL Albumin (3.5-5.0) g/dL 09/25/24 Range/Units 08:03 WBC (4.50-10.00) 10*3/uL RBC (4.40-5.60) 10*6/uL Hgb (13.0-17.0) g/dL Hct (39.6-50.0) % MCH (27.0-32.0) pg Neutrophils # (1.80-7.70) 10*3/uL Monocytes # (0.20-1.00) 10*3/uL Eosinophils # (0.04-0.35) 10*3/uL Sodium (137-145) mmol/L BUN (9-20) mg/dL Glucose (74-99) mg/dL POC Glucose (mg/dL) 176 H (70-110) mg/dL Total Protein (6.3-8.2) g/dL Albumin (3.5-5.0) g/dL - Imaging and Cardiology Chest x-ray: report reviewed, image reviewed Assessment and Plan Assessment: Critical aortic stenosis, status post aortic valve replacement with a 23 mm Inspiris bioprosthetic valve Underlying complete heart block, unexpected but potential complication of any valve surgery Hypertension Hyperlipidemia, treated Asthma History of TIA with no residual deficits, on Brilinta as an outpatient GERD History of renal cell tumor Chronic back pain/spondylitis Remote history of nicotine dependence quit smoking in 1986 Plan: Continue to maximize medical therapy with aspirin, statin, and Plavix. Will hold his beta-sabas and amiodarone at this time, as he is pacer dependent with an underlying rhythm of complete heart block heart rate in the 60s. Dr. Cho is planning for permanent pacemaker placement tomorrow September 26, 2024. Encourage use of incentive spirometry 10 times every hour while awake. Continue home dose of Singulair. Bronchodilator management per pulmonary/critical care medicine. Once extubated increase activity as tolerated, PT/OT/cardiac rehab following. Will monitor daily labs and chest x-rays. Electrolyte replacement per protocol. GI/DVT prophylaxis. Insulin management per internal medicine, patient should remain on continuous IV insulin for 48 hours, then may transition to subcutaneous per protocol. Preoperative hemoglobin A1c 6.0%. Pain control per current medication regimen. Toradol has been added for a dditional pain control. Avoid opioids due to patient's episodes of confusion. Continue right IJ Cordis for now with continuous CVP monitoring. Continue left pleural chest tube for another 24 hours, monitor and record output. Remove Pickard catheter, continue to monitor record strict accurate intake and output. May bladder scan every 6 hours and as needed postvoid residuals, if greater than 300 mL of urine PVR may straight cath. More recommendations to follow based on patient's clinical course. Time with Patient: Greater than 30
[2024-09-25 09:27] LABS: Glucose,Whole Blood 127 mg/dL (70-110)
[2024-09-25 10:03] LABS: Glucose,Whole Blood 120 mg/dL (70-110)
--- NOTE | 2024-09-25 10:26 | P.PN ---
Subjective Progress Note Date: 09/25/24 HISTORY OF PRESENT ILLNESS: This is a 69-year-old male with a previous medical history significant for hyperlipidemia, GERD with esophagitis, vitamin D deficiency, recurrent TIA on dual antiplatelet therapy, who recently underwent left heart catheterization that showed normal coronary arteries with severe aortic valve stenosis followed by transesophageal echocardiogram which confirmed severe aortic valve stenosis with a valve surface area of 0.5, patient underwent aortic valve replacement t hat was done by Dr. Presley and we were asked to see the patient for postoperative medical management. On the ventilator, currently in degree Van drip at 30 micg, he has been on albumin as well as IV fluid resuscitation, he has very good urine output at least 100 cc an hour, we will is currently on the ventilator with a tidal volume of 450 respiratory rate of 18 FiO2 50%, his oxygenation is 98%, they will continue with the weaning parameter, chest x-ray appears to be good, blood gases appears to be good, we will try to wean the patient off the ventilator later on this afternoon. 09/24: Patient sitting up in the chair, he was extubated successfully yesterday, he denies any significant pain, he does complain of some soreness in the chest where the incision is, he continues to have a chest tube in place, he continues to have a Cordis catheter in the right internal jugular vein, this was probably coming out today, continue this at his primary, continue current pain management, continue to follow-up with the patient very closely. 09/25: Patient sitting up in chair in no apparent distress, he is feeling better today, he denies any chest pain, shortness of breath, he continues to feel bett er continue current treatment plan, continue to increase activity, continue incentive spirometer, follow-up with laboratory evaluation, underlying rhythm is third-degree AV block, he is scheduled to go for permanent restriction placement tomorrow morning, follow-up with the patient very closely. Discontinue insulin drip, start the patient on sliding scale insulin, continue other treatment plan REVIEW OF SYSTEMS: Constitutional: No documented fever, no chills, no night sweats. No weight change. No weakness, fatigue or lethargy. No daytime sleepiness. HEENT: No headache. No blurred vision or double vision, no loss of vision. No loss of Hearing, no ringing in the ears, no dizziness. No nasal drainage or congestion. No epistaxis. No sore throat. Lungs: No shortness of breath, no cough, no sputum production. No wheezing. Reports dry nose not able to breathe through the nose Cardiovascular: no chest pain, minimal lower extremity edema. No palpitations. No paroxysmal nocturnal dyspnea. No orthopnea. No lightheadedness or dizziness. No syncopal episodes. Abdominal: Reports no abdominal pain. No nausea, vomiting. No diarrhea. No constipation. No bloody or tarry stools reports loss of appetite. Passing gas. Genitourinary: No dysuria, increased frequency, urgency, Pickard catheter is in place Musculoskeletal: No myalgias. No muscle weakness, no gait dysfunction, no frequent falls. No back pain. positive for neck pain, Integumentary: No wounds, no lesions. No rash or pruritus. No unusual bruising. No change in hair or nails. Neurologic: No aphasia. No facial droop. No change in mentation. No head injury. No headache. No paralysis. No paresthesia. Psychiatric: No depression. Positive for anxiety. No mood swings. Endocrine: Positive abnormal blood sugars. No weight change. PHYSICAL EXAMINATION: General: 69-year-old male sitting up in a chair in no apparent distress HEENT: Head is atraumatic, normocephalic, pupils were equal round, there is an orogastric tube in place as well as ET tube in place. Neck: Supple, no JVP, normal carotid upstroke bilaterally, no lymphadenopathy there is right IJ cordis catheter in place Chest: Decreased breath sounds at the bases, few rhonchi, no expiratory wheezes, there is 2 chest tubes, there is also pacer wires Heart: First heart sound is normal, second heart sounds normal there is no murmur positive for S3. Abdomen: Soft, nontender, nondistended, depressed bowel sounds , Extremities: There is no edema no calf tenderness DP +2 bilaterally, bilateral knee-high CHARI hose/SCDs Neurologic examination: Patient is awake alert and oriented x 3, cranial nerves III to XII appear gross intact, muscle power 4 out of 5 in upper lower extremities bilaterally ASSESSMENT AND PLAN: 1. Acute vent dependent respiratory failure status post aortic valve replacement status post extubation continue aggressive pulmonary toileting, continue DuoNeb 3 manipulation 4 times every day, continue oxygen support, he is currently on 2 L nasal cannula, continue current pain management, incentive spirometer to be utilized, increase activity, start the patient on clear liquid diet, follow-up with the patient very closely, patient was taken off metoprolol due to third-degree AV block, continue aspirin 81 mg once every day, Plavix 75 mg once every day, monitor the patient blood pressure very closely 2. Hypertension and hypertensive cardiovascular disease. Continue hydralazine 10 mg p.o. every 4 hours as needed, was taken off beta-blockers due to third- degree AV block, he scheduled to go for permanent pacemaker placement tomorrow morning 3. Mixed hyperlipidemia. Continue patient on atorvastatin 80 mg orally once every day, continue Zetia 10 mg once every day monitor lipid panel, keep LDL 55-70. 4. GERD with esophagitis. Continue pantoprazole 40 mg IV push every 24 hours. 5. Vitamin D deficiency continue vitamin D3 1000 units once every day. 6. Spondylosis of the cervical spine. Continue current pain management. 7. History of recurrent TIAs in the past, continue aspirin 325 mg once every day, Plavix 75 mg once every day, continue atorvastatin 80 mg once every day along with Zetia 10 mg once every day. 8. Acute blood loss anemia monitor the patient CBC very closely keep hemoglobin greater than 8 at all of the time. 9. DVT prophylaxis. Continue patient on bilateral knee-high CHARI hose as well as bilateral SCDs. Continue heparin 5000 units subcutaneously every 8 hours 10. GI prophylaxis. Continue Protonix 40 mg IV push over 24 hours. 11. Allergic rhinitis. Start the patient on montelukast 10 mg at bedtime, continue with humidified oxygen, follow-up with the patient very closely 12. Postoperative hyperglycemia. Discontinue standard, start the patient i nsulin sliding scale insulin 13. Third-degree AV block likely related to surgical intervention, beta-sabas discontinued, patient is scheduled to go for permanent pacemaker placement tomorrow morning 14. We will follow-up with the patient very closely Objective - Vital Signs Vital signs: Vital Signs Temp 98.2 F 09/25/24 04:00 Pulse 83 09/25/24 07:00 Resp 16 09/25/24 07:00 BP 114/59 09/25/24 07:00 Pulse Ox 93 L 09/25/24 07:00 FiO2 50 09/23/24 16:50 Intake & Output 09/24/24 09/25/2425 18:59 06:59 18:59 Intake Total 1738.403 703.395 47.236 Output Total 465 530 20 Balance 1273.403 173.395 27.236 Weight 89 kg Intake: IV 624 682 36 Albumin Human 5% 250 ml 250 In Empty Bag 1 bag @ 250 mls/hr IVPB Q1HR PRN Rx#: [id number] CO/CI 20 Pressure Bags 84 72 6 Sodium Chloride 0.9% 1, 420 360 30 000 ml @ 20 mls/hr IV . Q24H ELIOT Rx#:[id number] ceFAZolin 2 gm In 100 Dextrose 5% in Water 50 ml @ 100 mls/hr IVPB Q8HR ELIOT Rx#:[id number] Intake, IV Titration 26.403 21.395 11.236 Amount Insulin Regular 100 unit 26.403 21.395 11.236 In Sodium Chloride 0.9% 100 ml @ Per Protocol IV .Q0M ELIOT Rx#:[id number] Oral 1088 Output: Chest Tube Drainage 150 165 0 Left Pleural 70 120 0 Mediastinal 80 45 0 Urine 315 365 20 Other: Voiding Method Indwelling Catheter Indwelling Catheter ABP, PAP, CO, CI - Last Documented Arterial Blood Pressure 92/37 Pulmonary Artery Pressure 27/12 Cardiac Output 6.3 Cardiac Index 3.2 - Labs CBC & Chem 7: 09/25/24 03:26 09/25/24 03:26 Labs: Abnormal Lab Results - Last 24 Hours (Table) 09/24/24 09/24/24 09/24/24 Range/Units 11:18 12:21 13:31 WBC (4.50-10.00) 10*3/uL RBC (4.40-5.60) 10*6/uL Hgb (13.0-17.0) g/dL Hct (39.6-50.0) % MCH (27.0-32.0) pg Neutrophils # (1.80-7.70) 10*3/uL Monocytes # (0.20-1.00) 10*3/uL Eosinophils # (0.04-0.35) 10*3/uL Sodium (137-145) mmol/L BUN (9-20) mg/dL Glucose (74-99) mg/dL POC Glucose (mg/dL) 160 H 168 H 168 H (70-110) mg/dL Total Protein (6.3-8.2) g/dL Albumin (3.5-5.0) g/dL 09/24/24 09/24/24 09/24/24 Range/Units 16:43 17:05 18:28 WBC (4.50-10.00) 10*3/uL RBC (4.40-5.60) 10*6/uL Hgb (13.0-17.0) g/dL Hct (39.6-50.0) % MCH (27.0-32.0) pg Neutrophils # (1.80-7.70) 10*3/uL Monocytes # (0.20-1.00) 10*3/uL Eosinophils # (0.04-0.35) 10*3/uL Sodium 131 L (137-145) mmol/L BUN 25 H (9-20) mg/dL Glucose 161 H (74-99) mg/dL POC Glucose (mg/dL) 134 H 191 H (70-110) mg/dL Total Protein 5.4 L (6.3-8.2) g/dL Albumin 3.3 L (3.5-5.0) g/dL 09/24/24 09/24/24 09/24/24 Range/Units 19:54 21:12 22:04 WBC (4.50-10.00) 10*3/uL RBC (4.40-5.60) 10*6/uL Hgb (13.0-17.0) g/dL Hct (39.6-50.0) % MCH (27.0-32.0) pg Neutrophils # (1.80-7.70) 10*3/uL Monocytes # (0.20-1.00) 10*3/uL Eosinophils # (0.04-0.35) 10*3/uL Sodium (137-145) mmol/L BUN (9-20) mg/dL Glucose (74-99) mg/dL POC Glucose (mg/dL) 135 H 114 H 118 H (70-110) mg/dL Total Protein (6.3-8.2) g/dL Albumin (3.5-5.0) g/dL 09/24/24 09/24/24 09/25/24 Range/Units 23:00 23:57 01:06 WBC (4.50-10.00) 10*3/uL RBC (4.40-5.60) 10*6/uL Hgb (13.0-17.0) g/dL Hct (39.6-50.0) % MCH (27.0-32.0) pg Neutrophils # (1.80-7.70) 10*3/uL Monocytes # (0.20-1.00) 10*3/uL Eosinophils # (0.04-0.35) 10*3/uL Sodium (137-145) mmol/L BUN (9-20) mg/dL Glucose (74-99) mg/dL POC Glucose (mg/dL) 126 H 134 H 129 H (70-110) mg/dL Total Protein (6.3-8.2) g/dL Albumin (3.5-5.0) g/dL 09/25/24 09/25/24 09/25/24 Range/Units 01:56 03:01 03:26 WBC 11.27 H (4.50-10.00) 10*3/uL RBC 2.75 L (4.40-5.60) 10*6/uL Hgb 8.9 L (13.0-17.0) g/dL Hct 26.6 L (39.6-50.0) % MCH 32.4 H (27.0-32.0) pg Neutrophils # 8.59 H (1.80-7.70) 10*3/uL Monocytes # 1.49 H (0.20-1.00) 10*3/uL Eosinophils # 0.02 L (0.04-0.35) 10*3/uL Sodium (137-145) mmol/L BUN (9-20) mg/dL Glucose (74-99) mg/dL POC Glucose (mg/dL) 122 H 119 H (70-110) mg/dL Total Protein (6.3-8.2) g/dL Albumin (3.5-5.0) g/dL 25 09/25/24 09/25/24 Range/Units 03:26 04:25 05:28 WBC (4.50-10.00) 10*3/uL RBC (4.40-5.60) 10*6/uL Hgb (13.0-17.0) g/dL Hct (39.6-50.0) % MCH (27.0-32.0) pg Neutrophils # (1.80-7.70) 10*3/uL Monocytes # (0.20-1.00) 10*3/uL Eosinophils # (0.04-0.35) 10*3/uL Sodium 131 L (137-145) mmol/L BUN 27 H (9-20) mg/dL Glucose 109 H (74-99) mg/dL POC Glucose (mg/dL) 132 H 133 H (70-110) mg/dL Total Protein 5.2 L (6.3-8.2) g/dL Albumin 3.2 L (3.5-5.0) g/dL 09/25/24 09/25/24 09/25/24 Range/Units 06:14 07:00 08:03 WBC (4.50-10.00) 10*3/uL RBC (4.40-5.60) 10*6/uL Hgb (13.0-17.0) g/dL Hct (39.6-50.0) % MCH (27.0-32.0) pg Neutrophils # (1.80-7.70) 10*3/uL Monocytes # (0.20-1.00) 10*3/uL Eosinophils # (0.04-0.35) 10*3/uL Sodium (137-145) mmol/L BUN (9-20) mg/dL Glucose (74-99) mg/dL POC Glucose (mg/dL) 128 H 144 H 176 H (70-110) mg/dL Total Protein (6.3-8.2) g/dL Albumin (3.5-5.0) g/dL 09/25/24 09/25/24 Range/Units 09:25 10:02 WBC (4.50-10.00) 10*3/uL RBC (4.40-5.60) 10*6/uL Hgb (13.0-17.0) g/dL Hct (39.6-50.0) % MCH (27.0-32.0) pg Neutrophils # (1.80-7.70) 10*3/uL Monocytes # (0.20-1.00) 10*3/uL Eosinophils # (0.04-0.35) 10*3/uL Sodium (137-145) mmol/L BUN (9-20) mg/dL Glucose (74-99) mg/dL POC Glucose (mg/dL) 127 H 120 H (70-110) mg/dL Total Protein (6.3-8.2) g/dL Albumin (3.5-5.0) g/dL
--- NOTE | 2024-09-25 10:30 | P.PN ---
Subjective Progress Note Date: 09/25/24 Principal diagnosis: (Status post aortic valve replacement) This is a 69-year-old white male with history of severe aortic stenosis with bicuspid aortic valve, has been following up with Dr. Cristina for quite some time. Patient had recent echocardiogram that showed worsening severe aortic valve stenosis. Patient had no shortness of breath, no chest pain, no lightheadedness or dizziness, no syncopal episodes. Recent transesophageal echo was done and confirmed severe aortic stenosis hence the patient underwent aortic valve replacement today. Postoperatively patient was in the ICU on mechanical ventilation, he is on assist-control rate of 14 tidal volume 450 FiO2 60% and I cut down to 50% and his PEEP was 5. Chest x-ray showed mostly postoperative changes, no acute process was noted. Cardiac output was 4.0, cardiac index 2.0. Patient is hemodynamically stable, not requiring any pressors and not requiring any inotropes. Plan to proceed with weaning in the next 2 hours. Patient was seen today on 09/24/2024,POD #1 aortic valve replacement using a 23 mm Rosa Inspiris bioprosthetic valve, ligation of left atrial appendage using a 35mm Atriclip, epiaortic ultrasound, intraoperative transesophageal echocardiogram. Patient was successfully extubated last night shortly after he arrived to the ICU, today the patient is doing well, achieving 1250 mL on his intensive spirometry. He was extubated at 5:38 PM yesterday. Today he is sitting at the bedside chair, not in distress, cardiac output is 4.9 cardiac index 2.5, PA pressure 30/11, CVP is 7 patient is not requiring any pressors or any inotropes. Chest x-ray showed that he continues to have left chest sided tubes and mediastinal tube, both on suction, no airleak, chest x-ray showed minimal atelectasis and postoperative changes, no acute processes noted. WBC count is 10.9 hemoglobin 10.3, basic metabolic profile is normal renal profile is normal Patient was seen today on 09/25/2024, he is now postoperative day #2, doing well, on room air, sitting at the bedside chair. Patient is alert and oriented x 3, does not seem to be in any distress, pain is fairly well-controlled, hemodynamically stable, not requiring any inotropes or any pressors, continues to have an underlying paced rhythm of third-degree AV block the plan is to eventually have a permanent pacemaker placement. This will be done tomorrow by Dr. Cho. Patient is achieving about 1250 cc on incentive spirometry, mediastinal and left pleural chest tubes remain in place, remain on suction. No airleak. Chest x-ray showed mostly postoperative changes and minimal atelectasis, expected. WBC count is 11.2 hemoglobin 8.9 basic metabolic profile is normal renal profile is normal Objective - Vital Signs Vital signs: Vital Signs Temp 98.2 F 09/25/24 04:00 Pulse 83 09/25/24 07:00 Resp 16 09/25/24 07:00 BP 114/59 09/25/24 07:00 Pulse Ox 93 L 09/25/24 07:00 FiO2 50 09/23/24 16:50 Intake & Output 09/24/24 09/25/24 09/25/24 18:59 06:59 18:59 Intake Total 1738.403 703.395 47.236 Output Total 465 530 20 Balance 1273.403 173.395 27.236 Weight 89 kg Intake: IV 624 682 36 Albumin Human 5% 250 ml 250 In Empty Bag 1 bag @ 250 mls/hr IVPB Q1HR PRN Rx#: [id number] CO/CI 20 Pressure Bags 84 72 6 Sodium Chloride 0.9% 1, 420 360 30 000 ml @ 20 mls/hr IV . Q24H ELIOT Rx#:[id number] ceFAZolin 2 gm In 100 Dextrose 5% in Water 50 ml @ 100 mls/hr IVPB Q8HR ELIOT Rx#:[id number] Intake, IV Titration 26.403 21.395 11.236 Amount Insulin Regular 100 unit 26.403 21.395 11.236 In Sodium Chloride 0.9% 100 ml @ Per Protocol IV .Q0M ELIOT Rx#:[id number] Oral 1088 Output: Chest Tube Drainage 150 165 0 Left Pleural 70 120 0 Mediastinal 80 45 0 Urine 315 365 20 Other: Voiding Method Indwelling Catheter Indwelling Catheter ABP, PAP, CO, CI - Last Documented Arterial Blood Pressure 92/37 Pulmonary Artery Pressure 27/12 Cardiac Output 6.3 Cardiac Index 3.2 - Exam General: Revealed a 69-year-old white male in no distress sitting at the bedside chair, on room air Head: Atraumatic, normocephalic HEENT: PERRLA EOMI, nonicteric no neck masses no JVD Pulmonary: Good breath sound bilaterally left-sided pleural chest tube noted, mediastinal chest tube noted connected to Pleur-evac. No airleak. Cardiac: Paced rhythm distant S1-S2, no S3 gallop, 2/6 systolic murmur throughout the precordium Abdomen obese soft nontender no MAG no rebound no guarding Extremities: Trace of edema no clubbing no cyanosis. Neurologic: Alert and oriented x 3 no gross focal neurologic deficits Psychiatric: Normal mood, affect and no mental status examination Skin: No rashes - Labs CBC & Chem 7: 09/25/24 03:26 09/25/24 03:26 Labs: Abnormal Lab Results - Last 24 Hours (Table) 09/24/24 09/24/24 09/24/24 Range/Units 11:18 12:21 13:31 WBC (4.50-10.00) 10*3/uL RBC (4.40-5.60) 10*6/uL Hgb (13.0-17.0) g/dL Hct (39.6-50.0) % MCH (27.0-32.0) pg Neutrophils # (1.80-7.70) 10*3/uL Monocytes # (0.20-1.00) 10*3/uL Eosinophils # (0.04-0.35) 10*3/uL Sodium (137-145) mmol/L BUN (9-20) mg/dL Glucose (74-99) mg/dL POC Glucose (mg/dL) 160 H 168 H 168 H (70-110) mg/dL Total Protein (6.3-8.2) g/dL Albumin (3.5-5.0) g/dL 09/24/24 09/24/24 09/24/24 Range/Units 16:43 17:05 18:28 WBC (4.50-10.00) 10*3/uL RBC (4.40-5.60) 10*6/uL Hgb (13.0-17.0) g/dL Hct (39.6-50.0) % MCH (27.0-32.0) pg Neutrophils # (1.80-7.70) 10*3/uL Monocytes # (0.20-1.00) 10*3/uL Eosinophils # (0.04-0.35) 10*3/uL Sodium 131 L (137-145) mmol/L BUN 25 H (9-20) mg/dL Glucose 161 H (74-99) mg/dL POC Glucose (mg/dL) 134 H 191 H (70-110) mg/dL Total Protein 5.4 L (6.3-8.2) g/dL Albumin 3.3 L (3.5-5.0) g/dL 09/24/24 09/24/24 09/24/24 Range/Units 19:54 21:12 22:04 WBC (4.50-10.00) 10*3/uL RBC (4.40-5.60) 10*6/uL Hgb (13.0-17.0) g/dL Hct (39.6-50.0) % MCH (27.0-32.0) pg Neutrophils # (1.80-7.70) 10*3/uL Monocytes # (0.20-1.00) 10*3/uL Eosinophils # (0.04-0.35) 10*3/uL Sodium (137-145) mmol/L BUN (9-20) mg/dL Glucose (74-99) mg/dL POC Glucose (mg/dL) 135 H 114 H 118 H (70-110) mg/dL Total Protein (6.3-8.2) g/dL Albumin (3.5-5.0) g/dL 09/24/24 09/24/24 09/25/24 Range/Units 23:00 23:57 01:06 WBC (4.50-10.00) 10*3/uL RBC (4.40-5.60) 10*6/uL Hgb (13.0-17.0) g/dL Hct (39.6-50.0) % MCH (27.0-32.0) pg Neutrophils # (1.80-7.70) 10*3/uL Monocytes # (0.20-1.00) 10*3/uL Eosinophils # (0.04-0.35) 10*3/uL Sodium (137-145) mmol/L BUN (9-20) mg/dL Glucose (74-99) mg/dL POC Glucose (mg/dL) 126 H 134 H 129 H (70-110) mg/dL Total Protein (6.3-8.2) g/dL Albumin (3.5-5.0) g/dL 09/25/24 09/25/24 09/25/24 Range/Units 01:56 03:01 03:26 WBC 11.27 H (4.50-10.00) 10*3/uL RBC 2.75 L (4.40-5.60) 10*6/uL Hgb 8.9 L (13.0-17.0) g/dL Hct 26.6 L (39.6-50.0) % MCH 32.4 H (27.0-32.0) pg Neutrophils # 8.59 H (1.80-7.70) 10*3/uL Monocytes # 1.49 H (0.20-1.00) 10*3/uL Eosinophils # 0.02 L (0.04-0.35) 10*3/uL Sodium (137-145) mmol/L BUN (9-20) mg/dL Glucose (74-99) mg/dL POC Glucose (mg/dL) 122 H 119 H (70-110) mg/dL Total Protein (6.3-8.2) g/dL Albumin (3.5-5.0) g/dL 09/25/24 09/25/24 09/25/24 Range/Units 03:26 04:25 05:28 WBC (4.50-10.00) 10*3/uL RBC (4.40-5.60) 10*6/uL Hgb (13.0-17.0) g/dL Hct (39.6-50.0) % MCH (27.0-32.0) pg Neutrophils # (1.80-7.70) 10*3/uL Monocytes # (0.20-1.00) 10*3/uL Eosinophils # (0.04-0.35) 10*3/uL Sodium 131 L (137-145) mmol/L BUN 27 H (9-20) mg/dL Glucose 109 H (74-99) mg/dL POC Glucose (mg/dL) 132 H 133 H (70-110) mg/dL Total Protein 5.2 L (6.3-8.2) g/dL Albumin 3.2 L (3.5-5.0) g/dL 09/25/24 09/25/24 09/25/24 Range/Units 06:14 07:00 08:03 WBC (4.50-10.00) 10*3/uL RBC (4.40-5.60) 10*6/uL Hgb (13.0-17.0) g/dL Hct (39.6-50.0) % MCH (27.0-32.0) pg Neutrophils # (1.80-7.70) 10*3/uL Monocytes # (0.20-1.00) 10*3/uL Eosinophils # (0.04-0.35) 10*3/uL Sodium (137-145) mmol/L BUN (9-20) mg/dL Glucose (74-99) mg/dL POC Glucose (mg/dL) 128 H 144 H 176 H (70-110) mg/dL Total Protein (6.3-8.2) g/dL Albumin (3.5-5.0) g/dL 09/25/24 09/25/24 Range/Units 09:25 10:02 WBC (4.50-10.00) 10*3/uL RBC (4.40-5.60) 10*6/uL Hgb (13.0-17.0) g/dL Hct (39.6-50.0) % MCH (27.0-32.0) pg Neutrophils # (1.80-7.70) 10*3/uL Monocytes # (0.20-1.00) 10*3/uL Eosinophils # (0.04-0.35) 10*3/uL Sodium (137-145) mmol/L BUN (9-20) mg/dL Glucose (74-99) mg/dL POC Glucose (mg/dL) 127 H 120 H (70-110) mg/dL Total Protein (6.3-8.2) g/dL Albumin (3.5-5.0) g/dL Assessment and Plan Assessment: Impression:POD #2 aortic valve replacement using a 23 mm Rosa Inspiris bioprosthetic valve, ligation of left atrial appendage using a 35mm Atriclip, epiaortic ultrasound, intraoperative transesophageal echocardiogram. Bicuspid aortic valve/severe aortic stenosis Benign essential hypertension Underlying paced rhythm is third-degree AV block, patient will require a perm anent pacemaker implantation tomorrow Dyslipidemia History of renal cell tumor Ex-smoker quit in 1984 Postoperative atelectasis, expected. Will improve with incentive spirometry. Recommendation: Continue present supportive care measures Continue maximal medical therapy continue aspirin and statin as well as Plavix Continue incentive spirometry Continue to ambulate Permanent pacemaker implantation planned to be done tomorrow by cardiology Continue bronchodilators Hemodynamics were noted, stable Will continue to follow Time with Patient: Less than 30
--- NOTE | 2024-09-25 10:33 | P.PN ---
Progress Note - Text Discussed with patient Plan conduction system pacemaker with DESTINATION COORDINATOR after chest tube without, likely tomorrow afternoon or thereafter
--- NOTE | 2024-09-25 10:50 | P.PN ---
Subjective HISTORY OF PRESENT ILLNESS: This is a 69-year-old male with a past medical history significant for hypertension, hyperlipidemia, TIA, renal cell tumor, and GERD. Patient follows in the office with Dr. Allen. We have been asked to see the patient in consultation for postcardiac surgery. Patient examined at the bedside in the intensive care unit. Patient is status post bioprosthetic aortic valve replacement. Postop day #1. Patient is sitting up in the chair. Patient currently denies chest pain or pressure. He denies shortness of breath. Patient remains on IV fluids and insulin drip. Patient is currently pacemaker dependent. 09/25/2024 Patient examined this morning in the intensive care unit. Patient is sitting up in the chair. Patient remains on IV fluids and insulin. Patient remains pacemaker dependent. PHYSICAL EXAM: VITAL SIGNS: Reviewed. GENERAL: Well-developed in no acute distress. HEENT: Head is normocephalic. Pupils are equal, round. Sclerae anicteric. Mucous membranes of the mouth are moist. Neck supple. No JVD or thyromegaly LUNGS: Respirations even and unlabored. Lungs essentially clear to auscultation bilaterally. HEART: Regular rate and rhythm. S1 and S2 heard. Chest tubes noted. Patient with epicardial pacemaker wires connected to pacer. ABDOMEN: Soft. Nondistended. Nontender. EXTREMITIES: Normal range of motion. No clubbing or cyanosis. Peripheral pulses intact. No lower extremity edema NEUROLOGIC: Awake and alert. Oriented x 3. ASSESSMENT: Quadricuspid severe aortic stenosis, status post bioprosthetic aortic valve replacement Pacemaker dependent with underlying complete heart block Normal coronary arteries, per cardiac catheterization 08/05/2024 History of hypertension History of hyperlipidemia History of TIA, Brilinta outpatient History of renal cell tumor History of GERD PLAN: Continue postoperative management per CT surgery Continue to hold beta-sabas and amiodarone at this time as patient is pacer dependent Continue to monitor telemetry Encourage use of incentive spirometer Patient will undergo permanent pacemaker implantation with Dr. Cho once patient's chest tubes are discontinued. Possibly tomorrow afternoon or Thursday. Further recommendations pending patient course Nurse practitioner note has been reviewed by physician. Signing provider agrees with the documented findings, assessment, and plan of care documented by G[employer] APPLIANCE MECHANIC as a scribe. Objective - Vital Signs Vital signs: Vital Signs Temp 98.2 F 09/25/24 04:00 Pulse 83 05/25/25 07:00 Resp 16 09/25/24 07:00 BP 114/59 09/25/24 07:00 Pulse Ox 93 L 09/25/24 07:00 FiO2 50 09/23/24 16:50 Intake & Output 09/24/24 09/25/24 09/25/24 18:59 06:59 18:59 Intake Total 1738.403 703.395 47.236 Output Total 465 530 20 Balance 1273.403 173.395 27.236 Weight 89 kg Intake: IV 624 682 36 Albumin Human 5% 250 ml 250 In Empty Bag 1 bag @ 250 mls/hr IVPB Q1HR PRN Rx#: [id number] CO/CI 20 Pressure Bags 84 72 6 Sodium Chloride 0.9% 1, 420 360 30 000 ml @ 20 mls/hr IV . Q24H ELIOT Rx#:[id number] ceFAZolin 2 gm In 100 Dextrose 5% in Water 50 ml @ 100 mls/hr IVPB Q8HR ELIOT Rx#:[id number] Intake, IV Titration 26.403 21.395 11.236 Amount Insulin Regular 100 unit 26.403 21.395 11.236 In Sodium Chloride 0.9% 100 ml @ Per Protocol IV .Q0M ELIOT Rx#:[id number] Oral 1088 Output: Chest Tube Drainage 150 165 0 Left Pleural 70 120 0 Mediastinal 80 45 0 Urine 315 365 20 Other: Voiding Method Indwelling Catheter Indwelling Catheter ABP, PAP, CO, CI - Last Documented Arterial Blood Pressure 92/37 Pulmonary Artery Pressure 27/12 Cardiac Output 6.3 Cardiac Index 3.2 - Labs CBC & Chem 7: 09/25/24 03:26 09/25/24 03:26 Labs: Abnormal Lab Results - Last 24 Hours (Table) 09/24/24 09/24/24 09/24/24 Range/Units 11:18 12:21 13:31 WBC (4.50-10.00) 10*3/uL RBC (4.40-5.60) 10*6/uL Hgb (13.0-17.0) g/dL Hct (39.6-50.0) % MCH (27.0-32.0) pg Neutrophils # (1.80-7.70) 10*3/uL Monocytes # (0.20-1.00) 10*3/uL Eosinophils # (0.04-0.35) 10*3/uL Sodium (137-145) mmol/L BUN (9-20) mg/dL Glucose (74-99) mg/dL POC Glucose (mg/dL) 160 H 168 H 168 H (70-110) mg/dL Total Protein (6.3-8.2) g/dL Albumin (3.5-5.0) g/dL 09/24/24 09/24/24 09/24/24 Range/Units 16:43 17:05 18:28 WBC (4.50-10.00) 10*3/uL RBC (4.40-5.60) 10*6/uL Hgb (13.0-17.0) g/dL Hct (39.6-50.0) % MCH (27.0-32.0) pg Neutrophils # (1.80-7.70) 10*3/uL Monocytes # (0.20-1.00) 10*3/uL Eosinophils # (0.04-0.35) 10*3/uL Sodium 131 L (137-145) mmol/L BUN 25 H (9-20) mg/dL Glucose 161 H (74-99) mg/dL POC Glucose (mg/dL) 134 H 191 H (70-110) mg/dL Total Protein 5.4 L (6.3-8.2) g/dL Albumin 3.3 L (3.5-5.0) g/dL 09/24/24 09/24/24 09/24/24 Range/Units 19:54 21:12 22:04 WBC (4.50-10.00) 10*3/uL RBC (4.40-5.60) 10*6/uL Hgb (13.0-17.0) g/dL Hct (39.6-50.0) % MCH (27.0-32.0) pg Neutrophils # (1.80-7.70) 10*3/uL Monocytes # (0.20-1.00) 10*3/uL Eosinophils # (0.04-0.35) 10*3/uL Sodium (137-145) mmol/L BUN (9-20) mg/dL Glucose (74-99) mg/dL POC Glucose (mg/dL) 135 H 114 H 118 H (70-110) mg/dL Total Protein (6.3-8.2) g/dL Albumin (3.5-5.0) g/dL 09/24/24 09/24/24 09/25/24 Range/Units 23:00 23:57 01:06 WBC (4.50-10.00) 10*3/uL RBC (4.40-5.60) 10*6/uL Hgb (13.0-17.0) g/dL Hct (39.6-50.0) % MCH (27.0-32.0) pg Neutrophils # (1.80-7.70) 10*3/uL Monocytes # (0.20-1.00) 10*3/uL Eosinophils # (0.04-0.35) 10*3/uL Sodium (137-145) mmol/L BUN (9-20) mg/dL Glucose (74-99) mg/dL POC Glucose (mg/dL) 126 H 134 H 129 H (70-110) mg/dL Total Protein (6.3-8.2) g/dL Albumin (3.5-5.0) g/dL 09/25/24 09/25/24 09/25/24 Range/Units 01:56 03:01 03:26 WBC 11.27 H (4.50-10.00) 10*3/uL RBC 2.75 L (4.40-5.60) 10*6/uL Hgb 8.9 L (13.0-17.0) g/dL Hct 26.6 L (39.6-50.0) % MCH 32.4 H (27.0-32.0) pg Neutrophils # 8.59 H (1.80-7.70) 10*3/uL Monocytes # 1.49 H (0.20-1.00) 10*3/uL Eosinophils # 0.02 L (0.04-0.35) 10*3/uL Sodium (137-145) mmol/L BUN (9-20) mg/dL Glucose (74-99) mg/dL POC Glucose (mg/dL) 122 H 119 H (70-110) mg/dL Total Protein (6.3-8.2) g/dL Albumin (3.5-5.0) g/dL 09/25/24 09/25/24 09/25/24 Range/Units 03:26 04:25 05:28 WBC (4.50-10.00) 10*3/uL RBC (4.40-5.60) 10*6/uL Hgb (13.0-17.0) g/dL Hct (39.6-50.0) % MCH (27.0-32.0) pg Neutrophils # (1.80-7.70) 10*3/uL Monocytes # (0.20-1.00) 10*3/uL Eosinophils # (0.04-0.35) 10*3/uL Sodium 131 L (137-145) mmol/L BUN 27 H (9-20) mg/dL Glucose 109 H (74-99) mg/dL POC Glucose (mg/dL) 132 H 133 H (70-110) mg/dL Total Protein 5.2 L (6.3-8.2) g/dL Albumin 3.2 L (3.5-5.0) g/dL 09/25/24 09/25/24 09/25/24 Range/Units 06:14 07:00 08:03 WBC (4.50-10.00) 10*3/uL RBC (4.40-5.60) 10*6/uL Hgb (13.0-17.0) g/dL Hct (39.6-50.0) % MCH (27.0-32.0) pg Neutrophils # (1.80-7.70) 10*3/uL Monocytes # (0.20-1.00) 10*3/uL Eosinophils # (0.04-0.35) 10*3/uL Sodium (137-145) mmol/L BUN (9-20) mg/dL Glucose (74-99) mg/dL POC Glucose (mg/dL) 128 H 144 H 176 H (70-110) mg/dL Total Protein (6.3-8.2) g/dL Albumin (3.5-5.0) g/dL 09/25/24 09/25/24 Range/Units 09:25 10:02 WBC (4.50-10.00) 10*3/uL RBC (4.40-5.60) 10*6/uL Hgb (13.0-17.0) g/dL Hct (39.6-50.0) % MCH (27.0-32.0) pg Neutrophils # (1.80-7.70) 10*3/uL Monocytes # (0.20-1.00) 10*3/uL Eosinophils # (0.04-0.35) 10*3/uL Sodium (137-145) mmol/L BUN (9-20) mg/dL Glucose (74-99) mg/dL POC Glucose (mg/dL) 127 H 120 H (70-110) mg/dL Total Protein (6.3-8.2) g/dL Albumin (3.5-5.0) g/dL
[2024-09-25 11:07] LABS: Glucose,Whole Blood 114 mg/dL (70-110)
[2024-09-25 11:10] VITALS: BMI 30.7
[2024-09-25 11:32] LABS: INR 1.1 (<1.2); Prothrombin Time 11.5 sec (10.0-12.5)
[2024-09-25] MEDS: INSULIN LISPRO (HumaLOG) 100 UNIT/ML 10 mL VL SQ SCH (14:23)
[2024-09-25 16:36] LABS: Glucose,Whole Blood 146 mg/dL (70-110)
[2024-09-25 19:37] LABS: Glucose,Whole Blood 122 mg/dL (70-110)
[2024-09-25] MEDS: QUEtiapine 25 MG TAB PO STA (22:00)
[2024-09-26 05:50] LABS: Basophils # (A) 0.02 10*3/uL (0.00-0.10); Basophils % (A) 0.2 %; HCT 26.6 % (39.6-50.0); Lymphocytes % (A) 9.7 %; MCHC 33.8 g/dL (32.0-37.0); MCV 97.4 fL (80.0-97.0); Mean Platelet Volume 10.4 fL (9.5-12.2); Monocytes # (A) 1.25 10*3/uL (0.20-1.00); Monocytes % (A) 12.2 %; Neutrophils # (A) 7.84 10*3/uL (1.80-7.70); Neutrophils % (A) 76.3 %; Platelet Count 140 10*3/uL (140-440); RBC 2.73 10*6/uL (4.40-5.60); RDW 13.4 % (11.5-14.5); WBC 10.27 10*3/uL (4.50-10.00)
[2024-09-26 06:00] LABS: Glucose,Whole Blood 149 mg/dL (70-110)
[2024-09-26 06:16] LABS: ALT 15 U/L (4-49); AST 40 U/L (17-59); African American GFR (CKD) 79 (>60 ml/min/1.73 sqM); Albumin 3.1 g/dL (3.5-5.0); Alkaline Phosphatase 58 U/L (38-126); Anion Gap 9 mmol/L; Blood Urea Nitrogen 24 mg/dL (9-20); Calcium 8.7 mg/dL (8.4-10.2); Carbon Dioxide 24 mmol/L (22-30); Chloride 101 mmol/L (98-107); Glucose 131 mg/dL (74-99); Magnesium 2.1 mg/dL (1.6-2.3); Non-African American GFR(CKD) 69 (>60 ml/min/1.73 sqM); Potassium 4.2 mmol/L (3.5-5.1); Sodium 134 mmol/L (137-145); Total Bilirubin 1.1 mg/dL (0.2-1.3); Total Protein 5.2 g/dL (6.3-8.2)
--- NOTE | 2024-09-26 08:42 | XR ---
EXAMINATION TYPE: XR chest 1V portable DATE OF EXAM: 09/26/2024 5:33 AM COMPARISON: 09/25/2024 CLINICAL INDICATION: Male, 69 years old with history of Postoperative cardiac surgery, TECHNIQUE: XR chest 1V portable view(s) obtained. FINDINGS: The heart size is prominent. Sternotomy wires are present from cardiac valve surgery. The pulmonary vasculature is normal. The lungs are clear. Left-sided chest tube is present. Small left apical pneumothorax is present. Sheath is present on th e right. IMPRESSION: 1. Interval development of small left apical pneumothorax. A Red level critical message alert has been initiated for Nestor Presley MD via the [employer] on 09/26/2024 8:40 AM. This message alert has been sent to Nestor Presley MD via t [employer] preferences provided by the clinician for the receipt of Radiology Critical Findings. Message ID [id number]. [facility], , 09/26/2024 8:40 AM
--- NOTE | 2024-09-26 09:02 | P.PN ---
Subjective Progress Note Date: 09/26/24 Principal diagnosis: Critical aortic stenosis. Medical history significant for hypertension, hyperlipidemia, renal cell tumor, asthma, CVA/TIA, chronic back pain/spondylitis and remote history of nicotine dependence quit smoking in 1986. POD #3 aortic valve replacement using a 23 mm Rosa Inspiris bioprosthetic valve, ligation of left atrial appendage using a 35mm Atriclip, epiaortic ultrasound, intraoperative transesophageal echocardiogram. Postoperative acute blood loss anemia, expected given hemodilution and cardiopulmonary bypass. Underlying complete heart block, unexpected but potential complication of any valve surgery. The patient was seen and examined in follow-up today September 26, 2024 at his bedside in the intensive care unit. He is currently sitting up to the bedside chair, is awake, alert, and oriented x 3. He is having episodes of confusion and is donald ving episodes of being impulsive. He denies any complaints of shortness of breath or pain at this time. Oxygen saturations are 95% on room air and he is achieving 1500 mL on his incentive spirometry with encouragement. Bedside telemetry is showing ventricular paced rhythm, on DDD mode, underlying rhythm is third-degree heart block heart rate in the 30s. Right IJ cordis remains in place with current CVP pressure 6 mmHg. He remains hemodynamically stable and is currently on no inotropic or pressor support. Left pleural chest tube is in place to low continuous wall suction -20 cm H2O. No airleak is present. Draining thin serosanguineous drainage with 130 mL output in the last 8 hours an d 240 mL output in the last 24 hours. He has been up ambulating in the intensive care unit hallway with standby assistance nursing and therapy staff and tolerating well. Chest x-ray and laboratory results were reviewed. Objective - Vital Signs Vital signs: Vital Signs Temp 98.7 F 09/26/24 00:00 Pulse 101 H 09/26/24 07:00 Resp 24 09/26/24 07:00 BP 98/63 09/26/24 07:00 Pulse Ox 95 09/26/24 07:00 FiO2 50 09/23/24 16:50 Intake & Output 09/25/24 09/26/24 09/26/24 18:59 06:59 18:59 Intake Total 1181.852 796 543 Output Total 530 1710 0 Balance 651.852 -914 543 Weight 89 kg 88.6 kg Intake: IV 331 276 23 Pressure Bags 51 36 3 Sodium Chloride 0.9% 1, 280 240 20 000 ml @ 20 mls/hr IV . Q24H [facility] Rx#:[id number] Intake, IV Titration 12.852 Amount Insulin Regular 100 unit 12.852 In Sodium Chloride 0.9% 100 ml @ Per Protocol IV .Q0M [facility]OT Rx#:[id number] Oral 838 520 520 Output: Chest Tube Drainage 160 160 0 Left Pleural 140 160 0 Mediastinal 20 Urine 370 1550 0 Other: Voiding Method Indwelling Catheter Indwelling Catheter # Voids 1 1 ABP, PAP, CO, CI - Last Documented Arterial Blood Pressure 145/64 Pulmonary Artery Pressure 27/12 Cardiac Output 6.3 Cardiac Index 3.2 - Exam CONSTITUTIONAL: Sitting up to the bedside chair in the intensive care unit, appears comfortable, cooperative, no apparent acute distress. HEENT: Neck is supple, no JVD, no lymphadenopathy. Right IJ Cordis in place and functioning. RESPIRATORY: Lungs sounds essentially clear throughout, diminished to his bilateral bases. Respirations are symmetrical and nonlabored. Currently on room air with oxygen saturations 95%. Able to achieve 1500 mL on his incentive spirometry. Strong cough. CARDIOVASCULAR: Regular rhythm and rate. S1 and S2 present, negative for S3, gallop or murmur. Bedside telemetry is showing paced rhythm heart rate 93 bpm, underlying rhythm is showing third-degree heart block heart rate 30s bpm. S ternum is stable. Palpable peripheral pulses bilaterally. No calf pain or tenderness noted. Heart hugger in place with patient demonstrating appropriate use. Knee-high CHARI hose and sequential compression devices in place to his bilateral lower extremities. GASTROINTESTINAL: Abdomen soft, nontender, nondistended. Active bowel sounds present 4 quadrants. Tolerating diet. Passing flatus. No guarding or rigidity. GENITOURINARY: Continues to void. Urine output 1000 mL in the last 8 hours. INTEGUMENTARY: Skin is warm and dry with no evidence of clubbing or cyanosis. Midline sternal incision clean dry and well approximated, covered with dry intact dressing. NEUROLOGIC: Cranial nerves II through XII intact. No focal deficits. MUSKULOSKELETAL: Able to move all extremities, strength equal bilaterally, generalized weakness. PSYCHIATRIC: Alert and oriented to person place and time, appropriate affect, intact judgment and insight. INVASIVE LINES AND TUBES: Left pleural chest tubes remain in place to low continuous wall suction -20 cm H2O. No airleak is present. Draining thin serosanguineous drainage. Left pleural chest tube drained 130 mL output in the last 8 hours and 240 mL output in the last 24 hours. Atrial and ventricular epicardial pacemaker wires present, connected to generator, DDD mode heart rate 70 bpm. Right internal jugular Cordis present. Current CVP 6 mmHg. - Allied health notes Allied health notes reviewed: nursing - Labs CBC & Chem 7: 09/26/24 05:30 09/26/24 05:30 Labs: Abnormal Lab Results - Last 24 Hours (Table) 09/25/24 09/25/24 09/25/24 Range/Units 08:03 09:25 10:02 WBC (4.50-10.00) 10*3/uL RBC (4.40-5.60) 10*6/uL Hgb (13.0-17.0) g/dL Hct (39.6-50.0) % MCV (80.0-97.0) fL MCH (27.0-32.0) pg Immature Gran # (0.00-0.04) 10*3/uL Neutrophils # (1.80-7.70) 10*3/uL Monocytes # (0.20-1.00) 10*3/uL Sodium (137-145) mmol/L BUN (9-20) mg/dL Glucose (74-99) mg/dL POC Glucose (mg/dL) 176 H 127 H 120 H (70-110) mg/dL Total Protein (6.3-8.2) g/dL Albumin (3.5-5.0) g/dL 09/25/24 09/25/24 09/25/24 Range/Units 11:06 16:35 19:36 WBC (4.50-10.00) 10*3/uL RBC (4.40-5.60) 10*6/uL Hgb (13.0-17.0) g/dL Hct (39.6-50.0) % MCV (80.0-97.0) fL MCH (27.0-32.0) pg Immature Gran # (0.00-0.04) 10*3/uL Neutrophils # (1.80-7.70) 10*3/uL Monocytes # (0.20-1.00) 10*3/uL Sodium (137-145) mmol/L BUN (9-20) mg/dL Glucose (74-99) mg/dL POC Glucose (mg/dL) 114 H 146 H 122 H (70-110) mg/dL Total Protein (6.3-8.2) g/dL Albumin (3.5-5.0) g/dL 09/26/24 09/26/24 09/26/24 Range/Units 05:30 05:30 05:59 WBC 10.27 H (4.50-10.00) 10*3/uL RBC 2.73 L (4.40-5.60) 10*6/uL Hgb 9.0 L (13.0-17.0) g/dL Hct 26.6 L (39.6-50.0) % MCV 97.4 H (80.0-97.0) fL MCH 33.0 H (27.0-32.0) pg Immature Gran # 0.06 H (0.00-0.04) 10*3/uL Neutrophils # 7.84 H (1.80-7.70) 10*3/uL Monocytes # 1.25 H (0.20-1.00) 10*3/uL Sodium 134 L (137-145) mmol/L BUN 24 H (9-20) mg/dL Glucose 131 H (74-99) mg/dL POC Glucose (mg/dL) 149 H (70-110) mg/dL Total Protein 5.2 L (6.3-8.2) g/dL Albumin 3.1 L (3.5-5.0) g/dL - Imaging and Cardiology Chest x-ray: report reviewed, image reviewed Assessment and Plan Assessment: Critical aortic stenosis, status post aortic valve replacement with a 23 mm Inspiris bioprosthetic valve Underlying complete heart block, unexpected but potential complication of any valve surgery Hypertension Hyperlipidemia, treated Asthma History of TIA with no residual deficits, on Brilinta as an outpatient GERD History of renal cell tumor Chronic back pain/spondylitis Remote history of nicotine dependence quit smoking in 1986 Plan: Continue to maximize medical therapy with aspirin, statin, and Plavix. Will continue to hold his beta-sabas and amiodarone at this time, he is pacer dependent with an underlying rhythm of complete heart block heart rate in the 30s. Dr. Cho is planning for permanent pacemaker placement tomorrow September 26, 2024. Encourage use of incentive spirometry 10 times every hour while awake. Continue home dose of Singulair. Bronchodilator management per pulmonary/critical care medicine. Once extubated increase activity as tolerated, PT/OT/cardiac rehab following. Will monitor daily labs and chest x-rays. Electrolyte replacement per protocol. GI/DVT prophylaxis. Insulin management per internal medicine. Preoperative hemoglobin A1c 6.0%. Pain control per current medication regimen. Avoid opioids due to patient's episodes of confusion. We remove his right IJ cordis. We will discontinue his left pleural chest tube. Remove Pickard catheter, continue to monitor record strict accurate intake and output. May bladder scan every 6 hours and as needed postvoid residuals, if greater than 300 mL of urine PVR may straight cath. More recommendations to follow based on patient's clinical course. Time with Patient: Greater than 30
[2024-09-26] MEDS: VANCOMYCIN 1,000 MG in SODIUM CHLORIDE 0.9% 250 ML IVPB STA (09:42)
--- NOTE | 2024-09-26 09:56 | P.PN ---
Subjective HISTORY OF PRESENT ILLNESS: This is a 69-year-old male with a past medical history significant for hypertension, hyperlipidemia, TIA, renal cell tumor, and GERD. Patient follows in the office with Dr. Allen. We have been asked to see the patient in consultation for postcardiac surgery. Patient examined at the bedside in the intensive care unit. Patient is status post bioprosthetic aortic valve replacement. Postop day #1. Patient is sitting up in the chair. Patient currently denies chest pain or pressure. He denies shortness of breath. Patient remains on IV fluids and insulin drip. Patient is currently pacemaker dependent. 09/25/2024 Patient examined this morning in the intensive care unit. Patient is sitting up in the chair. Patient remains on IV fluids and insulin. Patient remains pacemaker dependent. 09/26/2024 Patient examined this morning at the bedside. Patient without complaints of chest pain or shortness of breath. Patient's chest tubes are being discontinued this morning. He remains pacemaker dependent. PHYSICAL EXAM: VITAL SIGNS: Reviewed. GENERAL: Well-developed in no acute distress. HEENT: Head is normocephalic. Pupils are equal, round. Sclerae anicteric. Mucous membranes of the mouth are moist. Neck supple. No JVD or thyromegaly LUNGS: Respirations even and unlabored. Lungs essentially clear to auscultation bilaterally. HEART: Regular rate and rhythm. S1 and S2 heard. Chest tubes noted. Patient with epicardial pacemaker wires connected to pacer. ABDOMEN: Soft. Nondistended. Nontender. EXTREMITIES: Normal range of motion. No clubbing or cyanosis. Peripheral pulses intact. No lower extremity edema NEUROLOGIC: Awake and alert. Oriented x 3. ASSESSMENT: Quadricuspid severe aortic stenosis, status post bioprosthetic aortic valve replacement Pacemaker dependent with underlying complete heart block Normal coronary arteries, per cardiac catheterization 08/05/2024 History of hypertension History of hyperlipidemia History of TIA, Brilinta outpatient History of renal cell tumor History of GERD PLAN: Continue postoperative management per CT surgery Continue to hold beta-sabas and amiodarone at this time as patient is pacer dependent Continue to monitor telemetry Encourage use of incentive spirometer Patient to undergo permanent pacemaker implantation today with Dr. Cho Further recommendations pending patient course Nurse practitioner note has been reviewed by physician. Signing provider agrees with the documented findings, assessment, and plan of care documented by GARNETTER as a scribe. Objective - Vital Signs Vital signs: Vital Signs Temp 97.7 F 09/26/24 08:00 Pulse 82 09/26/24 09:00 Resp 20 09/26/24 09:00 BP 124/78 09/26/24 09:00 Pulse Ox 97 09/26/24 09:00 FiO2 50 09/23/24 16:50 Intake & Output 09/25/24 09/26/24 09/26/24 18:59 06:59 18:59 Intake Total 1181.852 796 589 Output Total 530 1710 200 Balance 651.852 -914 389 Weight 89 kg 88.6 kg Intake: IV 331 276 69 Pressure Bags 51 36 9 Sodium Chloride 0.9% 1, 280 240 60 000 ml @ 20 mls/hr IV . Q24H [facility] Rx#:[id number] Intake, IV Titration 12.852 Amount Insulin Regular 100 unit 12.852 In Sodium Chloride 0.9% 100 ml @ Per Protocol IV .Q0M [facility] Rx#:[id number] Oral 838 520 520 Output: Chest Tube Drainage 160 160 0 Left Pleural 140 160 0 Mediastinal 20 Urine 370 1550 200 Other: Voiding Method Indwelling Catheter Indwelling Catheter # Voids 1 1 1 ABP, PAP, CO, CI - Last Documented Arterial Blood Pressure 145/64 Pulmonary Artery Pressure 27/12 Cardiac Output 6.3 Cardiac Index 3.2 - Labs CBC & Chem 7: 09/26/24 05:30 09/26/24 05:30 Labs: Abnormal Lab Results - Last 24 Hours (Table) 09/25/24 09/25/24 09/25/24 Range/Units 10:02 11:06 16:35 WBC (4.50-10.00) 10*3/uL RBC (4.40-5.60) 10*6/uL Hgb (13.0-17.0) g/dL Hct (39.6-50.0) % MCV (80.0-97.0) fL MCH (27.0-32.0) pg Immature Gran # (0.00-0.04) 10*3/uL Neutrophils # (1.80-7.70) 10*3/uL Monocytes # (0.20-1.00) 10*3/uL Sodium (137-145) mmol/L BUN (9-20) mg/dL Glucose (74-99) mg/dL POC Glucose (mg/dL) 120 H 114 H 146 H (70-110) mg/dL Total Protein (6.3-8.2) g/dL Albumin (3.5-5.0) g/dL 09/25/24 09/26/24 09/26/24 Range/Units 19:36 05:30 05:30 WBC 10.27 H (4.50-10.00) 10*3/uL RBC 2.73 L (4.40-5.60) 10*6/uL Hgb 9.0 L (13.0-17.0) g/dL Hct 26.6 L (39.6-50.0) % MCV 97.4 H (80.0-97.0) fL MCH 33.0 H (27.0-32.0) pg Immature Gran # 0.06 H (0.00-0.04) 10*3/uL Neutrophils # 7.84 H (1.80-7.70) 10*3/uL Monocytes # 1.25 H (0.20-1.00) 10*3/uL Sodium 134 L (137-145) mmol/L BUN 24 H (9-20) mg/dL Glucose 131 H (74-99) mg/dL POC Glucose (mg/dL) 122 H (70-110) mg/dL Total Protein 5.2 L (6.3-8.2) g/dL Albumin 3.1 L (3.5-5.0) g/dL 09/26/24 Range/Units 05:59 WBC (4.50-10.00) 10*3/uL RBC (4.40-5.60) 10*6/uL Hgb (13.0-17.0) g/dL Hct (39.6-50.0) % MCV (80.0-97.0) fL MCH (27.0-32.0) pg Immature Gran # (0.00-0.04) 10*3/uL Neutrophils # (1.80-7.70) 10*3/uL Monocytes # (0.20-1.00) 10*3/uL Sodium (137-145) mmol/L BUN (9-20) mg/dL Glucose (74-99) mg/dL POC Glucose (mg/dL) 149 H (70-110) mg/dL Total Protein (6.3-8.2) g/dL Albumin (3.5-5.0) g/dL
--- NOTE | 2024-09-26 10:01 | P.PN ---
Subjective Progress Note Date: 09/26/24 HISTORY OF PRESENT ILLNESS: This is a 69-year-old male with a previous medical history significant for hyperlipidemia, GERD with esophagitis, vitamin D deficiency, recurrent TIA on dual antiplatelet therapy, who recently underwent left heart catheterization that showed normal coronary arteries with severe aortic valve stenosis followed by transesophageal echocardiogram which confirmed severe aortic valve stenosis with a valve surface area of 0.5, patient underwent aortic valve replacement t hat was done by Dr. Presley and we were asked to see the patient for postoperative medical management. On the ventilator, currently in degree Van drip at 30 micg, he has been on albumin as well as IV fluid resuscitation, he has very good urine output at least 100 cc an hour, we will is currently on the ventilator with a tidal volume of 450 respiratory rate of 18 FiO2 50%, his oxygenation is 98%, they will continue with the weaning parameter, chest x-ray appears to be good, blood gases appears to be good, we will try to wean the patient off the ventilator later on this afternoon. 09/24: Patient sitting up in the chair, he was extubated successfully yesterday, he denies any significant pain, he does complain of some soreness in the chest where the incision is, he continues to have a chest tube in place, he continues to have a Cordis catheter in the right internal jugular vein, this was probably coming out today, continue this at his primary, continue current pain management, continue to follow-up with the patient very closely. 09/25: Patient sitting up in chair in no apparent distress, he is feeling better today, he denies any chest pain, shortness of breath, he continues to feel bett er continue current treatment plan, continue to increase activity, continue incentive spirometer, follow-up with laboratory evaluation, underlying rhythm is third-degree AV block, he is scheduled to go for permanent restriction placement tomorrow morning, follow-up with the patient very closely. Discontinue insulin drip, start the patient on sliding scale insulin, continue other treatment plan 09/26: Patient is laying down in bed in no apparent distress, he is scheduled to go for permanent pacemaker placement due to underlying rhythm with complete heart block, patient appears to be hemodynamically stable at this point in time, currently has a pacer wire in place, when the chest tube was removed, right internal jugular cordis will be removed as well, will follow-up with the patient very closely, keep the patient in ICU overnight, recheck the patient chest x-ray after the procedure and tomorrow morning. REVIEW OF SYSTEMS: Constitutional: No documented fever, no chills, no night sweats. No weight change. No weakness, fatigue or lethargy. No daytime sleepiness. HEENT: No headache. No blurred vision or double vision, no loss of vision. No loss of Hearing, no ringing in the ears, no dizziness. No nasal drainage or congestion. No epistaxis. No sore throat. Lungs: No shortness of breath, no cough, no sputum production. No wheezing. Reports dry nose not able to breathe through the nose Cardiovascular: no chest pain, minimal lower extremity edema. No palpitations. No paroxysmal nocturnal dyspnea. No orthopnea. No lightheadedness or dizziness. No syncopal episodes. Abdominal: Reports no abdominal pain. No nausea, vomiting. No diarrhea. No constipation. No bloody or tarry stools reports loss of appetite. Passing gas. Genitourinary: No dysuria, increased frequency, urgency, Pickard catheter is in place Musculoskeletal: No myalgias. No muscle weakness, no gait dysfunction, no frequent falls. No back pain. positive for neck pain, Integumentary: No wounds, no lesions. No rash or pruritus. No unusual bruising. No change in hair or nails. Neurologic: No aphasia. No facial droop. No change in mentation. No head injury. No headache. No paralysis. No paresthesia. Psychiatric: No depression. Positive for anxiety. No mood swings. Endocrine: Positive abnormal blood sugars. No weight change. PHYSICAL EXAMINATION: General: 69-year-old male sitting up in a chair in no apparent distress HEENT: Head is atraumatic, normocephalic, pupils were equal round, reactive to light and accommodation, extraocular movement were intact mucous membranes of mouth are somewhat dry, Neck: Supple, no JVP, normal carotid upstroke bilaterally, no lymphadenopathy . Chest: Decreased breath sounds at the bases, few rhonchi, no expiratory wheezes, there is 1 chest tube will be removed later on, and pacer wires Heart: First heart sound is normal, second heart sounds normal there is no murmur positive for S3. Abdomen: Soft, nontender, nondistended, depressed bowel sounds , Extremities: There is no edema no calf tenderness DP +2 bilaterally, bilateral k nee-high CHARI hose/SCDs Neurologic examination: Patient is awake alert and oriented x 3, cranial nerves III to XII appear gross intact, muscle power 4 out of 5 in upper lower extremities bilaterally ASSESSMENT AND PLAN: 1. Acute vent dependent respiratory failure status post aortic valve replace ment status post extubation continue aggressive pulmonary toileting, continue DuoNeb 3 manipulation 4 times every day, continue oxygen support, he is currently on 2 L nasal cannula, continue current pain management, incentive spirometer to be utilized, increase activity, start the patient on clear liquid diet, follow-up with the patient very closely, patient was taken off metoprolol due to third-degree AV block, continue aspirin 81 mg once every day, Plavix 75 mg once every day, monitor the patient blood pressure very closely 2. Hypertension and hypertensive cardiovascular disease. Continue hydralazine 10 mg p.o. every 4 hours as needed, was taken off beta-blockers due to third- degree AV block, he scheduled to go for permanent pacemaker placement tomorrow morning 3. Mixed hyperlipidemia. Continue patient on atorvastatin 80 mg orally once every day, continue Zetia 10 mg once every day monitor lipid panel, keep LDL 55- 70. 4. GERD with esophagitis. Continue pantoprazole 40 mg IV push every 24 hours. 5. Vitamin D deficiency continue vitamin D3 1000 units once every day. 6. Spondylosis of the cervical spine. Continue current pain management. 7. History of recurrent TIAs in the past, continue aspirin 325 mg once every day, Plavix 75 mg once every day, continue atorvastatin 80 mg once every day along with Zetia 10 mg once every day. 8. Acute blood loss anemia monitor the patient CBC very closely keep hemoglobin greater than 8 at all of the time. 9. DVT prophylaxis. Continue patient on bilateral knee-high CHARI hose as well as bilateral SCDs. Continue heparin 5000 units subcutaneously every 8 hours 10. GI prophylaxis. Continue Protonix 40 mg IV push over 24 hours. 11. Allergic rhinitis. Start the patient on montelukast 10 mg at bedtime, continue with humidified oxygen, follow-up with the patient very closely 12. Postoperative hyperglycemia. Discontinue standard, start the patient insulin sliding scale insulin 13. Third-degree AV block likely related to surgical intervention, beta-sabas discontinued, patient is scheduled to go for permanent pacemaker placement today at 1:00 14. mild confusion discontinue Seroquel avoid benzodiazepine, may use melatonin 3 mg at bedtime 15. We will follow the patient with you Objective - Vital Signs Vital signs: Vital Signs Temp 98.7 F 09/26/24 00:00 Pulse 101 H 09/26/24 07:00 Resp 24 09/26/24 07:00 BP 98/63 09/26/24 07:00 Pulse Ox 95 09/26/24 07:00 FiO2 50 09/23/24 16:50 Intake & Output 09/25/24 09/26/24 09/26/24 18:59 06:59 18:59 Intake Total 1181.852 796 543 Output Total 530 1710 0 Balance 651.852 -914 543 Weight 89 kg 88.6 kg Intake: IV 331 276 23 Pressure Bags 51 36 3 Sodium Chloride 0.9% 1, 280 240 20 000 ml @ 20 mls/hr IV . Q24H [facility] Rx#:[id number] Intake, IV Titration 12.852 Amount Insulin Regular 100 unit 12.852 In Sodium Chloride 0.9% 100 ml @ Per Protocol IV .Q0M [facility] Rx#:[id number] Oral 838 520 520 Output: Chest Tube Drainage 160 160 0 Left Pleural 140 160 0 Mediastinal 20 Urine 370 1550 0 Other: Voiding Method Indwelling Catheter Indwelling Catheter # Voids 1 1 ABP, PAP, CO, CI - Last Documented Arterial Blood Pressure 145/64 Pulmonary Artery Pressure 27/12 Cardiac Output 6.3 Cardiac Index 3.2 - Labs CBC & Chem 7: 09/26/24 05:30 09/26/24 05:30 Labs: Abnormal Lab Results - Last 24 Hours (Table) 09/25/24 09/25/24 09/25/24 Range/Units 08:03 09:25 10:02 WBC (4.50-10.00) 10*3/uL RBC (4.40-5.60) 10*6/uL Hgb (13.0-17.0) g/dL Hct (39.6-50.0) % MCV (80.0-97.0) fL MCH (27.0-32.0) pg Immature Gran # (0.00-0.04) 10*3/uL Neutrophils # (1.80-7.70) 10*3/uL Monocytes # (0.20-1.00) 10*3/uL Sodium (137-145) mmol/L BUN (9-20) mg/dL Glucose (74-99) mg/dL POC Glucose (mg/dL) 176 H 127 H 120 H (70-110) mg/dL Total Protein (6.3-8.2) g/dL Albumin (3.5-5.0) g/dL 09/25/24 09/25/24 09/25/24 Range/Units 11:06 16:35 19:36 WBC (4.50-10.00) 10*3/uL RBC (4.40-5.60) 10*6/uL Hgb (13.0-17.0) g/dL Hct (39.6-50.0) % MCV (80.0-97.0) fL MCH (27.0-32.0) pg Immature Gran # (0.00-0.04) 10*3/uL Neutrophils # (1.80-7.70) 10*3/uL Monocytes # (0.20-1.00) 10*3/uL Sodium (137-145) mmol/L BUN (9-20) mg/dL Glucose (74-99) mg/dL POC Glucose (mg/dL) 114 H 146 H 122 H (70-110) mg/dL Total Protein (6.3-8.2) g/dL Albumin (3.5-5.0) g/dL 09/26/24 09/26/24 09/26/24 Range/Units 05:30 05:30 05:59 WBC 10.27 H (4.50-10.00) 10*3/uL RBC 2.73 L (4.40-5.60) 10*6/uL Hgb 9.0 L (13.0-17.0) g/dL Hct 26.6 L (39.6-50.0) % MCV 97.4 H (80.0-97.0) fL MCH 33.0 H (27.0-32.0) pg Immature Gran # 0.06 H (0.00-0.04) 10*3/uL Neutrophils # 7.84 H (1.80-7.70) 10*3/uL Monocytes # 1.25 H (0.20-1.00) 10*3/uL Sodium 134 L (137-145) mmol/L BUN 24 H (9-20) mg/dL Glucose 131 H (74-99) mg/dL POC Glucose (mg/dL) 149 H (70-110) mg/dL Total Protein 5.2 L (6.3-8.2) g/dL Albumin 3.1 L (3.5-5.0) g/dL
--- NOTE | 2024-09-26 10:31 | P.PN ---
Subjective Progress Note Date: 09/26/24 Principal diagnosis: (Status post aortic valve replacement) This is a 69-year-old white male with history of severe aortic stenosis with bicuspid aortic valve, has been following up with Dr. Cristina for quite some time. Patient had recent echocardiogram that showed worsening severe aortic valve stenosis. Patient had no shortness of breath, no chest pain, no lightheadedness or dizziness, no syncopal episodes. Recent transesophageal echo was done and confirmed severe aortic stenosis hence the patient underwent aortic valve replacement today. Postoperatively patient was in the ICU on mechanical ventilation, he is on assist-control rate of 14 tidal volume 450 FiO2 60% and I cut down to 50% and his PEEP was 5. Chest x-ray showed mostly postoperative changes, no acute process was noted. Cardiac output was 4.0, cardiac index 2.0. Patient is hemodynamically stable, not requiring any pressors and not requiring any inotropes. Plan to proceed with weaning in the next 2 hours. Patient was seen today on 09/24/2024,POD #1 aortic valve replacement using a 23 mm Rosa Inspiris bioprosthetic valve, ligation of left atrial appendage using a 35mm Atriclip, epiaortic ultrasound, intraoperative transesophageal echocardiogram. Patient was successfully extubated last night shortly after he arrived to the ICU, today the patient is doing well, achieving 1250 mL on his intensive spirometry. He was extubated at 5:38 PM yesterday. Today he is sitting at the bedside chair, not in distress, cardiac output is 4.9 cardiac index 2.5, PA pressure 30/11, CVP is 7 patient is not requiring any pressors or any inotropes. Chest x-ray showed that he continues to have left chest sided tubes and mediastinal tube, both on suction, no airleak, chest x-ray showed minimal atelectasis and postoperative changes, no acute processes noted. WBC count is 10.9 hemoglobin 10.3, basic metabolic profile is normal renal profile is normal Patient was seen today on 09/25/2024, he is now postoperative day #2, doing well, on room air, sitting at the bedside chair. Patient is alert and oriented x 3, does not seem to be in any distress, pain is fairly well-controlled, hemodynamically stable, not requiring any inotropes or any pressors, continues to have an underlying paced rhythm of third-degree AV block the plan is to eventually have a permanent pacemaker placement. This will be done tomorrow by Dr. Cho. Patient is achieving about 1250 cc on incentive spirometry, mediastinal and left pleural chest tubes remain in place, remain on suction. No airleak. Chest x-ray showed mostly postoperative changes and minimal atelectasis, expected. WBC count is 11.2 hemoglobin 8.9 basic metabolic profile is normal renal profile is normal Seen today on 09/26/2024, patient is now postoperative day #3, sitting at the bedside chair, does not seem to be in any distress. Patient is awake alert oriented x 3, he did have a bit of confusion last night, but that has resolved this morning. Achieving 1500 mL on incentive spirometry O2 sat is 95% on room air, patient continues to have ventricular paced rhythm on DDD mode underlying rhythm is a third-degree AV block, patient may undergo permanent pacemaker placement today by cardiology. Continues to have left pleural chest tube in place will likely be removed today. Patient has been ambulating with assistance. Chest x-ray this morning was reviewed there is extremely minimal left tiny apical pneumothorax. Not worrisome and I believe since the patient does not have air leak in the Pleur-evac, the chest tube could be removed. Objective - Vital Signs Vital signs: Vital Signs Temp 97.7 F 09/26/24 08:00 Pulse 86 09/26/24 10:00 Resp 18 09/26/24 10:00 BP 115/65 09/26/24 10:00 Pulse Ox 93 L 09/26/24 10:00 FiO2 50 09/23/24 16:50 Intake & Output 09/25/24 09/26/24 09/26/24 18:59 06:59 18:59 Intake Total 1181.852 796 589 Output Total 530 1710 200 Balance 651.852 -914 389 Weight 89 kg 88.6 kg Intake: IV 331 276 69 Pressure Bags 51 36 9 Sodium Chloride 0.9% 1, 280 240 60 000 ml @ 20 mls/hr IV . Q24H [facility] Rx#:[id number] Intake, IV Titration 12.852 Amount Insulin Regular 100 unit 12.852 In Sodium Chloride 0.9% 100 ml @ Per Protocol IV .Q0M [facility] Rx#:[id number] Oral 838 520 520 Output: Chest Tube Drainage 160 160 0 Left Pleural 140 160 0 Mediastinal 20 Urine 370 1550 200 Other: Voiding Method Indwelling Catheter Indwelling Catheter # Voids 1 1 1 ABP, PAP, CO, CI - Last Documented Arterial Blood Pressure 145/64 Pulmonary Artery Pressure 27/12 Cardiac Output 6.3 Cardiac Index 3.2 - Exam General: Revealed a 69-year-old white male in no distress sitting at the bedside chair, on room air Head: Atraumatic, normocephalic HEENT: PERRLA EOMI, nonicteric no neck masses no JVD Pulmonary: Good breath sound bilaterally left-sided pleural chest tube noted, Cardiac: Paced rhythm distant S1-S2, no S3 gallop, 2/6 systolic murmur throughout the precordium Abdomen obese soft nontender no MAG no rebound no guarding Extremities: Trace of edema no clubbing no cyanosis. Neurologic: Alert and oriented x 3 no gross focal neurologic deficits Psychiatric: Normal mood, affect and no mental status examination Skin: No rashes - Labs CBC & Chem 7: 09/26/24 05:30 09/26/24 05:30 Labs: Abnormal Lab Results - Last 24 Hours (Table) 09/25/24 09/25/24 09/25/24 Range/Units 11:06 16:35 19:36 WBC (4.50-10.00) 10*3/uL RBC (4.40-5.60) 10*6/uL Hgb (13.0-17.0) g/dL Hct (39.6-50.0) % MCV (80.0-97.0) fL MCH (27.0-32.0) pg Immature Gran # (0.00-0.04) 10*3/uL Neutrophils # (1.80-7.70) 10*3/uL Monocytes # (0.20-1.00) 10*3/uL Sodium (137-145) mmol/L BUN (9-20) mg/dL Glucose (74-99) mg/dL POC Glucose (mg/dL) 114 H 146 H 122 H (70-110) mg/dL Total Protein (6.3-8.2) g/dL Albumin (3.5-5.0) g/dL 09/26/24 09/26/24 09/26/24 Range/Units 05:30 05:30 05:59 WBC 10.27 H (4.50-10.00) 10*3/uL RBC 2.73 L (4.40-5.60) 10*6/uL Hgb 9.0 L (13.0-17.0) g/dL Hct 26.6 L (39.6-50.0) % MCV 97.4 H (80.0-97.0) fL MCH 33.0 H (27.0-32.0) pg Immature Gran # 0.06 H (0.00-0.04) 10*3/uL Neutrophils # 7.84 H (1.80-7.70) 10*3/uL Monocytes # 1.25 H (0.20-1.00) 10*3/uL Sodium 134 L (137-145) mmol/L BUN 24 H (9-20) mg/dL Glucose 131 H (74-99) mg/dL POC Glucose (mg/dL) 149 H (70-110) mg/dL Total Protein 5.2 L (6.3-8.2) g/dL Albumin 3.1 L (3.5-5.0) g/dL Assessment and Plan Assessment: Impression:POD #3 aortic valve replacement using a 23 mm Rosa Inspiris bioprosthetic valve, ligation of left atrial appendage using a 35mm Atriclip, epiaortic ultrasound, intraoperative transesophageal echocardiogram. Bicuspid aortic valve/severe aortic stenosis Benign essential hypertension Underlying paced rhythm is third-degree AV block, patient will require a permanent pacemaker implantation tomorrow Dyslipidemia History of renal cell tumor Ex-smoker quit in 1984 Postoperative atelectasis, and tiny left apical pneumothorax, expected Recommendation: Continue present supportive care measures Continue maximal medical therapy continue aspirin and statin as well as Plavix Continue incentive spirometry Continue to ambulate Patient may undergo permanent pacemaker implantation today Continue bronchodilators Chest x-ray and hemodynamics were reviewed Patient is progressing as expected Discussed his condition with thoracic surgery on the case. Will continue to follow Time with Patient: Less than 30
[2024-09-26 12:26] LABS: Glucose,Whole Blood 98 mg/dL (70-110)
[2024-09-26] MEDS ORDERED: fentaNYL (PF) 50 MCG/ML 2 ML AMP ONE (12:30)
[2024-09-26] MEDS ORDERED: MIDAZOLAM 2 MG/2 ML VIAL ONE (12:30)
[2024-09-26] MEDS: IV FLUID CONTINUATION 1,000 ML IV ONE (12:40)
[2024-09-26] MEDS: ceFAZolin 2 GM in DEXTROSE 5% IN WATER 50 ML IVPB PRN (13:01)
[2024-09-26] MEDS: ceFAZolin 1 GM in SODIUM CHLORIDE 0.9% IRRIG BTL 250 ML IRRIGATION PRN (13:01)
[2024-09-26] MEDS: IOPAMIDOL-370 100ML BTL IVP ONE (13:26)
[2024-09-26] MEDS: LIDOCAINE 1% INJ 10MG/ML (20 ML MDV) SQ ONE (13:26)
[2024-09-26] MEDS: ROPIVACAINE 5 MG/ML 30 ML VIAL MISCELLANE ONE (13:26)
[2024-09-26] MEDS ORDERED: ACETAMINOPHEN TAB 325 MG TAB PO PRN (14:41)
--- NOTE | 2024-09-26 14:47 | P.EPPROC ---
- EP Procedure Note Electrophysiology Procedure Note: Diagnosis Complete heart block status post AVR, no improvement. Procedure Dual-chamber pacemaker implantation with conduction system pacing (left bundle pacing) Left upper extremity venogram Details Patient was brought to the EP lab in a fasting state. Written informed consent was obtained prior to the procedure. Conscious sedation provided by [employer]EL[employer]. IV antibiotics administered. Local anesthesia administered. A 4 cm incision made in the pectoral area. Subfascial pocket made. Venous accesses obtained Venous sheaths placed. Leads placed in the right heart. Assessment of current of injury and signal analysis during left bundle pacing. A 52 cm atrial pacing lead was first positioned in the right atrial appendage and screwed in A deflected sheath was prepped. A coronary sinus decapolar catheter was placed within this sheath. The catheter along with the sheath was then passed into the right heart, the catheter was prolapsed across the tricuspid valve, into the right ventricle and then further into the right ventricular outflow tract across the pulmonic valve into the pulmonary artery. This sheath was slid over this decapolar catheter into the RVOT. Thereafter the catheter last sheath assembly was withdrawn from the RVOT along the septum to the mid septal area. The sheath was appropriately to to map the right ventricular aspect of the septum. The decapolar catheter was withdrawn, the sheath flushed again and the screw-in pacing lead placed within the sheath. Further detailed unipolar pace-mapping of the septum was performed and once the appropriate based morphology was obtained on lead V1, the lead was screwed into the septum. The lead was screwed in 4-5 returns at a time while monitoring the current of injury, the pacing impedance changes and the paced QRS morphology. The stimulus to peak of V6 QRS was measured at each step. Once a QR or rSR pattern of paced QRS in lead V1 was obtained, a left bundle signal was sought. Impedance was measured and thresholds were measured. An impedance drop of 100-200 ohms but above 550 ohms was targeted along with an unchanged vector of the current of injury signal. The final positioning was based on the QRS morphology in lead V1 and a short stimulus to peak of the V6 QRS of less than 90 ms. The sheath was withdrawn, stability of the pacing lead deep in the septum was confirmed on BAUER and KAZAKH views and the sheath was slipped and an adequate heel was provided for the lead. Unipolar and bipolar electrogram morphology obtained Atrial lead positioned in the right atrial appendage. Sensing, thresholds and impedances measured following positioning and securing the lead in the right atrial appendage Left bundle lead parameters: Unipolar paced QRS morphology right bundle branch block type, QRS width 125 ms, stimulus to peak activation 50 ms. Pacing impedance 551 ohms and pacing threshold 0.5 V at 0.4 ms unipolar Atrial lead parameters: Pace impedance 513 ohms, P waves 1 mV and pacing threshold 0.5 V at 0.4 ms Device veneer trimmer: [place] Dual-chamber pacemaker device connected to the leads and placed in the subfascial pocket Patient tolerated the procedure well without acute complications Pacemaker programming: DDD 60, AV delay 180/210 ms with rate adaptive AV pacing
[2024-09-26] MEDS: ACETAMINOPHEN IV (For NPO) 1,000 MG in EMPTY BAG 1 BAG IVPB ONE (15:23)
[2024-09-26] MEDS: METOPROLOL SUCCINATE (ER) 50 MG TAB.ER.24H PO SCH (15:24)
[2024-09-26] MEDS: ALPRAZolam 0.25 MG TAB PO STA (16:14)
[2024-09-26 16:24] LABS: Glucose,Whole Blood 152 mg/dL (70-110)
[2024-09-26] MEDS: ceFAZolin 2 GM in DEXTROSE 5% IN WATER 50 ML IVPB SCH (18:27)
[2024-09-26 19:34] LABS: Glucose,Whole Blood 247 mg/dL (70-110)
[2024-09-26] MEDS: MELATONIN 3 MG TABLET PO SCH (19:40)
[2024-09-27 03:39] LABS: Basophils # (A) 0.03 10*3/uL (0.00-0.10); Basophils % (A) 0.3 %; Eosinophils # (A) 0.33 10*3/uL (0.04-0.35); Eosinophils % (A) 3.8 %; HCT 24.8 % (39.6-50.0); HGB 8.1 g/dL (13.0-17.0); Lymphocytes # (A) 1.22 10*3/uL (0.90-5.00); Lymphocytes % (A) 14.1 %; MCH 32.3 pg (27.0-32.0); MCHC 32.7 g/dL (32.0-37.0); MCV 98.8 fL (80.0-97.0); Monocytes # (A) 1.03 10*3/uL (0.20-1.00); Monocytes % (A) 11.9 %; Neutrophils # (A) 5.99 10*3/uL (1.80-7.70); Neutrophils % (A) 69.4 %; Platelet Count 151 10*3/uL (140-440); RBC 2.51 10*6/uL (4.40-5.60); RDW 13.8 % (11.5-14.5); WBC 8.64 10*3/uL (4.50-10.00)
[2024-09-27 03:57] LABS: ALT 16 U/L (4-49); AST 40 U/L (17-59); African American GFR (CKD) 66 (>60 ml/min/1.73 sqM); Alkaline Phosphatase 58 U/L (38-126); Anion Gap 8 mmol/L; Blood Urea Nitrogen 28 mg/dL (9-20); Calcium 8.7 mg/dL (8.4-10.2); Carbon Dioxide 24 mmol/L (22-30); Chloride 103 mmol/L (98-107); Glucose 122 mg/dL (74-99); Non-African American GFR(CKD) 57 (>60 ml/min/1.73 sqM); Potassium 4.4 mmol/L (3.5-5.1); Sodium 135 mmol/L (137-145); Total Bilirubin 0.6 mg/dL (0.2-1.3); Total Protein 5.2 g/dL (6.3-8.2)
[2024-09-27 06:39] LABS: Glucose,Whole Blood 145 mg/dL (70-110)
--- NOTE | 2024-09-27 08:17 | P.PN ---
Subjective Progress Note Date: 09/27/24 Principal diagnosis: Critical aortic stenosis. Medical history significant for hypertension, hyperlipidemia, renal cell tumor, asthma, CVA/TIA, chronic back pain/spondylitis and remote history of nicotine dependence quit smoking in 1986. POD #4 aortic valve replacement using a 23 mm Rosa Inspiris bioprosthetic valve, ligation of left atrial appendage using a 35mm Atriclip, epiaortic ultrasound, intraoperative transesophageal echocardiogram. POD #1 Dual-chamber pacemaker implantation with conduction system pacing (left bundle pacing), left upper extremity venogram performed by Dr. Cho Postoperative acute blood loss anemia, expected given hemodilution and cardiop ulmonary bypass. Underlying complete heart block, unexpected but potential complication of any valve surgery. The patient was seen and examined in follow-up today September 27, 2024 at his bedside in the intensive care unit. He is currently sitting up to the bedside chair, is awake, alert, oriented x 3 and is in no acute apparent distress. He denies any complaints of pain or shortness of breath at this time, although reports he feels very tired today. He remains with episodes of impulsiveness and confusion. He has been up ambulating in the intensive care unit hallway already this morning with standby assistance nursing staff and tolerated well. He underwent a dual-chamber permanent pacemaker implantation yesterday performed by Dr. Cho. Bedside telemetry is showing ventricular paced rhythm heart rate 78 bpm. Oxygen saturations are 99% on room air and he is achieving 1500 mL on his incentive spirometry with encouragement. Left pleural chest tube was removed yesterday without incident. He was started on metoprolol succinate 50 mg p.o. daily by cardiology. He remains hemodynamically stable and is currently on no inotropic or pressor support. Chest x-ray and laboratory results were reviewed. Objective - Vital Signs Vital signs: Vital Signs Temp 98.2 F 09/27/24 00:00 Pulse 75 09/27/24 07:00 Resp 60 H 09/27/24 07:00 BP 126/68 09/27/24 07:00 Pulse Ox 95 09/27/24 07:00 FiO2 50 09/23/24 16:50 Intake & Output 09/26/24 09/27/24 09/27/24 18:59 06:59 18:59 Intake Total 1311 Output Total 400 400 0 Balance 911 -400 0 Weight 89.1 kg Intake: IV 469 ACETAMINOPHEN IV (For NPO 100 ) 1,000 mg In Empty Bag 1 bag @ 400 mls/hr IVPB Q6HR [facility] Rx#:[id number] Pressure Bags 9 Sodium Chloride 0.9% 1, 60 000 ml @ 20 mls/hr IV . Q24H [facility] Rx#:[id number] Vancomycin 1,000 mg In 250 Sodium Chloride 0.9% 250 ml @ 125 mls/hr IVPB [facility] Rx#:[id number] Intake, IV Titration 100 Amount ceFAZolin 2 gm In 100 Dextrose 5% in Water 50 ml @ 100 mls/hr IVPB Q6HR [facility] Rx#:[id number] Oral 742 Output: Chest Tube Drainage 0 Left Pleural 0 Urine 400 400 0 Other: Voiding Method Indwelling Catheter Urinal # Voids 1 1 ABP, PAP, CO, CI - Last Documented Arterial Blood Pressure 145/64 Pulmonary Artery Pressure 27/12 Cardiac Output 6.3 Cardiac Index 3.2 - Exam CONSTITUTIONAL: Sitting up to the bedside chair in the intensive care unit, appe ars comfortable, cooperative, no apparent acute distress. HEENT: Neck is supple, no JVD, no lymphadenopathy. RESPIRATORY: Lungs sounds essentially clear throughout, diminished to his bilateral bases. Respirations are symmetrical and nonlabored. Currently on room air with oxygen saturations 99%. Able to achieve 1500 mL on his incentive spirometry. Strong cough. CARDIOVASCULAR: Regular rhythm and rate. S1 and S2 present, negative for S3, gallop or murmur. Bedside telemetry is showing ventricular paced rhythm heart rate 78 bpm. Sternum is stable. Palpable peripheral pulses bilaterally. No calf pain or tenderness noted. Heart hugger in place with patient demonstrating appropriate use. Knee-high CHARI hose and sequential compression devices in place to his bilateral lower extremities. GASTROINTESTINAL: Abdomen soft, nontender, nondistended. Active bowel sounds present 4 quadrants. Tolerating diet. Passing flatus. No guarding or rigidity. GENITOURINARY: Continues to void. Urine output 400 mL in the last 8 hours. INTEGUMENTARY: Skin is warm and dry with no evidence of clubbing or cyanosis. Midline sternal incision clean dry and well approximated, covered with dry int act dressing. NEUROLOGIC: Cranial nerves II through XII intact. No focal deficits. MUSKULOSKELETAL: Able to move all extremities, strength equal bilaterally, generalized weakness. PSYCHIATRIC: Alert and oriented to person place and time, appropriate affect, intact judgment and insight. INVASIVE LINES AND TUBES: Atrial and ventricular epicardial pacemaker wires present, wires are currently grounded. - Allied health notes Allied health notes reviewed: nursing - Labs CBC & Chem 7: 09/27/24 02:40 09/27/24 02:40 Labs: Abnormal Lab Results - Last 24 Hours (Table) 09/26/24 09/26/24 09/27/24 Range/Units 16:21 19:33 02:40 RBC 2.51 L (4.40-5.60) 10*6/uL Hgb 8.1 L (13.0-17.0) g/dL Hct 24.8 L (39.6-50.0) % MCV 98.8 H (80.0-97.0) fL MCH 32.3 H (27.0-32.0) pg Monocytes # 1.03 H (0.20-1.00) 10*3/uL Sodium (137-145) mmol/L BUN (9-20) mg/dL Creatinine (0.66-1.25) mg/dL Glucose (74-99) mg/dL POC Glucose (mg/dL) 152 H 247 H (70-110) mg/dL Total Protein (6.3-8.2) g/dL Albumin (3.5-5.0) g/dL 09/27/24 09/27/24 Range/Units 02:40 06:38 RBC (4.40-5.60) 10*6/uL Hgb (13.0-17.0) g/dL Hct (39.6-50.0) % MCV (80.0-97.0) fL MCH (27.0-32.0) pg Monocytes # (0.20-1.00) 10*3/uL Sodium 135 L (137-145) mmol/L BUN 28 H (9-20) mg/dL Creatinine 1.26 H (0.66-1.25) mg/dL Glucose 122 H (74-99) mg/dL POC Glucose (mg/dL) 145 H (70-110) mg/dL Total Protein 5.2 L (6.3-8.2) g/dL Albumin 3.0 L (3.5-5.0) g/dL - Imaging and Cardiology Chest x-ray: report reviewed, image reviewed Assessment and Plan Assessment: Critical aortic stenosis, status post aortic valve replacement with a 23 mm Inspiris bioprosthetic valve Underlying complete heart block, unexpected but potential complication of any valve surgery, status post dual-chamber pacemaker implantation with conduction system pacing Acute blood loss anemia, expected given hemodilution and cardiopulmonary bypass Hypertension Hyperlipidemia, treated Asthma History of TIA with no residual deficits, on Brilinta as an outpatient GERD History of renal cell tumor Chronic back pain/spondylitis Remote history of nicotine dependence quit smoking in 1986 Plan: Continue to maximize medical therapy with aspirin, statin, Plavix and beta- sabas. The patient was started on metoprolol succinate 50 mg p.o. daily by cardiology. Encourage use of incentive spirometry 10 times every hour while awake. Continue home dose of Singulair. Bronchodilator management per pulmonary/critical care medicine. Once extubated increase activity as tolerated, PT/OT/cardiac rehab following. Will monitor daily labs and chest x-rays. Electrolyte replacement per protocol. GI/DVT prophylaxis. Insulin management per internal medicine. Preoperative hemoglobin A1c 6.0%. Pain control per current medication regimen. Avoid opioids due to patient's episodes of confusion. May shower daily when ok with Dr Cho. Continue melatonin 3 mg p.o. nightly for sleep aid. Continue to monitor record strict accurate intake and output. May bladder scan every 6 hours and as needed postvoid residuals, if greater than 300 mL of urine PVR may straight cath. More recommendations to follow based on patient's clinical course. Time with Patient: Greater than 30
--- NOTE | 2024-09-27 08:24 | P.PN ---
Subjective Progress Note Date: 09/27/24 HISTORY OF PRESENT ILLNESS: This is a 69-year-old male with a previous medical history significant for hyperlipidemia, GERD with esophagitis, vitamin D deficiency, recurrent TIA on dual antiplatelet therapy, who recently underwent left heart catheterization that showed normal coronary arteries with severe aortic valve stenosis followed by transesophageal echocardiogram which confirmed severe aortic valve stenosis with a valve surface area of 0.5, patient underwent aortic valve replacement t hat was done by Dr. Presley and we were asked to see the patient for postoperative medical management. On the ventilator, currently in degree Van drip at 30 micg, he has been on albumin as well as IV fluid resuscitation, he has very good urine output at least 100 cc an hour, we will is currently on the ventilator with a tidal volume of 450 respiratory rate of 18 FiO2 50%, his oxygenation is 98%, they will continue with the weaning parameter, chest x-ray appears to be good, blood gases appears to be good, we will try to wean the patient off the ventilator later on this afternoon. 09/24: Patient sitting up in the chair, he was extubated successfully yesterday, he denies any significant pain, he does complain of some soreness in the chest where the incision is, he continues to have a chest tube in place, he continues to have a Cordis catheter in the right internal jugular vein, this was probably coming out today, continue this at his primary, continue current pain management, continue to follow-up with the patient very closely. 09/25: Patient sitting up in chair in no apparent distress, he is feeling better today, he denies any chest pain, shortness of breath, he continues to feel bett er continue current treatment plan, continue to increase activity, continue incentive spirometer, follow-up with laboratory evaluation, underlying rhythm is third-degree AV block, he is scheduled to go for permanent restriction placement tomorrow morning, follow-up with the patient very closely. Discontinue insulin drip, start the patient on sliding scale insulin, continue other treatment plan 09/26: Patient is laying down in bed in no apparent distress, he is scheduled to go for permanent pacemaker placement due to underlying rhythm with complete heart block, patient appears to be hemodynamically stable at this point in time, currently has a pacer wire in place, when the chest tube was removed, right internal jugular cordis will be removed as well, will follow-up with the patient very closely, keep the patient in ICU overnight, recheck the patient chest x-ray after the procedure and tomorrow morning. 09/27: Patient sitting up in chair in no apparent distress, he appears less confused today, his hemoglobin down to 8.2, he denies any chest pain, shortness breath at this time, his monitor showing an ST elevation, his twelve-lead EKG did not show evidence of ST elevation or reciprocal changes, patient does not have any chest pain at this time, no shortness of breath, he will be staying in the ICU for another 24 hours, hopefully will be moved to the floor tomorrow morning. Increase activity, increase the use of incentive spirometer, follow-up with the patient very closely REVIEW OF SYSTEMS: Constitutional: No documented fever, no chills, no night sweats. No weight change. No weakness, fatigue or lethargy. No daytime sleepiness. HEENT: No headache. No blurred vision or double vision, no loss of vision. No loss of Hearing, no ringing in the ears, no dizziness. No nasal drainage or congestion. No epistaxis. No sore throat. Lungs: No shortness of breath, no cough, no sputum production. No wheezing. Reports dry nose not able to breathe through the nose Cardiovascular: no chest pain, minimal lower extremity edema. No palpitations. No paroxysmal nocturnal dyspnea. No orthopnea. No lightheadedness or dizziness. No syncopal episodes. Abdominal: Reports no abdominal pain. No nausea, vomiting. No diarrhea. No constipation. No bloody or tarry stools reports loss of appetite. Passing gas. Genitourinary: No dysuria, increased frequency, urgency, Pickard catheter is in place Musculoskeletal: No myalgias. No muscle weakness, no gait dysfunction, no f requent falls. No back pain. positive for neck pain, Integumentary: No wounds, no lesions. No rash or pruritus. No unusual bruising. No change in hair or nails. Neurologic: No aphasia. No facial droop. No change in mentation. No head injury. No headache. No paralysis. No paresthesia. Psychiatric: No depression. Positive for anxiety. No mood swings. Endocrine: Positive abnormal blood sugars. No weight change. PHYSICAL EXAMINATION: General: 69-year-old male sitting up in a chair in no apparent distress HEENT: Head is atraumatic, normocephalic, pupils were equal round, reactive to light and accommodation, extraocular movement were intact mucous membranes of mouth are somewhat dry, Neck: Supple, no JVP, normal carotid upstroke bilaterally, no lymphadenopathy . Chest: Decreased breath sounds at the bases, few rhonchi, no expiratory wheezes, pacer wires still in place. There is a permanent pacemaker located in the left upper precordium Heart: First heart sound is normal, second heart sounds normal there is no murmur positive for S3. Abdomen: Soft, nontender, nondistended, depressed bowel sounds , Extremities: There is no edema no calf tenderness DP +2 bilaterally, bilateral knee-high CHARI hose/SCDs Neurologic examination: Patient is awake alert and oriented x 3, cranial nerves III to XII appear gross intact, muscle power 4 out of 5 in upper lower extremities bilaterally ASSESSMENT AND PLAN: 1. Acute vent dependent respiratory failure status post aortic valve replacement status post extubation . increase activity, use incentive spirometer, continue aggressive pulmonary toileting, follow-up with the patient very closely 2. Hypertension and hypertensive cardiovascular disease. Continue metoprolol ER 50 mg once every day, continue hydralazine 10 mg IV push every hours as needed for systolic blood pressure greater than 160 3. Mixed hyperlipidemia. Continue patient on atorvastatin 80 mg orally once every day, continue Zetia 10 mg once every day monitor lipid panel, keep LDL 55- 70. 4. GERD with esophagitis. Continue pantoprazole 40 mg orally once every day for 5. Vitamin D deficiency continue vitamin D3 1000 units once every day. 6. Spondylosis of the cervical spine. Continue current pain management. 7. History of recurrent TIAs in the past, continue aspirin 325 mg once every day, Plavix 75 mg once every day, continue atorvastatin 80 mg once every day along with Zetia 10 mg once every day. 8. Acute blood loss anemia monitor the patient CBC very closely keep hemoglobin greater than 8 at all of the time. 9. DVT prophylaxis. Continue patient on bilateral knee-high CHARI hose as well as bilateral SCDs. Continue heparin 5000 units subcutaneously every 8 hours 10. GI prophylaxis. Continue Protonix 40 mg orally once every day 11. Allergic rhinitis. Start the patient on montelukast 10 mg at bedtime. 12. Postoperative hyperglycemia. Discontinue standard, start the patient insulin sliding scale insulin 13. Third-degree AV block likely related to surgical intervention status post permanent pacemaker placement. Continue metoprolol ER 50 mg orally once every day 14. Metabolic encephalopathy likely due to surgical intervention. Appears to be better today 15. We will follow the patient with you Objective - Vital Signs Vital signs: Vital Signs Temp 98.2 F 09/27/24 00:00 Pulse 75 09/27/24 07:00 Resp 60 H 09/27/24 07:00 BP 126/68 09/27/24 07:00 Pulse Ox 95 09/27/24 07:00 FiO2 50 09/23/24 16:50 Intake & Output 09/26/24 09/27/24 09/27/24 18:59 06:59 18:59 Intake Total 1311 Output Total 400 400 0 Balance 911 -400 0 Weight 89.1 kg Intake: IV 469 ACETAMINOPHEN IV (For NPO 100 ) 1,000 mg In Empty Bag 1 bag @ 400 mls/hr IVPB Q6HR [facility] Rx#:[id number] Pressure Bags 9 Sodium Chloride 0.9% 1, 60 000 ml @ 20 mls/hr IV . Q24H [facility] Rx#:[id number] Vancomycin 1,000 mg In 250 Sodium Chloride 0.9% 250 ml @ 125 mls/hr IVPB ONCE [facility] Rx#:[id number] Intake, IV Titration 100 Amount ceFAZolin 2 gm In 100 Dextrose 5% in Water 50 ml @ 100 mls/hr IVPB Q6HR [facility] Rx#:[id number] Oral 742 Output: Chest Tube Drainage 0 Left Pleural 0 Urine 400 400 0 Other: Voiding Method Indwelling Catheter Urinal # Voids 1 1 ABP, PAP, CO, CI - Last Documented Arterial Blood Pressure 145/64 Pulmonary Artery Pressure 27/12 Cardiac Output 6.3 Cardiac Index 3.2 - Labs CBC & Chem 7: 09/27/24 02:40 09/27/24 02:40 Labs: Abnormal Lab Results - Last 24 Hours (Table) 09/26/24 09/26/24 09/27/24 Range/Units 16:21 19:33 02:40 RBC 2.51 L (4.40-5.60) 10*6/uL Hgb 8.1 L (13.0-17.0) g/dL Hct 24.8 L (39.6-50.0) % MCV 98.8 H (80.0-97.0) fL MCH 32.3 H (27.0-32.0) pg Monocytes # 1.03 H (0.20-1.00) 10*3/uL Sodium (137-145) mmol/L BUN (9-20) mg/dL Creatinine (0.66-1.25) mg/dL Glucose (74-99) mg/dL POC Glucose (mg/dL) 152 H 247 H (70-110) mg/dL Total Protein (6.3-8.2) g/dL Albumin (3.5-5.0) g/dL 09/27/24 09/27/24 Range/Units 02:40 06:38 RBC (4.40-5.60) 10*6/uL Hgb (13.0-17.0) g/dL Hct (39.6-50.0) % MCV (80.0-97.0) fL MCH (27.0-32.0) pg Monocytes # (0.20-1.00) 10*3/uL Sodium 135 L (137-145) mmol/L BUN 28 H (9-20) mg/dL Creatinine 1.26 H (0.66-1.25) mg/dL Glucose 122 H (74-99) mg/dL POC Glucose (mg/dL) 145 H (70-110) mg/dL Total Protein 5.2 L (6.3-8.2) g/dL Albumin 3.0 L (3.5-5.0) g/dL
--- NOTE | 2024-09-27 08:32 | XR ---
EXAMINATION TYPE: XR chest 2V DATE OF EXAM: 09/27/2024 6:28 AM COMPARISON: 09/26/2024 CLINICAL INDICATION: Male, 69 years old with history of Postop AVR, , TECHNIQUE: PA and lateral views FINDINGS: Median sternotomy wires are present with prosthetic aortic valve. Left anterior chest wall pacemaker generator with right atrial and right ventricular leads. Heart mildly enlarged. Interval removal left -sided chest tube. No appreciable pneumothorax. Mild interstitial density remains though also improve d from prior. IMPRESSION: Residual mild pulmonary vascular congestion, improving from prior. Previous trace left apical pneumot horax no longer seen. [facility], Workstation: [email or web address], 09/27/2024 8:29 AM
[2024-09-27 09:35] LABS: Glucose,Whole Blood 139 mg/dL (70-110)
[2024-09-27 11:15] LABS: Glucose,Whole Blood 310 mg/dL (70-110)
[2024-09-27 11:18] LABS: Glucose,Whole Blood 146 mg/dL (70-110)
--- NOTE | 2024-09-27 11:42 | P.PN ---
Subjective Progress Note Date: 09/27/24 This is a 69-year-old white male with history of severe aortic stenosis with bicuspid aortic valve, has been following up with Dr. Cristina for quite some time. Patient had recent echocardiogram that showed worsening severe aortic valve stenosis. Patient had no shortness of breath, no chest pain, no lightheadedness or dizziness, no syncopal episodes. Recent transesophageal echo was done and confirmed severe aortic stenosis hence the patient underwent aortic valve replacement today. Postoperatively patient was in the ICU on mechanical ventilation, he is on assist-control rate of 14 tidal volume 450 FiO2 60% and I cut down to 50% and his PEEP was 5. Chest x-ray showed mostly postoperative changes, no acute process was noted. Cardiac output was 4.0, cardiac index 2.0. Patient is hemodynamically stable, not requiring any pressors and not requiring any inotropes. Plan to proceed with weaning in the next 2 hours. Patient was seen today on 09/24/2024,POD #1 aortic valve replacement using a 23 m m Rosa Inspiris bioprosthetic valve, ligation of left atrial appendage using a 35mm Atriclip, epiaortic ultrasound, intraoperative transesophageal echocardiogram. Patient was successfully extubated last night shortly after he arrived to the ICU, today the patient is doing well, achieving 1250 mL on his intensive spirometry. He was extubated at 5:38 PM yesterday. Today he is sitting at the bedside chair, not in distress, cardiac output is 4.9 cardiac index 2.5, PA pressure 30/11, CVP is 7 patient is not requiring any pressors or any inotropes. Chest x-ray showed that he continues to have left chest sided tubes and mediastinal tube, both on suction, no airleak, chest x-ray showed minimal atelectasis and postoperative changes, no acute processes noted. WBC count is 10.9 hemoglobin 10.3, basic metabolic profile is normal renal profile is normal Patient was seen today on 09/25/2024, he is now postoperative day #2, doing well, on room air, sitting at the bedside chair. Patient is alert and oriented x 3, does not seem to be in any distress, pain is fairly well-controlled, hemodynam ically stable, not requiring any inotropes or any pressors, continues to have an underlying paced rhythm of third-degree AV block the plan is to eventually have a permanent pacemaker placement. This will be done tomorrow by Dr. Cho. Patient is achieving about 1250 cc on incentive spirometry, mediastinal and left pleural chest tubes remain in place, remain on suction. No airleak. Chest x-ra y showed mostly postoperative changes and minimal atelectasis, expected. WBC count is 11.2 hemoglobin 8.9 basic metabolic profile is normal renal profile is normal Seen today on 09/26/2024, patient is now postoperative day #3, sitting at the bedside chair, does not seem to be in any distress. Patient is awake alert oriented x 3, he did have a bit of confusion last night, but that has resolved this morning. Achieving 1500 mL on incentive spirometry O2 sat is 95% on room air, patient continues to have ventricular paced rhythm on DDD mode underlying rhythm is a third-degree AV block, patient may undergo permanent pacemaker placement today by cardiology. Continues to have left pleural chest tube in place will likely be removed today. Patient has been ambulating with assistance. Chest x-ray this morning was reviewed there is extremely minimal left tiny apical pneumothorax. Not worrisome and I believe since the patient does not have air leak in the Pleur-evac, the chest tube could be removed. The patient is seen today September 27, 2024 in follow-up in the intensive care unit. Postoperative day #4. He has been up ambulating with assistance. He is doing well. Denies any worsening shortness of breath, cough or congestion. He is maintaining good O2 saturation on room air oxygen. He has been afebrile. Hemodynamically stable. White count 8.6. Hemoglobin 8.1. Platelets 151. So dium 135. Potassium 4.4. Bicarb 28. BUN 1.26. Glucose 122. He continues to work well with the incentive spirometer. Today's chest x-ray shows residual pulmonary vascular congestion. Improved. He continues to work well with the incentive spirometer. Objective - Vital Signs Vital signs: Vital Signs Temp 98.7 F 09/27/24 08:00 Pulse 73 09/27/24 11:00 Resp 7 L 09/27/24 11:00 BP 123/68 09/27/24 11:00 Pulse Ox 96 09/27/24 11:00 FiO2 50 09/23/24 16:50 Intake & Output 09/26/24 09/27/2425 18:59 06:59 18:59 Intake Total 1311 480 Output Total 400 400 125 Balance 911 -400 355 Weight 89.1 kg Intake: IV 469 ACETAMINOPHEN IV (For NPO 100 ) 1,000 mg In Empty Bag 1 bag @ 400 mls/hr IVPB Q6HR [facility] Rx#:[id number] Pressure Bags 9 Sodium Chloride 0.9% 1, 60 000 ml @ 20 mls/hr IV . Q24H [facility] Rx#:[id number] Vancomycin 1,000 mg In 250 Sodium Chloride 0.9% 250 ml @ 125 mls/hr IVPB ONCE [facility] Rx#:[id number] Intake, IV Titration 100 Amount ceFAZolin 2 gm In 100 Dextrose 5% in Water 50 ml @ 100 mls/hr IVPB Q6HR [facility] Rx#:[id number] Oral 742 480 Output: Chest Tube Drainage 0 Left Pleural 0 Urine 400 400 125 Other: Voiding Method Indwelling Catheter Urinal Urinal # Voids 1 1 1 ABP, PAP, CO, CI - Last Documented Arterial Blood Pressure 145/64 Pulmonary Artery Pressure 27/12 Cardiac Output 6.3 Cardiac Index 3.2 - Exam GENERAL EXAM: Alert, active, pleasant 69-year-old male, on room air oxygen, comfortable in no apparent distress. HEAD: Normocephalic. EYES: Normal reaction of pupils, equal size. NOSE: Clear with pink turbinates. THROAT: No erythema or exudates. NECK: No masses, no JVD. CHEST: Sternal dressing dry and intact. Heart hugger in place. Sternum stable. LUNGS: Equal air entry with no crackles, wheeze, rhonchi or dullness. CVS: S1 and S2 normal with no audible murmur, regular rhythm. ABDOMEN: No hepatosplenomegaly, normal bowel sounds, no guarding or rigidity. SPINE: No scoliosis or deformity SKIN: No rashes CENTRAL NERVOUS SYSTEM: No focal deficits, tone is normal in all 4 extremities. EXTREMITIES: There is no peripheral edema. No clubbing, no cyanosis. Peripheral pulses are intact. - Labs CBC & Chem 7: 09/27/24 02:40 09/27/24 02:40 Labs: Abnormal Lab Results - Last 24 Hours (Table) 09/23/24 09/26/24 09/26/24 Range/Units 12:30 16:21 19:33 RBC (4.40-5.60) 10*6/uL Hgb (13.0-17.0) g/dL Hct (39.6-50.0) % MCV (80.0-97.0) fL MCH (27.0-32.0) pg Monocytes # (0.20-1.00) 10*3/uL Sodium (137-145) mmol/L BUN (9-20) mg/dL Creatinine (0.66-1.25) mg/dL Glucose (74-99) mg/dL POC Glucose (mg/dL) 139 H 152 H 247 H (70-110) mg/dL Total Protein (6.3-8.2) g/dL Albumin (3.5-5.0) g/dL 09/27/24 09/27/24 09/27/24 Range/Units 02:40 02:40 06:38 RBC 2.51 L (4.40-5.60) 10*6/uL Hgb 8.1 L (13.0-17.0) g/dL Hct 24.8 L (39.6-50.0) % MCV 98.8 H (80.0-97.0) fL MCH 32.3 H (27.0-32.0) pg Monocytes # 1.03 H (0.20-1.00) 10*3/uL Sodium 135 L (137-145) mmol/L BUN 28 H (9-20) mg/dL Creatinine 1.26 H (0.66-1.25) mg/dL Glucose 122 H (74-99) mg/dL POC Glucose (mg/dL) 145 H (70-110) mg/dL Total Protein 5.2 L (6.3-8.2) g/dL Albumin 3.0 L (3.5-5.0) g/dL 09/27/24 09/27/24 Range/Units 11:13 11:17 RBC (4.40-5.60) 10*6/uL Hgb (13.0-17.0) g/dL Hct (39.6-50.0) % MCV (80.0-97.0) fL MCH (27.0-32.0) pg Monocytes # (0.20-1.00) 10*3/uL Sodium (137-145) mmol/L BUN (9-20) mg/dL Creatinine (0.66-1.25) mg/dL Glucose (74-99) mg/dL POC Glucose (mg/dL) 310 H 146 H (70-110) mg/dL Total Protein (6.3-8.2) g/dL Albumin (3.5-5.0) g/dL Assessment and Plan Assessment: Bicuspid aortic valve/severe aortic stenosis. POD #4 aortic valve replacement using a 23 mm Rosa Inspiris bioprosthetic valve, ligation of left atrial appendage using a 35mm Atriclip, epiaortic ultrasound, intraoperative transesophageal echocardiogram. Benign essential hypertension Underlying paced rhythm is third-degree AV block, patient will require a permanent pacemaker implantation tomorrow Dyslipidemia History of renal cell tumor Ex-smoker quit in 1984 Postoperative atelectasis, and tiny left apical pneumothorax, expected, resolved Plan: The patient was seen and evaluated Chest x-ray, labs and medications reviewed Stable and on room air oxygen Up ambulating in the hallway Continue the incentive spirometer Continue bronchodilators Heparin for DVT prophylaxis We will continue to follow I have personally seen and examined the patient, performed the documentation and the assessment and plan as written. Number of minutes spent on the visit: 10 Dictation was produced using [employer] dictation software. Please excuse any grammatical, word or spelling errors.
[2024-09-27 16:34] LABS: Glucose,Whole Blood 171 mg/dL (70-110)
[2024-09-27 19:52] LABS: Glucose,Whole Blood 194 mg/dL (70-110)
[2024-09-28 05:04] LABS: Basophils # (A) 0.03 10*3/uL (0.00-0.10); Basophils % (A) 0.4 %; Eosinophils # (A) 0.38 10*3/uL (0.04-0.35); Eosinophils % (A) 4.8 %; HCT 26.6 % (39.6-50.0); HGB 8.7 g/dL (13.0-17.0); Lymphocytes # (A) 1.15 10*3/uL (0.90-5.00); Lymphocytes % (A) 14.5 %; MCH 32.1 pg (27.0-32.0); MCHC 32.7 g/dL (32.0-37.0); MCV 98.2 fL (80.0-97.0); Mean Platelet Volume 10.8 fL (9.5-12.2); Monocytes # (A) 0.96 10*3/uL (0.20-1.00); Monocytes % (A) 12.1 %; Neutrophils % (A) 67.9 %; Platelet Count 206 10*3/uL (140-440); RBC 2.71 10*6/uL (4.40-5.60); RDW 13.8 % (11.5-14.5); WBC 7.94 10*3/uL (4.50-10.00)
[2024-09-28 05:24] LABS: ALT 19 U/L (4-49); AST 42 U/L (17-59); African American GFR (CKD) >90 (>60 ml/min/1.73 sqM); Albumin 3.1 g/dL (3.5-5.0); Alkaline Phosphatase 70 U/L (38-126); Anion Gap 7 mmol/L; Blood Urea Nitrogen 24 mg/dL (9-20); Calcium 8.6 mg/dL (8.4-10.2); Carbon Dioxide 24 mmol/L (22-30); Chloride 105 mmol/L (98-107); Glucose 127 mg/dL (74-99); Non-African American GFR(CKD) 85 (>60 ml/min/1.73 sqM); Potassium 4.8 mmol/L (3.5-5.1); Sodium 136 mmol/L (137-145); Total Protein 5.6 g/dL (6.3-8.2)
[2024-09-28 06:15] LABS: Glucose,Whole Blood 133 mg/dL (70-110)
--- NOTE | 2024-09-28 08:32 | XR ---
EXAMINATION TYPE: XR chest 1V portable DATE OF EXAM: 09/28/2024 8:24 AM COMPARISON: Earlier today CLINICAL INDICATION: Male, 69 years old with history of pacemaker wire placement, , FINDINGS: Left anterior chest wall pacemaker generator with right atrial and right ventricular leads. Heart bor derline in size. Diffuse interstitial densities persist. Mild patchy density at the left base with uriarte ggestion of a trace left effusion similar to slightly increased. Median sternotomy wires with prosthe tic aortic valve. IMPRESSION: 1. Left-sided pacemaker generator with right atrial and right ventricular leads. 2. Previous median sternotomy and prosthetic aortic valve. 3. Continued CHF with pulmonary vascular congestion. Trace left pleural effusion with adjacent atelec tasis and/or consolidation similar to slightly increased. [facility], , 09/28/2024 8:30 AM
--- NOTE | 2024-09-28 08:44 | XR ---
EXAMINATION TYPE: XR chest 2V DATE OF EXAM: 09/28/2024 5:20 AM COMPARISON: 09/27/2024 CLINICAL INDICATION: Male, 69 years old with history of Postoperative AVR, , TECHNIQUE: PA and lateral views FINDINGS: Left anterior chest wall pacemaker generator with right atrial and right ventricular lead. An additio nal external pacer lead is noted along the right side of the heart. Median sternotomy wires and prost hetic aortic valve. Heart upper limits of normal in size. Mild patchy bibasilar densities. Improved a ppearance to the interstitium. Trace bilateral pleural effusions are present. IMPRESSION: Improving appearance of the interstitium. Trace bilateral pleural effusions with adjacent atelectasi s and/or consolidation remains. [facility], , 09/28/2024 8:42 AM
--- NOTE | 2024-09-28 08:47 | P.PN ---
Subjective Progress Note Date: 09/28/24 Principal diagnosis: Critical aortic stenosis. History of hypertension, hyperlipidemia, renal cell tumor, asthma, CVA/TIA, chronic back pain/spondylitis and previous tobacco depen dence POD #5 aortic valve replacement using a 23 mm Rosa Inspiris bioprosthetic valve, ligation of left atrial appendage using a 35mm Atriclip, epiaortic ultrasound, intraoperative transesophageal echocardiogram. Underlying complete heart block, unexpected but potential complication of any valve surgery. POD #2 Dual-chamber pacemaker implantation with conduction system pacing (left bundle pacing), left upper extremity venogram performed by Dr. Cho Postoperative acute blood loss anemia, expected given hemodilution and cardiopulmonary bypass. The patient was seen and examined this morning with Dr. Horne sitting up in recliner in the intensive care unit in no acute distress. He did undergo pacemaker implantation which was interrogated yesterday and found to be functioning fine, however yesterday afternoon and into the evening the pacemaker was not pacing at the low parameter set at 60, the patient's heart rate has been in the high 40s to low 50s. Blood pressure remained stable. Patient was initiated on Toprol XL 50 mg yesterday. Remains on room air with oxygen saturation in the high 90s, able to achieve 1500 mL on incentive spirometry. Besides that, the patient seems a bit anxious regarding his prognosis. We did discuss the possibility of inpatient rehab at discharge, at this time the patient states he wants to go home, states she has enough support to be able to take the patient home. He has been ambulatory in the hallway with assistance although with a shuffled gait. Objective - Vital Signs Vital signs: Vital Signs Temp 98.5 F 09/28/24 04:00 Pulse 55 L 09/28/24 08:18 Resp 18 09/28/24 07:00 BP 122/63 09/28/24 07:00 Pulse Ox 96 09/28/24 07:00 FiO2 50 09/23/24 16:50 Intake & Output 09/27/24 09/28/24 09/28/24 18:59 06:59 18:59 Intake Total 1080 150 Output Total 625 920 Balance 455 -770 Weight 89.3 kg Intake: Oral 1080 150 Output: Urine 625 920 Other: Voiding Method Urinal Urinal # Voids 1 # Bowel Movements 1 ABP, PAP, CO, CI - Last Documented Arterial Blood Pressure 145/64 Pulmonary Artery Pressure 27/12 Cardiac Output 6.3 Cardiac Index 3.2 - Exam CONSTITUTIONAL: Appears a bit anxious, filled with doom RESPIRATORY: Lungs sounds diminished in the bases bilaterally. Respirations even, nonlabored. Currently on room air with oxygen saturation 97%. Able to achieve 1500 mL on incentive spirometry. Strong cough. CARDIOVASCULAR: S1, S2 present. Regular rate and rhythm. Pacing telemetry although not at his base rate. Sternum stable. Palpable peripheral pulses bilaterally. No edema present. No calf pain or tenderness noted. Heart hugger in place with patient demonstrating appropriate use. Antiembolism stockings, SCDs present. GASTROINTESTINAL: Abdomen soft, nontender, nondistended. Active bowel sounds present 4 quadrants. Tolerating diet. Positive bowel movement 09/27 GENITOURINARY: Continues to void, urine output 1545 mL in the last 24 hours INTEGUMENTARY: Skin is warm and dry with evidence of good perfusion. Anterior chest incision well approximated and covered with dry intact dressing, pacemaker site covered with dry intact dressing NEUROLOGIC: Cranial nerves II through XII intact MUSKULOSKELETAL: Able to move all extremities, strength equal bilaterally, gait normal PSYCHIATRIC: Alert and oriented to person place and time, appropriate affect, intact judgment and insight INVASIVE LINES AND TUBES: A/V epicardial pacemaker wires present, grounded - Allied health notes Allied health notes reviewed: nursing - Labs CBC & Chem 7: 09/28/24 04:14 09/28/24 04:14 Labs: Abnormal Lab Results - Last 24 Hours (Table) 09/23/24 09/27/24 09/27/24 Range/Units 12:30 11:13 11:17 RBC (4.40-5.60) 10*6/uL Hgb (13.0-17.0) g/dL Hct (39.6-50.0) % MCV (80.0-97.0) fL MCH (27.0-32.0) pg Eosinophils # (0.04-0.35) 10*3/uL Sodium (137-145) mmol/L BUN (9-20) mg/dL Glucose (74-99) mg/dL POC Glucose (mg/dL) 139 H 310 H 146 H (70-110) mg/dL Total Protein (6.3-8.2) g/dL Albumin (3.5-5.0) g/dL 09/27/24 09/27/24 09/28/24 Range/Units 16:33 19:51 04:14 RBC 2.71 L (4.40-5.60) 10*6/uL Hgb 8.7 L (13.0-17.0) g/dL Hct 26.6 L (39.6-50.0) % MCV 98.2 H (80.0-97.0) fL MCH 32.1 H (27.0-32.0) pg Eosinophils # 0.38 H (0.04-0.35) 10*3/uL Sodium (137-145) mmol/L BUN (9-20) mg/dL Glucose (74-99) mg/dL POC Glucose (mg/dL) 171 H 194 H (70-110) mg/dL Total Protein (6.3-8.2) g/dL Albumin (3.5-5.0) g/dL 09/28/24 09/28/24 Range/Units 04:14 06:14 RBC (4.40-5.60) 10*6/uL Hgb (13.0-17.0) g/dL Hct (39.6-50.0) % MCV (80.0-97.0) fL MCH (27.0-32.0) pg Eosinophils # (0.04-0.35) 10*3/uL Sodium 136 L (137-145) mmol/L BUN 24 H (9-20) mg/dL Glucose 127 H (74-99) mg/dL POC Glucose (mg/dL) 133 H (70-110) mg/dL Total Protein 5.6 L (6.3-8.2) g/dL Albumin 3.1 L (3.5-5.0) g/dL - Imaging and Cardiology Chest x-ray: report reviewed, image reviewed Assessment and Plan Assessment: Critical aortic stenosis, status post aortic valve replacement Underlying complete heart block, status post dual-chamber pacemaker implantation Postoperative acute blood loss anemia History of hypertension Hyperlipidemia Renal cell tumor Asthma CVA/TIA Chronic back pain/spondylitis Previous tobacco dependence Plan: Continue to maximize medical therapy with aspirin, statin, Plavix and beta- sabas, started on Toprol-XL [address] Cho, decreased to 25 mg daily today by Dr. Geraldo Horne spoke with Dr. Cho, will have pacemaker rep interrogate pacemaker again. Will keep n.p.o. for now, will leave epicardial pacemaker wires for now Encourage use of incentive spirometry 10 times every hour while awake. Continue home dose of Singulair. Bronchodilator management per pulmonary/critical care medicine. Increase activity as tolerated, PT/OT/cardiac rehab following. Will monitor daily labs and chest x-rays. Electrolyte replacement per protocol. GI/DVT prophylaxis. Insulin management per internal medicine. Preoperative hemoglobin A1c 6.0%. Pain control per current medication regimen. Avoid opioids due to patient's episodes of confusion. May shower daily Continue melatonin 3 mg p.o. nightly for sleep aid. Continue to monitor record strict accurate intake and output More recommendations to follow based on patient's clinical course.
--- NOTE | 2024-09-28 09:06 | P.PN ---
Subjective Progress Note Date: 09/28/24 HPI: This patient underwent aortic valve replacement on 23 September and on the had a permanent pacemaker placed. Pacer appears to be functioning well. There were some episodes with the pacing rate was low but there was a PAC and therefore there was no immediate response on the pacer lead. However currently patient is a sensed V paced appropriate function. Hemodynamically stable.. PHYSICIAL EXAM: Vitals are stable atrial sensed V paced rhythm patient probably has a complete heart block underneath S1-S2 heard normally short systolic murmur is audible at the base the lungs reveal bilateral air entry abdomen is soft lower extremities reveal diminished pulses Central nervous system no focal deficits. IMPRESSION: 1. Status post aortic valve replacement. 2. Status post dual-chamber pacemaker placed on September 26. 3.. 4.. 5.. RECOMMENDATIONS: Continue current medical therapy repeat echocardiogram for better visualization of the pacer leads and also decrease metoprolol succinate to 25 mg daily.. Objective - Vital Signs Vital signs: Vital Signs Temp 98.5 F 09/28/24 04:00 Pulse 55 L 09/28/24 08:18 Resp 18 09/28/24 07:00 BP 122/63 09/28/24 07:00 Pulse Ox 96 09/28/24 07:00 FiO2 50 09/23/24 16:50 Intake & Output 09/27/24 09/28/24 09/28/24 18:59 06:59 18:59 Intake Total 1080 150 Output Total 625 920 Balance 455 -770 Weight 89.3 kg Intake: Oral 1080 150 Output: Urine 625 920 Other: Voiding Method Urinal Urinal # Voids 1 # Bowel Movements 1 ABP, PAP, CO, CI - Last Documented Arterial Blood Pressure 145/64 Pulmonary Artery Pressure 27/12 Cardiac Output 6.3 Cardiac Index 3.2 - Labs CBC & Chem 7: 09/28/24 04:14 09/28/24 04:14 Labs: Abnormal Lab Results - Last 24 Hours (Table) 09/23/24 09/27/24 09/27/24 Range/Units 12:30 11:13 11:17 RBC (4.40-5.60) 10*6/uL Hgb (13.0-17.0) g/dL Hct (39.6-50.0) % MCV (80.0-97.0) fL MCH (27.0-32.0) pg Eosinophils # (0.04-0.35) 10*3/uL Sodium (137-145) mmol/L BUN (9-20) mg/dL Glucose (74-99) mg/dL POC Glucose (mg/dL) 139 H 310 H 146 H (70-110) mg/dL Total Protein (6.3-8.2) g/dL Albumin (3.5-5.0) g/dL 09/27/24 09/27/24 09/28/24 Range/Units 16:33 19:51 04:14 RBC 2.71 L (4.40-5.60) 10*6/uL Hgb 8.7 L (13.0-17.0) g/dL Hct 26.6 L (39.6-50.0) % MCV 98.2 H (80.0-97.0) fL MCH 32.1 H (27.0-32.0) pg Eosinophils # 0.38 H (0.04-0.35) 10*3/uL Sodium (137-145) mmol/L BUN (9-20) mg/dL Glucose (74-99) mg/dL POC Glucose (mg/dL) 171 H 194 H (70-110) mg/dL Total Protein (6.3-8.2) g/dL Albumin (3.5-5.0) g/dL 09/28/24 09/28/24 Range/Units 04:14 06:14 RBC (4.40-5.60) 10*6/uL Hgb (13.0-17.0) g/dL Hct (39.6-50.0) % MCV (80.0-97.0) fL MCH (27.0-32.0) pg Eosinophils # (0.04-0.35) 10*3/uL Sodium 136 L (137-145) mmol/L BUN 24 H (9-20) mg/dL Glucose 127 H (74-99) mg/dL POC Glucose (mg/dL) 133 H (70-110) mg/dL Total Protein 5.6 L (6.3-8.2) g/dL Albumin 3.1 L (3.5-5.0) g/dL
--- NOTE | 2024-09-28 09:30 | P.PN ---
Subjective Progress Note Date: 09/28/24 HISTORY OF PRESENT ILLNESS: This is a 69-year-old male with a previous medical history significant for hyperlipidemia, GERD with esophagitis, vitamin D deficiency, recurrent TIA on dual antiplatelet therapy, who recently underwent left heart catheterization that showed normal coronary arteries with severe aortic valve stenosis followed by transesophageal echocardiogram which confirmed severe aortic valve stenosis with a valve surface area of 0.5, patient underwent aortic valve replacement t hat was done by Dr. Presley and we were asked to see the patient for postoperative medical management. On the ventilator, currently in degree Van drip at 30 micg, he has been on albumin as well as IV fluid resuscitation, he has very good urine output at least 100 cc an hour, we will is currently on the ventilator with a tidal volume of 450 respiratory rate of 18 FiO2 50%, his oxygenation is 98%, they will continue with the weaning parameter, chest x-ray appears to be good, blood gases appears to be good, we will try to wean the patient off the ventilator later on this afternoon. 09/24: Patient sitting up in the chair, he was extubated successfully yesterday, he denies any significant pain, he does complain of some soreness in the chest where the incision is, he continues to have a chest tube in place, he continues to have a Cordis catheter in the right internal jugular vein, this was probably coming out today, continue this at his primary, continue current pain management, continue to follow-up with the patient very closely. 09/25: Patient sitting up in chair in no apparent distress, he is feeling better today, he denies any chest pain, shortness of breath, he continues to feel bett er continue current treatment plan, continue to increase activity, continue incentive spirometer, follow-up with laboratory evaluation, underlying rhythm is third-degree AV block, he is scheduled to go for permanent restriction placement tomorrow morning, follow-up with the patient very closely. Discontinue insulin drip, start the patient on sliding scale insulin, continue other treatment plan 09/26: Patient is laying down in bed in no apparent distress, he is scheduled to go for permanent pacemaker placement due to underlying rhythm with complete heart block, patient appears to be hemodynamically stable at this point in time, currently has a pacer wire in place, when the chest tube was removed, right internal jugular cordis will be removed as well, will follow-up with the patient very closely, keep the patient in ICU overnight, recheck the patient chest x-ray after the procedure and tomorrow morning. 09/27: Patient sitting up in chair in no apparent distress, he appears less confused today, his hemoglobin down to 8.2, he denies any chest pain, shortness breath at this time, his monitor showing an ST elevation, his twelve-lead EKG did not show evidence of ST elevation or reciprocal changes, patient does not have any chest pain at this time, no shortness of breath, he will be staying in the ICU for another 24 hours, hopefully will be moved to the floor tomorrow morning. Increase activity, increase the use of incentive spirometer, follow-up with the patient very closely. 09/28: Patient sitting up in the recliner chair, he appears to be a bit down today, he has no chest pain, shortness of breath at this time, he continues to be in the ICU, does appear to have some PACs on and off, and the pacemaker is not sensing patient will have this pacemaker interrogated by [employer] personnel today patient will be kept in the ICU, continue current treatment plan, continues on Xarelto, continue follow-up with the patient very closely REVIEW OF SYSTEMS: Constitutional: No documented fever, no chills, no night sweats. No weight change. No weakness, fatigue or lethargy. No daytime sleepiness. HEENT: No headache. No blurred vision or double vision, no loss of vision. No loss of Hearing, no ringing in the ears, no dizziness. No nasal drainage or congestion. No epistaxis. No sore throat. Lungs: No shortness of breath, no cough, no sputum production. No wheezing. Re ports dry nose not able to breathe through the nose Cardiovascular: no chest pain, minimal lower extremity edema. No palpitations. No paroxysmal nocturnal dyspnea. No orthopnea. No lightheadedne ss or dizziness. No syncopal episodes. Abdominal: Reports no abdominal pain. No nausea, vomiting. No diarrhea. No constipation. No bloody or tarry stools reports loss of appetite. Passing gas. Genitourinary: No dysuria, increased frequency, urgency. Musculoskeletal: No myalgias. No muscle weakness, no gait dysfunction, no frequent falls. No back pain. positive for neck pain, Integumentary: No wounds, no lesions. No rash or pruritus. No unusual bruising. No change in hair or nails. Neurologic: No aphasia. No facial droop. No change in mentation. No head injury. No headache. No paralysis. No paresthesia. Psychiatric: No depression. Positive for anxiety. No mood swings. Endocrine: Positive abnormal blood sugars. No weight change. PHYSICAL EXAMINATION: General: 69-year-old male sitting up in a chair in no apparent distress HEENT: Head is atraumatic, normocephalic, pupils were equal round, reactive to light and accommodation, extraocular movement were intact mucous membranes of mouth are somewhat dry, Neck: Supple, no JVP, normal carotid upstroke bilaterally, no lymphadenopathy . Chest: Decreased breath sounds at the bases, few rhonchi, no expiratory wheezes, There is a permanent pacemaker located in the left upper precordium Heart: First heart sound is normal, second heart sounds normal there is no murmur, permanent pacemaker located in the left upper precordium Abdomen: Soft, nontender, nondistended, depressed bowel sounds , Extremities: There is no edema no calf tenderness DP +2 bilaterally, bilateral knee-high CHARI hose/SCDs Neurologic examination: Patient is awake alert and oriented x 3, cranial nerves III to XII appear gross intact, muscle power 4 out of 5 in upper lower extremities bilaterally ASSESSMENT AND PLAN: 1. Acute vent dependent respiratory failure status post aortic valve replacement status post extubation . increase activity, use incentive spirometer, continue aggressive pulmonary toileting, follow-up with the patient very closely 2. Hypertension and hypertensive cardiovascular disease. Continue metoprolol ER 50 mg once every day, continue hydralazine 10 mg IV push every hours as needed for systolic blood pressure greater than 160 3. Mixed hyperlipidemia. Continue patient on atorvastatin 80 mg orally once every day, continue Zetia 10 mg once every day monitor lipid panel, keep LDL 55- 70. 4. GERD with esophagitis. Continue pantoprazole 40 mg orally once every day for 5. Vitamin D deficiency continue vitamin D3 1000 units once every day. 6. Spondylosis of the cervical spine. Continue current pain management. 7. History of recurrent TIAs in the past, continue aspirin 325 mg once every d ay, Plavix 75 mg once every day, continue atorvastatin 80 mg once every day along with Zetia 10 mg once every day. 8. Acute blood loss anemia monitor the patient CBC very closely keep hemoglobin greater than 8 at all of the time. 9. DVT prophylaxis. Continue patient on bilateral knee-high CHARI hose as well as bilateral SCDs. Continue heparin 5000 units subcutaneously every 8 hours 10. GI prophylaxis. Continue Protonix 40 mg orally once every day 11. Allergic rhinitis. Start the patient on montelukast 10 mg at bedtime. 12. Postoperative hyperglycemia. Discontinue standard, start the patient insulin sliding scale insulin 13. Third-degree AV block likely related to surgical intervention status post permanent pacemaker placement. Continue metoprolol ER 50 mg orally once every day, pacemaker interrogation today 14. Metabolic encephalopathy likely due to surgical intervention. Appears to be better today 15. We will follow the patient with you Objective - Vital Signs Vital signs: Vital Signs Temp 98.5 F 09/28/24 04:00 Pulse 55 L 09/28/24 08:18 Resp 18 09/28/24 07:00 BP 122/63 09/28/24 07:00 Pulse Ox 96 09/28/24 07:00 FiO2 50 09/23/24 16:50 Intake & Output 09/27/24 09/28/24 09/28/24 18:59 06:59 18:59 Intake Total 1080 150 Output Total 625 920 Balance 455 -770 Weight 89.3 kg Intake: Oral 1080 150 Output: Urine 625 920 Other: Voiding Method Urinal Urinal # Voids 1 # Bowel Movements 1 ABP, PAP, CO, CI - Last Documented Arterial Blood Pressure 145/64 Pulmonary Artery Pressure 27/12 Cardiac Output 6.3 Cardiac Index 3.2 - Labs CBC & Chem 7: 09/28/24 04:14 09/28/24 04:14 Labs: Abnormal Lab Results - Last 24 Hours (Table) 09/23/24 09/27/24 09/27/24 Range/Units 12:30 11:13 11:17 RBC (4.40-5.60) 10*6/uL Hgb (13.0-17.0) g/dL Hct (39.6-50.0) % MCV (80.0-97.0) fL MCH (27.0-32.0) pg Eosinophils # (0.04-0.35) 10*3/uL Sodium (137-145) mmol/L BUN (9-20) mg/dL Glucose (74-99) mg/dL POC Glucose (mg/dL) 139 H 310 H 146 H (70-110) mg/dL Total Protein (6.3-8.2) g/dL Albumin (3.5-5.0) g/dL 09/27/24 09/27/24 09/28/24 Range/Units 16:33 19:51 04:14 RBC 2.71 L (4.40-5.60) 10*6/uL Hgb 8.7 L (13.0-17.0) g/dL Hct 26.6 L (39.6-50.0) % MCV 98.2 H (80.0-97.0) fL MCH 32.1 H (27.0-32.0) pg Eosinophils # 0.38 H (0.04-0.35) 10*3/uL Sodium (137-145) mmol/L BUN (9-20) mg/dL Glucose (74-99) mg/dL POC Glucose (mg/dL) 171 H 194 H (70-110) mg/dL Total Protein (6.3-8.2) g/dL Albumin (3.5-5.0) g/dL 09/28/24 09/28/24 Range/Units 04:14 06:14 RBC (4.40-5.60) 10*6/uL Hgb (13.0-17.0) g/dL Hct (39.6-50.0) % MCV (80.0-97.0) fL MCH (27.0-32.0) pg Eosinophils # (0.04-0.35) 10*3/uL Sodium 136 L (137-145) mmol/L BUN 24 H (9-20) mg/dL Glucose 127 H (74-99) mg/dL POC Glucose (mg/dL) 133 H (70-110) mg/dL Total Protein 5.6 L (6.3-8.2) g/dL Albumin 3.1 L (3.5-5.0) g/dL
[2024-09-28] MEDS: METOPROLOL SUCCINATE (ER) 25 MG TAB.ER.24H PO SCH (10:15)
--- NOTE | 2024-09-28 11:19 | P.PN ---
Subjective Progress Note Date: 09/28/24 This is a 69-year-old white male with history of severe aortic stenosis with bicuspid aortic valve, has been following up with Dr. Cristina for quite some time. Patient had recent echocardiogram that showed worsening severe aortic valve stenosis. Patient had no shortness of breath, no chest pain, no lightheadedness or dizziness, no syncopal episodes. Recent transesophageal echo was done and confirmed severe aortic stenosis hence the patient underwent aortic valve replacement today. Postoperatively patient was in the ICU on mechanical ventilation, he is on assist-control rate of 14 tidal volume 450 FiO2 60% and I cut down to 50% and his PEEP was 5. Chest x-ray showed mostly postoperative changes, no acute process was noted. Cardiac output was 4.0, cardiac index 2.0. Patient is hemodynamically stable, not requiring any pressors and not requiring any inotropes. Plan to proceed with weaning in the next 2 hours. Patient was seen today on 09/24/2024,POD #1 aortic valve replacement using a 23 m m Rosa Inspiris bioprosthetic valve, ligation of left atrial appendage using a 35mm Atriclip, epiaortic ultrasound, intraoperative transesophageal echocardiogram. Patient was successfully extubated last night shortly after he arrived to the ICU, today the patient is doing well, achieving 1250 mL on his intensive spirometry. He was extubated at 5:38 PM yesterday. Today he is sitting at the bedside chair, not in distress, cardiac output is 4.9 cardiac index 2.5, PA pressure 30/11, CVP is 7 patient is not requiring any pressors or any inotropes. Chest x-ray showed that he continues to have left chest sided tubes and mediastinal tube, both on suction, no airleak, chest x-ray showed minimal atelectasis and postoperative changes, no acute processes noted. WBC count is 10.9 hemoglobin 10.3, basic metabolic profile is normal renal profile is normal Patient was seen today on 09/25/2024, he is now postoperative day #2, doing well, on room air, sitting at the bedside chair. Patient is alert and oriented x 3, does not seem to be in any distress, pain is fairly well-controlled, hemodynam ically stable, not requiring any inotropes or any pressors, continues to have an underlying paced rhythm of third-degree AV block the plan is to eventually have a permanent pacemaker placement. This will be done tomorrow by Dr. Cho. Patient is achieving about 1250 cc on incentive spirometry, mediastinal and left pleural chest tubes remain in place, remain on suction. No airleak. Chest x-ra y showed mostly postoperative changes and minimal atelectasis, expected. WBC count is 11.2 hemoglobin 8.9 basic metabolic profile is normal renal profile is normal Seen today on 09/26/2024, patient is now postoperative day #3, sitting at the bedside chair, does not seem to be in any distress. Patient is awake alert oriented x 3, he did have a bit of confusion last night, but that has resolved this morning. Achieving 1500 mL on incentive spirometry O2 sat is 95% on room air, patient continues to have ventricular paced rhythm on DDD mode underlying rhythm is a third-degree AV block, patient may undergo permanent pacemaker placement today by cardiology. Continues to have left pleural chest tube in place will likely be removed today. Patient has been ambulating with assistance. Chest x-ray this morning was reviewed there is extremely minimal left tiny apical pneumothorax. Not worrisome and I believe since the patient does not have air leak in the Pleur-evac, the chest tube could be removed. The patient is seen today September 27, 2024 in follow-up in the intensive care unit. Postoperative day #4. He has been up ambulating with assistance. He is doing well. Denies any worsening shortness of breath, cough or congestion. He is maintaining good O2 saturation on room air oxygen. He has been afebrile. Hemodynamically stable. White count 8.6. Hemoglobin 8.1. Platelets 151. So dium 135. Potassium 4.4. Bicarb 28. BUN 1.26. Glucose 122. He continues to work well with the incentive spirometer. Today's chest x-ray shows residual pulmonary vascular congestion. Improved. He continues to work well with the incentive spirometer. The patient is seen today September 28, 2024 in follow-up in the intensive care unit. Postoperative day #5 he is currently sitting up at the bedside. Awake and alert in no acute distress. Maintaining good O2 saturations in the 90s on room air ox ygen no IV fluids. He did develop complete heart block post aortic valve replacement and had undergone a dual-chamber pacemaker implantation on 09/26/2024. Chest x-ray shows trace bilateral pleural effusions with adjacent atelectasis. White count 7.9. Hemoglobin 8.7. Platelets 206. Sodium 136. Potassium 4.8. Bicarb 24. BUN 24. Creatinine 0.91. Glucose 127. He remains on DuoNeb inhalations, Singulair. Heparin for DVT prophylaxis. Continues to work well with the incentive spirometer. Objective - Vital Signs Vital signs: Vital Signs Temp 98.7 F 09/28/24 08:00 Pulse 65 09/28/24 10:00 Resp 14 09/28/24 10:00 BP 126/74 09/28/24 10:00 Pulse Ox 95 09/28/24 10:00 FiO2 50 09/23/24 16:50 Intake & Output 09/27/24 09/28/24 09/28/24 18:59 06:59 18:59 Intake Total 1080 150 490 Output Total 625 920 200 Balance 455 -770 290 Weight 89.3 kg Intake: Oral 1080 150 490 Output: Urine 625 920 200 Other: Voiding Method Urinal Urinal # Voids 1 1 # Bowel Movements 1 ABP, PAP, CO, CI - Last Documented Arterial Blood Pressure 145/64 Pulmonary Artery Pressure 27/12 Cardiac Output 6.3 Cardiac Index 3.2 - Exam GENERAL EXAM: Alert, pleasant 69-year-old male, on room air oxygen, sitting up in a chair, comfortable in no apparent distress. HEAD: Normocephalic. EYES: Normal reaction of pupils, equal size. NOSE: Clear with pink turbinates. THROAT: No erythema or exudates. NECK: No masses, no JVD. CHEST: Sternal dressing dry and intact. Heart hugger in place. Sternum stable. Left subclavian pacer site clean and dry. LUNGS: Equal air entry with no crackles, wheeze, rhonchi or dullness. CVS: S1 and S2 normal with no audible murmur, regular rhythm. ABDOMEN: No hepatosplenomegaly, normal bowel sounds, no guarding or rigidity. SPINE: No scoliosis or deformity SKIN: No rashes CENTRAL NERVOUS SYSTEM: No focal deficits, tone is normal in all 4 extremities. EXTREMITIES: There is no peripheral edema. No clubbing, no cyanosis. Peripheral pulses are intact. - Labs CBC & Chem 7: 09/28/24 04:14 09/28/24 04:14 Labs: Abnormal Lab Results - Last 24 Hours (Table) 09/27/24 09/27/24 09/27/24 Range/Units 11:13 11:17 16:33 RBC (4.40-5.60) 10*6/uL Hgb (13.0-17.0) g/dL Hct (39.6-50.0) % MCV (80.0-97.0) fL MCH (27.0-32.0) pg Eosinophils # (0.04-0.35) 10*3/uL Sodium (137-145) mmol/L BUN (9-20) mg/dL Glucose (74-99) mg/dL POC Glucose (mg/dL) 310 H 146 H 171 H (70-110) mg/dL Total Protein (6.3-8.2) g/dL Albumin (3.5-5.0) g/dL 09/27/24 09/28/24 09/28/24 Range/Units 19:51 04:14 04:14 RBC 2.71 L (4.40-5.60) 10*6/uL Hgb 8.7 L (13.0-17.0) g/dL Hct 26.6 L (39.6-50.0) % MCV 98.2 H (80.0-97.0) fL MCH 32.1 H (27.0-32.0) pg Eosinophils # 0.38 H (0.04-0.35) 10*3/uL Sodium 136 L (137-145) mmol/L BUN 24 H (9-20) mg/dL Glucose 127 H (74-99) mg/dL POC Glucose (mg/dL) 194 H (70-110) mg/dL Total Protein 5.6 L (6.3-8.2) g/dL Albumin 3.1 L (3.5-5.0) g/dL 09/28/24 Range/Units 06:14 RBC (4.40-5.60) 10*6/uL Hgb (13.0-17.0) g/dL Hct (39.6-50.0) % MCV (80.0-97.0) fL MCH (27.0-32.0) pg Eosinophils # (0.04-0.35) 10*3/uL Sodium (137-145) mmol/L BUN (9-20) mg/dL Glucose (74-99) mg/dL POC Glucose (mg/dL) 133 H (70-110) mg/dL Total Protein (6.3-8.2) g/dL Albumin (3.5-5.0) g/dL Assessment and Plan Assessment: Bicuspid aortic valve/severe aortic stenosis. POD #5 aortic valve replacement using a 23 mm Rosa Inspiris bioprosthetic valve, ligation of left atrial appendage using a 35mm Atriclip, epiaortic ultrasound, intraoperative tra nsesophageal echocardiogram Complete heart block status post permanent pacemaker implantation. Pos toperative day #2 Benign essential hypertension Dyslipidemia History of renal cell tumor Ex-smoker quit in 1984 Postoperative atelectasis, and tiny left apical pneumothorax, expected, resolved Plan: The patient was seen and evaluated Chest x-ray, labs and medications reviewed Echocardiogram pending to evaluate pacemaker leads Stable and on room air oxygen Continue the incentive spirometer Continue bronchodilators Heparin for DVT prophylaxis We will continue to follow I have personally seen and examined the patient, performed the documentation and the assessment and plan as written. Number of minutes spent on the visit: 10 Dictation was produced using [employer] dictation software. Please excuse any grammatical, word or spelling errors.
[2024-09-28 11:48] LABS: Glucose,Whole Blood 108 mg/dL (70-110)
--- NOTE | 2024-09-28 14:19 | CDI ---
Documentation Clarification Form Date: 09/28/2024 01:45:41 PM From: Erika Beverly RN CCDS Phone: [phone] Admit Date: 09/23/2024 05:33:00 AM Patient Name: Joe Justin Visit Number: [id number] Discharge Date: ATTENTION: The Clinical Documentation Specialists (CDI) and [facility] Coding Staff appreciate your assistance in clarifying documentation. Please respond to the clarification below the line at the bottom and electronically sign. The CDI & [facility] Coding staff will review the response and follow-up if needed. Please note: Queries are made part of the Legal Health Record. If you have any questions, please contact the author of this message via ITS. Dr. Eulalia Tsang Acute Vent dependent respiratory failure is documented 09/23, Medicine consult. Additional clarification regarding the cause of the post op respiratory failure is requested. History/Risk Factors: 75 year old male presented to [facility] for elective TAVAR procedure related to severe aortic stenosis with bicuspid aortic valve. Medial history: Asthma, TIA and HTN. 09/23, Medicine consult Clinical Indicators: 09/23 0600: 132/76; HR 63; Temp 98.1F; Temporal; RR 16; SpO2 97% Room Air 09/23 12:30: 123/61; HR 87; Temp 97.0F Core; RR 14; SpO2 97% Mechanical Ventilator 09/23 17:45: 113/63; HR 70; RR 13; SpO2 99% Mechanical Ventilator 09/23 18:00: 119/60; HR 70; RR 13; SpO2 98% 3L nasal cannula 09/24 07:00: 2L nasal cannula 09/25 20:00: room air 09/23,Medicine note: Chest: Decreased breath sounds at the bases, few rhonchi Treatment: 09/23 12:30 1800 Mechanical Ventilator, 09/23 18:00 09/24 07:00 3L nasal cannula; 09/24 07:00 09/25 20:00 2L nasal cannula; 09/25 20:00 Room air Please clarify the documentation related to post op respiratory failure, if known: [ X] Patient was weaned from mechanical ventilation in an expected timeframe following the procedure and respiratory failure has been ruled out. [ ] Acute respiratory failure is a complication of the surgical procedure [ ] Acute respiratory failure is an expected outcome of the patients procedure [ ] Other please specify [ ] Unable to determine (Template Last Revised: July 2020) MTDD
[2024-09-28 16:51] LABS: Glucose,Whole Blood 142 mg/dL (70-110)
[2024-09-28 20:22] LABS: Glucose,Whole Blood 168 mg/dL (70-110)
[2024-09-29 05:14] LABS: HCT 28.4 % (39.6-50.0); HGB 9.3 g/dL (13.0-17.0); MCH 32.2 pg (27.0-32.0); MCHC 32.7 g/dL (32.0-37.0); MCV 98.3 fL (80.0-97.0); Mean Platelet Volume 10.4 fL (9.5-12.2); Platelet Count 291 10*3/uL (140-440); RBC 2.89 10*6/uL (4.40-5.60); RDW 13.5 % (11.5-14.5); WBC 8.63 10*3/uL (4.50-10.00)
[2024-09-29 05:26] LABS: African American GFR (CKD) 85 (>60 ml/min/1.73 sqM); Anion Gap 10 mmol/L; Blood Urea Nitrogen 19 mg/dL (9-20); Calcium 9.2 mg/dL (8.4-10.2); Carbon Dioxide 24 mmol/L (22-30); Chloride 101 mmol/L (98-107); Glucose 158 mg/dL (74-99); Non-African American GFR(CKD) 74 (>60 ml/min/1.73 sqM); Sodium 135 mmol/L (137-145)
[2024-09-29 06:14] LABS: Glucose,Whole Blood 162 mg/dL (70-110)
--- NOTE | 2024-09-29 08:23 | XR ---
EXAMINATION TYPE: XR chest 2V DATE OF EXAM: 09/29/2024 4:29 AM COMPARISON: 09/28/2024 CLINICAL INDICATION: Male, 69 years old with history of Postcardiac surgery, , TECHNIQUE: PA and lateral views FINDINGS: Left anterior just will pacemaker generator with right atrial and right ventricular leads. Median franklin rnotomy wires are prosthetic aortic valve. Heart remains borderline enlarged. Mild interstitial promi nence remains though improved from prior. Trace pleural effusions remain along with some patchy retro cardiac opacity. IMPRESSION: Some improvement in mild pulmonary vascular congestion. Trace bilateral pleural effusions remain. Navneet e improving patchy retrocardiac postoperative atelectasis. [facility], , 09/29/2024 8:21 AM
--- NOTE | 2024-09-29 08:42 | P.PN ---
Subjective Progress Note Date: 09/29/24 Principal diagnosis: Critical aortic stenosis. Medical history significant for hypertension, hyperlipidemia, renal cell tumor, asthma, CVA/TIA, chronic back pain/spondylitis and remote history of nicotine dependence quit smoking in 1986. POD #6 aortic valve replacement using a 23 mm Rosa Inspiris bioprosthetic valve, ligation of left atrial appendage using a 35mm Atriclip, epiaortic ultrasound, intraoperative transesophageal echocardiogram. POD #3 Dual-chamber pacemaker implantation with conduction system pacing (left bundle pacing), left upper extremity venogram performed by Dr. Cho, underlying rhythm atrial fibrillation, a known common occurrence after cardiac surgery. Postoperative acute blood loss anemia, expected given hemodilution and cardiopulmonary bypass. Underlying complete heart block, unexpected but potential complication of any valve surgery. The patient was seen and examined in follow-up today September 29, 2024 at his bedside in the intensive care unit. He is currently sitting up to the bedside chair, is awake, alert, oriented x 3 and is in no acute apparent distress. He denies any complaints of pain or shortness of breath at this time. He is still having episodes of impulsiveness and confusion. He is complaining of lack of sleep. He has been up ambulating in the intensive care unit hallway with standby assistance nursing and therapy staff and tolerating well. Oxygen saturations are 95% on room air and he is achieving 2250 mL on his incentive spirometry with encouragement. Bedside telemetry showing ventricular paced rhythm heart rate 65 with underlying atrial fibrillation. Epicardial pacemaker wires remain in place and are grounded. Chest x-ray and laboratory results were reviewed. Objective - Vital Signs Vital signs: Vital Signs Temp 97.9 F 09/29/24 00:00 Pulse 70 09/29/24 07:00 Resp 18 09/29/24 07:00 BP 139/67 09/29/24 07:00 Pulse Ox 96 09/29/24 07:00 FiO2 50 09/23/24 16:50 Intake & Output 09/28/24 09/29/24 09/29/24 18:59 06:59 18:59 Intake Total 1220 150 Output Total 600 600 Balance 620 -450 Weight 87.5 kg Intake: Oral 1220 150 Output: Urine 600 600 Other: Voiding Method Toilet Urinal Urinal # Voids 1 # Bowel Movements 1 ABP, PAP, CO, CI - Last Documented Arterial Blood Pressure 145/64 Pulmonary Artery Pressure 27/12 Cardiac Output 6.3 Cardiac Index 3.2 - Exam CONSTITUTIONAL: Sitting up to the bedside chair in the intensive care unit, appears comfortable, cooperative, no apparent acute distress. HEENT: Neck is supple, no JVD, no lymphadenopathy. RESPIRATORY: Lungs sounds essentially clear throughout, diminished to his bilateral bases. Respirations are symmetrical and nonlabored. Currently on room air with oxygen saturations 95%. Able to achieve 2250 mL on his incentive spirometry. Strong cough. CARDIOVASCULAR: Regular rhythm and rate. S1 and S2 present, negative for S3, gallop or murmur. Bedside telemetry is showing ventricular paced rhythm heart rate 65 bpm, underlying atrial fibrillation. Sternum is stable. Palpable peripheral pulses bilaterally. No calf pain or tenderness noted. Heart hugger in place with patient demonstrating appropriate use. Knee-high CHARI hose and sequential compression devices in place to his bilateral lower extremities. GASTROINTESTINAL: Abdomen soft, nontender, nondistended. Active bowel sounds present 4 quadrants. Tolerating diet. Passing flatus. No guarding or rigidity. Bowel movement yesterday 09/28/2024. GENITOURINARY: Continues to void. Urine output 400 mL in the last 8 hours. INTEGUMENTARY: Skin is warm and dry with no evidence of clubbing or cyanosis. Midline sternal incision clean dry and well approximated, covered with dry intact dressing. NEUROLOGIC: Cranial nerves II through XII intact. No focal deficits. MUSKULOSKELETAL: Able to move all extremities, strength equal bilaterally, generalized weakness. PSYCHIATRIC: Alert and oriented to person place and time, appropriate affect, intact judgment and insight. INVASIVE LINES AND TUBES: Atrial and ventricular epicardial pacemaker wires pre sent, wires are currently grounded. - Allied health notes Allied health notes reviewed: nursing - Labs CBC & Chem 7: 09/29/24 04:39 09/29/24 04:39 Labs: Abnormal Lab Results - Last 24 Hours (Table) 09/28/24 09/28/24 09/29/24 Range/Units 16:49 20:20 04:39 RBC 2.89 L (4.40-5.60) 10*6/uL Hgb 9.3 L (13.0-17.0) g/dL Hct 28.4 L (39.6-50.0) % MCV 98.3 H (80.0-97.0) fL MCH 32.2 H (27.0-32.0) pg Sodium (137-145) mmol/L Glucose (74-99) mg/dL POC Glucose (mg/dL) 142 H 168 H (70-110) mg/dL 09/29/24 09/29/24 Range/Units 04:39 06:13 RBC (4.40-5.60) 10*6/uL Hgb (13.0-17.0) g/dL Hct (39.6-50.0) % MCV (80.0-97.0) fL MCH (27.0-32.0) pg Sodium 135 L (137-145) mmol/L Glucose 158 H (74-99) mg/dL POC Glucose (mg/dL) 162 H (70-110) mg/dL - Imaging and Cardiology Chest x-ray: report reviewed, image reviewed Assessment and Plan Assessment: Critical aortic stenosis, status post aortic valve replacement with a 23 mm Inspiris bioprosthetic valve Underlying complete heart block, unexpected but potential complication of any valve surgery, status post dual-chamber pacemaker implantation with conduction system pacing, underlying atrial fibrillation, a known, occurrence after cardiac surgery Acute blood loss anemia, expected given hemodilution and cardiopulmonary bypass Hypertension Hyperlipidemia, treated Asthma History of TIA with no residual deficits, on Brilinta as an outpatient GERD History of renal cell tumor Chronic back pain/spondylitis Remote history of nicotine dependence quit smoking in 1986 Plan: Continue to maximize medical therapy with aspirin, statin, Plavix and beta- sabas. Will increase metoprolol succinate as tolerated. Dr. HERNANDO Chow is recommending Eliquis 2.5 mg p.o. daily and aspirin 81 mg p.o. daily once epicardial pacemaker wires are removed. No Brilinta at this time per cardiology. Encourage use of incentive spirometry 10 times every hour while awake. Continue home dose of Singulair. Bronchodilator management per pulmonary/critical care medicine. Increase activity as tolerated, PT/OT/cardiac rehab following. Will monitor daily labs and chest x-rays. Electrolyte replacement per protocol. GI/DVT prophylaxis. Insulin management per internal medicine. Preoperative hemoglobin A1c 6.0%. Pain control per current medication regimen. Avoid opioids due to patient's episodes of confusion. May shower daily. Continue melatonin 3 mg p.o. nightly for sleep aid. Continue to monitor record strict accurate intake and output. Transfer orders will be placed to the third floor cardiac stepdown unit. Discharge planning is in place, anticipate discharge home with home health care in the next 24 to 48 hours. More recommendations to follow based on patient's clinical course. Time with Patient: Greater than 30
--- NOTE | 2024-09-29 09:09 | P.PN ---
Subjective Progress Note Date: 09/29/24 HISTORY OF PRESENT ILLNESS: This is a 69-year-old male with a previous medical history significant for hyperlipidemia, GERD with esophagitis, vitamin D deficiency, recurrent TIA on dual antiplatelet therapy, who recently underwent left heart catheterization that showed normal coronary arteries with severe aortic valve stenosis followed by transesophageal echocardiogram which confirmed severe aortic valve stenosis with a valve surface area of 0.5, patient underwent aortic valve replacement t hat was done by Dr. Presley and we were asked to see the patient for postoperative medical management. On the ventilator, currently in degree Van drip at 30 micg, he has been on albumin as well as IV fluid resuscitation, he has very good urine output at least 100 cc an hour, we will is currently on the ventilator with a tidal volume of 450 respiratory rate of 18 FiO2 50%, his oxygenation is 98%, they will continue with the weaning parameter, chest x-ray appears to be good, blood gases appears to be good, we will try to wean the patient off the ventilator later on this afternoon. 09/24: Patient sitting up in the chair, he was extubated successfully yesterday, he denies any significant pain, he does complain of some soreness in the chest where the incision is, he continues to have a chest tube in place, he continues to have a Cordis catheter in the right internal jugular vein, this was probably coming out today, continue this at his primary, continue current pain management, continue to follow-up with the patient very closely. 09/25: Patient sitting up in chair in no apparent distress, he is feeling better today, he denies any chest pain, shortness of breath, he continues to feel bett er continue current treatment plan, continue to increase activity, continue incentive spirometer, follow-up with laboratory evaluation, underlying rhythm is third-degree AV block, he is scheduled to go for permanent restriction placement tomorrow morning, follow-up with the patient very closely. Discontinue insulin drip, start the patient on sliding scale insulin, continue other treatment plan 09/26: Patient is laying down in bed in no apparent distress, he is scheduled to go for permanent pacemaker placement due to underlying rhythm with complete heart block, patient appears to be hemodynamically stable at this point in time, currently has a pacer wire in place, when the chest tube was removed, right internal jugular cordis will be removed as well, will follow-up with the patient very closely, keep the patient in ICU overnight, recheck the patient chest x-ray after the procedure and tomorrow morning. 09/27: Patient sitting up in chair in no apparent distress, he appears less confused today, his hemoglobin down to 8.2, he denies any chest pain, shortness breath at this time, his monitor showing an ST elevation, his twelve-lead EKG did not show evidence of ST elevation or reciprocal changes, patient does not have any chest pain at this time, no shortness of breath, he will be staying in the ICU for another 24 hours, hopefully will be moved to the floor tomorrow morning. Increase activity, increase the use of incentive spirometer, follow-up with the patient very closely. 09/28: Patient sitting up in the recliner chair, he appears to be a bit down today, he has no chest pain, shortness of breath at this time, he continues to be in the ICU, does appear to have some PACs on and off, and the pacemaker is not sensing patient will have this pacemaker interrogated by PT [employer] personnel today patient will be kept in the ICU, continue current treatment plan, continues on Xarelto, continue follow-up with the patient very closely 09/29: Patient is sitting up in bed in no apparent distress, his pacer wires were removed, patient underlying rhythm is atrial fibrillation, his pacemaker was adjusted yesterday, and sensing very well and pacing very well, his heart rate is better, blood pressure stable at this time, patient will be moved out of the ICU today, he would likely be discharged home tomorrow morning REVIEW OF SYSTEMS: Constitutional: No documented fever, no chills, no night sweats. No weight change. No weakness, fatigue or lethargy. No daytime sleepiness. HEENT: No headache. No blurred vision or double vision, no loss of vision. No loss of Hearing, no ringing in the ears, no dizziness. No nasal drainage or congestion. No epistaxis. No sore throat. Lungs: No shortness of breath, no cough, no sputum production. No wheezing. Reports dry nose not able to breathe through the nose Cardiovascular: no chest pain, minimal lower extremity edema. No palpitations. No paroxysmal nocturnal dyspnea. No orthopnea. No lightheadedness or dizziness. No syncopal episodes. Abdominal: Reports no abdominal pain. No nausea, vomiting. No diarrhea. No c onstipation. No bloody or tarry stools reports loss of appetite. Passing gas. Genitourinary: No dysuria, increased frequency, urgency. Musculoskeletal: No myalgias. No muscle weakness, no gait dysfunction, no frequent falls. No back pain. positive for neck pain, Integumentary: No wounds, no lesions. No rash or pruritus. No unusual bruising. No change in hair or nails. Neurologic: No aphasia. No facial droop. No change in mentation. No head injury. No headache. No paralysis. No paresthesia. Psychiatric: No depression. Positive for anxiety. No mood swings. Endocrine: Positive abnormal blood sugars. No weight change. PHYSICAL EXAMINATION: General: 69-year-old male sitting up in a chair in no apparent distress HEENT: Head is atraumatic, normocephalic, pupils were equal round, reactive to light and accommodation, extraocular movement were intact mucous membranes of m outh are somewhat dry, Neck: Supple, no JVP, normal carotid upstroke bilaterally, no lymphadenopathy . Chest: Decreased breath sounds at the bases, few rhonchi, no expiratory wheezes, There is a permanent pacemaker located in the left upper precordium Heart: First heart sound is normal, second heart sounds normal there is no murmur, permanent pacemaker located in the left upper precordium Abdomen: Soft, nontender, nondistended, depressed bowel sounds , Extremities: There is no edema no calf tenderness DP +2 bilaterally, bilateral knee-high CHARI hose/SCDs Neurologic examination: Patient is awake alert and oriented x 3, cranial nerves III to XII appear gross intact, muscle power 4 out of 5 in upper lower extremities bilaterally ASSESSMENT AND PLAN: 1. Acute vent dependent respiratory failure status post aortic valve replacement status post extubation . increase activity, use incentive spirometer, continue aggressive pulmonary toileting, follow-up with the patient very closely 2. Hypertension and hypertensive cardiovascular disease. Continue metoprolol ER 50 mg once every day, we will continue to monitor the blood pressure very closely 3. Mixed hyperlipidemia. Continue patient on atorvastatin 80 mg orally once every day, continue Zetia 10 mg once every day monitor lipid panel, keep LDL 55- 70. 4. GERD with esophagitis. Continue pantoprazole 40 mg orally once every day for 5. Vitamin D deficiency continue vitamin D3 1000 units once every day. 6. new onset atrial fibrillation patient was started on Eliquis 2.5 mg orally twice every day discontinue Brilinta continue baby aspirin 81 mg once every day. 7. History of recurrent TIAs in the past, continue aspirin 81 mg once every day, the patient was started on Eliquis 2.5 mg orally twice every day for un derlying atrial fibrillation 8. Acute blood loss anemia monitor the patient CBC very closely keep hemoglobin greater than 8 at all of the time. 9. DVT prophylaxis. Continue patient on bilateral knee-high CHARI hose as well as bilateral SCDs. patient was started on Eliquis 2.5 mg orally twice every 10. GI prophylaxis. Continue Protonix 40 mg orally once every day 11. Allergic rhinitis. on montelukast 10 mg at bedtime. 12. Postoperative hyperglycemia. Discontinue standard, start the patient insulin sliding scale insulin 13. Third-degree AV block likely related to surgical intervention status post permanent pacemaker placement. Continue metoprolol ER 50 mg orally once every day. 14. Metabolic encephalopathy likely due to surgical intervention. resolved 15. hypernatremia secondary to hypovolemia better last sodium is 135 16. Patient is medically stable to be transferred to [facility] and likely home tomorrow morning. Objective - Vital Signs Vital signs: Vital Signs Temp 97.9 F 09/29/24 00:00 Pulse 70 09/29/24 07:00 Resp 18 09/29/24 07:00 BP 139/67 09/29/24 07:00 Pulse Ox 95 09/29/24 08:49 FiO2 21 09/29/24 08:49 Intake & Output 09/28/24 09/29/24 09/29/24 18:59 06:59 18:59 Intake Total 1220 150 Output Total 600 600 Balance 620 -450 Weight 87.5 kg Intake: Oral 1220 150 Output: Urine 600 600 Other: Voiding Method Toilet Urinal Urinal # Voids 1 # Bowel Movements 1 ABP, PAP, CO, CI - Last Documented Arterial Blood Pressure 145/64 Pulmonary Artery Pressure 27/12 Cardiac Output 6.3 Cardiac Index 3.2 - Labs CBC & Chem 7: 09/29/24 04:39 09/29/24 04:39 Labs: Abnormal Lab Results - Last 24 Hours (Table) 09/28/24 09/28/24 09/29/24 Range/Units 16:49 20:20 04:39 RBC 2.89 L (4.40-5.60) 10*6/uL Hgb 9.3 L (13.0-17.0) g/dL Hct 28.4 L (39.6-50.0) % MCV 98.3 H (80.0-97.0) fL MCH 32.2 H (27.0-32.0) pg Sodium (137-145) mmol/L Glucose (74-99) mg/dL POC Glucose (mg/dL) 142 H 168 H (70-110) mg/dL 09/29/24 09/29/24 Range/Units 04:39 06:13 RBC (4.40-5.60) 10*6/uL Hgb (13.0-17.0) g/dL Hct (39.6-50.0) % MCV (80.0-97.0) fL MCH (27.0-32.0) pg Sodium 135 L (137-145) mmol/L Glucose 158 H (74-99) mg/dL POC Glucose (mg/dL) 162 H (70-110) mg/dL
--- NOTE | 2024-09-29 11:41 | P.PN ---
Subjective Progress Note Date: 09/29/24 This is a 69-year-old white male with history of severe aortic stenosis with bicuspid aortic valve, has been following up with Dr. Cristina for quite some time. Patient had recent echocardiogram that showed worsening severe aortic valve stenosis. Patient had no shortness of breath, no chest pain, no lightheadedness or dizziness, no syncopal episodes. Recent transesophageal echo was done and confirmed severe aortic stenosis hence the patient underwent aortic valve replacement today. Postoperatively patient was in the ICU on mechanical ventilation, he is on assist-control rate of 14 tidal volume 450 FiO2 60% and I cut down to 50% and his PEEP was 5. Chest x-ray showed mostly postoperative changes, no acute process was noted. Cardiac output was 4.0, cardiac index 2.0. Patient is hemodynamically stable, not requiring any pressors and not requiring any inotropes. Plan to proceed with weaning in the next 2 hours. Patient was seen today on 09/24/2024,POD #1 aortic valve replacement using a 23 m m Rosa Inspiris bioprosthetic valve, ligation of left atrial appendage using a 35mm Atriclip, epiaortic ultrasound, intraoperative transesophageal echocardiogram. Patient was successfully extubated last night shortly after he arrived to the ICU, today the patient is doing well, achieving 1250 mL on his intensive spirometry. He was extubated at 5:38 PM yesterday. Today he is sitting at the bedside chair, not in distress, cardiac output is 4.9 cardiac index 2.5, PA pressure 30/11, CVP is 7 patient is not requiring any pressors or any inotropes. Chest x-ray showed that he continues to have left chest sided tubes and mediastinal tube, both on suction, no airleak, chest x-ray showed minimal atelectasis and postoperative changes, no acute processes noted. WBC count is 10.9 hemoglobin 10.3, basic metabolic profile is normal renal profile is normal Patient was seen today on 09/25/2024, he is now postoperative day #2, doing well, on room air, sitting at the bedside chair. Patient is alert and oriented x 3, does not seem to be in any distress, pain is fairly well-controlled, hemodynam ically stable, not requiring any inotropes or any pressors, continues to have an underlying paced rhythm of third-degree AV block the plan is to eventually have a permanent pacemaker placement. This will be done tomorrow by Dr. Cho. Patient is achieving about 1250 cc on incentive spirometry, mediastinal and left pleural chest tubes remain in place, remain on suction. No airleak. Chest x-ra y showed mostly postoperative changes and minimal atelectasis, expected. WBC count is 11.2 hemoglobin 8.9 basic metabolic profile is normal renal profile is normal Seen today on 09/26/2024, patient is now postoperative day #3, sitting at the bedside chair, does not seem to be in any distress. Patient is awake alert oriented x 3, he did have a bit of confusion last night, but that has resolved this morning. Achieving 1500 mL on incentive spirometry O2 sat is 95% on room air, patient continues to have ventricular paced rhythm on DDD mode underlying rhythm is a third-degree AV block, patient may undergo permanent pacemaker placement today by cardiology. Continues to have left pleural chest tube in place will likely be removed today. Patient has been ambulating with assistance. Chest x-ray this morning was reviewed there is extremely minimal left tiny apical pneumothorax. Not worrisome and I believe since the patient does not have air leak in the Pleur-evac, the chest tube could be removed. The patient is seen today September 27, 2024 in follow-up in the intensive care unit. Postoperative day #4. He has been up ambulating with assistance. He is doing well. Denies any worsening shortness of breath, cough or congestion. He is maintaining good O2 saturation on room air oxygen. He has been afebrile. Hemodynamically stable. White count 8.6. Hemoglobin 8.1. Platelets 151. So dium 135. Potassium 4.4. Bicarb 28. BUN 1.26. Glucose 122. He continues to work well with the incentive spirometer. Today's chest x-ray shows residual pulmonary vascular congestion. Improved. He continues to work well with the incentive spirometer. The patient is seen today September 28, 2024 in follow-up in the intensive care unit. Postoperative day #5 he is currently sitting up at the bedside. Awake and alert in no acute distress. Maintaining good O2 saturations in the 90s on room air ox ygen no IV fluids. He did develop complete heart block post aortic valve replacement and had undergone a dual-chamber pacemaker implantation on 09/26/2024. Chest x-ray shows trace bilateral pleural effusions with adjacent atelectasis. White count 7.9. Hemoglobin 8.7. Platelets 206. Sodium 136. Potassium 4.8. Bicarb 24. BUN 24. Creatinine 0.91. Glucose 127. He remains on DuoNeb inhalations, Singulair. Heparin for DVT prophylaxis. Continues to work well with the incentive spirometer. The patient is seen today September 29, 2024 in follow-up in the intensive care unit. Postoperative day #6. He is currently resting in bed. Awake and alert in no acute distress. Pacemaker wires were removed today. His permanent pacemaker was checked and adjustments were made accordingly. He is maintaining good O2 saturations in the 90s on room air oxygen. He has been afebrile. Hemodynamically stable. Follow-up chest x-ray shows improvement in the mild pulmonary vascular congestion. Trace bilateral effusions. Minimal atelectasis. White count 8.6. Hemoglobin 9.3. Platelets 291. Sodium 135. Potassium 5.0. Bicarb 24. BUN 19. Creatinine 1.02. Glucose 158. He remains on DuoNeb inhala tions, Singulair. Heparin for DVT prophylaxis. Objective - Vital Signs Vital signs: Vital Signs Temp 98.8 F 09/29/24 08:00 Pulse 85 09/29/24 11:00 Resp 16 09/29/24 11:00 BP 120/84 09/29/24 11:00 Pulse Ox 99 09/29/24 11:00 FiO2 21 09/29/24 08:49 Intake & Output 09/28/24 09/29/24 09/29/24 18:59 06:59 18:59 Intake Total 1220 150 Output Total 600 600 200 Balance 620 -450 -200 Weight 87.5 kg Intake: Oral 1220 150 Output: Urine 600 600 200 Other: Voiding Method Toilet Urinal Urinal Urinal # Voids 1 # Bowel Movements 1 ABP, PAP, CO, CI - Last Documented Arterial Blood Pressure 145/64 Pulmonary Artery Pressure 27/12 Cardiac Output 6.3 Cardiac Index 3.2 - Exam GENERAL EXAM: Alert, oriented 69-year-old male, on room air oxygen, resting in bed, comfortable in no apparent distress. HEAD: Normocephalic. EYES: Normal reaction of pupils, equal size. NOSE: Clear with pink turbinates. THROAT: No erythema or exudates. NECK: No masses, no JVD. CHEST: Sternal dressing dry and intact. Heart hugger in place. Sternum stable. Left subclavian pacer site clean and dry. LUNGS: Equal air entry with no crackles, wheeze, rhonchi or dullness. CVS: S1 and S2 normal with no audible murmur, regular rhythm. ABDOMEN: No hepatosplenomegaly, normal bowel sounds, no guarding or rigidity. SPINE: No scoliosis or deformity SKIN: No rashes CENTRAL NERVOUS SYSTEM: No focal deficits, tone is normal in all 4 extremities. EXTREMITIES: There is no peripheral edema. No clubbing, no cyanosis. Periph eral pulses are intact. - Labs CBC & Chem 7: 09/29/24 04:39 09/29/24 04:39 Labs: Abnormal Lab Results - Last 24 Hours (Table) 09/28/24 09/28/24 09/29/24 Range/Units 16:49 20:20 04:39 RBC 2.89 L (4.40-5.60) 10*6/uL Hgb 9.3 L (13.0-17.0) g/dL Hct 28.4 L (39.6-50.0) % MCV 98.3 H (80.0-97.0) fL MCH 32.2 H (27.0-32.0) pg Sodium (137-145) mmol/L Glucose (74-99) mg/dL POC Glucose (mg/dL) 142 H 168 H (70-110) mg/dL 09/29/24 09/29/24 Range/Units 04:39 06:13 RBC (4.40-5.60) 10*6/uL Hgb (13.0-17.0) g/dL Hct (39.6-50.0) % MCV (80.0-97.0) fL MCH (27.0-32.0) pg Sodium 135 L (137-145) mmol/L Glucose 158 H (74-99) mg/dL POC Glucose (mg/dL) 162 H (70-110) mg/dL Assessment and Plan Assessment: Bicuspid aortic valve/severe aortic stenosis. POD #6 aortic valve replacement using a 23 mm Rosa Inspiris bioprosthetic valve, ligation of left atrial appendage using a 35mm Atriclip, epiaortic ultrasound, intraoperative transesophageal echocardiogram Complete heart block status post permanent pacemaker implantation. Postoperative day #3 Benign essential hypertension Dyslipidemia History of renal cell tumor Ex-smoker quit in 1984 Postoperative atelectasis, and tiny left apical pneumothorax, expected, resolved Plan: The patient was seen and evaluated Chest x-ray, labs and medications reviewed Stable and on room air oxygen Continue the incentive spirometer Continue bronchodilators Continue Singulair Heparin for DVT prophylaxis Increase his activity as tolerated Home once cleared by CT service We will continue to follow I have personally seen and examined the patient, performed the documentation and the assessment and plan as written. Number of minutes spent on the visit: 10 Dictation was produced using [employer] dictation software. Please excuse any grammatical, word or spelling errors.
[2024-09-29 12:01] LABS: Glucose,Whole Blood 133 mg/dL (70-110)
--- NOTE | 2024-09-29 13:58 | P.PN ---
Subjective Progress Note Date: 09/29/24 Principal diagnosis: 09/28/24 HPI: This patient underwent aortic valve replacement on 23 September and on the had a permanent pacemaker placed. Pacer appears to be functioning well. There were some episodes with the pacing rate was low but there was a PAC and therefore there was no immediate response on the pacer lead. However currently patient is a sensed V paced appropriate function. Hemodynamically stable.. PHYSICIAL EXAM: Vitals are stable atrial sensed V paced rhythm patient probably has a complete heart block underneath S1-S2 heard normally short systolic murmur is audible at the base the lungs reveal bilateral air entry abdomen is soft lower extremities reveal diminished pulses Central nervous system no focal deficits. IMPRESSION: 1. Status post aortic valve replacement. 2. Status post dual-chamber pacemaker placed on September 26. 3.. 4.. 5.. RECOMMENDATIONS: Continue current medical therapy repeat echocardiogram for better visualization of the pacer leads and also decrease metoprolol succinate to 25 mg daily.. 09/29/24 This gentleman today is in atrial fibrillation with a ventricular paced rhythm. Yesterday was in a sinus with atrial sensed and ventricular paced hemodynamically stable I am recommending Eliquis 5 mg twice daily, once the wires are pulled. Hemodynamically stable doing better physical exam revealed vitals are stable short systolic murmur is audible rhythm appears to be regular paced rhythm with underlying A-fib lungs are reveal improved air entry abdomen lower EXTR exams unremarkable. Plan is to continue current medical regimen and add Eliquis I spoke to the nurse practitioner Mr. Jadiel Hunter. Objective - Vital Signs Vital signs: Vital Signs Temp 99.6 F 09/29/24 12:00 Pulse 86 09/29/24 13:00 Resp 17 09/29/24 13:00 BP 105/74 09/29/24 13:00 Pulse Ox 100 09/29/24 13:00 FiO2 21 09/29/24 08:49 Intake & Output 09/28/24 09/29/24 09/29/24 18:59 06:59 18:59 Intake Total 1220 150 Output Total 600 600 400 Balance 620 -450 -400 Weight 87.5 kg Intake: Oral 1220 150 Output: Urine 600 600 400 Other: Voiding Method Toilet Urinal Urinal Urinal # Voids 1 # Bowel Movements 1 ABP, PAP, CO, CI - Last Documented Arterial Blood Pressure 145/64 Pulmonary Artery Pressure 27/12 Cardiac Output 6.3 Cardiac Index 3.2 - Labs CBC & Chem 7: 09/29/24 04:39 09/29/24 04:39 Labs: Abnormal Lab Results - Last 24 Hours (Table) 09/28/24 09/28/24 09/29/24 Range/Units 16:49 20:20 04:39 RBC 2.89 L (4.40-5.60) 10*6/uL Hgb 9.3 L (13.0-17.0) g/dL Hct 28.4 L (39.6-50.0) % MCV 98.3 H (80.0-97.0) fL MCH 32.2 H (27.0-32.0) pg Sodium (137-145) mmol/L Glucose (74-99) mg/dL POC Glucose (mg/dL) 142 H 168 H (70-110) mg/dL 09/29/24 09/29/24 09/29/24 Range/Units 04:39 06:13 11:58 RBC (4.40-5.60) 10*6/uL Hgb (13.0-17.0) g/dL Hct (39.6-50.0) % MCV (80.0-97.0) fL MCH (27.0-32.0) pg Sodium 135 L (137-145) mmol/L Glucose 158 H (74-99) mg/dL POC Glucose (mg/dL) 162 H 133 H (70-110) mg/dL
[2024-09-29 17:17] LABS: Glucose,Whole Blood 178 mg/dL (70-110)
[2024-09-29 20:44] LABS: Glucose,Whole Blood 155 mg/dL (70-110)
[2024-09-29] MEDS: APIXABAN 2.5 MG TABLET PO SCH (20:51)
[2024-09-30 05:48] LABS: HCT 25.5 % (39.6-50.0); HGB 8.4 g/dL (13.0-17.0); MCH 31.8 pg (27.0-32.0); MCHC 32.9 g/dL (32.0-37.0); MCV 96.6 fL (80.0-97.0); Mean Platelet Volume 9.8 fL (9.5-12.2); Platelet Count 291 10*3/uL (140-440); RBC 2.64 10*6/uL (4.40-5.60); RDW 13.7 % (11.5-14.5); WBC 7.24 10*3/uL (4.50-10.00)
[2024-09-30 05:51] LABS: Glucose,Whole Blood 136 mg/dL (70-110)
[2024-09-30 06:19] LABS: African American GFR (CKD) >90 (>60 ml/min/1.73 sqM); Anion Gap 7 mmol/L; Blood Urea Nitrogen 18 mg/dL (9-20); Calcium 8.9 mg/dL (8.4-10.2); Carbon Dioxide 25 mmol/L (22-30); Chloride 103 mmol/L (98-107); Glucose 119 mg/dL (74-99); Non-African American GFR(CKD) 89 (>60 ml/min/1.73 sqM); Potassium 4.7 mmol/L (3.5-5.1); Sodium 135 mmol/L (137-145)
--- NOTE | 2024-09-30 07:32 | P.PN ---
Subjective Progress Note Date: 09/30/24 Principal diagnosis: 09/28/24 HPI: This patient underwent aortic valve replacement on 23 September and on the had a permanent pacemaker placed. Pacer appears to be functioning well. There were some episodes with the pacing rate was low but there was a PAC and therefore there was no immediate response on the pacer lead. However currently patient is a sensed V paced appropriate function. Hemodynamically stable.. PHYSICIAL EXAM: Vitals are stable atrial sensed V paced rhythm patient probably has a complete heart block underneath S1-S2 heard normally short systolic murmur is audible at the base the lungs reveal bilateral air entry abdomen is soft lower extremities reveal diminished pulses Central nervous system no focal deficits. IMPRESSION: 1. Status post aortic valve replacement. 2. Status post dual-chamber pacemaker placed on September 26. 3.. 4.. 5.. RECOMMENDATIONS: Continue current medical therapy repeat echocardiogram for better visualization of the pacer leads and also decrease metoprolol succinate to 25 mg daily.. 09/29/24 This gentleman today is in atrial fibrillation with a ventricular paced rhythm. Yesterday was in a sinus with atrial sensed and ventricular paced hemodynamically stable I am recommending Eliquis 5 mg twice daily, once the wires are pulled. Hemodynamically stable doing better physical exam revealed vitals are stable short systolic murmur is audible rhythm appears to be regular paced rhythm with underlying A-fib lungs are reveal improved air entry abdomen lower EXTR exams unremarkable. Plan is to continue current medical regimen and add Eliquis I spoke to the nurse practitioner Mr. Jadiel Hunter. 09/30/24 Gentleman is in sinus rhythm today atrial sensed ventricular paced feels well. Blood pressure is good no symptoms. He seems to be feeling much better vitals are stable S1-S2 heard normally short systolic murmur at the base the lungs reveal improved air entry abdomen and lower extremity exam is unremarkable. Agree with current medical regimen. Increase activity and upon discharge would recommend that he follow-up with Dr. Cristina in 2 weeks. Objective - Vital Signs Vital signs: Vital Signs Temp 98.4 F 09/30/24 04:33 Pulse 75 09/30/24 04:33 Resp 16 09/30/24 04:33 BP 131/59 09/30/24 04:33 Pulse Ox 96 09/30/24 04:33 FiO2 21 09/29/24 08:49 Intake & Output 09/29/24 09/30/24 09/30/24 18:59 06:59 18:59 Intake Total 970 Output Total 400 1400 Balance -400 -430 Weight 94.7 kg Intake: Intake, IV Titration 10 Amount Sodium Chloride 0.9% 100 10 ml @ 0 mls/hr IV .STK-MED ONE with ceFAZolin 2,000 mg Rx#:[id number] Oral 960 Output: Urine 400 1400 Other: Voiding Method Urinal Toilet Urinal # Voids 1 1 ABP, PAP, CO, CI - Last Documented Arterial Blood Pressure 145/64 Pulmonary Artery Pressure 27/12 Cardiac Output 6.3 Cardiac Index 3.2 - Labs CBC & Chem 7: 09/30/24 04:59 09/30/24 04:59 Labs: Abnormal Lab Results - Last 24 Hours (Table) 09/29/24 09/29/24 09/29/24 Range/Units 11:58 17:15 20:42 RBC (4.40-5.60) 10*6/uL Hgb (13.0-17.0) g/dL Hct (39.6-50.0) % Sodium (137-145) mmol/L Glucose (74-99) mg/dL POC Glucose (mg/dL) 133 H 178 H 155 H (70-110) mg/dL 09/30/24 09/30/24 09/30/24 Range/Units 04:59 04:59 05:50 RBC 2.64 L (4.40-5.60) 10*6/uL Hgb 8.4 L (13.0-17.0) g/dL Hct 25.5 L (39.6-50.0) % Sodium 135 L (137-145) mmol/L Glucose 119 H (74-99) mg/dL POC Glucose (mg/dL) 136 H (70-110) mg/dL
[2024-09-30] MEDS: ASPIRIN 81 MG PO SCH (08:34)
--- NOTE | 2024-09-30 08:40 | XR ---
EXAMINATION TYPE: XR chest 2V DATE OF EXAM: 09/30/2024 5:39 AM COMPARISON: 09/29/2024 CLINICAL INDICATION: Male, 69 years old with history of Postcardiac surgery, , TECHNIQUE: PA and lateral views FINDINGS: Left anterior chest wall pacemaker generator with right atrial and right ventricular leads. Median st ernotomy wires and prosthetic aortic valve. Heart remains mildly enlarged. Diffuse interstitial densi ty persists. Ongoing small left pleural effusion with adjacent patchy opacity. No appreciable pneumot horax. IMPRESSION: Similar mild pulmonary vascular congestion. Similar small left pleural effusion with adjacent atelect asis and/or consolidation. [facility], Workstation: [facility], 09/30/2024 8:37 AM
--- NOTE | 2024-09-30 09:03 | P.PN ---
Subjective Progress Note Date: 09/30/24 Principal diagnosis: Critical aortic stenosis. History of hypertension, hyperlipidemia, renal cell tumor, asthma, CVA/TIA, chronic back pain/spondylitis and previous tobacco depen dence POD #7 aortic valve replacement using a 23 mm Rosa Inspiris bioprosthetic valve, ligation of left atrial appendage using a 35mm Atriclip, epiaortic ultrasound, intraoperative transesophageal echocardiogram. Underlying complete heart block, unexpected but potential complication of any valve surgery. POD #4 Dual-chamber pacemaker implantation with conduction system pacing (left bundle pacing), left upper extremity venogram performed by Dr. Cho Postoperative acute blood loss anemia, expected given hemodilution and cardiopulmonary bypass. The patient was seen and examined this morning sitting up in recliner in the intensive care unit in no acute distress. Remains ventricular paced with underlying sinus on telemetry, blood pressure stable, currently on room air with oxygen saturation in the mid 90s and able to achieve 1500 mL on incentive spirometry. Patient reports he has been ambulatory in the hallway. Chest x- ray, labs reviewed. Was started on Eliquis yesterday by cardiology. Anticipate discharge to home with home care this afternoon as patient and feel he can be managed at home and does not need rehab. No other new concerns. Objective - Vital Signs Vital signs: Vital Signs Temp 98.4 F 09/30/24 04:33 Pulse 90 09/30/24 07:58 Resp 16 09/30/24 04:33 BP 131/59 09/30/24 04:33 Pulse Ox 96 09/30/24 04:33 FiO2 21 09/29/24 08:49 Intake & Output 09/29/24 09/30/24 09/30/24 18:59 06:59 18:59 Intake Total 970 Output Total 400 1400 Balance -400 -430 Weight 94.7 kg Intake: Intake, IV Titration 10 Amount Sodium Chloride 0.9% 100 10 ml @ 0 mls/hr IV .STK-MED ONE with ceFAZolin 2,000 mg Rx#:[id number] Oral 960 Output: Urine 400 1400 Other: Voiding Method Urinal Toilet Urinal # Voids 1 1 ABP, PAP, CO, CI - Last Documented Arterial Blood Pressure 145/64 Pulmonary Artery Pressure 27/12 Cardiac Output 6.3 Cardiac Index 3.2 - Exam CONSTITUTIONAL: Appears calm, cooperative, no acute distress RESPIRATORY: Lungs sounds diminished in the bases bilaterally. Respirations even, nonlabored. Currently on room air with oxygen saturation 96%. Able to achieve 1500 mL on incentive spirometry. Strong cough. CARDIOVASCULAR: S1, S2 present. Regular rate and rhythm, ventricular paced on telemetry. Sternum stable. Palpable peripheral pulses bilaterally. No edema present. No calf pain or tenderness noted. Heart hugger in place with patient demonstrating appropriate use. Antiembolism stockings, SCDs present. GASTROINTESTINAL: Abdomen soft, nontender, nondistended. Active bowel sounds present 4 quadrants. Tolerating diet. Positive bowel movement 09/28 GENITOURINARY: Continues to void, urine output 1800 mL in the last 24 hours INTEGUMENTARY: Skin is warm and dry with evidence of good perfusion. Anterior chest incision well approximated, pacemaker site covered with dry intact dress ing NEUROLOGIC: Cranial nerves II through XII intact MUSKULOSKELETAL: Able to move all extremities, strength equal bilaterally, gait normal PSYCHIATRIC: Alert and oriented to person place and time, appropriate affect, intact judgment and insight - Allied health notes Allied health notes reviewed: nursing - Labs CBC & Chem 7: 09/30/24 04:59 09/30/24 04:59 Labs: Abnormal Lab Results - Last 24 Hours (Table) 09/29/24 09/29/24 09/29/24 Range/Units 11:58 17:15 20:42 RBC (4.40-5.60) 10*6/uL Hgb (13.0-17.0) g/dL Hct (39.6-50.0) % Sodium (137-145) mmol/L Glucose (74-99) mg/dL POC Glucose (mg/dL) 133 H 178 H 155 H (70-110) mg/dL 09/30/24 09/30/24 09/30/24 Range/Units 04:59 04:59 05:50 RBC 2.64 L (4.40-5.60) 10*6/uL Hgb 8.4 L (13.0-17.0) g/dL Hct 25.5 L (39.6-50.0) % Sodium 135 L (137-145) mmol/L Glucose 119 H (74-99) mg/dL POC Glucose (mg/dL) 136 H (70-110) mg/dL - Imaging and Cardiology Chest x-ray: report reviewed, image reviewed Assessment and Plan Assessment: Critical aortic stenosis, status post aortic valve replacement Underlying complete heart block, status post dual-chamber pacemaker implantation Postoperative acute blood loss anemia History of hypertension Hyperlipidemia Renal cell tumor Asthma CVA/TIA Chronic back pain/spondylitis Previous tobacco dependence Plan: Continue to maximize medical therapy with low-dose aspirin, low-dose Eliquis, statin, and beta-sabas Encourage use of incentive spirometry 10 times every hour while awake. Continue home dose of Singulair. Bronchodilator management per pulmonary/critical care medicine. Increase activity as tolerated, PT/OT/cardiac rehab following. Will monitor daily labs and chest x-rays. Electrolyte replacement per protocol. GI/DVT prophylaxis. Insulin management per internal medicine. Preoperative hemoglobin A1c 6.0%. Pain control per current medication regimen. Avoid opioids due to patient's episodes of confusion. May shower daily Continue melatonin 3 mg p.o. nightly for sleep aid. Continue to monitor record strict accurate intake and output Transfer orders were placed yesterday for 3 S. cardiac stepdown unit, no bed availability Likely will discharge to home with home care this afternoon More recommendations to follow based on patient's clinical course.
[2024-09-30 11:21] LABS: Glucose,Whole Blood 123 mg/dL (70-110)
--- NOTE | 2024-09-30 11:31 | P.PN ---
Subjective Progress Note Date: 09/30/24 This is a 69-year-old white male with history of severe aortic stenosis with bicuspid aortic valve, has been following up with Dr. Cristina for quite some time. Patient had recent echocardiogram that showed worsening severe aortic valve stenosis. Patient had no shortness of breath, no chest pain, no lightheadedness or dizziness, no syncopal episodes. Recent transesophageal echo was done and confirmed severe aortic stenosis hence the patient underwent aortic valve replacement today. Postoperatively patient was in the ICU on mechanical ventilation, he is on assist-control rate of 14 tidal volume 450 FiO2 60% and I cut down to 50% and his PEEP was 5. Chest x-ray showed mostly postoperative changes, no acute process was noted. Cardiac output was 4.0, cardiac index 2.0. Patient is hemodynamically stable, not requiring any pressors and not requiring any inotropes. Plan to proceed with weaning in the next 2 hours. Patient was seen today on 09/24/2024,POD #1 aortic valve replacement using a 23 m m Rosa Inspiris bioprosthetic valve, ligation of left atrial appendage using a 35mm Atriclip, epiaortic ultrasound, intraoperative transesophageal echocardiogram. Patient was successfully extubated last night shortly after he arrived to the ICU, today the patient is doing well, achieving 1250 mL on his intensive spirometry. He was extubated at 5:38 PM yesterday. Today he is sitting at the bedside chair, not in distress, cardiac output is 4.9 cardiac index 2.5, PA pressure 30/11, CVP is 7 patient is not requiring any pressors or any inotropes. Chest x-ray showed that he continues to have left chest sided tubes and mediastinal tube, both on suction, no airleak, chest x-ray showed minimal atelectasis and postoperative changes, no acute processes noted. WBC count is 10.9 hemoglobin 10.3, basic metabolic profile is normal renal profile is normal Patient was seen today on 09/25/2024, he is now postoperative day #2, doing well, on room air, sitting at the bedside chair. Patient is alert and oriented x 3, does not seem to be in any distress, pain is fairly well-controlled, hemodynam ically stable, not requiring any inotropes or any pressors, continues to have an underlying paced rhythm of third-degree AV block the plan is to eventually have a permanent pacemaker placement. This will be done tomorrow by Dr. Cho. Patient is achieving about 1250 cc on incentive spirometry, mediastinal and left pleural chest tubes remain in place, remain on suction. No airleak. Chest x-ra y showed mostly postoperative changes and minimal atelectasis, expected. WBC count is 11.2 hemoglobin 8.9 basic metabolic profile is normal renal profile is normal Seen today on 09/26/2024, patient is now postoperative day #3, sitting at the bedside chair, does not seem to be in any distress. Patient is awake alert oriented x 3, he did have a bit of confusion last night, but that has resolved this morning. Achieving 1500 mL on incentive spirometry O2 sat is 95% on room air, patient continues to have ventricular paced rhythm on DDD mode underlying rhythm is a third-degree AV block, patient may undergo permanent pacemaker placement today by cardiology. Continues to have left pleural chest tube in place will likely be removed today. Patient has been ambulating with assistance. Chest x-ray this morning was reviewed there is extremely minimal left tiny apical pneumothorax. Not worrisome and I believe since the patient does not have air leak in the Pleur-evac, the chest tube could be removed. The patient is seen today September 27, 2024 in follow-up in the intensive care unit. Postoperative day #4. He has been up ambulating with assistance. He is doing well. Denies any worsening shortness of breath, cough or congestion. He is maintaining good O2 saturation on room air oxygen. He has been afebrile. Hemodynamically stable. White count 8.6. Hemoglobin 8.1. Platelets 151. So dium 135. Potassium 4.4. Bicarb 28. BUN 1.26. Glucose 122. He continues to work well with the incentive spirometer. Today's chest x-ray shows residual pulmonary vascular congestion. Improved. He continues to work well with the incentive spirometer. The patient is seen today September 28, 2024 in follow-up in the intensive care unit. Postoperative day #5 he is currently sitting up at the bedside. Awake and alert in no acute distress. Maintaining good O2 saturations in the 90s on room air ox ygen no IV fluids. He did develop complete heart block post aortic valve replacement and had undergone a dual-chamber pacemaker implantation on 09/26/2024. Chest x-ray shows trace bilateral pleural effusions with adjacent atelectasis. White count 7.9. Hemoglobin 8.7. Platelets 206. Sodium 136. Potassium 4.8. Bicarb 24. BUN 24. Creatinine 0.91. Glucose 127. He remains on DuoNeb inhalations, Singulair. Heparin for DVT prophylaxis. Continues to work well with the incentive spirometer. The patient is seen today September 29, 2024 in follow-up in the intensive care unit. Postoperative day #6. He is currently resting in bed. Awake and alert in no acute distress. Pacemaker wires were removed today. His permanent pacemaker was checked and adjustments were made accordingly. He is maintaining good O2 saturations in the 90s on room air oxygen. He has been afebrile. Hemodynamically stable. Follow-up chest x-ray shows improvement in the mild pulmonary vascular congestion. Trace bilateral effusions. Minimal atelectasis. White count 8.6. Hemoglobin 9.3. Platelets 291. Sodium 135. Potassium 5.0. Bicarb 24. BUN 19. Creatinine 1.02. Glucose 158. He remains on DuoNeb inhala tions, Singulair. Heparin for DVT prophylaxis. The patient is seen today September 30, 2024 in follow-up in the intensive care unit. Postoperative day #7. He is currently sitting up in a chair at the bedside. Awake and alert in no acute distress. Maintaining good O2 saturations in the 90s on room air oxygen. His permanent pacemaker is functioning well. He has been afebrile. Hemodynamically stable. He remains on DuoNeb inhalations. Working well with the incentive spirometer. Continued on Singulair. Anticoagulated with Eliquis. Chest x-ray reveals mild pulmonary vascular congestion. Similar small left pleural effusion with adjacent atelectasis. White count 7.2. Hemoglobin 8.4. Platelets 291. Sodium 135. Potassium 4.7. Bicarb 25. BUN 18. Creatinine 0.82. Glucose 119. Objective - Vital Signs Vital signs: Vital Signs Temp 97.8 F 09/30/24 08:46 Pulse 90 09/30/24 08:46 Resp 23 09/30/24 08:46 BP 126/68 09/30/24 08:46 Pulse Ox 99 09/30/24 08:46 FiO2 21 09/29/24 08:49 Intake & Output 09/29/24 09/30/24 09/30/24 18:59 06:59 18:59 Intake Total 970 Output Total 400 1400 Balance -400 -430 Weight 94.7 kg Intake: Intake, IV Titration 10 Amount Sodium Chloride 0.9% 100 10 ml @ 0 mls/hr IV .STK-MED ONE with ceFAZolin 2,000 mg Rx#:[id number] Oral 960 Output: Urine 400 1400 Other: Voiding Method Urinal Toilet Toilet Urinal Urinal # Voids 1 1 ABP, PAP, CO, CI - Last Documented Arterial Blood Pressure 145/64 Pulmonary Artery Pressure 27/12 Cardiac Output 6.3 Cardiac Index 3.2 - Exam GENERAL EXAM: Alert, oriented 69-year-old male, on room air oxygen, up in a chair, comfortable in no apparent distress. HEAD: Normocephalic. EYES: Normal reaction of pupils, equal size. NOSE: Clear with pink turbinates. THROAT: No erythema or exudates. NECK: No masses, no JVD. CHEST: Sternal dressing dry and intact. Heart hugger in place. Sternum stable. Left subclavian pacer site clean and dry. LUNGS: Equal air entry with no crackles, wheeze, rhonchi or dullness. CVS: S1 and S2 normal with no audible murmur, regular rhythm. ABDOMEN: No hepatosplenomegaly, normal bowel sounds, no guarding or rigidity. SPINE: No scoliosis or deformity SKIN: No rashes CENTRAL NERVOUS SYSTEM: No focal deficits, tone is normal in all 4 extremities. EXTREMITIES: There is no peripheral edema. No clubbing, no cyanosis. Peripheral pulses are intact. - Labs CBC & Chem 7: 09/30/24 04:59 09/30/24 04:59 Labs: Abnormal Lab Results - Last 24 Hours (Table) 09/29/24 09/29/24 09/29/24 Range/Units 11:58 17:15 20:42 RBC (4.40-5.60) 10*6/uL Hgb (13.0-17.0) g/dL Hct (39.6-50.0) % Sodium (137-145) mmol/L Glucose (74-99) mg/dL POC Glucose (mg/dL) 133 H 178 H 155 H (70-110) mg/dL 0509/30/24 09/30/24 Range/Units 04:59 04:59 05:50 RBC 2.64 L (4.40-5.60) 10*6/uL Hgb 8.4 L (13.0-17.0) g/dL Hct 25.5 L (39.6-50.0) % Sodium 135 L (137-145) mmol/L Glucose 119 H (74-99) mg/dL POC Glucose (mg/dL) 136 H (70-110) mg/dL 09/30/24 Range/Units 11:19 RBC (4.40-5.60) 10*6/uL Hgb (13.0-17.0) g/dL Hct (39.6-50.0) % Sodium (137-145) mmol/L Glucose (74-99) mg/dL POC Glucose (mg/dL) 123 H (70-110) mg/dL Assessment and Plan Assessment: Bicuspid aortic valve/severe aortic stenosis. POD #7 aortic valve replacement using a 23 mm Rosa Inspiris bioprosthetic valve, ligation of left atrial appendage using a 35mm Atriclip, epiaortic ultrasound, intraoperative transesophageal echocardiogram Complete heart block status post permanent pacemaker implantation. Postoperative day #4 Benign essential hypertension Dyslipidemia History of renal cell tumor Ex-smoker quit in 1984 Postoperative atelectasis, and tiny left apical pneumothorax, expected, resolved Plan: The patient was seen and evaluated Chest x-ray, labs and medications reviewed Stable and on room air oxygen Continue the incentive spirometer Continue bronchodilators Continue Singulair Heparin for DVT prophylaxis Increase his activity as tolerated Home once cleared by CT service I have personally seen and examined the patient, performed the documentation and the assessment and plan as written. Number of minutes spent on the visit: 10 Dictation was produced using [employer] dictation software. Please excuse any grammatical, word or spelling errors.
[2024-09-30 12:49] VITALS: BP 123/68; PULSE 81; RESP 15; TEMP 98.2
--- NOTE | 2024-09-30 15:27 | P.DS ---
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 Consult: post cardiac surgery Do you want consulting provider notified?: Yes Primary care physician: Kristen Judd Hospital Course: FINAL DIAGNOSIS: Critical aortic stenosis Underlying complete heart block Postoperative acute blood loss anemia History of hypertension Hyperlipidemia Renal cell tumor Asthma CVA/TIA Chronic back pain/spondylitis Previous tobacco dependence PRINCIPAL PROCEDURE: Aortic valve replacement using a 23 mm Rosa Inspiris bioprosthetic valve Ligation of left atrial appendage using a 35mm Atric Dual-chamber pacemaker implantation with conduction system pacing (left bundle pacing), left upper extremity venogram performed by Dr. Cho HISTORY OF PRESENT ILLNESS: This is a 69-year-old gentleman who follows outpatient with Dr. Judd for internal medicine and Dr. Marino for cardiology. He has a known history of bicuspid aortic valve and has been followed for quite some time. Recently he had a surveillance echo revealing progression of his aortic stenosis although the patient denied any symptomatology related to aortic stenosis. The patient was referred to Dr. Presley from cardiothoracic surgery. He was recommended to undergo surgical aortic valve replacement. The usual perioperative course was discussed in detail with the patient and his family, all risks and benefits were explained, all questions were answered, and consent was obtained to proceed with surgery. The patient was scheduled for surgery at the earliest possible date after preoperative testing was completed. HOSPITAL COURSE: The patient was brought to the hospital on 09/23/24, taken to the preoperative area, prepared in the usual fashion, and subsequently taken to the operating room where Dr. Presley performed aortic valve replacement. Upon completion of surgery the patient was transferred to the cardiovascular intensive care unit where he was recovered and monitored hemodynamically. He was extubated, all lines, tubes, and drips were discontinued when appropriate. He did sustain underlying complete heart block which is a potential complication of any aortic valve surgery and he underwent permanent pacemaker implantation. Transfer orders were placed for 3 S. cardiac stepdown unit, however there was no bed availability and the patient remained on ICU as a stepdown patient until discharge. His oxygen was titrated down, he continued to work with physical and occupational therapy, he was tolerating oral diet, his pain was controlled, and he was ready to be discharged to home with [facility] care on postoperative day #7. He received written and verbal instruction regarding his medications, activity restrictions, signs and symptoms requiring physician notification, and follow-up appointments. Patient Condition at Discharge: Stable Plan - Discharge Summary Discharge Rx Participant: Yes New Discharge Prescriptions: New Apixaban [Eliquis] 2.5 mg PO BID #30 tab Metoprolol Succinate (ER) [Toprol XL] 25 mg PO DAILY #30 tab Sennosides-Docusate Sodium [Senokot-S] 2 each PO HS PRN tab PRN Reason: Constipation Acetaminophen Tab [Tylenol] 650 mg PO Q4HR PRN tab PRN Reason: Fever And/ Or Mild Pain (1-3) Continue Aspirin 81 mg PO DAILY #30 chew Mv-Min/Folic/K1/Lycopen/Lutein [Centrum Silver Men Tablet] 1 tab PO DAILY Ezetimibe [Zetia] 10 mg PO DAILY Cyanocobalamin (Vitamin B-12) [Vitamin B-12] 2,500 mcg PO DAILY Cholecalciferol [Vitamin D3 (25 Mcg = 1000 Iu)] 25 mcg PO DAILY Montelukast [Singulair] 10 mg PO DAILY Acetaminophen/Diphenhydramine [Tylenol PM 500-25mg] 1 tab PO HS Omeprazole 20 mg PO DAILY Atorvastatin [Lipitor] 80 mg PO HS Discontinued Ticagrelor [Brilinta] 90 mg PO BID #60 tab Discharge Medication List Aspirin 81 mg PO DAILY #30 chew 12/15/17 [Rx] Mv-Min/Folic/K1/Lycopen/Lutein [Centrum Silver Men Tablet] 1 tab PO DAILY 12/02/21 [History] Cyanocobalamin (Vitamin B-12) [Vitamin B-12] 2,500 mcg PO DAILY 06/29/23 [History] Ezetimibe [Zetia] 10 mg PO DAILY 06/29/23 [History] Acetaminophen/Diphenhydramine [Tylenol PM 500-25mg] 1 tab PO HS 08/26/23 [History] Atorvastatin [Lipitor] 80 mg PO HS 08/26/23 [History] Cholecalciferol [Vitamin D3 (25 Mcg = 1000 Iu)] 25 mcg PO DAILY 08/26/23 [History] Omeprazole 20 mg PO DAILY 08/26/23 [History] Montelukast [Singulair] 10 mg PO DAILY 09/23/24 [History] Acetaminophen Tab [Tylenol] 650 mg PO Q4HR PRN tab 09/30/24 [Rx] Apixaban [Eliquis] 2.5 mg PO BID #30 tab 09/30/24 [Rx] Metoprolol Succinate (ER) [Toprol XL] 25 mg PO DAILY #30 tab 09/30/24 [Rx] Sennosides-Docusate Sodium [Senokot-S] 2 each PO HS PRN tab 09/30/24 [Rx] Follow up Appointment(s)/Referral(s): [facility] [NON-STAFF] - 4 Weeks (You will receive a phone call in approximately 4-6 weeks for evaluation for cardiac rehab) [facility] [[facility]] - 1-2 Days (You should be seen by home care registered nurse the day after discharge, then 2-3 times per week until you start cardiac rehab. Physical and occupational therapy should visit at least once, may continue to visit if needed) Nestor Presley MD [STAFF PHYSICIAN] - 10/28/24 10:00 am Scott Hatfield MD [STAFF PHYSICIAN] - 10/17/24 9:45 am George Marino MD [STAFF PHYSICIAN] - 10/14/24 2:15 pm (YOUR APPOINTMENT WITH DR. MARINO SCHEDULED 11/11/24 HAS BEEN CANCELED IT IS TOO FAR OUT) Kristen Judd MD [Primary Care Provider] - 10/18/24 2:45 pm Eulalia Tsang NPC [Nurse Practitioner] - 10/14/24 1:45 pm (You will be seen in the surgeon's office behind the hospital in [facility], [address]. Office phone number is ) Ambulatory/Diagnostic Orders: Complete Blood Count w/diff [LAB.AMB] Time Frame: 3 Days, Location: None Selected Comprehensive Metabolic Panel [LAB.AMB] Time Frame: 3 Days, Location: None Selected Activity/Diet/Wound Care/Special Instructions: DISCHARGE INSTRUCTIONS: 1. No driving for 4 weeks, or until physician gives their ok. 2. The patient should sleep in their own bed, no medical bed needed. 3. Stairs are not an issue. If the bedroom is upstairs, it is advised that the patient go up at night and down in the morning for the first week. Go slowly, using handrail and take 1 step at a time. 4. CHARI hose are to be worn for 30 days post surgery or until physician discontinues. 5. Heart hugger is to be worn 100% of the time until physician discontinues.(except when showering) 6. No lifting, pushing, or pulling more than 10 pounds for 12 weeks. The physician will advise of any restriction changes. 7. The patient is expected to continue the prescribed walking program. 8. Continue pain control per as needed orders. 9. Continue with incentive spirometry and splinting/heart hugger until otherwise directed by the physician. 10. Must shower daily using liquid antibacterial soap 11. Routine sternal incision care. No powders, lotions, ointments on incisions. No dressings are necessary on incisions unless they are draining. Dermabond tape is to remain on sternal incision until surgeon follow-up. 12. Please call surgeon/YIELD ENGINEER for temp greater than 101 F or purulent drainage from incisions. 13. You should weigh yourself daily, record and bring log with you to follow up appointments. 14. All prescriptions given by surgeon for 30 days. Refills need to be filled through archeologist/primary care physician. 15. A Red armband has been placed on the patient. It should be worn for 30 days post discharge from surgery and will be removed by the cardiac surgeons. If an ER visit is necessary, please make sure the number on the Red armband is called before going to ER. 16. You have been referred to and are expected to begin Cardiac Rehab in approximately 4-6 weeks. 17. Quitting smoking is the most important step you can take to improve your health. For additional information and assistance to quit smoking, please call the [employer] tobacco quit line (1-869-MLAM-NOW/ ) or online: https://www.[place].gov/mdhhs/bkgi-bm-ixbcaqa/chronicdiseases/tobacco/how-to-qu it-tobacco HOME HEALTH SERVICES TO PROVIDE: RN SKILLED HOME CARE SERVICES FOR POST-OP SURGICAL PATIENTS WITH THE FOLLOWING: Coronary Artery Bypass Surgery (CABG), Mitral Valve Replacement/Repair ( MVR), Aortic Valve Replacement/Repair (AVR) RN TO CONTINUE EDUCATION FROM ``ROAD TO A HEALTH HEART PATIENT EDUCATION MANUAL (GIVEN TO PATIENT IN THE HOSPITAL) MEDICATION RECONCILIATION WITH EDUCATION NEEDED ON FIRST HOME VISIT EMPHASIZE IMPORTANCE OF WEARING BREAST SUPPORT/HEART HUGGER ENCOURAGE USE OF INCENTIVE SPIROMETER 10 X EVERY HOUR WHILE AWAKE ENCOURAGE UTILIZATION OF LOWER EXTREMITY COMPRESSION STOCKINGS/CHARI HOSE and ELEVATE LEGS ABOVE LEVEL OF HEART WHILE AT REST. ENCOURAGE AMBULATION 3-5x/day INCREASING TOLERATES, WHILE AVOIDING EXTREMES IN TEMPERATURE FREQUENCY: RN TO OPEN THE PATIENT WITHIN 24 HOURS OF DISCHARGE FROM THE HOSPITAL WITH [place] [facility] [place] TO VISIT 2-3 X A WEEK FOR 4 WEEKS ESTABLISHED BY PATIENT NEEDS. LABORATORY: CBC, CMP TO BE DRAWN ON THE THIRD DAY HOME, (RAN STAT) FAX RESULTS TO [phone]. TELEHEALTH PARAMETERS: WEIGHT: NOTIFY MD OF WEIGHT GAIN OF 2 LBS IN 24 HOURS OR 5 LBS IN ONE WEEK HR: NOTIFY MD OF HR <55 BPM OR HR>100 BPM BP: NOTIFY MD IF BP <90/55 OR BP>140/100 O2 SAT: NOTIFY MD IF PO2<93% ON ROOM AIR SEND TELEHEALTH REPORT TO INJURY PREVENTION COORDINATOR AND CARDIOVASCULAR SURGEON THE FIRST WEEK OF CARE AND THEN BI-WEEKLY. PLEASE ADDITIONALLY COMMUNICATE ANY ABNORMALS AND NEW FINDINGS TO THE SURGEONS OFFICE. Discharge Disposition: HOME WITH HOME HEALTH SERVICES
--- NOTE | 2024-10-05 13:20 | P.PN ---
Subjective Progress Note Date: 09/30/24 male with a previous medical history significant for hyperlipidemia, GERD with esophagitis, vitamin D deficiency, recurrent TIA on dual antiplatelet therapy, who recently underwent left heart catheterization that showed normal coronary arteries with severe aortic valve stenosis followed by transesophageal echocardiogram which confirmed severe aortic valve stenosis with a valve surface area of 0.5, patient underwent aortic valve replacement that was done by Dr. Presley and we were asked to see the patient for postoperative medical management. On the ventilator, currently in degree Van drip at 30 micg, he has been on albumin as well as IV fluid resuscitation, he has very good urine output at least 100 cc an hour, we will is currently on the ventilator with a tidal volume of 450 respiratory rate of 18 FiO2 50%, his oxygenation is 98%, they will continue with the weaning parameter, chest x-ray appears to be good, blood gases appears to be good, we will try to wean the patient off the ventilator later on this afternoon. 09/24: Patient sitting up in the chair, he was extubated successfully yesterday, he denies any significant pain, he does complain of some soreness in the chest where the incision is, he continues to have a chest tube in place, he continues to have a Cordis catheter in the right internal jugular vein, this was probably coming out today, continue this at his primary, continue current pain management, continue to follow-up with the patient very closely. 09/25: Patient sitting up in chair in no apparent distress, he is feeling better today, he denies any chest pain, shortness of breath, he continues to feel better continue current treatment plan, continue to increase activity, continue incentive spirometer, follow-up with laboratory evaluation, underlying rhythm is third-degree AV block, he is scheduled to go for permanent restriction placement tomorrow morning, follow-up with the patient very closely. Discontinue insulin drip, start the patient on sliding scale insulin, continue other treatment plan 09/26: Patient is laying down in bed in no apparent distress, he is scheduled to go for permanent pacemaker placement due to underlying rhythm with complete heart block, patient appears to be hemodynamically stable at this point in time, currently has a pacer wire in place, when the chest tube was removed, right internal jugular cordis will be removed as well, will follow-up with the patient very closely, keep the patient in ICU overnight, recheck the patient chest x-ray after the procedure and tomorrow morning. 09/27: Patient sitting up in chair in no apparent distress, he appears less confused today, his hemoglobin down to 8.2, he denies any chest pain, shortness breath at this time, his monitor showing an ST elevation, his twelve-lead EKG did not show evidence of ST elevation or reciprocal changes, patient does not have any chest pain at this time, no shortness of breath, he will be staying in the ICU for another 24 hours, hopefully will be moved to the floor tomorrow morning. Increase activity, increase the use of incentive spirometer, follow-up with the patient very closely. 09/28: Patient sitting up in the recliner chair, he appears to be a bit down today, he has no chest pain, shortness of breath at this time, he continues to be in the ICU, does appear to have some PACs on and off, and the pacemaker is not sensing patient will have this pacemaker interrogated by [employer] personnel today patient will be kept in the ICU, continue current treatment plan, continues on Xarelto, continue follow-up with the patient very closely 09/29: Patient is sitting up in bed in no apparent distress, his pacer wires were removed, patient underlying rhythm is atrial fibrillation, his pacemaker was adjusted yesterday, and sensing very well and pacing very well, his heart rate is better, blood pressure stable at this time, patient will be moved out of the ICU today, he would likely be discharged home tomorrow morning 09/30/2024 Patient is seen in follow-up today being followed by cardiology along with CT surgery as scheduled to be discharged today and reports to feeling much improved. Patient has follow-up appointments with primary care providers along with cardiology outpatient and CT surgery arranging discharge planning with follow-up appointments. Patient is afebrile denies chest pain or palpitations. Patient denies shortness of breath and reports to tolerating diet with no reported nausea or vomiting. Review of systems: Constitutional: No reports of fatigue, fever, or chills Cardiovascular: No reports of chest pain or palpitations Respiratory: No reports of shortness of breath or cough GI: No reports of nausea, vomiting, or diarrhea : No reports of dysuria or retention Neurovascular: No reports of weakness or numbness All medications have been reviewed PHYSICAL EXAMINATION: General: 69-year-old male sitting up in a chair in no apparent distress, alert and oriented x 3, well-developed, elderly appearing, obese HEENT: Head is atraumatic, normocephalic, pupils were equal round, reactive to light and accommodation, extraocular movement were intact mucous membranes of mouth are somewhat dry, Neck: Supple, no JVP, normal carotid upstroke bilaterally, no lymphadenopathy . Chest: Decreased breath sounds at the bases, few rhonchi, no expiratory wheezes, There is a permanent pacemaker located in the left upper precordium Heart: First heart sound is normal, second heart sounds normal there is no murmur, permanent pacemaker located in the left upper precordium Abdomen: Soft, nontender, nondistended, depressed bowel sounds , Extremities: There is no edema no calf tenderness DP +2 bilaterally, bilateral knee-high CHARI hose/SCDs Neurologic examination: Patient is awake alert and oriented x 3, cranial nerves III to XII appear gross intact, muscle power 4 out of 5 in upper lower extrem ities bilaterally ASSESSMENT AND PLAN: 1. Acute vent dependent respiratory failure status post aortic valve replacement status post extubation . increase activity, use incentive spirometer, continue aggressive pulmonary toileting, currently on room air maintaining oxygen saturations above 92% 2. Hypertension and hypertensive cardiovascular disease. Continue metoprolol ER 50 mg once every day, we will continue to monitor the blood pressure very closely, outpatient follow-up scheduled with CT surgery and cardiology 3. Mixed hyperlipidemia. Continue patient on atorvastatin 80 mg orally once every day, continue Zetia 10 mg once every day monitor lipid panel, keep LDL 55- 70. 4. GERD with esophagitis. Continue pantoprazole 40 mg orally 5. Vitamin D deficiency continue vitamin D3 1000 units once every day. 6. new onset atrial fibrillation patient was started on Eliquis 2.5 mg orally twice every day, discontinue Brilinta continue baby aspirin 81 mg once every day. 7. History of recurrent TIAs in the past, continue aspirin 81 mg once every day, the patient was started on Eliquis 2.5 mg orally twice every day for underlying atrial fibrillation 8. Acute blood loss anemia monitor the patient CBC very closely keep hemoglobin greater than 8 at all of the time. 9. DVT prophylaxis. Continued on Eliquis 10. GI prophylaxis. 11. Allergic rhinitis. on montelukast 10 mg at bedtime. 12. Postoperative hyperglycemia. Improved and maintained on sliding scale, will resume home regimen on discharge 13. Third-degree AV block likely related to surgical intervention status post permanent pacemaker placement. Continue metoprolol ER 50 mg orally once every day. 14. Metabolic encephalopathy likely due to surgical intervention. resolved 15. hypernatremia secondary to hypovolemia better last sodium is 135 Plan: Patient being followed by CT surgery and cardiology and has been cleared for discharge with CT surgery making discharge planning arrangements including follow-up appointments. Patient will need outpatient follow-up with primary care provider and continuing with current medications as per recommendations of CT surgery and cardiology Patient is medically stable once cleared by CT surgery The impression and plan of care has been dictated by Elisa Moreno Nurse Practitioner as directed. Dr. Maryann MD I have performed a history and examination and MDM of this patient, discussed the same with the dictator, and agree with the dictator's assessment and plan as written ,documented as a scribe. Based on total visit time, I have performed more than 50% of the visit. Objective - Vital Signs Vital signs: Vital Signs Temp 97.8 F 09/30/24 08:46 Pulse 90 09/30/24 08:46 Resp 23 09/30/24 08:46 BP 126/68 09/30/24 08:46 Pulse Ox 99 09/30/24 08:46 FiO2 21 09/29/24 08:49 Intake & Output 09/29/24 09/30/24 09/30/24 18:59 06:59 18:59 Intake Total 970 Output Total 400 1400 Balance -400 -430 Weight 94.7 kg Intake: Intake, IV Titration 10 Amount Sodium Chloride 0.9% 100 10 ml @ 0 mls/hr IV .STK-MED ONE with ceFAZolin 2,000 mg Rx#:[id number] Oral 960 Output: Urine 400 1400 Other: Voiding Method Urinal Toilet Toilet Urinal Urinal # Voids 1 1 ABP, PAP, CO, CI - Last Documented Arterial Blood Pressure 145/64 Pulmonary Artery Pressure 27/12 Cardiac Output 6.3 Cardiac Index 3.2 - Labs CBC & Chem 7: 09/30/24 04:59 09/30/24 04:59 Labs: Abnormal Lab Results - Last 24 Hours (Table) 09/29/24 09/29/24 09/29/24 Range/Units 11:58 17:15 20:42 RBC (4.40-5.60) 10*6/uL Hgb (13.0-17.0) g/dL Hct (39.6-50.0) % Sodium (137-145) mmol/L Glucose (74-99) mg/dL POC Glucose (mg/dL) 133 H 178 H 155 H (70-110) mg/dL 09/30/24 09/30/24 09/30/24 Range/Units 04:59 04:59 05:50 RBC 2.64 L (4.40-5.60) 10*6/uL Hgb 8.4 L (13.0-17.0) g/dL Hct 25.5 L (39.6-50.0) % Sodium 135 L (137-145) mmol/L Glucose 119 H (74-99) mg/dL POC Glucose (mg/dL) 136 H (70-110) mg/dL
== END 2024-09-30 15:00 | disposition home health service (06) | DRG 219 ==
LOC: 2ORMAIN 09-23 05:33 → 2SICU 09-23 10:41
PROVIDERS: ADMIT Surgery; ATTEND Surgery
PROC: 5A1221Z Performance of Cardiac Output, Continuous (ICD-10-PCS; 2024-09-23)
PROC: 02RF08Z Replacement of Aortic Valve with Zooplastic Tissue, Open Approach (ICD-10-PCS; principal; 2024-09-23 08:00)
PROC: 02L70CK Occlusion of Left Atrial Appendage with Extraluminal Device, Open Approach (ICD-10-PCS; 2024-09-23 08:00)
PROC: 0JH606Z Insertion of Pacemaker, Dual Chamber into Chest Subcutaneous Tissue and Fascia, Open Approach (ICD-10-PCS; 2024-09-26)
PROC: 02H63JZ Insertion of Pacemaker Lead into Right Atrium, Percutaneous Approach (ICD-10-PCS; 2024-09-26)
PROC: 02HK3JZ Insertion of Pacemaker Lead into Right Ventricle, Percutaneous Approach (ICD-10-PCS; 2024-09-26)
DX: Q23.81 Bicuspid aortic valve (principal); G93.41 Metabolic encephalopathy; I44.2 Atrioventricular block, complete; E87.0 Hyperosmolality and hypernatremia; D62 Acute posthemorrhagic anemia; I48.91 Unspecified atrial fibrillation; E55.9 Vitamin D deficiency, unspecified; E86.1 Hypovolemia; I11.9 Hypertensive heart disease without heart failure; J45.909 Unspecified asthma, uncomplicated; K76.0 Fatty (change of) liver, not elsewhere classified; E78.2 Mixed hyperlipidemia; K21.00 Gastro-esophageal reflux disease with esophagitis, without bleeding; M47.812 Spondylosis without myelopathy or radiculopathy, cervical region; G89.29 Other chronic pain; F40.240 Claustrophobia; Z79.01 Long term (current) use of anticoagulants; Z79.02 Long term (current) use of antithrombotics/antiplatelets; Z79.82 Long term (current) use of aspirin; Z86.73 Personal history of transient ischemic attack (TIA), and cerebral infarction without residual deficits; Z79.899 Other long term (current) drug therapy; Z82.49 Family history of ischemic heart disease and other diseases of the circulatory system; Z87.891 Personal history of nicotine dependence
CPT/HCPCS: 33208; 71045; 71046; 80048; 80053; 82330; 82805; 83735; 85025; 85027; 85610; 85730; 86850; 86891; 86900; 86901; 86920; 88305; 88311; 94002; 94640

== ENCOUNTER → 2024-09-21 | Outpatient (CLI) | payer MEDICARE | END | disposition home or self-care (01) | LOC: LABWHC1 08:53 | PROVIDERS: ATTEND Surgery | DX: Z01.810 Encounter for preprocedural cardiovascular examination (principal) | CPT/HCPCS: 86850; 86900; 86901; 86920 ==